=== PATIENT | male | born 1945 | race Caucasian/White ===

== ENCOUNTER → 2016-08-27 | Outpatient (CLI) | payer MEDICARE ==
[2016-08-27 13:19] LABS: Anisocytosis Slight; CH 31.1; CHCM 32.4; HCT 36.3 % (39.0-53.0); HDW 3.43; HGB 11.7 gm/dL (13.0-17.5); Hypochromasia Slight; MCHC 32.1 g/dL (31.0-37.0); MCV 96.6 fL (80.0-100.0); Macrocytosis Slight; Mean Platelet Volume 8.7; Poikilocytosis Slight; RBC 3.76 m/uL (4.30-5.90); RDW 17.3 % (11.5-15.5); WBC 5.9 k/uL (3.8-10.6)
[2016-08-27 13:30] LABS: Anion Gap 12 mmol/L; Blood Urea Nitrogen 19 mg/dL (9-20); Carbon Dioxide 26 mmol/L (22-30); Chloride 105 mmol/L (98-107); Non-African American GFR(MDRD) >60 (>60 ml/min/1.73 sqM); Potassium 4.6 mmol/L (3.5-5.1); Sodium 143 mmol/L (137-145)
== END | disposition home or self-care (01) ==
LOC: LABPAT 12:44
PROVIDERS: ATTEND Internal Medicine Interventional Cardiology
DX: Z01.812 Encounter for preprocedural laboratory examination (principal); I34.0 Nonrheumatic mitral (valve) insufficiency
CPT/HCPCS: 80051; 82565; 84520; 85027

== ENCOUNTER 2016-08-30 06:18 | Day surgery (SDC) | payer MEDICARE ==
[2016-08-25 09:38] VITALS: BMI 20.7
[~2016-08-30 06:18] MED LIST: ALPRAZolam 0.25 MG TAB PO PRN; ALPRAZolam 0.5 MG TAB PO PRN; ASPIRIN 325 MG TAB PO STA; ATORVASTATIN 80 MG TAB PO STA; NITROGLYCERIN SL TABS 0.4 MG TAB SUBLINGUAL PRN; SODIUM CHLORIDE 0.9% 1,000 ML in EMPTY BAG 1 BAG IV ONE
[2016-08-30 07:03] VITALS: RESP 16; TEMP 97.9
[2016-08-30 07:14] LABS: INR 1.3 (<1.1); Prothrombin Time 12.5 sec (9.0-12.0)
[2016-08-30] MEDS ORDERED: MIDAZOLAM 2 MG/2 ML VIAL IV ONE (07:53)
[2016-08-30] MEDS ORDERED: LIDOCAINE 2% INJ 20 MG/ML SQ ONE (07:56)
[2016-08-30] MEDS ORDERED: IOHEXOL 350 MG/ML 100 ML BOTTLE INJ ONE (08:11)
[2016-08-30] MEDS ORDERED: RX INFO: IV CONTRAST WAS GIVEN 1 EACH MISC MISCELLANE PRN (08:20)
[2016-08-30] MEDS ORDERED: SODIUM CHLORIDE 0.9% 1,000 ML IV SCH (08:30)
[2016-08-30 14:09] VITALS: BP 117/74; PULSE 109
--- NOTE | 2016-08-30 15:30 | CC ---
DATE OF SERVICE: 08/30/2016 Performing physician: Paco Escoto M.D. cutter brake lining. PROCEDURE PERFORMED: 1. Selective right and left coronary angiogram. 2. Left heart catheterization. 3. Left ventriculography. INDICATION: This is a pleasant 71-year-old gentleman with chronic atrial fibrillation and severe MR who was admitted to the hospital today to undergo a heart catheterization before mitral valve repair/replacement in the next few weeks with Dr. Mir. Approach: Right common femoral artery. COMPLICATIONS: None. Level of sedation: Moderate. PROCEDURE DESCRIPTION: After obtaining informed consent, the patient was brought to the cardiac laborer poultry [facility]. The right common femoral artery was cannulated using micropuncture technique. Micropuncture wire passed easily. Then I placed 6 [place] sheath in the right common femoral artery. Subsequently, I did selective right and left coronary angiogram using JR4 and JL4 catheters. Then I did left heart catheterization and subsequently LV gram using a 6 [place] pigtail catheter. The procedure was completed without any complication. CORONARY ANGIOGRAM: 1. The RCA is a large-caliber vessel and it is a dominant vessel. The ostial right coronary artery is calcified. The proximal RCA appeared to be angiographically normal. The mid RCA has a lesion that seems to be in the range of 40%. The RCA distally besides being calcified appeared to have mild disease only and bifurcates into PDA and PLV branches; both have mild disease only. 2. The left main: The distal left main appeared to be diseased in the range of 30% and seems to be calcified left main. It bifurcates into the left circumflex and left anterior descending artery. The left circumflex is a moderate-caliber vessel and it is a nondominant vessel. The proximal left circumflex appeared to have mild disease only. It gives rises into a medium sized ramus intermedius, which appeared to have mild disease in the proximal portion. The mid left circumflex appeared to be angiographically normal and gives rise into the second OM branch, which is a small-caliber vessel. The left circumflex distally seems to be angiographically normal. 3. Left anterior descending artery. The proximal left anterior descending artery appeared to have disease in the range of 30% to 40% and seems to be calcified as well. The mid LAD appeared to be angiographically normal. The LAD in the midportion gives rise into second diagonal branch, which appeared to be angiographically normal. The LAD distally is normal. HEMODYNAMICS: The left ventricular end-diastolic pressure was 12 mmHg and no gradient was identified across the aortic valve. Left ventriculography was performed in the MURPHY projection and using a power injection, the left ventricular systolic function seems to be mildly impaired with EF between 40% to 45% with global hypokinesia and severe MR with dilated left atrium. CONCLUSION: 1. Calcified right and left coronary system. 2. 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 3. Mild disease involving the distal left main coronary artery. 4. Mildly impaired left ventricular function with an ejection fraction around 40 to 45% with global hypokinesia. 5. 4+ mitral regurgitation with severe left atrial enlargement. POSTPROCEDURE MANAGEMENT: The patient is going to undergo mitral valve repair/replacement with Dr. Mir without the need for coronary artery bypass grafting.
== END 2016-08-30 15:29 | disposition home or self-care (01) ==
LOC: CATHCVL 06:18
PROVIDERS: ATTEND Internal Medicine Interventional Cardiology
DX: I08.1 Rheumatic disorders of both mitral and tricuspid valves (principal); I25.10 Atherosclerotic heart disease of native coronary artery without angina pectoris; I25.84 Coronary atherosclerosis due to calcified coronary lesion; Z82.49 Family history of ischemic heart disease and other diseases of the circulatory system; Z87.891 Personal history of nicotine dependence; Z79.01 Long term (current) use of anticoagulants; Z79.899 Other long term (current) drug therapy
CPT/HCPCS: 93458; 85610; 99152; C1894; C1769 ×2; J2001; J2250; Q9967

== ENCOUNTER 2016-11-05 09:53 | Emergency (ER) | payer MEDICARE ==
[2016-11-05 10:06] VITALS: RESP 18
--- NOTE | 2016-11-05 10:33 | ED ---
General Adult HPI - General Chief complaint: Weakness Stated complaint: Low Heart Rate Time Seen by Provider: 11/05/16 09:55 Source: EMS Mode of arrival: EMS Limitations: no limitations - Related Data Home Medications Medication Instructions Recorded Confirmed Aspirin 81 mg PO DAILY 11/05/16 11/05/16 Atorvastatin Calcium [Lipitor] 20 mg PO HS 11/05/16 11/05/16 Hydrocodone/Acetaminophen [[place] 1 tab PO Q4HR PRN 11/05/16 11/05/16 5-325] Lisinopril [Zestril] 10 mg PO DAILY 11/05/16 11/05/16 Metoprolol Tartrate [Metoprolol 12.5 mg PO BID 11/05/16 11/05/16 Tartrate] Allergies Allergy/AdvReac Type Severity Reaction Status Date / Time No Known Allergies Allergy Verified 11/05/16 10:56 Review of Systems ROS Statement: Those systems with pertinent positive or pertinent negative responses have been documented in the HPI. ROS Other: All systems not noted in ROS Statement are negative. Past Medical History Past Medical History: Atrial Fibrillation, Hypertension, Mitral Valve Prolapse ( MVP) History of Any Multi-Drug Resistant Organisms: None Reported Past Surgical History: Cardiac Valve Replacement, Hernia Repair Additional Past Surgical History / Comment(s): PAULINA HERNIA REPAIR, KAYLAN Past Anesthesia/Blood Transfusion Reactions: No Reported Reaction Past Psychological History: No Psychological Hx Reported Smoking Status: Former smoker Past Alcohol Use History: Occasional Additional Past Alcohol Use History / Comment(s): SMOKED 1PPD FOR ABOUT 4 YRS IN THE MIDDLE 60'S. STATES DRINKS 2 DRINKS DAILY Past Drug Use History: None Reported - Past Family History Father Sister(s) Family Medical History: Cancer Father Family Medical History: Cancer Additional Family Medical History / Comment(s): PROSTATE Sister(s) Family Medical History: Cancer General Exam Limitations: no limitations Course Vital Signs 11/05/16 11/05/16 11/05/16 09:56 10:16 12:22 Temperature 99.4 F Pulse Rate 45 L 45 L Pulse Rate [ 45 L Network Lead ] Respiratory 18 18 Rate Blood Pressure 107/53 110/56 O2 Sat by Pulse 97 98 Oximetry - Reevaluation(s) Reevaluation #1: 11/05/16 13:04 Patient remains asymptomatic, no shortness of breath no lightheadedness dizziness or weakness blood pressure normal Reevaluation #2: 11/05/16 13:[address] Mir, patient's surgeon, patient was seen in the emergency room by Dr. Mir and cleared for discharge EKG Findings - EKG Comments: EKG Findings:: EKG shows A. fib with a rate of 42, QRS 84, QTC 379 Medical Decision Making - Medical Decision Making 71 LDF. Bradycardia, patient's symptoms at this point are none, heart rate still in the low end, patient was seen in ER by Dr. Mir, Dr. Mir will recommend discharge home with follow-up in the office this week - Lab Data Result diagrams: 11/05/16 10:13 11/05/16 10:13 Lab Results 11/05/16 11/05/16 11/05/16 Range/Units 10:13 10:13 10:13 WBC 10.7 H (3.8-10.6) k/uL RBC 2.78 L (4.30-5.90) m/uL Hgb 8.6 L (13.0-17.5) gm/dL Hct 26.3 L (39.0-53.0) % MCV 94.7 (80.0-100.0) fL MCH 31.1 (25.0-35.0) pg MCHC 32.9 (31.0-37.0) g/dL RDW 16.7 H (11.5-15.5) % Plt Count 616 H (150-450) k/uL Neutrophils % 77 % Lymphocytes % 9 % Monocytes % 8 % Eosinophils % 2 % Basophils % 1 % Neutrophils # 8.2 H (1.3-7.7) k/uL Lymphocytes # 1.0 (1.0-4.8) k/uL Monocytes # 0.9 (0-1.0) k/uL Eosinophils # 0.2 (0-0.7) k/uL Basophils # 0.1 (0-0.2) k/uL Anisocytosis Slight PT (9.0-12.0) sec INR (<1.1) APTT (22.0-30.0) sec Sodium 137 (137-145) mmol/L Potassium 5.2 H (3.5-5.1) mmol/L Chloride 103 (98-107) mmol/L Carbon Dioxide 26 (22-30) mmol/L Anion Gap 8 mmol/L BUN 20 (9-20) mg/dL Creatinine 0.79 (0.66-1.25) mg/dL Est GFR (MDRD) Af Amer >60 (>60 ml/min/1.73 sqM) Est GFR (MDRD) Non-Af >60 (>60 ml/min/1.73 sqM) Glucose 96 (74-99) mg/dL Calcium 9.0 (8.4-10.2) mg/dL Phosphorus 4.3 (2.5-4.5) mg/dL Magnesium 2.2 (1.6-2.3) mg/dL Total Bilirubin 0.6 (0.2-1.3) mg/dL AST 69 H (17-59) U/L ALT 112 H (21-72) U/L Alkaline Phosphatase 128 H (38-126) U/L Total Creatine Kinase 49 L (55-170) U/L CK-MB (CK-2) 1.5 (0.0-2.4) ng/mL CK-MB (CK-2) Rel Index 3.1 Troponin I 0.976 H* (0.000-0.034) ng/mL Total Protein 6.0 L (6.3-8.2) g/dL Albumin 3.3 L (3.5-5.0) g/dL 11/05/16 Range/Units 10:13 WBC (3.8-10.6) k/uL RBC (4.30-5.90) m/uL Hgb (13.0-17.5) gm/dL Hct (39.0-53.0) % MCV (80.0-100.0) fL MCH (25.0-35.0) pg MCHC (31.0-37.0) g/dL RDW (11.5-15.5) % Plt Count (150-450) k/uL Neutrophils % % Lymphocytes % % Monocytes % % Eosinophils % % Basophils % % Neutrophils # (1.3-7.7) k/uL Lymphocytes # (1.0-4.8) k/uL Monocytes # (0-1.0) k/uL Eosinophils # (0-0.7) k/uL Basophils # (0-0.2) k/uL Anisocytosis PT 11.8 (9.0-12.0) sec INR 1.2 (<1.1) APTT 27.1 (22.0-30.0) sec Sodium (137-145) mmol/L Potassium (3.5-5.1) mmol/L Chloride (98-107) mmol/L Carbon Dioxide (22-30) mmol/L Anion Gap mmol/L BUN (9-20) mg/dL Creatinine (0.66-1.25) mg/dL Est GFR (MDRD) Af Amer (>60 ml/min/1.73 sqM) Est GFR (MDRD) Non-Af (>60 ml/min/1.73 sqM) Glucose (74-99) mg/dL Calcium (8.4-10.2) mg/dL Phosphorus (2.5-4.5) mg/dL Magnesium (1.6-2.3) mg/dL Total Bilirubin (0.2-1.3) mg/dL AST (17-59) U/L ALT (21-72) U/L Alkaline Phosphatase (38-126) U/L Total Creatine Kinase (55-170) U/L CK-MB (CK-2) (0.0-2.4) ng/mL CK-MB (CK-2) Rel Index Troponin I (0.000-0.034) ng/mL Total Protein (6.3-8.2) g/dL Albumin (3.5-5.0) g/dL - Radiology Data Radiology results: report reviewed (Chest x-ray shows no significant findings), image reviewed Disposition Clinical Impression: Bradycardia, Atrial fibrillation, Post-operative complication Disposition: HOME SELF-CARE Condition: Good Instructions: Bradycardia (ED) Referrals: Zhen Carlos MD [Primary Care Provider] - 1-2 days Yaya Mir MD [STAFF PHYSICIAN] - 1-2 days
[2016-11-05] MEDS ORDERED: SODIUM CHLORIDE 0.9% 1,000 ML IV STA (10:38)
[2016-11-05 11:05] LABS: ALT 112 U/L (21-72); AST 69 U/L (17-59); Alkaline Phosphatase 128 U/L (38-126); Anion Gap 8 mmol/L; Blood Urea Nitrogen 20 mg/dL (9-20); Carbon Dioxide 26 mmol/L (22-30); Chloride 103 mmol/L (98-107); Glucose 96 mg/dL (74-99); Magnesium 2.2 mg/dL (1.6-2.3); Non-African American GFR(MDRD) >60 (>60 ml/min/1.73 sqM); Phosphorous 4.3 mg/dL (2.5-4.5); Potassium 5.2 mmol/L (3.5-5.1); Sodium 137 mmol/L (137-145); Total Bilirubin 0.6 mg/dL (0.2-1.3)
[2016-11-05 11:07] LABS: INR 1.2 (<1.1); Partial Thromboplastin Time 27.1 sec (22.0-30.0); Prothrombin Time 11.8 sec (9.0-12.0)
[2016-11-05 11:10] LABS: Anisocytosis Slight; Basophils # (A) 0.1 k/uL (0-0.2); Basophils % (A) 1 %; CH 31.3; CHCM 33.3; Eosinophils # (A) 0.2 k/uL (0-0.7); Eosinophils % (A) 2 %; HCT 26.3 % (39.0-53.0); HDW 3.38; HGB 8.6 gm/dL (13.0-17.5); Luc % (Auto) 3; Lymphocytes % (A) 9 %; MCH 31.1 pg (25.0-35.0); MCHC 32.9 g/dL (31.0-37.0); MCV 94.7 fL (80.0-100.0); Mean Platelet Volume 8.5; Monocytes # (A) 0.9 k/uL (0-1.0); Monocytes % (A) 8 %; Neutrophils # (A) 8.2 k/uL (1.3-7.7); Neutrophils % (A) 77 %; RBC 2.78 m/uL (4.30-5.90); RDW 16.7 % (11.5-15.5); WBC 10.7 k/uL (3.8-10.6); WBC (Perox) 10.71
[2016-11-05 11:31] LABS: Creatine Kinase MB 1.5 ng/mL (0.0-2.4)
[2016-11-05 11:35] LABS: Troponin I 0.976 ng/mL (0.000-0.034)
--- NOTE | 2016-11-05 12:18 | XR ---
EXAMINATION TYPE: XR chest 2V DATE OF EXAM: 11/05/2016 12:12 PM COMPARISON: NONE TECHNIQUE: PA and lateral views submitted. HISTORY: Pain FINDINGS: Left lower lobe infiltrate and small effusion. The heart is enlarged. Postsurgical changes noted. Davide rnotomy wires seen. No overt failure. IMPRESSION: 1. Cardiomegaly with left lower lobe infiltrate and small effusion.
[2016-11-05 13:20] VITALS: BP 120/59; PULSE 56; TEMP 98.2
--- NOTE | 2016-11-05 13:32 | CONS ---
DATE OF CONSULTATION: Mr. Wu is a 71 -year-old gentleman who is two weeks status post mitral and tricuspid valve repair and modified Lucas-Maze procedure for persistent atrial fibrillation associated with mitral and tricuspid valve regurgitation. The patient called my office today because his heart rate was in the 40s and he was scared. He was otherwise asymptomatic. We reassured him not to worry and recommended he discontinue his Lopressor. His was nervous and brought him to the Emergency Room Department . Here in the Emergency Room Department, his lab work is essentially unchanged from hospitalization. He has no white count. His hemoglobin is 8.6. His EKG demonstrates atrial fibrillation with a slow ventricular response with a heart rate in the 40s. On the monitor, he is going anywhere from about 40 to 55. His blood pressure is good and he is asymptomatic. His chest x-ray demonstrates a small left basilar pleural effusion, otherwise unremarkable. Lung kapadia are clear. Heart rate is irregularly irregular without murmur, rub or gallop. Appears the patient has slipped back into atrial fibrillation status post his mitral, tricuspid repair and Lucas-Maze procedure. He is currently on anticoagulation. He has slow ventricular response. We will discontinue this Lopressor and discharge him home and follow-up with him in the office in a week or so.
--- NOTE | 2016-11-08 12:08 | CDI ---
Please provide an HPI for this patient. Thank you Sharon MENDOZA
== END 2016-11-05 13:17 | disposition home or self-care (01) ==
LOC: EC 09:53
DX: I97.190 Other postprocedural cardiac functional disturbances following cardiac surgery (principal); I48.91 Unspecified atrial fibrillation; R00.1 Bradycardia, unspecified; I51.7 Cardiomegaly; J90 Pleural effusion, not elsewhere classified; I34.1 Nonrheumatic mitral (valve) prolapse; I10 Essential (primary) hypertension; Z79.899 Other long term (current) drug therapy; Z79.82 Long term (current) use of aspirin; Z87.891 Personal history of nicotine dependence; Z95.2 Presence of prosthetic heart valve; Z79.01 Long term (current) use of anticoagulants
CPT/HCPCS: 36415; 71020; 80053; 82550; 82553; 83735; 84100; 84484; 85025; 85610; 85730; 93005; 96360; 96361; 99285

== ENCOUNTER → 2016-12-15 | Outpatient (CLI) | payer MEDICARE ==
[2016-12-15 08:13] LABS: Anisocytosis Slight; Basophils % (A) 1 %; CH 30.1; CHCM 31.8; Eosinophils # (A) 0.2 k/uL (0-0.7); Eosinophils % (A) 4 %; HCT 31.3 % (39.0-53.0); HDW 3.13; HGB 9.8 gm/dL (13.0-17.5); Hypochromasia Slight; Luc # (Auto) 0.22; Luc % (Auto) 4; Lymphocytes # (A) 0.9 k/uL (1.0-4.8); Lymphocytes % (A) 15 %; MCH 29.8 pg (25.0-35.0); MCHC 31.4 g/dL (31.0-37.0); MCV 95.1 fL (80.0-100.0); Mean Platelet Volume 8.5; Monocytes # (A) 0.5 k/uL (0-1.0); Monocytes % (A) 8 %; Neutrophils # (A) 4.2 k/uL (1.3-7.7); Neutrophils % (A) 70 %; RBC 3.28 m/uL (4.30-5.90); RDW 17.1 % (11.5-15.5); WBC 6.1 k/uL (3.8-10.6); WBC (Perox) 6.34
[2016-12-15 11:43] LABS: Hemoglobin A1C 6.3 % (4.2-6.1)
[2016-12-15 11:49] LABS: ALT 31 U/L (21-72); AST 26 U/L (17-59); Alkaline Phosphatase 77 U/L (38-126); Anion Gap 8 mmol/L; Bilirubin, Delta 0.1 mg/dL (0.0-0.2); Blood Urea Nitrogen 22 mg/dL (9-20); Calcium 9.7 mg/dL (8.4-10.2); Carbon Dioxide 26 mmol/L (22-30); Chloride 107 mmol/L (98-107); Cholesterol 138 mg/dL (<200); Glucose 100 mg/dL (74-99); HDL Cholesterol 29 mg/dL (40-60); Non-African American GFR(MDRD) >60 (>60 ml/min/1.73 sqM); Potassium 4.7 mmol/L (3.5-5.1); Sodium 141 mmol/L (137-145); Total Bilirubin 0.5 mg/dL (0.2-1.3); Total Protein 6.5 g/dL (6.3-8.2); Triglycerides 131 mg/dL (<150)
[2016-12-15 12:18] LABS: Prostate Specific Antigen 1.29 ng/mL (0.00-4.00)
== END | disposition home or self-care (01) ==
LOC: LABWHC1 07:05
PROVIDERS: ATTEND Internal Medicine
DX: E78.2 Mixed hyperlipidemia (principal); I48.2 Chronic atrial fibrillation; D69.1 Qualitative platelet defects; N40.0 Benign prostatic hyperplasia without lower urinary tract symptoms; R73.03 Prediabetes
CPT/HCPCS: 36415; 80048; 80061; 80076; 83036; 84153; 85025

== ENCOUNTER → 2017-03-24 | Outpatient (CLI) | payer MEDICARE ==
[2017-03-24 19:21] LABS: Anisocytosis Slight; CH 29.4; CHCM 29.7; HCT 33.4 % (39.0-53.0); HDW 2.62; Hypochromasia Marked; MCH 29.9 pg (25.0-35.0); MCHC 30.1 g/dL (31.0-37.0); MCV 99.5 fL (80.0-100.0); Macrocytosis Slight; Mean Platelet Volume 9.7; RBC 3.36 m/uL (4.30-5.90); RBC Ghost Flag Slight; RDW 17.7 % (11.5-15.5); WBC 5.1 k/uL (3.8-10.6); WBC (Perox) 5.41
[2017-03-24 21:41] LABS: Add Differential Manual Differential
[2017-03-24 21:44] LABS: Band Neutrophils % 4 %; Nucleated Red Blood Cells 0 /100 WBC (0-0); Total Cells Counted 100
[2017-03-24 21:45] LABS: Manual Review Performed; Ovalocytes Present; Polychromasia Present
== END | disposition home or self-care (01) ==
LOC: LABWHC1 12:17
PROVIDERS: ATTEND Internal Medicine
DX: D64.9 Anemia, unspecified (principal)
CPT/HCPCS: 36415; 85025

== ENCOUNTER → 2017-07-24 | Outpatient (CLI) | payer MEDICARE ==
[2017-07-24 13:48] LABS: INR 1.2 (<1.2); Partial Thromboplastin Time 26.2 sec (22.0-30.0); Prothrombin Time 11.2 sec (9.0-12.0)
== END | disposition home or self-care (01) ==
LOC: LABMAIN 12:47
PROVIDERS: ATTEND Physical Medicine & Rehabilitation
DX: M54.16 Radiculopathy, lumbar region (principal); S39.012A Strain of muscle, fascia and tendon of lower back, initial encounter
CPT/HCPCS: 36415; 85610; 85730

== ENCOUNTER → 2018-01-31 | Outpatient (CLI) | payer MEDICARE ==
[2018-01-31 09:29] LABS: Anisocytosis Slight; HCT 34.8 % (39.0-53.0); HGB 10.9 gm/dL (13.0-17.5); Hypochromasia Slight; MCH 29.8 pg (25.0-35.0); MCHC 31.2 g/dL (31.0-37.0); MCV 95.4 fL (80.0-100.0); Mean Platelet Volume 9.5; Platelet Count 752 k/uL (150-450); RBC 3.65 m/uL (4.30-5.90); RDW 16.9 % (11.5-15.5); WBC 5.7 k/uL (3.8-10.6)
[2018-01-31 10:01] LABS: ALT 47 U/L (21-72); AST 45 U/L (17-59); Anion Gap 5 mmol/L; Blood Urea Nitrogen 18 mg/dL (9-20); Calcium 9.6 mg/dL (8.4-10.2); Carbon Dioxide 28 mmol/L (22-30); Chloride 106 mmol/L (98-107); Cholesterol 150 mg/dL (<200); Glucose 102 mg/dL (74-99); HDL Cholesterol 43 mg/dL (40-60); LDL Cholesterol,Calculated 83 mg/dL (0-99); Potassium 4.6 mmol/L (3.5-5.1); Sodium 139 mmol/L (137-145); Triglycerides 118 mg/dL (<150)
[2018-01-31 10:39] LABS: Eosinophils # (M) 0.06 k/uL (0-0.7); Nucleated Red Blood Cells 0 /100 WBC (0-0)
[2018-01-31 10:42] LABS: Band Neutrophils % 3 %; Lymphocytes # (M) 0.57 k/uL (1.0-4.8); Monocytes # (M) 0.46 k/uL (0-1.0); Neutrophils % (M) 80 %; Total Cells Counted 200
[2018-01-31 10:43] LABS: Anisocytosis (M) Present; Poikilocytosis (M) Present; RBC Fragments Present
[2018-01-31 10:44] LABS: Ovalocytes Present; Polychromasia Present
[2018-01-31 17:58] LABS: Hemoglobin A1C 5.7 % (4.0-6.0)
== END | disposition home or self-care (01) ==
LOC: LABWHC1 08:09
PROVIDERS: ATTEND Internal Medicine
DX: E78.2 Mixed hyperlipidemia (principal); E55.9 Vitamin D deficiency, unspecified; R73.03 Prediabetes; D69.1 Qualitative platelet defects; I48.2 Chronic atrial fibrillation; N40.0 Benign prostatic hyperplasia without lower urinary tract symptoms
CPT/HCPCS: 36415; 80048; 80061; 82306; 83036; 84153; 84450; 84460; 85025

== ENCOUNTER → 2020-02-25 | Outpatient (CLI) | payer MEDICARE ==
[2020-02-25 15:52] LABS: Chol/HDL Ratio 3.82; LDL Cholesterol,Calculated 84.2 mg/dL (0.0-131.0); VLDL Calculation 25.8 mg/dL (5.00-40.00)
[2020-02-25 17:47] LABS: Hemoglobin A1C 4.3 % (4.0-6.0)
== END | disposition home or self-care (01) ==
LOC: LABWHC1 07:53
PROVIDERS: ATTEND Internal Medicine
DX: E55.9 Vitamin D deficiency, unspecified (principal)
CPT/HCPCS: 36415; 80061; 82306; 82947; 83036

== ENCOUNTER 2021-02-26 23:45 | Emergency (ER) | payer MEDICARE ==
[2021-02-27 00:02] VITALS: TEMP 98.2
[2021-02-27] MEDS ORDERED: SODIUM CHLORIDE 0.9% 1,000 ML IV STA (00:57)
[2021-02-27] MEDS ORDERED: SODIUM CHLORIDE 0.9% 500 ML 500 ML IV STA (00:57)
[2021-02-27] MEDS ORDERED: PROCHLORPERAZINE INJ 10 MG/2 ML VIAL IVP STA (00:58)
[2021-02-27] MEDS ORDERED: MORPHINE SULFATE 4 MG/ML SYRINGE IVP STA (00:58)
[2021-02-27] MEDS ORDERED: diphenhydrAMINE 50 MG/ML 1 ML VIAL IVP STA (00:58)
[2021-02-27] MEDS ORDERED: KETOROLAC 15 MG/ML 1 ML VIAL IVP STA (01:18)
--- NOTE | 2021-02-27 01:18 | ED ---
Recheck HPI - General Chief Complaint: Headache Stated Complaint: Headache Time Seen by Provider: 02/27/21 00:59 Source: patient, RN notes reviewed, old records reviewed Mode of arrival: ambulatory Limitations: no limitations - History of Present Illness Initial Comments: This is a 75-year-old male to the ER today for evaluation regards to headache. Patient has had outpatient evaluation for headache but no outpatient treatment does appear to be helping. No trauma the patient is unable to sleep secondary to this headache. He has had an outpatient computed tomography scan which is negative for acute disease both with and without contrast. Patient is without any seizure activity no neurological complaint is able to ambulate will do activities of daily living without neurological difficulty. Patient has had history of headaches although isn't by far the longest and worse patient's headache is diffuse and global from the right ear across the left ear MD Complaint: other (Persistent headache) -: week(s) Returns Today for: persistent/worsening pain related to initial visit Symptoms Since Prior Visit: worsening pain Context: other (Persistent headache) Associated Symptoms: none Treatments Prior to Arrival: other medications, Given Pain Meds on - Related Data Home Medications Medication Instructions Recorded Confirmed Aspirin 81 mg PO DAILY 11/05/16 11/05/16 Atorvastatin Calcium [Lipitor] 20 mg PO HS 11/05/16 11/05/16 Hydrocodone/Acetaminophen [[place] 1 tab PO Q4HR PRN 11/05/16 11/05/16 5-325] Lisinopril [Zestril] 10 mg PO DAILY 11/05/16 11/05/16 Metoprolol Tartrate 12.5 mg PO BID 11/05/16 11/05/16 Allergies Allergy/AdvReac Type Severity Reaction Status Date / Time No Known Allergies Allergy Verified 02/27/21 00:02 Review of Systems ROS Statement: Those systems with pertinent positive or pertinent negative responses have been documented in the HPI. ROS Other: All systems not noted in ROS Statement are negative. Past Medical History Past Medical History: Atrial Fibrillation, Blood Disorder, Hypertension, Mitral Valve Prolapse (MVP) History of Any Multi-Drug Resistant Organisms: None Reported Past Surgical History: Cardiac Valve Replacement, Hernia Repair Additional Past Surgical History / Comment(s): PAULINA HERNIA REPAIR, KAYLAN Past Anesthesia/Blood Transfusion Reactions: No Reported Reaction Past Psychological History: No Psychological Hx Reported Smoking Status: Never smoker Past Alcohol Use History: Daily, Occasional Past Drug Use History: None Reported - Past Family History Father Sister(s) Family Medical History: Cancer Father Family Medical History: Cancer Additional Family Medical History / Comment(s): PROSTATE Sister(s) Family Medical History: Cancer General Exam - General Exam Comments Initial Comments: NIH of 0 Limitations: no limitations General appearance: alert, in no apparent distress Head exam: Present: atraumatic, normocephalic, normal inspection Eye exam: Present: normal appearance, PERRL, EOMI. Absent: scleral icterus, conjunctival injection, periorbital swelling ENT exam: Present: normal exam, mucous membranes moist Neck exam: Present: normal inspection. Absent: tenderness, meningismus, lymphadenopathy Respiratory exam: Present: normal lung sounds bilaterally. Absent: respiratory distress, wheezes, rales, rhonchi, stridor Cardiovascular Exam: Present: regular rate, normal rhythm, normal heart sounds. Absent: systolic murmur, diastolic murmur, rubs, gallop, clicks GI/Abdominal exam: Present: soft, normal bowel sounds. Absent: distended, tenderness, guarding, rebound, rigid Extremities exam: Present: normal inspection, full ROM, normal capillary refill. Absent: tenderness, pedal edema, joint swelling, calf tenderness Back exam: Present: normal inspection Neurological exam: Present: alert, oriented X3, CN II-XII intact Psychiatric exam: Present: normal affect, normal mood Skin exam: Present: warm, dry, intact, normal color. Absent: rash Course Vital Signs 02/26/21 23:56 Temperature 98.2 F Pulse Rate 86 Respiratory 16 Rate Blood Pressure 127/69 O2 Sat by Pulse 97 Oximetry - Reevaluation(s) Reevaluation #1: 02/27/21 02:04 Medical record is reviewed Reevaluation #2: 02/27/21 02:05 Patient's headache is improved Reevaluation #3: 02/27/21 02:05 Patient informed results and questions answered Medical Decision Making - Medical Decision Making 75 male to the ER with headache. Persistent headache with prior CT scans negative, patient does have improvement of headache here in the ER and can be discharged home - Lab Data Result diagrams: 02/27/21 00:57 02/27/21 00:57 Lab Results 02/27/21 02/27/21 02/27/21 Range/Units 00:57 00:57 00:57 WBC 9.6 (3.8-10.6) k/uL RBC 2.36 L (4.30-5.90) m/uL Hgb 7.6 L (13.0-17.5) gm/dL Hct 24.2 L (39.0-53.0) % MCV 102.3 H (80.0-100.0) fL MCH 32.3 (25.0-35.0) pg MCHC 31.5 (31.0-37.0) g/dL RDW 23.1 H (11.5-15.5) % Plt Count 776 H (150-450) k/uL MPV 9.3 Hypochromasia Slight Poikilocytosis Slight Anisocytosis Moderate Microcytosis Slight Macrocytosis Marked A APTT 30.3 H (22.0-30.0) sec Sodium 136 L (137-145) mmol/L Potassium 4.9 (3.5-5.1) mmol/L Chloride 103 (98-107) mmol/L Carbon Dioxide 24 (22-30) mmol/L Anion Gap 9 mmol/L BUN 26 H (9-20) mg/dL Creatinine 0.99 (0.66-1.25) mg/dL Est GFR (CKD-EPI)AfAm 86 (>60 ml/min/1.73 sqM) Est GFR (CKD-EPI)NonAf 74 (>60 ml/min/1.73 sqM) Glucose 107 H (74-99) mg/dL Calcium 9.5 (8.4-10.2) mg/dL Phosphorus 4.1 (2.5-4.5) mg/dL Magnesium 2.1 (1.6-2.3) mg/dL Total Bilirubin 1.8 H (0.2-1.3) mg/dL AST 134 H (17-59) U/L ALT 46 (4-49) U/L Alkaline Phosphatase 82 (38-126) U/L Troponin I (0.000-0.034) ng/mL C-Reactive Protein 0.7 (<1.0) mg/dL Total Protein 6.7 (6.3-8.2) g/dL Albumin 4.6 (3.5-5.0) g/dL 08/20/21 Range/Units 00:57 WBC (3.8-10.6) k/uL RBC (4.30-5.90) m/uL Hgb (13.0-17.5) gm/dL Hct (39.0-53.0) % MCV (80.0-100.0) fL MCH (25.0-35.0) pg MCHC (31.0-37.0) g/dL RDW (11.5-15.5) % Plt Count (150-450) k/uL MPV Hypochromasia Poikilocytosis Anisocytosis Microcytosis Macrocytosis APTT (22.0-30.0) sec Sodium (137-145) mmol/L Potassium (3.5-5.1) mmol/L Chloride (98-107) mmol/L Carbon Dioxide (22-30) mmol/L Anion Gap mmol/L BUN (9-20) mg/dL Creatinine (0.66-1.25) mg/dL Est GFR (CKD-EPI)AfAm (>60 ml/min/1.73 sqM) Est GFR (CKD-EPI)NonAf (>60 ml/min/1.73 sqM) Glucose (74-99) mg/dL Calcium (8.4-10.2) mg/dL Phosphorus (2.5-4.5) mg/dL Magnesium (1.6-2.3) mg/dL Total Bilirubin (0.2-1.3) mg/dL AST (17-59) U/L ALT (4-49) U/L Alkaline Phosphatase (38-126) U/L Troponin I 0.048 H* (0.000-0.034) ng/mL C-Reactive Protein (<1.0) mg/dL Total Protein (6.3-8.2) g/dL Albumin (3.5-5.0) g/dL Disposition Clinical Impression: Headache, Anemia Disposition: HOME SELF-CARE Condition: Good Instructions (If sedation given, give patient instructions): Acute Headache (ED) Is patient prescribed a controlled substance at d/c from ED?: No Referrals: Nonstaff,Physician [Primary Care Provider] - 1-2 days
[2021-02-27 01:52] LABS: Albumin 4.6 g/dL (3.5-5.0); C Reactive Protein 0.7 mg/dL (<1.0); Calcium 9.5 mg/dL (8.4-10.2); Magnesium 2.1 mg/dL (1.6-2.3); Phosphorus 4.1 mg/dL (2.5-4.5); Potassium 4.9 mmol/L (3.5-5.1); Total Bilirubin 1.8 mg/dL (0.2-1.3); Total Protein 6.7 g/dL (6.3-8.2)
[2021-02-27 02:30] LABS: Anisocytosis Moderate; HCT 24.2 % (39.0-53.0); HGB 7.6 gm/dL (13.0-17.5); Hypochromasia Slight; MCH 32.3 pg (25.0-35.0); MCHC 31.5 g/dL (31.0-37.0); MCV 102.3 fL (80.0-100.0); Macrocytosis Marked; Mean Platelet Volume 9.3; Microcytosis Slight; Platelet Count 776 k/uL (150-450); Poikilocytosis Slight; RBC 2.36 m/uL (4.30-5.90); RDW 23.1 % (11.5-15.5)
[2021-02-27 03:32] LABS: Polychromasia Present; RBC Fragments Present
[2021-02-27 03:33] LABS: Large Platelets Present
[2021-02-27 03:46] VITALS: BP 117/74; PULSE 63; RESP 15
[2021-02-27 08:46] LABS: WBC 9.6 k/uL (3.8-10.6)
[2021-02-27 08:51] LABS: Band Neutrophils % 2 %; Basophils # (M) 0.19 k/uL (0-0.2); Blast Cells # (M) 0.48 k/uL (0); Eosinophils # (M) 0.19 k/uL (0-0.7); Lymphocytes # (M) 1.06 k/uL (1.0-4.8); Metamyelocytes # (M) 0.19 k/uL (0); Metamyelocytes % 2 %; Monocytes # (M) 1.25 k/uL (0-1.0); Myelocytes % 1 %; Neutrophils % (M) 65 %; Nucleated Red Blood Cells 0 /100 WBC (0-0); Total Cells Counted 200
== END 2021-02-27 03:44 | disposition home or self-care (01) ==
LOC: EC 23:45
DX: R51.9 Headache, unspecified (principal); D64.9 Anemia, unspecified; I48.91 Unspecified atrial fibrillation; I10 Essential (primary) hypertension; Z95.2 Presence of prosthetic heart valve; Z79.82 Long term (current) use of aspirin
CPT/HCPCS: 99284; 96365; 96375 ×4; 96361; 36415; 80053; 83735; 84100; 84484; 85025; 85730; 86140; J2270; J1200; J0780; J2930; J1885

== ENCOUNTER 2021-04-07 20:39 | Inpatient (IN) | payer MEDICARE ==
--- NOTE | 2021-04-07 21:41 | XR ---
EXAMINATION TYPE: XR abdomen 2V DATE OF EXAM: 04/07/2021 COMPARISON: NONE HISTORY: Abdominal pain TECHNIQUE: 3 views FINDINGS: Bowel gas pattern is normal. There is no sign of intestinal obstruction or pneumoperitoneum . Fecal pattern is normal. There are no pathologic calcifications over the kidneys. Bony structures a re intact. Lung bases are clear. IMPRESSION: Nonacute abdomen.
[2021-04-07] MEDS ORDERED: MORPHINE SULFATE 2 MG/ML SYRINGE IVP STA (22:06)
[2021-04-07] MEDS ORDERED: SODIUM CHLORIDE 0.9% 500 ML 500 ML IV STA (22:06)
--- NOTE | 2021-04-07 22:16 | ED ---
General Adult HPI - General Source: patient, family, RN notes reviewed, old records reviewed Mode of arrival: ambulatory Limitations: no limitations - History of Present Illness -: days(s) (1) Location: abdomen Radiation: non-radiation Severity scale (1-10): 5 Quality: aching Consistency: constant Improves with: none Worsens with: other (Vomiting) Associated Symptoms: nausea/vomiting, other (Dark colored urine) Treatments Prior to Arrival: other (Zofran 2) <Mike Vieira - Last Filed: 04/08/21 00:00> <Addy Harry - Last Filed: 04/08/21 01:57> - General Chief complaint: Abdominal Pain Stated complaint: Vomiting Time Seen by Provider: 04/07/21 21:55 - History of Present Illness Initial comments: This is a 75-year-old white male, alert and oriented 4, presents to the emergency room with complaints of right upper to mid abdominal pain that started this afternoon. He states that it is cramping in nature. It did cause him to vomit twice after eating chicken soup around 2:00. He then developed the abdominal pain with multiple dry heaves greater than 10 times. He states that he went to the bathroom and noticed that his urine is very dark in color which is new. He does have a history of anemia, atrial fibrillation, mitral valve prolapse, hypertension, and enlarged spleen his eyes are jaundiced which he states is new for him as well. He also has a history of myelofibrosis and is being treated and [facility] [place] with injections every 3 weeks to a 6 hemoglobin. He is normally anemic with hemoglobin of 7. (Mike Vieira) - Related Data Home Medications Medication Instructions Recorded Confirmed Aspirin 81 mg PO DAILY 11/05/16 11/05/16 Atorvastatin Calcium [Lipitor] 20 mg PO HS 11/05/16 11/05/16 Hydrocodone/Acetaminophen [Voca 1 tab PO Q4HR PRN 11/05/16 11/05/16 5-325] Lisinopril [Zestril] 10 mg PO DAILY 11/05/16 11/05/16 Metoprolol Tartrate 12.5 mg PO BID 11/05/16 11/05/16 Previous Rx's Medication Instructions Recorded Prochlorperazine [Compazine] 10 mg PO Q6H #20 tab 02/27/21 Allergies Allergy/AdvReac Type Severity Reaction Status Date / Time No Known Allergies Allergy Verified 04/07/21 21:11 Review of Systems ROS Other: All systems not noted in ROS Statement are negative. <IshaMike - Last Filed: 04/08/21 00:00> ROS Other: All systems not noted in ROS Statement are negative. <Addy Harry Joel - Last Filed: 04/08/21 01:57> ROS Statement: Those systems with pertinent positive or pertinent negative responses have been documented in the HPI. Past Medical History Past Medical History: Atrial Fibrillation, Blood Disorder, Hypertension, Mitral Valve Prolapse (MVP) History of Any Multi-Drug Resistant Organisms: None Reported Past Surgical History: Cardiac Valve Replacement, Hernia Repair Additional Past Surgical History / Comment(s): PAULINA HERNIA REPAIR, KAYLAN Past Anesthesia/Blood Transfusion Reactions: No Reported Reaction Past Psychological History: No Psychological Hx Reported Smoking Status: Never smoker Past Alcohol Use History: Daily, Occasional Past Drug Use History: None Reported - Past Family History Father Sister(s) Family Medical History: Cancer Father Family Medical History: Cancer Additional Family Medical History / Comment(s): PROSTATE Sister(s) Family Medical History: Cancer <gerardMike - Last Filed: 04/08/21 00:00> General Exam Limitations: no limitations General appearance: alert, in no apparent distress Head exam: Present: atraumatic, normocephalic, normal inspection Eye exam: Present: PERRL, EOMI, scleral icterus ENT exam: Present: normal exam, normal oropharynx, mucous membranes moist Neck exam: Present: normal inspection, full ROM. Absent: tenderness, meningismus, lymphadenopathy Respiratory exam: Present: normal lung sounds bilaterally. Absent: respiratory distress, wheezes, rales, rhonchi, stridor, chest wall tenderness Cardiovascular Exam: Present: tachycardia. Absent: JVD GI/Abdominal exam: Present: soft, tenderness (Right upper quadrant) Extremities exam: Present: normal inspection, full ROM, normal capillary refill. Absent: tenderness, pedal edema, joint swelling, calf tenderness Back exam: Present: normal inspection, full ROM. Absent: tenderness, CVA tenderness (R), CVA tenderness (L), rash noted Neurological exam: Present: alert, oriented X3 Psychiatric exam: Present: normal affect, normal mood Skin exam: Present: warm, dry, intact, pallor. Absent: rash, cyanosis, diaphoretic <Mike Vieira - Last Filed: 04/08/21 00:00> Course Vital Signs 04/07/21 04/08/21 04/08/21 21:09 00:00 01:02 Temperature 98.1 F Pulse Rate 107 H 95 110 H Respiratory 19 18 Rate Blood Pressure 180/97 184/112 182/105 O2 Sat by Pulse 99 97 Oximetry EKG Findings - EKG Results: EKG shows: atrial fibrillation (Ventricular rate of 99, QRS 0.96, QTC 0.408) <Mike Vieira - Last Filed: 04/08/21 00:00> Medical Decision Making - Lab Data Result diagrams: 04/07/21 22:18 04/07/21 23:04 <Mike Vieira - Last Filed: 04/08/21 00:00> - Lab Data Result diagrams: 04/07/21 22:18 04/07/21 23:04 <Addy Harry - Last Filed: 04/08/21 01:57> - Medical Decision Making X-ray of the abdomen shows no intestinal distraction or pneumoperitoneum. No calcifications over the kidneys. Patient's WBC count is 22.9, his hemoglobin is 9.3, his platelet count is elevated 990. Lactic acid is 2.2 and he was given a liter normal saline started at 30 mL an hour of normal saline. CK-MB is elevated at 3.6. His troponin is 0.132 however historically patient runs high. CT of his abdomen with contrast was ordered. Case was discussed with Dr. Harry (Mike Vieira) - Lab Data Lab Results 04/07/21 04/07/21 04/07/21 Range/Units 22:18 22:18 22:18 WBC 22.5 H (3.8-10.6) k/uL RBC 3.01 L (4.30-5.90) m/uL Hgb 9.3 L D (13.0-17.5) gm/dL Hct 30.3 L (39.0-53.0) % MCV 100.7 H (80.0-100.0) fL MCH 30.9 (25.0-35.0) pg MCHC 30.7 L (31.0-37.0) g/dL RDW 21.7 H (11.5-15.5) % Plt Count 990 H (150-450) k/uL MPV 9.5 Neutrophils % (Manual) 73 % Band Neuts % (Manual) 12 % Lymphocytes % (Manual) 10 % Monocytes % (Manual) 4 % Eosinophils % (Manual) 2 % Neutrophils # (Manual) 19.10 H (1.3-7.7) k/uL Lymphocytes # (Manual) 2.25 (1.0-4.8) k/uL Monocytes # (Manual) 0.90 (0-1.0) k/uL Eosinophils # (Manual) 0.45 (0-0.7) k/uL Nucleated RBCs 2 H (0-0) /100 WBC Manual Slide Review Performed Large Platelets Present Polychromasia Present Hypochromasia Moderate Poikilocytosis Moderate Anisocytosis Moderate Macrocytosis Moderate Fragmented RBCs Present PT (9.0-12.0) sec INR (<1.2) APTT (22.0-30.0) sec Sodium (137-145) mmol/L Potassium (3.5-5.1) mmol/L Chloride (98-107) mmol/L Carbon Dioxide (22-30) mmol/L Anion Gap mmol/L BUN (9-20) mg/dL Creatinine (0.66-1.25) mg/dL Est GFR (CKD-EPI)AfAm (>60 ml/min/1.73 sqM) Est GFR (CKD-EPI)NonAf (>60 ml/min/1.73 sqM) Glucose (74-99) mg/dL Lactic Ac Sepsis Rflx Plasma Lactic Acid Fransico 2.2 H* (0.7-2.0) mmol/L Calcium (8.4-10.2) mg/dL Total Bilirubin (0.2-1.3) mg/dL AST (17-59) U/L ALT (4-49) U/L Alkaline Phosphatase (38-126) U/L Ammonia (<30) umol/L Creatine Kinase (55-170) U/L CK-MB (CK-2) (0.0-2.4) ng/mL Troponin I (0.000-0.034) ng/mL Total Protein (6.3-8.2) g/dL Albumin (3.5-5.0) g/dL Amylase (30-110) U/L Lipase (23-300) U/L Urine Color Dark Brown Urine Appearance Turbid (Clear) Urine RBC 3 (0-5) /hpf Urine WBC 16 H (0-5) /hpf Amorphous Sediment Moderate H (None) /hpf Urine Bacteria Many H (None) /hpf Coronavirus (PCR) (Not Detectd) 04/07/21 04/07/21 04/07/21 Range/Units 22:18 23:04 23:04 WBC (3.8-10.6) k/uL RBC (4.30-5.90) m/uL Hgb (13.0-17.5) gm/dL Hct (39.0-53.0) % MCV (80.0-100.0) fL MCH (25.0-35.0) pg MCHC (31.0-37.0) g/dL RDW (11.5-15.5) % Plt Count (150-450) k/uL MPV Neutrophils % (Manual) % Band Neuts % (Manual) % Lymphocytes % (Manual) % Monocytes % (Manual) % Eosinophils % (Manual) % Neutrophils # (Manual) (1.3-7.7) k/uL Lymphocytes # (Manual) (1.0-4.8) k/uL Monocytes # (Manual) (0-1.0) k/uL Eosinophils # (Manual) (0-0.7) k/uL Nucleated RBCs (0-0) /100 WBC Manual Slide Review Large Platelets Polychromasia Hypochromasia Poikilocytosis Anisocytosis Macrocytosis Fragmented RBCs PT 29.3 H (9.0-12.0) sec INR 3.0 H (<1.2) APTT 32.3 H (22.0-30.0) sec Sodium 140 (137-145) mmol/L Potassium 2.9 L (3.5-5.1) mmol/L Chloride 121 H (98-107) mmol/L Carbon Dioxide 12 L (22-30) mmol/L Anion Gap 7 mmol/L BUN 24 H (9-20) mg/dL Creatinine 0.72 (0.66-1.25) mg/dL Est GFR (CKD-EPI)AfAm >90 (>60 ml/min/1.73 sqM) Est GFR (CKD-EPI)NonAf >90 (>60 ml/min/1.73 sqM) Glucose 143 H (74-99) mg/dL Lactic Ac Sepsis Rflx Plasma Lactic Acid Fransico (0.7-2.0) mmol/L Calcium 5.6 L* (8.4-10.2) mg/dL Total Bilirubin 2.1 H (0.2-1.3) mg/dL AST 100 H (17-59) U/L ALT 17 (4-49) U/L Alkaline Phosphatase 26 L (38-126) U/L Ammonia (<30) umol/L Creatine Kinase (55-170) U/L CK-MB (CK-2) 3.6 H (0.0-2.4) ng/mL Troponin I 0.132 H* (0.000-0.034) ng/mL Total Protein 4.7 L (6.3-8.2) g/dL Albumin 2.7 L (3.5-5.0) g/dL Amylase 46 (30-110) U/L Lipase 45 (23-300) U/L Urine Color Urine Appearance (Clear) Urine RBC (0-5) /hpf Urine WBC (0-5) /hpf Amorphous Sediment (None) /hpf Urine Bacteria (None) /hpf Coronavirus (PCR) (Not Detectd) 04/07/21 04/08/21 04/08/21 Range/Units 23:07 00:30 01:27 WBC (3.8-10.6) k/uL RBC (4.30-5.90) m/uL Hgb (13.0-17.5) gm/dL Hct (39.0-53.0) % MCV (80.0-100.0) fL MCH (25.0-35.0) pg MCHC (31.0-37.0) g/dL RDW (11.5-15.5) % Plt Count (150-450) k/uL MPV Neutrophils % (Manual) % Band Neuts % (Manual) % Lymphocytes % (Manual) % Monocytes % (Manual) % Eosinophils % (Manual) % Neutrophils # (Manual) (1.3-7.7) k/uL Lymphocytes # (Manual) (1.0-4.8) k/uL Monocytes # (Manual) (0-1.0) k/uL Eosinophils # (Manual) (0-0.7) k/uL Nucleated RBCs (0-0) /100 WBC Manual Slide Review Large Platelets Polychromasia Hypochromasia Poikilocytosis Anisocytosis Macrocytosis Fragmented RBCs PT (9.0-12.0) sec INR (<1.2) APTT (22.0-30.0) sec Sodium (137-145) mmol/L Potassium (3.5-5.1) mmol/L Chloride (98-107) mmol/L Carbon Dioxide (22-30) mmol/L Anion Gap mmol/L BUN (9-20) mg/dL Creatinine (0.66-1.25) mg/dL Est GFR (CKD-EPI)AfAm (>60 ml/min/1.73 sqM) Est GFR (CKD-EPI)NonAf (>60 ml/min/1.73 sqM) Glucose (74-99) mg/dL Lactic Ac Sepsis Rflx Y Plasma Lactic Acid Fransico 1.7 (0.7-2.0) mmol/L Calcium (8.4-10.2) mg/dL Total Bilirubin (0.2-1.3) mg/dL AST (17-59) U/L ALT (4-49) U/L Alkaline Phosphatase (38-126) U/L Ammonia (<30) umol/L Creatine Kinase (55-170) U/L CK-MB (CK-2) (0.0-2.4) ng/mL Troponin I (0.000-0.034) ng/mL Total Protein (6.3-8.2) g/dL Albumin (3.5-5.0) g/dL Amylase (30-110) U/L Lipase (23-300) U/L Urine Color Urine Appearance (Clear) Urine RBC (0-5) /hpf Urine WBC (0-5) /hpf Amorphous Sediment (None) /hpf Urine Bacteria (None) /hpf Coronavirus (PCR) Not Detected (Not Detectd) 04/08/21 04/08/21 Range/Units 01:27 01:27 WBC (3.8-10.6) k/uL RBC (4.30-5.90) m/uL Hgb (13.0-17.5) gm/dL Hct (39.0-53.0) % MCV (80.0-100.0) fL MCH (25.0-35.0) pg MCHC (31.0-37.0) g/dL RDW (11.5-15.5) % Plt Count (150-450) k/uL MPV Neutrophils % (Manual) % Band Neuts % (Manual) % Lymphocytes % (Manual) % Monocytes % (Manual) % Eosinophils % (Manual) % Neutrophils # (Manual) (1.3-7.7) k/uL Lymphocytes # (Manual) (1.0-4.8) k/uL Monocytes # (Manual) (0-1.0) k/uL Eosinophils # (Manual) (0-0.7) k/uL Nucleated RBCs (0-0) /100 WBC Manual Slide Review Large Platelets Polychromasia Hypochromasia Poikilocytosis Anisocytosis Macrocytosis Fragmented RBCs PT (9.0-12.0) sec INR (<1.2) APTT (22.0-30.0) sec Sodium (137-145) mmol/L Potassium (3.5-5.1) mmol/L Chloride (98-107) mmol/L Carbon Dioxide (22-30) mmol/L Anion Gap mmol/L BUN (9-20) mg/dL Creatinine (0.66-1.25) mg/dL Est GFR (CKD-EPI)AfAm (>60 ml/min/1.73 sqM) Est GFR (CKD-EPI)NonAf (>60 ml/min/1.73 sqM) Glucose (74-99) mg/dL Lactic Ac Sepsis Rflx Plasma Lactic Acid Fransico (0.7-2.0) mmol/L Calcium (8.4-10.2) mg/dL Total Bilirubin (0.2-1.3) mg/dL AST (17-59) U/L ALT (4-49) U/L Alkaline Phosphatase (38-126) U/L Ammonia 9 (<30) umol/L Creatine Kinase 201 H (55-170) U/L CK-MB (CK-2) (0.0-2.4) ng/mL Troponin I (0.000-0.034) ng/mL Total Protein (6.3-8.2) g/dL Albumin (3.5-5.0) g/dL Amylase (30-110) U/L Lipase (23-300) U/L Urine Color Urine Appearance (Clear) Urine RBC (0-5) /hpf Urine WBC (0-5) /hpf Amorphous Sediment (None) /hpf Urine Bacteria (None) /hpf Coronavirus (PCR) (Not Detectd) Disposition <Mike Vieira - Last Filed: 04/08/21 00:00> Is patient prescribed a controlled substance at d/c from ED?: No <Addy Harry - Last Filed: 04/08/21 01:57> Clinical Impression: Leukocytosis, UTI (urinary tract infection), Hypokalemia, Hypocalcemia, NSTEMI (non-ST elevated myocardial infarction), Weakness Disposition: ADMITTED IP TO THIS HOSP Condition: Serious Referrals: Narciso Molina MD [Primary Care Provider] - 1-2 days
[2021-04-07 22:40] LABS: Anisocytosis Moderate; HCT 30.3 % (39.0-53.0); Hypochromasia Moderate; MCH 30.9 pg (25.0-35.0); MCHC 30.7 g/dL (31.0-37.0); MCV 100.7 fL (80.0-100.0); Macrocytosis Moderate; Mean Platelet Volume 9.5; Platelet Count 990 k/uL (150-450); Poikilocytosis Moderate; RBC 3.01 m/uL (4.30-5.90); RDW 21.7 % (11.5-15.5)
[2021-04-07 23:02] LABS: Creatine Kinase MB 3.6 ng/mL (0.0-2.4)
[2021-04-07 23:06] LABS: Troponin I 0.132 ng/mL (0.000-0.034)
[2021-04-07] MEDS ORDERED: SODIUM CHLORIDE 0.9% 500 ML 500 ML IV ONE (23:12)
[2021-04-07 23:39] LABS: HGB 9.3 gm/dL (13.0-17.5)
[2021-04-07 23:40] LABS: ALT 17 U/L (4-49); AST 100 U/L (17-59); African American GFR (CKD) >90 (>60 ml/min/1.73 sqM); Albumin 2.7 g/dL (3.5-5.0); Alkaline Phosphatase 26 U/L (38-126); Amylase 46 U/L (30-110); Anion Gap 7 mmol/L; Blood Urea Nitrogen 24 mg/dL (9-20); Carbon Dioxide 12 mmol/L (22-30); Chloride 121 mmol/L (98-107); Glucose 143 mg/dL (74-99); Lipase 45 U/L (23-300); Non-African American GFR(CKD) >90 (>60 ml/min/1.73 sqM); Potassium 2.9 mmol/L (3.5-5.1); Sodium 140 mmol/L (137-145); Total Bilirubin 2.1 mg/dL (0.2-1.3); Total Protein 4.7 g/dL (6.3-8.2)
[2021-04-07 23:44] LABS: Calcium 5.6 mg/dL (8.4-10.2); Partial Thromboplastin Time 32.3 sec (22.0-30.0); Prothrombin Time 29.3 sec (9.0-12.0)
[2021-04-07 23:46] LABS: Amorphous Sediment,Urine Moderate /hpf; Bacteria,Urine Many /hpf; RBC,Urine 3 /hpf (0-5); WBC,Urine 16 /hpf (0-5)
[2021-04-07] MEDS ORDERED: HYDROmorphone 1 MG/ML 1 ML SYRINGE IVP STA (23:52)
[2021-04-07 23:56] LABS: Appearance,Urine Turbid (Clear); Color,Urine Dark Brown
[2021-04-07] MEDS: SODIUM CHLORIDE 0.9% 1,000 ML IV SCH (23:58)
--- NOTE | 2021-04-08 00:55 | CT ---
EXAMINATION TYPE: CT abdomen pelvis w con DATE OF EXAM: 04/08/2021 COMPARISON: None HISTORY: vomiting CT DLP: 626.3 mGycm Automated exposure control for dose reduction was used. CONTRAST: Performed with IV Contrast, patient injected with 100 mL of Isovue 300. There is some mild atelectasis at the lung bases. Heart appears enlarged. There is no pericardial eff usion. There is no pleural effusion. Liver spleen gallbladder appear intact. Bile ducts are not dilated. Stomach is intact. There is no ev idence of pancreatic mass. There is no adrenal mass. There is some mild fat stranding above the upper pole of the right kidney. There are bilateral small renal calculi that are most of the right side. T here is no hydronephrosis. Delayed images show normal renal excretion. Appendix appears normal. There is no retroperitoneal adenopathy. There is mild atheromatous change in the abdominal aorta. Bladder distends smoothly. There is no inguinal hernia. There is no free fluid in the pelvis. There is no mesenteric edema. There is no ascites or free air. There is no bowel obstruction. The lumbar vertebra have normal alignment. Posterior elements are intact. There is no compression fra cture. Facet joints are intact. There is some arthritic change in the hip joints. There is acetabular spur formation. Sacroiliac joints are intact. There are multiple large bowel diverticula. There is no sign of diverticulitis. IMPRESSION: Fat stranding above the upper pole right kidney in the retroperitoneum. Clinical significance is not clear. This is remote from the pancreas and I do not suspect pancreatitis. There are bilateral nonobs tructing renal calculi. There is normal enhancement of the right kidney and I do not see evidence for pyelonephritis. Mild subsegmental atelectasis at the lung bases. Cardiomegaly.
[2021-04-08] MEDS ORDERED: MORPHINE SULFATE 4 MG/ML SYRINGE IVP PRN (01:15)
[2021-04-08] MEDS ORDERED: MORPHINE SULFATE 4 MG/ML SYRINGE IVP STA (01:15)
[2021-04-08] MEDS ORDERED: LABETALOL 5 MG/ML VIAL MDV IVP STA (01:16)
[2021-04-08] MEDS ORDERED: POTASSIUM BICARB-CITRIC ACID 25 MEQ TABLET.EFF PO ONE (01:30)
[2021-04-08] MEDS ORDERED: CALCIUM GLUCONATE 2 GM in SODIUM CHLORIDE 0.9% 100 ML IVPB ONE ×4 (01:30)
[2021-04-08 01:34] LABS: Band Neutrophils % 12 %; Neutrophils % (M) 73 %; Nucleated Red Blood Cells 2 /100 WBC (0-0); Total Cells Counted 200
[2021-04-08 01:35] LABS: Eosinophils # (M) 0.45 k/uL (0-0.7); Lymphocytes # (M) 2.25 k/uL (1.0-4.8); WBC 22.5 k/uL (3.8-10.6)
[2021-04-08 01:36] LABS: Large Platelets Present; Polychromasia Present
[2021-04-08 01:38] LABS: RBC Fragments Present
[2021-04-08] MEDS ORDERED: CALCIUM CARBONATE 500 MG CHEWABLE PO PRN (01:53)
[2021-04-08] MEDS ORDERED: NALOXONE 0.4 MG/ML 1 ML VIAL IV PRN (01:53)
[2021-04-08] MEDS: POTASSIUM CHLORIDE 20 MEQ in WATER FOR INJECTION 1 100ML.BAG IVPB ONE ×2 (02:13→03:47)
--- NOTE | 2021-04-08 02:36 | XR ---
EXAMINATION TYPE: XR chest 1V portable DATE OF EXAM: 04/08/2021 COMPARISON: 11/05/2016 HISTORY: Weakness TECHNIQUE: FINDINGS: Heart is enlarged. There is mild pulmonary congestion. There are no hilar masses. There are sternal wires. Bony thorax is intact. IMPRESSION: There is mild congestive heart failure and increased pulmonary congestion compared to las t exam. Pleural fluid improved compared to last exam.
[2021-04-08] MEDS: POTASSIUM CHLORIDE 10 MEQ in WATER FOR INJECTION 1 100ML.BAG IVPB SCH ×4 (03:07→08:04)
[2021-04-08] MEDS: HYDROmorphone 1 MG/ML 1 ML SYRINGE IVP PRN ×3 (06:21→20:27)
[2021-04-08] MEDS ORDERED: ONDANSETRON 4 MG/2 ML VIAL IVP PRN (07:38)
[2021-04-08 07:39] LABS: Anisocytosis Moderate; HCT 30.4 % (39.0-53.0); HGB 9.4 gm/dL (13.0-17.5); Hypochromasia Moderate; MCH 30.6 pg (25.0-35.0); MCHC 30.8 g/dL (31.0-37.0); MCV 99.4 fL (80.0-100.0); Macrocytosis Moderate; Mean Platelet Volume 9.9; Microcytosis Slight; Poikilocytosis Moderate; RBC 3.06 m/uL (4.30-5.90); RDW 22.5 % (11.5-15.5); WBC 32.1 k/uL (3.8-10.6)
[2021-04-08 07:41] LABS: Platelet Count 1185 k/uL (150-450)
[2021-04-08 07:48] LABS: Albumin 4.8 g/dL (3.5-5.0); Calcium 9.8 mg/dL (8.4-10.2); Total Bilirubin 2.2 mg/dL (0.2-1.3); Total Protein 7.6 g/dL (6.3-8.2)
[2021-04-08 08:14] LABS: Potassium 6.9 mmol/L (3.5-5.1)
[2021-04-08 08:14] LABS: Band Neutrophils % 2 %; Eosinophils # (M) 0.32 k/uL (0-0.7); Lymphocytes # (M) 2.25 k/uL (1.0-4.8); Metamyelocytes # (M) 0.32 k/uL (0); Metamyelocytes % 1 %; Monocytes # (M) 1.28 k/uL (0-1.0); Myelocytes # (M) 0.64 k/uL (0); Myelocytes % 2 %; Neutrophils % (M) 84 %; Nucleated Red Blood Cells 0 /100 WBC (0-0); Total Cells Counted 200
[2021-04-08 08:15] LABS: Polychromasia Present
[2021-04-08 08:17] LABS: RBC Fragments Present
[2021-04-08] MEDS ORDERED: DEXTROSE 5%-0.45% NACL 1,000 ML IV SCH (08:45)
[2021-04-08] MEDS ORDERED: DEXTROSE 50% SYRINGE 50 ML IVP STA (08:56)
[2021-04-08] MEDS ORDERED: SODIUM BICARB 8.4% 50 ML SYR (1 MEQ/ML) IV STA (08:57)
[2021-04-08] MEDS ORDERED: INSULIN REGULAR 100 UNIT/ML VIAL (IV) IV ONE (09:00)
[2021-04-08] MEDS: SODIUM CHLORIDE 0.9% 1,000 ML IV SCH ×3 (09:05→23:27)
[2021-04-08] MEDS: PANTOPRAZOLE 40 MG/10 ML VIAL IV SCH (09:10)
[2021-04-08] MEDS ORDERED: CALCIUM GLUCONATE 1 GM in SODIUM CHLORIDE 0.9% 100 ML IVPB ONE (09:30)
[2021-04-08] MEDS ORDERED: hydrALAZINE HCL 20 MG/ML 1 ML VIAL IVP PRN (09:43)
--- NOTE | 2021-04-08 10:37 | P.NPCON ---
History of Present Illness - Reason for Consult acute renal failure - History of Present Illness Reason for consultation: Acute kidney injury and electrolyte imbalance History of present illness: Patient is a 75-year-old male seen in renal consultation for acute kidney injury and electrolytic imbalance. Patient presented to the hospital with abdominal pain started about 1 day ago as well as vomiting. Patient states he initially vomited and then was dry heaving throughout the day. On admission his potassium was 2.9 and bicarb level is 12. Creatinine was normal at 0.72. Calcium was low at 5.6. Patient received potassium supplementation overnight and repeat potassium level this morning is 6.9. Creatinine was up to 1.39 and calcium level was normal. He is currently receiving normal saline at 1 30 mL an hour. No evidence of hydronephrosis noted on CAT scan. He admits to dark colored urine. No chest pain or short of breath. No edema. Denies use of nonsteroidals. He does have history of A. fib and is on anticoagulation outpatient. No history of diabetes. Denies family history of renal disease. No chest pain or shortness of breath. Vital signs are stable. General: The patient appeared well nourished and normally developed. HEENT: Head exam is unremarkable. LUNGS: Breath sounds decreased. HEART: Rate and Rhythm are regular. ABDOMEN: Soft, no distention. Mild tenderness in the mid lower abdomen. EXTREMITITES: No edema. Past Medical History Past Medical History: Atrial Fibrillation, Blood Disorder, Hypertension, Mitral Valve Prolapse (MVP) History of Any Multi-Drug Resistant Organisms: None Reported Past Surgical History: Cardiac Valve Replacement, Hernia Repair Additional Past Surgical History / Comment(s): PAULINA HERNIA REPAIR, KAYLAN Past Anesthesia/Blood Transfusion Reactions: No Reported Reaction Past Psychological History: No Psychological Hx Reported Smoking Status: Never smoker Past Alcohol Use History: Daily, Occasional Past Drug Use History: None Reported - Past Family History Father Sister(s) Family Medical History: Cancer Father Family Medical History: Cancer Additional Family Medical History / Comment(s): PROSTATE Sister(s) Family Medical History: Cancer Medications and Allergies Home Medications Medication Instructions Recorded Confirmed Type Atorvastatin Calcium [Lipitor] 20 mg PO W/SUPPER 11/05/16 04/08/21 History Cyanocobalamin (Vitamin B-12) 1,000 mcg PO DAILY 04/08/21 04/08/21 History [Vitamin B-12] Doxepin HCl 25 mg PO HS 04/08/21 04/08/21 History Warfarin [Coumadin] 10 mg PO SUTH 04/08/21 04/08/21 History Warfarin [Coumadin] 12.5 mg PO [id number] 04/08/21 04/08/21 History lisinopriL [Zestril] 5 mg PO DAILY 04/08/21 04/08/21 History Allergies Allergy/AdvReac Type Severity Reaction Status Date / Time No Known Allergies Allergy Verified 04/08/21 07:43 Physical Exam Vitals: Vital Signs Temp Pulse Resp BP Pulse Ox 04/08/21 10:07 98 18 126/85 97 04/08/21 06:21 90 18 143/95 97 04/08/21 02:00 79 18 153/99 99 04/08/21 01:02 110 H 182/105 04/08/21 00:00 95 18 184/112 97 04/07/21 21:09 98.1 F 107 H 19 180/97 99 Intake and Output 04/07/21 04/08/21 04/08/21 22:59 06:59 14:59 Other: Weight 63.503 kg Results - Lab Results Most recent lab results Calcium 9.8 mg/dL (8.4-10.2) 04/08/21 06:54 04/08/21 07:00 04/08/21 06:54 Assessment and Plan Plan: Assessment: 1. Acute kidney injury secondary to ATN secondary to hypovolemia from vomiting. Baseline creatinine is near 1 and is up to 1.39 today. No hydronephrosis noted on CAT scan. Patient did receive IV contrast this morning for the CAT scan. 2. Hyperkalemia with potassium level of 6.9 this morning. Etiologies acute kidney injury and metabolic acidosis. Also noted to have thrombocytosis which can cause spurious yperkalemia. 3. Metabolic acidosis secondary to acute kidney injury and IV fluids. 4. Hypocalcemia secondary to acute kidney injury. Replaced. Resolved. 5. UTI on antibiotics. 6. Thrombocytosis. Hematology consulted. 7. History of severe MR. Plan: Maintenance fluids of normal saline at 75 mL an hour. Check urinalysis. 1 g IV calcium gluconate with 10 units of IV insulin with an amp of D50 and 2 A of sodium bicarbonate IV push now. Recheck BMP now and again at noon to make sure labs are accurate. Follow-up cultures. Avoid nephrotoxins. Check bladder scan to rule out urinary retention. Continue to monitor renal function and urine output. Check PTH and vitamin D levels. Thank you for the consultation. I will continue to follow the patient with you during his hospital stay.
[2021-04-08 10:41] LABS: Calcium 8.8 mg/dL (8.4-10.2); Potassium 5.9 mmol/L (3.5-5.1)
[2021-04-08 11:06] LABS: Amorphous Sediment,Urine Few /hpf; Bacteria,Urine Rare /hpf; Granular Casts,Urine 4 /lpf (0); Hyaline Casts,Urine 3 /lpf (0-2); Mucus,Urine Rare /hpf; RBC,Urine 2 /hpf (0-5); Squamous Epithelial Cell,Urine <1 /hpf (0-4); WBC,Urine <1 /hpf (0-5)
[2021-04-08] MEDS: METOPROLOL TARTRATE 50 MG TAB PO SCH ×2 (11:59→20:27)
[2021-04-08] MEDS: SODIUM BICARBONATE TAB 650 MG TAB PO SCH ×2 (11:59→20:27)
[2021-04-08 12:02] LABS: Appearance,Urine Cloudy (Clear); Color,Urine Brown
--- NOTE | 2021-04-08 13:25 | P.HPIM ---
History of Present Illness H&P Date: 04/08/21 HISTORY OF PRESENT ILLNESS This is a 75-year-old male patient planning to be established with Dr. Molina as PCP next week. He has a past medical history of myelofibrosis and followed at [facility]. He also has history of chronic atrial fibrillation, mitral valve prolapse status post mitral and tricuspid valve repair and modified Lucas- Maze procedure with mitral and tricuspid valve regurgitation with moderate mitral insufficiency. Patient is a very poor historian and describes fever for 6 days, no cough, decreased appetite. Patient came into [facility] emergency center for evaluation with complaints of right upper and mid abdominal pain cramping type with vomiting and also dark urine. He was afebrile, heart rate 107, blood pressure 180/97, pulse ox 99% on room air. EKG was atrial fibrillation at 88 bpm. WBC 22.9, hemoglobin 9.3, platelet count 990. Sodium 140, potassium 2.9, chloride 121, CO2 12, BUN 24 creatinine 0.72. Blood sugar 143. INR 3.0. Lactic acid 2.2. Troponin 0.132, 1.04, 2.110. Total bilirubin 2.1, AST 100, ALT 17, alkaline phosphatase 26. Repeat blood work this morning revealed potassium 6.9, BUN 39 creatinine 1.39 and CO2 17, WBC 32.1, hemoglobin 9.5 and platelet count 1185. Abdominal x-ray revealed nonacute abdomen. CAT scan of the abdomen and pelvis with contrast revealed fat stranding along the upper pole right kidney in the retroperitoneum. Do not suspect pancreatitis. Bilateral nonobstructing renal calculi. Normal right kidney no evidence of pyelonephritis. Mild subsegmental atelectasis at the lung bases. Cardiomegaly. Chest x-ray reveals mild congestive heart failure, increased pulmonary vascular congestion compared to last exam. Pleural fluid improved. Patient is seen today in the ER waiting for a cardiac stepdown bed. He has been seen by nephrology and is status post 3 A of bicarb, IV calcium gluconate, insulin and and D50, maintained on IV fluids at 75 mL per hour. REVIEW OF SYSTEMS Constitutional: No fever, no chills, no night sweats. No weight change. Noted weakness, Noted fatigue Noted lethargy. Noted daytime sleepiness. EENT: No headache. No blurred vision or double vision, no loss of vision. No loss of Hearing, no ringing in the ears, no dizziness. No nasal drainage or congestion. No epistaxis. No sore throat. Lungs: No shortness of breath, cough, no sputum production. No wheezing. Cardiovascular: No chest pain, no lower extremity edema. No palpitations. No paroxysmal nocturnal dyspnea. No orthopnea. No lightheadedness or dizziness. No syncopal episodes. Abdominal: Reported abdominal pain. Reported nausea, Reported vomiting. No diarrhea. No constipation. No bloody or tarry stools. Reported loss of appetite. Genitourinary: No dysuria, increased frequency, urgency. No urinary retention. Reported dark brown urine. Musculoskeletal: No myalgias. No muscle weakness, no gait dysfunction, no frequent falls. No back pain. No neck pain. Integumentary: No wounds, no lesions. No rash or pruritus. No unusual b ruising. No change in hair or nails. Neurologic: No aphasia. No facial droop. Noted change in mentation. No head injury. No headache. No paralysis. No paresthesia. Psychiatric: No depression. No anxiety. No mood swings. Endocrine: No abnormal blood sugars. SOCIAL HISTORY Patient was a smoker and quit 20 years ago. He drinks gin on a daily basis he states 1-1/2 ounces per day. FAMILY HISTORY Family history of coronary artery disease at age less than 60.. PHYSICAL EXAMINATION Gen: This is a thin cachectic 75-year-old male. He is resting on the ER stretcher. HEENT: Head is atraumatic, normocephalic. Pupils equal, round. Sclerae is anicteric. NECK: Supple. No JVD. No lymphadenopathy. No thyromegaly. LUNGS: Clear to auscultation. No wheezes or rhonchi. No intercostal retractions. HEART: Regular rate and rhythm. No murmur. ABDOMEN: Soft. Bowel sounds are present. Mid abdominal mass above the umbilicus 2 cm, probable lipoma. No tenderness. EXTREMITIES: No pedal edema. No calf tenderness. NEUROLOGICAL: Patient is awake, alert and oriented x2. Generalized weakness. Cranial nerves 2 through 12 are grossly intact. ASSESSMENT AND PLAN 1. Acute kidney injury secondary to ATN from vomiting. Nephrology consult appreciated. Continue IV fluids 0.9 normal saline at 75 mL per hour, recheck BMP as directed by nephrology, avoid nephrotoxic agents, bladder scan showed 150 ML's. Hold lisinopril. 2. Metabolic acidosis secondary to acute kidney injury. Patient is status post sodium bicarb. 3. Hyperkalemia secondary to acute kidney injury. Patient is status post calcium gluconate, IV insulin and D 50. 4. Hypercalcemia secondary to acute kidney injury, replaced. 5. Leukocytosis, thrombocytosis. 6. Anemia of chronic disease. 7. Elevated troponin. Consult with cardiology. 8. Possible urinary tract infection. Continue ceftriaxone. Urine culture. 9. History of myelofibrosis. Consult with oncology. 10. Chronic atrial fibrillation. Patient is therapeutic on Coumadin. 11. History of mitral and tricuspid repair. 12. Elevated liver function tests. Hold atorvastatin for now COVID-19 testing negative. Patient has been hospitalized during a pandemic. Patient will be admitted to the hospital for a minimum of 2 night stay. DISCHARGE PLAN To be determined. Impression and plan of care have been directed as dictated by the signing physician. Yue Starks nurse practitioner acting as scribe for signing darshan malone. Past Medical History Past Medical History: Atrial Fibrillation, Blood Disorder, Hypertension, Mitral Valve Prolapse (MVP) History of Any Multi-Drug Resistant Organisms: None Reported Past Surgical History: Cardiac Valve Replacement, Hernia Repair Additional Past Surgical History / Comment(s): PAULINA HERNIA REPAIR, KAYLAN Past Anesthesia/Blood Transfusion Reactions: No Reported Reaction Past Psychological History: No Psychological Hx Reported Smoking Status: Never smoker Past Alcohol Use History: Daily, Occasional Past Drug Use History: None Reported - Past Family History Father Sister(s) Family Medical History: Cancer Father Family Medical History: Cancer Additional Family Medical History / Comment(s): PROSTATE Sister(s) Family Medical History: Cancer Medications and Allergies Home Medications Medication Instructions Recorded Confirmed Type Atorvastatin Calcium [Lipitor] 20 mg PO W/SUPPER 11/05/16 04/08/21 History Cyanocobalamin (Vitamin B-12) 1,000 mcg PO DAILY 04/08/21 04/08/21 History [Vitamin B-12] Doxepin HCl 25 mg PO HS 04/08/21 04/08/21 History Warfarin [Coumadin] 10 mg PO SUTH 04/08/21 04/08/21 History Warfarin [Coumadin] 12.5 mg PO MOTUWEFRSA 04/08/21 04/08/21 History lisinopriL [Zestril] 5 mg PO DAILY 04/08/21 04/08/21 History Allergies Allergy/AdvReac Type Severity Reaction Status Date / Time No Known Allergies Allergy Verified 04/08/21 07:43 Physical Exam Vitals: Vital Signs Temp Pulse Resp BP Pulse Ox 04/08/21 06:21 90 18 143/95 97 04/08/21 02:00 79 18 153/99 99 04/08/21 01:02 110 H 182/105 04/08/21 00:00 95 18 184/112 97 04/07/21 21:09 98.1 F 107 H 19 180/97 99 Intake and Output 04/07/21 04/08/21 04/08/21 22:59 06:59 14:59 Other: Weight 63.503 kg Results CBC & Chem 7: 04/08/21 07:00 04/08/21 09:26 Labs: Abnormal Lab Results - Last 24 Hours (Table) 04/07/21 04/07/21 04/07/21 Range/Units 22:18 22:18 22:18 WBC 22.5 H (3.8-10.6) k/uL RBC 3.01 L (4.30-5.90) m/uL Hgb 9.3 L D (13.0-17.5) gm/dL Hct 30.3 L (39.0-53.0) % MCV 100.7 H (80.0-100.0) fL MCHC 30.7 L (31.0-37.0) g/dL RDW 21.7 H (11.5-15.5) % Plt Count 990 H (150-450) k/uL Neutrophils # (Manual) 19.10 H (1.3-7.7) k/uL Monocytes # (Manual) (0-1.0) k/uL Metamyelocytes # (Man) (0) k/uL Myelocytes # (Manual) (0) k/uL Nucleated RBCs 2 H (0-0) /100 WBC PT (9.0-12.0) sec INR (<1.2) APTT (22.0-30.0) sec Potassium (3.5-5.1) mmol/L Chloride (98-107) mmol/L Carbon Dioxide (22-30) mmol/L BUN (9-20) mg/dL Creatinine (0.66-1.25) mg/dL Glucose (74-99) mg/dL Plasma Lactic Acid Fransico 2.2 H* (0.7-2.0) mmol/L Calcium (8.4-10.2) mg/dL Total Bilirubin (0.2-1.3) mg/dL AST (17-59) U/L Alkaline Phosphatase (38-126) U/L Creatine Kinase (55-170) U/L CK-MB (CK-2) (0.0-2.4) ng/mL Troponin I (0.000-0.034) ng/mL Total Protein (6.3-8.2) g/dL Albumin (3.5-5.0) g/dL Urine WBC 16 H (0-5) /hpf Amorphous Sediment Moderate H (None) /hpf Urine Bacteria Many H (None) /hpf 04/07/21 04/07/21 04/07/21 Range/Units 22:18 23:04 23:04 WBC (3.8-10.6) k/uL RBC (4.30-5.90) m/uL Hgb (13.0-17.5) gm/dL Hct (39.0-53.0) % MCV (80.0-100.0) fL MCHC (31.0-37.0) g/dL RDW (11.5-15.5) % Plt Count (150-450) k/uL Neutrophils # (Manual) (1.3-7.7) k/uL Monocytes # (Manual) (0-1.0) k/uL Metamyelocytes # (Man) (0) k/uL Myelocytes # (Manual) (0) k/uL Nucleated RBCs (0-0) /100 WBC PT 29.3 H (9.0-12.0) sec INR 3.0 H (<1.2) APTT 32.3 H (22.0-30.0) sec Potassium 2.9 L (3.5-5.1) mmol/L Chloride 121 H (98-107) mmol/L Carbon Dioxide 12 L (22-30) mmol/L BUN 24 H (9-20) mg/dL Creatinine (0.66-1.25) mg/dL Glucose 143 H (74-99) mg/dL Plasma Lactic Acid Fransico (0.7-2.0) mmol/L Calcium 5.6 L* (8.4-10.2) mg/dL Total Bilirubin 2.1 H (0.2-1.3) mg/dL AST 100 H (17-59) U/L Alkaline Phosphatase 26 L (38-126) U/L Creatine Kinase (55-170) U/L CK-MB (CK-2) 3.6 H (0.0-2.4) ng/mL Troponin I 0.132 H* (0.000-0.034) ng/mL Total Protein 4.7 L (6.3-8.2) g/dL Albumin 2.7 L (3.5-5.0) g/dL Urine WBC (0-5) /hpf Amorphous Sediment (None) /hpf Urine Bacteria (None) /hpf 04/08/21 04/08/21 04/08/21 Range/Units 01:27 06:54 07:00 WBC 32.1 H (3.8-10.6) k/uL RBC 3.06 L (4.30-5.90) m/uL Hgb 9.4 L (13.0-17.5) gm/dL Hct 30.4 L (39.0-53.0) % MCV (80.0-100.0) fL MCHC 30.8 L (31.0-37.0) g/dL RDW 22.5 H (11.5-15.5) % Plt Count 1185 H* (150-450) k/uL Neutrophils # (Manual) 27.60 H (1.3-7.7) k/uL Monocytes # (Manual) 1.28 H (0-1.0) k/uL Metamyelocytes # (Man) 0.32 H (0) k/uL Myelocytes # (Manual) 0.64 H (0) k/uL Nucleated RBCs (0-0) /100 WBC PT (9.0-12.0) sec INR (<1.2) APTT (22.0-30.0) sec Potassium 6.9 H* (3.5-5.1) mmol/L Chloride 110 H (98-107) mmol/L Carbon Dioxide 17 L (22-30) mmol/L BUN 39 H (9-20) mg/dL Creatinine 1.39 H (0.66-1.25) mg/dL Glucose 197 H (74-99) mg/dL Plasma Lactic Acid Fransico (0.7-2.0) mmol/L Calcium (8.4-10.2) mg/dL Total Bilirubin 2.2 H (0.2-1.3) mg/dL AST 172 H (17-59) U/L Alkaline Phosphatase (38-126) U/L Creatine Kinase 201 H (55-170) U/L CK-MB (CK-2) (0.0-2.4) ng/mL Troponin I (0.000-0.034) ng/mL Total Protein (6.3-8.2) g/dL Albumin (3.5-5.0) g/dL Urine WBC (0-5) /hpf Amorphous Sediment (None) /hpf Urine Bacteria (None) /hpf
[2021-04-08 13:35] LABS: Calcium 9.6 mg/dL (8.4-10.2); Potassium 5.1 mmol/L (3.5-5.1)
--- NOTE | 2021-04-08 14:07 | P.CRDCN ---
History of Present Illness History of present illness: HISTORY OF PRESENTING ILLNESS This is a pleasant 75-year-old male past medical history significant for nonobstructive coronary artery disease, valvular heart disease status post mitral and tricuspid valve repair 2016, dyslipidemia, hypertension, chronic persistent atrial fibrillation on Coumadin and myelofibrosis. He follows in the office with [facility]. We have been asked to see in consultation for elevated troponin. He presented to the hospital with symptoms of dark urine and lower abdominal discomfort. He was found to have acute kidney injury, metabolic acidosis, hyperkalemia and UTI. He also had a troponin leak. EKG on arrival reveals atrial fibrillation heart rate 99. Chest xray revealed mild heart failure and increase pulmonary congestion. Laboratory data reviewed, WBC 32.1, hgb 9.4, plt 1185, sodium 139, potassium on admission 2.9 after supplementation went up to 6.9 and then down to 5.9, creatinine 1.35, troponin 0.132, 1.04, 2.11, lactic acid 2.2 repeat after hydration 1.7 and CK 201. Current daily medications include atorvastatin 20 mg daily, warfarin and lisinopril 5 mg daily. He is seen and examined sitting up in bed with family at the bedside. He states for the previous 24 hours he has been experiencing symptoms of lower abdominal and lower back pain that is sharp and achy in nature. He denies any symptoms of chest pain or shortness of breath. Recent echocardiogram from the office 11/2020 reveals preserved LV systolic function with EF 50%, severely dilated LA, mild AR, ring annuloplasty of the MV, ring annuloplasty to the TV with mild pulmonary hypertension with RVSP 49 mmHg. REVIEW OF SYSTEMS At the time of my exam: CONSTITUTIONAL: Denies fever or chills. CARDIOVASCULAR: Denies chest pain, shortness of breath, orthopnea, PND or palpitations. RESPIRATORY: Denies cough. GASTROINTESTINAL: Complains of lower abdominal pain. Denies diarrhea, constipation, nausea or vomiting. MUSCULOSKELETAL: Denies myalgias. NEUROLOGIC: Denies numbness, tingling, headache or weakness. ENDOCRINE: Denies fatigue, weight change, polydipsia or polyurina. GENITOURINARY: Denies burning, hematuria or urgency with micturation. HEMATOLOGIC: Denies history of anemia or bleeding. PHYSICAL EXAMINATION Blood pressure 126/85 heart rate 98 afebrile and maintaining oxygen saturation on nasal cannula. CONSTITUTIONAL: No apparent distress. Ashen appearance. HEENT: Head is normocephalic. Pupils are equal, round. Sclerae anicteric. Mucous membranes of the mouth are moist. No JVD. No carotid bruit. CHEST EXAMINATION: Lungs are clear to auscultation. No chest wall tenderness is noted on palpation or with deep breathing. HEART EXAMINATION: Irregular rate and rhythm. S1, S2 heard. Systolic ejection murmur at the apex, no gallops or rub. ABDOMEN: Soft, mildly tender in the lower abdomen. EXTREMITIES: 2+ peripheral pulses, no lower extremity edema and no calf tenderness. NEUROLOGIC EXAMINATION: Patient is awake, alert and oriented x3. ASSESSMENT Chronic persistent atrial fibrillation with rapid ventricular response Acute kidney injury Hyperkalemia Troponin leak, no related to ACS Metabolic acidosis Thrombocytosis Anemia Valvular heart disease s/p mitral and tricuspid ring annuloplasty PLAN Troponen leak of unclear significance at this point. No symptoms of angina. Add lopressor 50 mg BID to his daily regimen. Hold warfarin. Obtain 2D echocardiogram and doppler study to assess cardiac structure and function. Check urine myoglobin. Ongoing medical management. Thank you kindly for this consultation. Nurse Practitioner note has been reviewed, I agree with a documented findings and plan of care. Patient was seen and examined. Past Medical History Past Medical History: Atrial Fibrillation, Blood Disorder, Hypertension, Mitral Valve Prolapse (MVP) History of Any Multi-Drug Resistant Organisms: None Reported Past Surgical History: Cardiac Valve Replacement, Hernia Repair Additional Past Surgical History / Comment(s): PAULINA HERNIA REPAIR, KAYLAN Past Anesthesia/Blood Transfusion Reactions: No Reported Reaction Past Psychological History: No Psychological Hx Reported Smoking Status: Never smoker Past Alcohol Use History: Daily, Occasional Past Drug Use History: None Reported - Past Family History Father Sister(s) Family Medical History: Cancer Father Family Medical History: Cancer Additional Family Medical History / Comment(s): PROSTATE Sister(s) Family Medical History: Cancer Medications and Allergies Home Medications Medication Instructions Recorded Confirmed Type Atorvastatin Calcium [Lipitor] 20 mg PO W/SUPPER 11/05/16 04/08/21 History Cyanocobalamin (Vitamin B-12) 1,000 mcg PO DAILY 04/08/21 04/08/21 History [Vitamin B-12] Doxepin HCl 25 mg PO HS 04/08/21 04/08/21 History Warfarin [Coumadin] 10 mg PO SUTH 04/08/21 04/08/21 History Warfarin [Coumadin] 12.5 mg PO MOTUWEFRSA 04/08/21 04/08/21 History lisinopriL [Zestril] 5 mg PO DAILY 04/08/21 04/08/21 History Allergies Allergy/AdvReac Type Severity Reaction Status Date / Time No Known Allergies Allergy Verified 04/08/21 07:43 Physical Exam Vitals: Vital Signs Temp Pulse Resp BP Pulse Ox 04/08/21 10:07 98 18 126/85 97 04/08/21 06:21 90 18 143/95 97 04/08/21 02:00 79 18 153/99 99 04/08/21 01:02 110 H 182/105 04/08/21 00:00 95 18 184/112 97 04/07/21 21:09 98.1 F 107 H 19 180/97 99 Intake and Output 04/07/21 04/08/21 04/08/21 22:59 06:59 14:59 Other: Weight 63.503 kg Results 04/08/21 07:00 04/08/21 09:26 Cardiac Enzymes 04/07/21 04/07/21 04/08/21 Range/Units 22:18 23:04 06:54 AST 100 H 172 H (17-59) U/L CK-MB (CK-2) 3.6 H (0.0-2.4) ng/mL Troponin I 0.132 H* (0.000-0.034) ng/mL 04/08/21 Range/Units 09:26 AST (17-59) U/L CK-MB (CK-2) (0.0-2.4) ng/mL Troponin I 1.040 H* (0.000-0.034) ng/mL Coagulation 04/07/21 Range/Units 23:04 PT 29.3 H (9.0-12.0) sec APTT 32.3 H (22.0-30.0) sec CBC 04/07/21 04/08/21 Range/Units 22:18 07:00 WBC 22.5 H 32.1 H (3.8-10.6) k/uL RBC 3.01 L 3.06 L (4.30-5.90) m/uL Hgb 9.3 L D 9.4 L (13.0-17.5) gm/dL Hct 30.3 L 30.4 L (39.0-53.0) % Plt Count 990 H 1185 H* (150-450) k/uL Comprehensive Metabolic Panel 04/07/21 04/08/21 04/08/21 Range/Units 23:04 06:54 09:26 Sodium 140 139 139 (137-145) mmol/L Potassium 2.9 L 6.9 H* 5.9 H (3.5-5.1) mmol/L Chloride 121 H 110 H 106 (98-107) mmol/L Carbon Dioxide 12 L 17 L 25 (22-30) mmol/L BUN 24 H 39 H 42 H (9-20) mg/dL Creatinine 0.72 1.39 H 1.35 H (0.66-1.25) mg/dL Glucose 143 H 197 H 272 H (74-99) mg/dL Calcium 5.6 L* 9.8 8.8 (8.4-10.2) mg/dL AST 100 H 172 H (17-59) U/L ALT 17 28 (4-49) U/L Alkaline Phosphatase 26 L 54 (38-126) U/L Total Protein 4.7 L 7.6 (6.3-8.2) g/dL Albumin 2.7 L 4.8 (3.5-5.0) g/dL Current Medications Generic Name Dose Route Start Last Admin Trade Name Freq PRN Reason Stop Dose Admin Calcium Carbonate/Glycine 1,000 mg 04/08/21 01:53 Calcium Carbonate 500 Mg Chewable PO Q4HR PRN Dyspepsia Hydralazine HCl 10 mg 04/08/21 09:43 Hydralazine Hcl 20 Mg/Ml 1 Ml Vial IVP Q4HR PRN SBP >160 Hydromorphone HCl 1 mg 04/08/21 01:53 04/08/21 06:21 Hydromorphone 1 Mg/Ml 1 Ml Syringe IVP 1 mg Q3HR PRN Administration Severe Pain Ceftriaxone Sodium 1 gm/ 50 mls @ 100 mls/hr 04/08/21 11:00 Sodium Chloride IVPB Q12H MEGHANA Sodium Chloride 1,000 mls @ 75 mls/hr 04/08/21 09:00 04/08/21 09:05 Saline 0.9% IV 75 mls/hr .[id number] MEGHANA Administration Metoprolol Tartrate 50 mg 04/08/21 11:30 Metoprolol Tartrate 50 Mg Tab PO BID MEGHANA Morphine Sulfate 4 mg 04/08/21 01:15 Morphine Sulfate 4 Mg/Ml Syringe IVP Q4HR PRN Pain Naloxone HCl 0.2 mg 04/08/21 01:53 Naloxone 0.4 Mg/Ml 1 Ml Vial IV Q2M PRN Opioid Reversal Ondansetron HCl 4 mg 04/08/21 07:38 Ondansetron 4 Mg/2 Ml Vial IVP Q6HR PRN Nausea And Vomiting Pantoprazole Sodium 40 mg 04/08/21 09:00 04/08/21 09:10 Pantoprazole 40 Mg/10 Ml Vial IV 40 mg DAILY MEGHANA Administration Sodium Bicarbonate 650 mg 04/08/21 10:45 Sodium Bicarbonate Tab 650 Mg Tab PO BID MEGHANA Thiamine HCl 100 mg 04/09/21 09:00 Thiamine 100 Mg Tab PO DAILY MEGHANA Intake and Output 04/07/21 04/08/21 04/08/21 22:59 06:59 14:59 Other: Weight 63.503 kg 04/08/21 07:00 04/08/21 09:26
[2021-04-08 14:17] LABS: Magnesium 2.3 mg/dL (1.6-2.3); Phosphorus 3.6 mg/dL (2.5-4.5)
--- NOTE | 2021-04-08 17:24 | P.CONS ---
History of Present Illness - Reason for Consult Consult date: 04/08/21 Elevated WBC, plt, anemia, Hx of MF Requesting physician: Milly Orr - Chief Complaint abd pain, V, dark urine, weakness - History of Present Illness Pt is moderately confused and unable to provide a lot of detail about his PMH, most taken from chart and I did acquire last note from his Hem/Onc at [facility]. Pt admitted with c/o abd pain, V, dry heaves for the last 24 hours, his urine turned very dark about 4 days ago. He denied fevers, chills, cough, swelling or bleeding. He is admitted receiving fluids and abx for suspected UTI. We have been asked to see pt re: thrombocythemia. Pt states he gets a "shot" for his blood problem-does not know what blood disease or medicine he receives. He is not currently experiencing pain, nausea, difficulty breathing. Dr. Begum last saw pt on 03/24/21, f/u for ET, MF and anemia for which pt receives aranesp Q 4 weeks. 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 Pt received 1 unit PRBCs 03/04. On 03/24 WBC was 8.7, Hgb 7.3, plt 700,000, LDH 1993. 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 His aspirin was stopped at that time as pt was having nose bleeds. Review of Systems 10 point ROS is difficult to obtain but, as stated in HPI Past Medical History Past Medical History: Atrial Fibrillation, Blood Disorder, Hypertension, Mitral Valve Prolapse (MVP) History of Any Multi-Drug Resistant Organisms: None Reported Past Surgical History: Cardiac Valve Replacement, Hernia Repair Additional Past Surgical History / Comment(s): PAULINA HERNIA REPAIR, KAYLAN Past Anesthesia/Blood Transfusion Reactions: No Reported Reaction Past Psychological History: No Psychological Hx Reported Smoking Status: Never smoker Past Alcohol Use History: Daily, Occasional Past Drug Use History: None Reported - Past Family History Father Sister(s) Family Medical History: Cancer Father Family Medical History: Cancer Additional Family Medical History / Comment(s): PROSTATE Sister(s) Family Medical History: Cancer Medications and Allergies Home Medications Medication Instructions Recorded Confirmed Type Atorvastatin Calcium [Lipitor] 20 mg PO W/SUPPER 11/05/16 04/08/21 History Cyanocobalamin (Vitamin B-12) 1,000 mcg PO DAILY 04/08/21 04/08/21 History [Vitamin B-12] Doxepin HCl 25 mg PO HS 04/08/21 04/08/21 History Warfarin [Coumadin] 10 mg PO SUTH 04/08/21 04/08/21 History Warfarin [Coumadin] 12.5 mg PO [id number] 04/08/21 04/08/21 History lisinopriL [Zestril] 5 mg PO DAILY 04/08/21 04/08/21 History Allergies Allergy/AdvReac Type Severity Reaction Status Date / Time No Known Allergies Allergy Verified 04/08/21 07:43 Physical Exam Vitals: Vital Signs Temp Pulse Resp BP Pulse Ox 04/08/21 10:07 98 18 126/85 97 04/08/21 06:21 90 18 143/95 97 04/08/21 02:00 79 18 153/99 99 04/08/21 01:02 110 H 182/105 04/08/21 00:00 95 18 184/112 97 04/07/21 21:09 98.1 F 107 H 19 180/97 99 Intake and Output 04/07/21 04/08/21 04/08/21 22:59 06:59 14:59 Other: Weight 63.503 kg - Constitutional General appearance: cooperative, no acute distress, thin - EENT dry mouth, pale lips and mucus membranes Eyes: anicteric sclerae, EOMI ENT: hearing grossly normal - Neck Neck: no lymphadenopathy - Respiratory Respiratory: bilateral: CTA - Cardiovascular Rhythm: regular Heart sounds: normal: S1, S2 Abnormal Heart Sounds: no systolic murmur, no diastolic murmur, no rub, no S3 Gallop, no S4 Gallop, no click, no other leg Peripheral Edema: bilateral: None - Gastrointestinal General gastrointestinal: no absent bowel sounds, no decreased bowel sounds, no distended, no hepatomegaly, no hyperactive bowel sounds, normal bowel sounds, no organomegaly, no rigid, no scaphoid, soft, no splenomegaly, tenderness, no umbilical hernia, no ventral hernia - Integumentary Integumentary: pale - Neurologic Neurologic: CNII-XII intact (grossly) - Musculoskeletal Musculoskeletal: generalized weakness - Psychiatric Psychiatric: A&O x's 3 Results CBC & Chem 7: 04/08/21 07:00 04/08/21 12:13 Labs: Abnormal Lab Results - Last 24 Hours (Table) 04/07/21 04/07/21 04/07/21 Range/Units 22:18 22:18 22:18 WBC 22.5 H (3.8-10.6) k/uL RBC 3.01 L (4.30-5.90) m/uL Hgb 9.3 L D (13.0-17.5) gm/dL Hct 30.3 L (39.0-53.0) % MCV 100.7 H (80.0-100.0) fL MCHC 30.7 L (31.0-37.0) g/dL RDW 21.7 H (11.5-15.5) % Plt Count 990 H (150-450) k/uL Neutrophils # (Manual) 19.10 H (1.3-7.7) k/uL Monocytes # (Manual) (0-1.0) k/uL Metamyelocytes # (Man) (0) k/uL Myelocytes # (Manual) (0) k/uL Nucleated RBCs 2 H (0-0) /100 WBC PT (9.0-12.0) sec INR (<1.2) APTT (22.0-30.0) sec Potassium (3.5-5.1) mmol/L Chloride (98-107) mmol/L Carbon Dioxide (22-30) mmol/L BUN (9-20) mg/dL Creatinine (0.66-1.25) mg/dL Glucose (74-99) mg/dL Plasma Lactic Acid Fransico 2.2 H* (0.7-2.0) mmol/L Calcium (8.4-10.2) mg/dL Total Bilirubin (0.2-1.3) mg/dL AST (17-59) U/L Alkaline Phosphatase (38-126) U/L Creatine Kinase (55-170) U/L CK-MB (CK-2) (0.0-2.4) ng/mL Troponin I (0.000-0.034) ng/mL Total Protein (6.3-8.2) g/dL Albumin (3.5-5.0) g/dL Urine WBC 16 H (0-5) /hpf Amorphous Sediment Moderate H (None) /hpf Urine Bacteria Many H (None) /hpf 04/07/21 04/07/21 04/07/21 Range/Units 22:18 23:04 23:04 WBC (3.8-10.6) k/uL RBC (4.30-5.90) m/uL Hgb (13.0-17.5) gm/dL Hct (39.0-53.0) % MCV (80.0-100.0) fL MCHC (31.0-37.0) g/dL RDW (11.5-15.5) % Plt Count (150-450) k/uL Neutrophils # (Manual) (1.3-7.7) k/uL Monocytes # (Manual) (0-1.0) k/uL Metamyelocytes # (Man) (0) k/uL Myelocytes # (Manual) (0) k/uL Nucleated RBCs (0-0) /100 WBC PT 29.3 H (9.0-12.0) sec INR 3.0 H (<1.2) APTT 32.3 H (22.0-30.0) sec Potassium 2.9 L (3.5-5.1) mmol/L Chloride 121 H (98-107) mmol/L Carbon Dioxide 12 L (22-30) mmol/L BUN 24 H (9-20) mg/dL Creatinine (0.66-1.25) mg/dL Glucose 143 H (74-99) mg/dL Plasma Lactic Acid Fransico (0.7-2.0) mmol/L Calcium 5.6 L* (8.4-10.2) mg/dL Total Bilirubin 2.1 H (0.2-1.3) mg/dL AST 100 H (17-59) U/L Alkaline Phosphatase 26 L (38-126) U/L Creatine Kinase (55-170) U/L CK-MB (CK-2) 3.6 H (0.0-2.4) ng/mL Troponin I 0.132 H* (0.000-0.034) ng/mL Total Protein 4.7 L (6.3-8.2) g/dL Albumin 2.7 L (3.5-5.0) g/dL Urine WBC (0-5) /hpf Amorphous Sediment (None) /hpf Urine Bacteria (None) /hpf 04/08/21 04/08/21 04/08/21 Range/Units 01:27 06:54 07:00 WBC 32.1 H (3.8-10.6) k/uL RBC 3.06 L (4.30-5.90) m/uL Hgb 9.4 L (13.0-17.5) gm/dL Hct 30.4 L (39.0-53.0) % MCV (80.0-100.0) fL MCHC 30.8 L (31.0-37.0) g/dL RDW 22.5 H (11.5-15.5) % Plt Count 1185 H* (150-450) k/uL Neutrophils # (Manual) 27.60 H (1.3-7.7) k/uL Monocytes # (Manual) 1.28 H (0-1.0) k/uL Metamyelocytes # (Man) 0.32 H (0) k/uL Myelocytes # (Manual) 0.64 H (0) k/uL Nucleated RBCs (0-0) /100 WBC PT (9.0-12.0) sec INR (<1.2) APTT (22.0-30.0) sec Potassium 6.9 H* (3.5-5.1) mmol/L Chloride 110 H (98-107) mmol/L Carbon Dioxide 17 L (22-30) mmol/L BUN 39 H (9-20) mg/dL Creatinine 1.39 H (0.66-1.25) mg/dL Glucose 197 H (74-99) mg/dL Plasma Lactic Acid Fransico (0.7-2.0) mmol/L Calcium (8.4-10.2) mg/dL Total Bilirubin 2.2 H (0.2-1.3) mg/dL AST 172 H (17-59) U/L Alkaline Phosphatase (38-126) U/L Creatine Kinase 201 H (55-170) U/L CK-MB (CK-2) (0.0-2.4) ng/mL Troponin I (0.000-0.034) ng/mL Total Protein (6.3-8.2) g/dL Albumin (3.5-5.0) g/dL Urine WBC (0-5) /hpf Amorphous Sediment (None) /hpf Urine Bacteria (None) /hpf 04/08/21 Range/Units 09:26 WBC (3.8-10.6) k/uL RBC (4.30-5.90) m/uL Hgb (13.0-17.5) gm/dL Hct (39.0-53.0) % MCV (80.0-100.0) fL MCHC (31.0-37.0) g/dL RDW (11.5-15.5) % Plt Count (150-450) k/uL Neutrophils # (Manual) (1.3-7.7) k/uL Monocytes # (Manual) (0-1.0) k/uL Metamyelocytes # (Man) (0) k/uL Myelocytes # (Manual) (0) k/uL Nucleated RBCs (0-0) /100 WBC PT (9.0-12.0) sec INR (<1.2) APTT (22.0-30.0) sec Potassium 5.9 H (3.5-5.1) mmol/L Chloride (98-107) mmol/L Carbon Dioxide (22-30) mmol/L BUN 42 H (9-20) mg/dL Creatinine 1.35 H (0.66-1.25) mg/dL Glucose 272 H (74-99) mg/dL Plasma Lactic Acid Fransico (0.7-2.0) mmol/L Calcium (8.4-10.2) mg/dL Total Bilirubin (0.2-1.3) mg/dL AST (17-59) U/L Alkaline Phosphatase (38-126) U/L Creatine Kinase 185 H (55-170) U/L CK-MB (CK-2) (0.0-2.4) ng/mL Troponin I (0.000-0.034) ng/mL Total Protein (6.3-8.2) g/dL Albumin (3.5-5.0) g/dL Urine WBC (0-5) /hpf Amorphous Sediment (None) /hpf Urine Bacteria (None) /hpf Chest x-ray: report reviewed Abdominal x-ray: report reviewed CT scan - abdomen: report reviewed CT scan - pelvis: report reviewed Assessment and Plan (1) 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 Pt follows with Dr. Begum. With acute illness-suspect UTI currently-platelet can increase, which they have done, Hgb is stable compared to his baseline (would have had aranesp on 03/24/21) and WBC is elevated with left shift. Pt is on abx, CBC in AM, no other intervention at this time. Dark brown urine-urinalysis and other labs ordered to evaluate for blood in urine vs bleeding high up and breakdown of RBCs. Hx of aquired von Wb disease: labs ordered Doctor attests: I performed a history and physical examination of this patient, developed impression and plan of care, discussed with dictator. I agree with dictators note, documented as a scribe.
[2021-04-09] MEDS: HYDROmorphone 1 MG/ML 1 ML SYRINGE IVP PRN (04:22)
--- NOTE | 2021-04-09 07:45 | ECHOF ---
Referral Reason:elev trops MEASUREMENTS -------- HEIGHT: 175.3 cm WEIGHT: 63.5 kg BP: 126/85 RVIDd: 3.5 cm (< 3.3) IVSd: 1.2 cm (0.6 - 1.1) LVIDd: 5.2 cm (3.9 - 5.3) LVPWd: 1.1 cm (0.6 - 1.1) IVSs: 1.3 cm LVIDs: 4.0 cm LVPWs: 1.6 cm LA Diam: 4.2 cm (2.7 - 3.8) LAESV Index (A-L): 53.63 ml/m Ao Diam: 3.6 cm (2.0 - 3.7) AV Cusp: 1.6 cm (1.5 - 2.6) MV EXCURSION: 24.295 mm (> 18.000) MV EF SLOPE: 114 mm/s (70 - 150) EPSS: 0.9 cm AR PHT: 338 ms RAP: 15.00 mmHg RVSP: 52.48 mmHg FINDINGS -------- Atrial fibrillation. This was a technically good study. The left ventricular size is normal. There is borderline concentric left ventricular hypertrophy. Overall left ventricular systolic function is severely impaired with, an EF between 25 - 30 %. The right ventricle is mildly enlarged. LA is severely dilated >40 ml/m2 The right atrium is normal in size. Interatrial and interventricular septum intact. There is mild aortic valve sclerosis. There is fqsa-hi-sgcbmohz aortic regurgitation. The mitral valve leaflets are mildly thickened. Mild mitral annular calcification present. Modera te mitral regurgitation is present. MV annuloplasty There is a mobile 1.3 x 1.5mm echodensity att ached to the posterior mitral valve leaflet/ annuloplasty ring concerning for vegetation. Clinical c orrelation recommended and may consider KAYLAN if clinically indicated. TV annuloplasty [id number]-[id number] tricuspid regurgitation present. There is moderate pulmonary hypert ension. The right ventricular systolic pressure, as measured by Doppler, is 52.48mmHg. Trace/mild (physiologic) pulmonic regurgitation. The aortic root size is normal. The inferior vena cava is dilated with no significant inspiratory collapse which is consistent estima joana right atrial pressure of >15 mmHg. There is no pericardial effusion. CONCLUSIONS -------- 1. The left ventricular size is normal. 2. There is borderline concentric left ventricular hypertrophy. 3. Overall left ventricular systolic function is severely impaired with, an EF between 25 - 30 %. 4. The right ventricle is mildly enlarged. 5. LA is severely dilated >40 ml/m2 6. There is mild aortic valve sclerosis. 7. There is hkrr-ob-sxledjfm aortic regurgitation. 8. The mitral valve leaflets are mildly thickened. 9. Mild mitral annular calcification present. 10. Moderate mitral regurgitation is present. 11. MV annuloplasty 12. There is a mobile 1.3 x 1.5mm echodensity attached to the posterior mitral valve leaflet/ annulop lasty ring concerning for vegetation. Clinical correlation recommended and may consider KAYLAN if clini sujey indicated. 13. Irjq-qd-xefxnqqr tricuspid regurgitation present. 14. There is moderate pulmonary hypertension. 15. The right ventricular systolic pressure, as measured by Doppler, is 52.48mmHg. 16. Trace/mild (physiologic) pulmonic regurgitation. 17. The inferior vena cava is dilated with no significant inspiratory collapse which is consistent es timated right atrial pressure of >15 mmHg. 18. There is no pericardial effusion. AIRLINE MANAGER: Agata Oswald RDCS
[2021-04-09 08:45] LABS: Albumin 3.7 g/dL (3.5-5.0); Anisocytosis Moderate; Calcium 8.6 mg/dL (8.4-10.2); HCT 27.3 % (39.0-53.0); HGB 8.4 gm/dL (13.0-17.5); Hypochromasia Moderate; MCH 30.7 pg (25.0-35.0); MCHC 30.8 g/dL (31.0-37.0); MCV 99.7 fL (80.0-100.0); Macrocytosis Moderate; Magnesium 2.3 mg/dL (1.6-2.3); Mean Platelet Volume 10.3; Phosphorus 3.5 mg/dL (2.5-4.5); Platelet Count 439 k/uL (150-450); Poikilocytosis Moderate; Potassium 4.8 mmol/L (3.5-5.1); RBC 2.74 m/uL (4.30-5.90); RDW 21.4 % (11.5-15.5); Total Bilirubin 0.9 mg/dL (0.2-1.3); Total Protein 5.9 g/dL (6.3-8.2); WBC 18.5 k/uL (3.8-10.6)
[2021-04-09] MEDS: SODIUM BICARBONATE TAB 650 MG TAB PO SCH ×2 (09:39→21:19)
[2021-04-09] MEDS: THIAMINE 100 MG TAB PO SCH (09:39)
[2021-04-09] MEDS: METOPROLOL TARTRATE 50 MG TAB PO SCH ×2 (09:39→21:20)
[2021-04-09] MEDS: PANTOPRAZOLE 40 MG/10 ML VIAL IV SCH (09:39)
[2021-04-09] MEDS ORDERED: VANCOMYCIN IV PER PHARMACY 1 EACH MISC MISCELLANE PRN (09:45)
[2021-04-09] MEDS ORDERED: MAG HYDROX/AL HYDROX/SIMETH 30 ML CUP PO SCH (10:00)
[2021-04-09] MEDS ORDERED: VANCOMYCIN 1,250 MG in SODIUM CHLORIDE 0.9% 250 ML IVPB ONE (11:00)
--- NOTE | 2021-04-09 11:17 | P.PN ---
Subjective Patient is seen in follow-up for acute kidney injury. Renal function slightly better. Potassium level normal. Has a Carcamo catheter. Nonoliguric. No further vomiting. No abdominal pain. Vital signs are stable. General: The patient appeared well nourished and normally developed. HEENT: Head exam is unremarkable. LUNGS: Breath sounds decreased. HEART: Rate and Rhythm are regular. ABDOMEN: Soft, no distention. EXTREMITITES: No edema. Objective - Vital Signs Vital signs: Vital Signs Temp 98.2 F 04/09/21 08:00 Pulse 105 H 04/09/21 08:00 Resp 18 04/09/21 08:00 BP 133/68 04/09/21 08:00 Pulse Ox 96 04/09/21 08:00 Intake & Output 04/08/21 04/09/21 04/09/21 18:59 06:59 18:59 Intake Total 875 90 Output Total 500 Balance 375 90 Weight 65.4 kg Intake: Intake, IV Titration 675 Amount Sodium Chloride 0.9% 1, 675 000 ml @ 75 mls/hr IV . [id number] [facility] Rx#:[id number] Oral 200 90 Output: Urine 500 Other: Voiding Method Indwelling Catheter - Labs CBC & Chem 7: 04/09/21 07:36 04/09/21 07:36 Labs: Abnormal Lab Results - Last 24 Hours (Table) 04/08/21 04/08/21 04/08/21 Range/Units 06:54 12:13 12:13 WBC (3.8-10.6) k/uL RBC (4.30-5.90) m/uL Hgb (13.0-17.5) gm/dL Hct (39.0-53.0) % MCHC (31.0-37.0) g/dL RDW (11.5-15.5) % Chloride 109 H (98-107) mmol/L BUN 41 H (9-20) mg/dL Creatinine 1.32 H (0.66-1.25) mg/dL Glucose 172 H (74-99) mg/dL AST (17-59) U/L Lactate Dehydrogenase (313-618) U/L Troponin I 2.110 H* (0.000-0.034) ng/mL Total Protein (6.3-8.2) g/dL Lipase (23-300) U/L PTH Intact 119.0 H (14.0-72.0) pg/mL 04/08/21 04/09/21 04/09/21 Range/Units 12:13 07:36 07:36 WBC 18.5 H (3.8-10.6) k/uL RBC 2.74 L (4.30-5.90) m/uL Hgb 8.4 L (13.0-17.5) gm/dL Hct 27.3 L (39.0-53.0) % MCHC 30.8 L (31.0-37.0) g/dL RDW 21.4 H (11.5-15.5) % Chloride (98-107) mmol/L BUN 39 H (9-20) mg/dL Creatinine (0.66-1.25) mg/dL Glucose 121 H (74-99) mg/dL AST 90 H (17-59) U/L Lactate Dehydrogenase 7471 H (313-618) U/L Troponin I (0.000-0.034) ng/mL Total Protein 5.9 L (6.3-8.2) g/dL Lipase (23-300) U/L PTH Intact (14.0-72.0) pg/mL 04/09/21 Range/Units 10:08 WBC (3.8-10.6) k/uL RBC (4.30-5.90) m/uL Hgb (13.0-17.5) gm/dL Hct (39.0-53.0) % MCHC (31.0-37.0) g/dL RDW (11.5-15.5) % Chloride (98-107) mmol/L BUN (9-20) mg/dL Creatinine (0.66-1.25) mg/dL Glucose (74-99) mg/dL AST (17-59) U/L Lactate Dehydrogenase (313-618) U/L Troponin I (0.000-0.034) ng/mL Total Protein (6.3-8.2) g/dL Lipase 18 L (23-300) U/L PTH Intact (14.0-72.0) pg/mL Microbiology - Last 24 Hours (Table) 04/07/21 22:18 Urine Culture - Preliminary Urine,Voided Assessment and Plan Plan: Assessment: 1. Acute kidney injury secondary to ATN secondary to hypovolemia from vomiting. Baseline creatinine is near 1 and is up to 1.24 today. No hydronephrosis noted on CAT scan. Patient did receive IV contrast on April 08 for CAT scan. 2. Hyperkalemia with potassium level of 6.9 this morning. Etiologies acute kidney injury and metabolic acidosis. Also noted to have thrombocytosis which can cause spurious hyperkalemia. Resolved. 3. Metabolic acidosis secondary to acute kidney injury and IV fluids. Maintained on oral bicarb. Better. 4. Hypocalcemia secondary to acute kidney injury. Replaced. Resolved. PTH 119. 5. UTI on antibiotics. Repeat UA shows no WBCs. 6. Thrombocytosis. Patient does have history of myelofibrosis. Hematology following. 7. Chronic systolic CHF with ejection fraction of 25-30% with moderate MR and pulmonary hypertension. Plan: Hep-Lock IV fluids. Follow-up urinalysis. Follow-up cultures. Avoid nephrotoxins. Continue to monitor renal function and urine output. Follow up vitamin D levels. Patient did have dark colored urine yesterday. Urine myoglobin is pending. CK levels not significantly elevated. Check UPC.
--- NOTE | 2021-04-09 12:41 | P.PN ---
Subjective HISTORY OF PRESENTING ILLNESS This is a pleasant 75-year-old male past medical history significant for nonobstructive coronary artery disease, valvular heart disease status post mitral and tricuspid valve repair 2016, dyslipidemia, hypertension, chronic persistent atrial fibrillation on Coumadin and myelofibrosis. He follows in the office with Sk[facility]. We have been asked to see in consultation for elevated troponin. He presented to the hospital with symptoms of dark urine and lower abdominal discomfort. He was found to have acute kidney injury, metabolic acidosis, hyperkalemia and UTI. He also had a troponin leak. EKG on arrival re veals atrial fibrillation heart rate 99. Chest xray revealed mild heart failure and increase pulmonary congestion. Laboratory data reviewed, WBC 32.1, hgb 9.4, plt 1185, sodium 139, potassium on admission 2.9 after supplementation went up to 6.9 and then down to 5.9, creatinine 1.35, troponin 0.132, 1.04, 2.11, lactic acid 2.2 repeat after hydration 1.7 and CK 201. Current daily medications includ e atorvastatin 20 mg daily, warfarin and lisinopril 5 mg daily. He is seen and examined sitting up in bed with family at the bedside. He states for the previous 24 hours he has been experiencing symptoms of lower abdominal and lower back pain that is sharp and achy in nature. He denies any symptoms of chest pain or shortness of breath. Recent echocardiogram from the office 11/2020 reveals preserved LV systolic function with EF 50%, severely dilated LA, mild AR, ring annuloplasty of the MV, ring annuloplasty to the TV with mild pulmonary hypertension with RVSP 49 mmHg. 04/09/2021 Patient seen and examined sitting up in recliner chair in no acute distress. He has no symptoms of chest pain, shortness of breath, dizziness or palpitations. Blood pressure 133/68 heart rate 105 afebrile maintaining oxygen saturation on nasal cannula. Laboratory data reviewed, WBC 18.5, hemoglobin 8.4, platelets 439, sodium 137, potassium 4.8, creatinine 1.24, magnesium 2.3. Echocardiogram obtained revealed severely impaired LV systolic function with ejection fraction 25-30%, severely dilated left atrium, mild to moderate aortic regurgitation, moderate mitral regurgitation status post mitral valve annuloplasty with a mobile 1.3 x 1.5 mm echodensity attached to the posterior mitral valve leaflet/annuloplasty ring concerning for vegetation, mild to moderate tricuspid regurgitation, moderate pulmonary hypertension with an RVSP of 52 mmHg. PHYSICAL EXAMINATION CONSTITUTIONAL: No apparent distress. Ashen appearance. HEENT: Head is normocephalic. Pupils are equal, round. Sclerae anicteric. Mucous membranes of the mouth are moist. No JVD. No carotid bruit. CHEST EXAMINATION: Lungs are clear to auscultation. No chest wall tenderness is noted on palpation or with deep breathing. HEART EXAMINATION: Irregular rate and rhythm. S1, S2 heard. Systolic ejection murmur at the apex, no gallops or rub. EXTREMITIES: 2+ peripheral pulses, no lower extremity edema and no calf tenderness. ASSESSMENT Chronic persistent atrial fibrillation with rapid ventricular response Acute kidney injury Hyperkalemia Troponin leak, no related to ACS Metabolic acidosis Thrombocytosis Anemia Valvular heart disease s/p mitral and tricuspid ring annuloplasty PLAN Check blood cultures x2. Schedule for KAYLAN tomorrow with Dr. Escoto to further evaluate the mitral valve Nurse Practitioner note has been reviewed, I agree with a documented findings and plan of care. Patient was seen and examined. Objective - Vital Signs Vital signs: Vital Signs Temp 98.2 F 04/09/21 08:00 Pulse 105 H 04/09/21 08:00 Resp 18 04/09/21 08:00 BP 133/68 04/09/21 08:00 Pulse Ox 96 04/09/21 08:00 Intake & Output 04/08/21 04/09/21 04/09/21 18:59 06:59 18:59 Intake Total 875 90 Output Total 500 Balance 375 90 Weight 65.4 kg Intake: Intake, IV Titration 675 Amount Sodium Chloride 0.9% 1, 675 000 ml @ 75 mls/hr IV . [id number] [facility] Rx#:[id number] Oral 200 90 Output: Urine 500 Other: Voiding Method Indwelling Catheter - Labs CBC & Chem 7: 04/09/21 07:36 04/09/21 07:36 Labs: Abnormal Lab Results - Last 24 Hours (Table) 04/08/21 04/08/21 04/08/21 Range/Units 06:54 12:13 12:13 WBC (3.8-10.6) k/uL RBC (4.30-5.90) m/uL Hgb (13.0-17.5) gm/dL Hct (39.0-53.0) % MCHC (31.0-37.0) g/dL RDW (11.5-15.5) % Chloride 109 H (98-107) mmol/L BUN 41 H (9-20) mg/dL Creatinine 1.32 H (0.66-1.25) mg/dL Glucose 172 H (74-99) mg/dL AST (17-59) U/L Lactate Dehydrogenase (313-618) U/L Troponin I 2.110 H* (0.000-0.034) ng/mL Total Protein (6.3-8.2) g/dL Lipase (23-300) U/L PTH Intact 119.0 H (14.0-72.0) pg/mL 04/08/21 04/09/21 04/09/21 Range/Units 12:13 07:36 07:36 WBC 18.5 H (3.8-10.6) k/uL RBC 2.74 L (4.30-5.90) m/uL Hgb 8.4 L (13.0-17.5) gm/dL Hct 27.3 L (39.0-53.0) % MCHC 30.8 L (31.0-37.0) g/dL RDW 21.4 H (11.5-15.5) % Chloride (98-107) mmol/L BUN 39 H (9-20) mg/dL Creatinine (0.66-1.25) mg/dL Glucose 121 H (74-99) mg/dL AST 90 H (17-59) U/L Lactate Dehydrogenase 7471 H (313-618) U/L Troponin I (0.000-0.034) ng/mL Total Protein 5.9 L (6.3-8.2) g/dL Lipase (23-300) U/L PTH Intact (14.0-72.0) pg/mL 04/09/21 Range/Units 10:08 WBC (3.8-10.6) k/uL RBC (4.30-5.90) m/uL Hgb (13.0-17.5) gm/dL Hct (39.0-53.0) % MCHC (31.0-37.0) g/dL RDW (11.5-15.5) % Chloride (98-107) mmol/L BUN (9-20) mg/dL Creatinine (0.66-1.25) mg/dL Glucose (74-99) mg/dL AST (17-59) U/L Lactate Dehydrogenase (313-618) U/L Troponin I (0.000-0.034) ng/mL Total Protein (6.3-8.2) g/dL Lipase 18 L (23-300) U/L PTH Intact (14.0-72.0) pg/mL Microbiology - Last 24 Hours (Table) 04/07/21 22:18 Urine Culture - Final Urine,Voided
--- NOTE | 2021-04-09 13:08 | P.PN ---
Subjective Progress Note Date: 04/09/21 HISTORY OF PRESENT ILLNESS This is a 75-year-old male patient planning to be established with Dr. Molina as PCP next week. He has a past medical history of myelofibrosis and followed at [facility]. He also has history of chronic atrial fibrillation, mitral valve prolapse status post mitral and tricuspid valve repair and modified Lucas- Maze procedure with mitral and tricuspid valve regurgitation with moderate mitral insufficiency. Patient is a very poor historian and describes fever for 6 days, no cough, decreased appetite. Patient came into [facility] emergency center for evaluation with complaints of right upper and mid abdominal pain cramping type with vomiting and also dark urine. He was afebrile, heart rate 107, blood pressure 180/97, pulse ox 99% on room air. EKG was atrial fibrillation at 88 bpm. WBC 22.9, hemoglobin 9.3, platelet count 990. Sodium 140, potassium 2.9, chloride 121, CO2 12, BUN 24 creatinine 0.72. Blood sugar 143. INR 3.0. Lactic acid 2.2. Troponin 0.132, 1.04, 2.110. Total bilirubin 2.1, AST 100, ALT 17, alkaline phosphatase 26. Repeat blood work this morning revealed potassium 6.9, BUN 39 creatinine 1.39 and CO2 17, WBC 32.1, hemoglobin 9.5 and platelet count 1185. Abdominal x-ray revealed nonacute abdomen. CAT scan of the abdomen and pelvis with contrast revealed fat stranding along the upper pole right kidney in the retroperitoneum. Do not suspect pancreatitis. Bilateral nonobstructing renal calculi. Normal right kidney no evidence of pyelonephritis. Mild subsegmental atelectasis at the lung bases. Cardiomegaly. Chest x-ray reveals mild congestive heart failure, increased pulmonary vascular congestion compared to last exam. Pleural fluid improved. Patient is seen today in the ER waiting for a cardiac stepdown bed. He has been seen by nephrology and is status post 3 A of bicarb, IV calcium gluconate, insulin and and D50, maintained on IV fluids at 75 mL per hour. 04/09: Patient's mental status is improved from yesterday. Echocardiogram revealed EF of 25-30%, mild to moderate aortic regurgitation, mild mitral calcification, moderate mitral regurgitation, MV annuloplasty, mobile 1.3 x 1.5 mm hypodensity attached to the posterior mitral valve leaflet, mild to moderate tricuspid regurgitation, moderate pulmonary hypertension. Patient's been seen by cardiology and patient is scheduled for KAYLAN tomorrow. Coumadin will remain on hold for now. Blood cultures have been ordered. We started the patient on vancomycin and add a consult with Dr. Nowak. Cardiology has ruled out acute coronary syndrome. Regarding renal failure, patient is eating and drinking. He has a Carcamo catheter in place. Nephrology is planning to Hep-Lock IV fluids. Urine myoglobin is pending, urinalysis and cultures pending. Patient is also followed by oncology for the myelofibrosis and leukocytosis. Patient has history of acquired von Willebrand disease and lancet been ordered. Subsequently patient was noted to have some weakness on the right side with visual changes on the right eye, CAT scan of the brain and neurology consult was admitted to rule out CVA. REVIEW OF SYSTEMS Constitutional: No fever, no chills, no night sweats. No weight change. Noted weakness, Noted fatigue Noted lethargy. Noted daytime sleepiness. EENT: No headache. Visual change right eye. No loss of Hearing, no ringing in the ears, no dizziness. No nasal drainage or congestion. No epistaxis. No sore throat. Lungs: No shortness of breath, cough, no sputum production. No wheezing. Cardiovascular: No chest pain, no lower extremity edema. No palpitations. No paroxysmal nocturnal dyspnea. No orthopnea. No lightheadedness or dizziness. No syncopal episodes. Abdominal: Reported abdominal pain. Reported nausea, Reported vomiting. No diarrhea. No constipation. No bloody or tarry stools. Reported loss of appetite. Genitourinary: No dysuria, increased frequency, urgency. No urinary retention. Reported dark brown urine. Musculoskeletal: No myalgias. No muscle weakness, no gait dysfunction, no frequent falls. No back pain. No neck pain. Integumentary: No wounds, no lesions. No rash or pruritus. No unusual bruising. No change in hair or nails. Neurologic: No aphasia. No facial droop. Noted change in mentation, improving. No head injury. No headache. No paralysis. No paresthesia. Weakness right arm. Psychiatric: No depression. No anxiety. No mood swings. Endocrine: No abnormal blood sugars. PHYSICAL EXAMINATION Gen: This is a thin cachectic 75-year-old male. He is resting in bed and appears to be in no acute distress.. HEENT: Head is atraumatic, normocephalic. Pupils equal, round. Sclerae is anicteric. NECK: Supple. No JVD. No lymphadenopathy. No thyromegaly. LUNGS: Clear to auscultation. No wheezes or rhonchi. No intercostal retractions. HEART: Regular rate and rhythm. No murmur. ABDOMEN: Soft. Bowel sounds are present. Mid abdominal mass above the umbilicus 2 cm, probable lipoma. No tenderness. Carcamo catheter in place. EXTREMITIES: No pedal edema. No calf tenderness. NEUROLOGICAL: Patient is awake, alert and oriented x2. Generalized weakness. Cranial nerves 2 through 12 are grossly intact. ASSESSMENT AND PLAN 1. Acute kidney injury secondary to ATN from vomiting. Nephrology consult appreciated. IV fluids discontinued, avoid nephrotoxic agents, Carcamo catheter. Hold lisinopril. 2. Metabolic acidosis secondary to acute kidney injury. Patient is status post sodium bicarb. 3. Hyperkalemia secondary to acute kidney injury. Patient is status post calcium gluconate, IV insulin and D 50. 4. Hypercalcemia secondary to acute kidney injury, replaced. 5. Leukocytosis, thrombocytosis. 6. Anemia of chronic disease. 7. Elevated troponin. Consult with cardiology. 8. Possible urinary tract infection. Continue ceftriaxone. Urine culture in process. 9. History of myelofibrosis. Consult with oncology appreciated. 10. Chronic atrial fibrillation. Patient is therapeutic on Coumadin. Hold until patient completes KAYLAN tomorrow. 11. History of mitral and tricuspid repair. 12. Elevated liver function tests. Hold atorvastatin for now 13. Metabolic encephalopathy (POA). Treat underlying conditions. 14. Vegetation on mitral valve per echocardiogram. Patient scheduled for KAYLAN tomorrow. Blood cultures ordered, as patient started on vancomycin and consult with Dr. Nowak. 15. COVID-19 testing negative. Patient will be admitted to the hospital for a minimum of 2 night stay. DISCHARGE PLAN To be determined. Impression and plan of care have been directed as dictated by the signing physi cian. Yue Starks nurse practitioner acting as scribe for signing physician. Objective - Vital Signs Vital signs: Vital Signs Temp 98.2 F 04/09/21 08:00 Pulse 105 H 09/30/21 08:00 Resp 18 04/09/21 08:00 BP 133/68 04/09/21 08:00 Pulse Ox 96 04/09/21 08:00 Intake & Output 04/08/21 04/09/21 04/09/21 18:59 06:59 18:59 Intake Total 875 90 Output Total 500 Balance 375 90 Weight 65.4 kg Intake: Intake, IV Titration 675 Amount Sodium Chloride 0.9% 1, 675 000 ml @ 75 mls/hr IV . [id number] [facility] Rx#:[id number] Oral 200 90 Output: Urine 500 Other: Voiding Method Indwelling Catheter - Labs CBC & Chem 7: 04/09/21 07:36 04/09/21 07:36 Labs: Abnormal Lab Results - Last 24 Hours (Table) 04/08/21 04/08/21 04/08/21 Range/Units 06:54 09:26 09:26 WBC (3.8-10.6) k/uL RBC (4.30-5.90) m/uL Hgb (13.0-17.5) gm/dL Hct (39.0-53.0) % MCHC (31.0-37.0) g/dL RDW (11.5-15.5) % Potassium 5.9 H (3.5-5.1) mmol/L Chloride (98-107) mmol/L BUN 42 H (9-20) mg/dL Creatinine 1.35 H (0.66-1.25) mg/dL Glucose 272 H (74-99) mg/dL AST (17-59) U/L Lactate Dehydrogenase (313-618) U/L Creatine Kinase 185 H (55-170) U/L Troponin I 1.040 H* (0.000-0.034) ng/mL Total Protein (6.3-8.2) g/dL PTH Intact 119.0 H (14.0-72.0) pg/mL Amorphous Sediment (None) /hpf Urine Bacteria (None) /hpf Hyaline Casts (0-2) /lpf Urine Mucus (None) /hpf 04/08/21 04/08/21 04/08/21 Range/Units 10:23 12:13 12:13 WBC (3.8-10.6) k/uL RBC (4.30-5.90) m/uL Hgb (13.0-17.5) gm/dL Hct (39.0-53.0) % MCHC (31.0-37.0) g/dL RDW (11.5-15.5) % Potassium (3.5-5.1) mmol/L Chloride 109 H (98-107) mmol/L BUN 41 H (9-20) mg/dL Creatinine 1.32 H (0.66-1.25) mg/dL Glucose 172 H (74-99) mg/dL AST (17-59) U/L Lactate Dehydrogenase (313-618) U/L Creatine Kinase (55-170) U/L Troponin I 2.110 H* (0.000-0.034) ng/mL Total Protein (6.3-8.2) g/dL PTH Intact (14.0-72.0) pg/mL Amorphous Sediment Few H (None) /hpf Urine Bacteria Rare H (None) /hpf Hyaline Casts 3 H (0-2) /lpf Urine Mucus Rare H (None) /hpf 04/08/21 04/09/21 04/09/21 Range/Units 12:13 07:36 07:36 WBC 18.5 H (3.8-10.6) k/uL RBC 2.74 L (4.30-5.90) m/uL Hgb 8.4 L (13.0-17.5) gm/dL Hct 27.3 L (39.0-53.0) % MCHC 30.8 L (31.0-37.0) g/dL RDW 21.4 H (11.5-15.5) % Potassium (3.5-5.1) mmol/L Chloride (98-107) mmol/L BUN 39 H (9-20) mg/dL Creatinine (0.66-1.25) mg/dL Glucose 121 H (74-99) mg/dL AST 90 H (17-59) U/L Lactate Dehydrogenase 7471 H (313-618) U/L Creatine Kinase (55-170) U/L Troponin I (0.000-0.034) ng/mL Total Protein 5.9 L (6.3-8.2) g/dL PTH Intact (14.0-72.0) pg/mL Amorphous Sediment (None) /hpf Urine Bacteria (None) /hpf Hyaline Casts (0-2) /lpf Urine Mucus (None) /hpf Microbiology - Last 24 Hours (Table) 04/07/21 22:18 Urine Culture - Preliminary Urine,Voided
--- NOTE | 2021-04-09 13:22 | CT ---
EXAMINATION TYPE: CT brain wo con DATE OF EXAM: 04/09/2021 COMPARISON: None HISTORY: right arm weakness, vision change, r/o cva CT DLP: 1100.[address] of the brain was performed. The ventricles, basal cisterns and sulci overlying the cerebral convexities demonstrate mild enlargem ent. There is no evidence for intracranial hemorrhage or sulcal effacement. There is decreased attenuation about the periventricular white matter and deep white matter of both c erebral hemispheres, compatible with chronic small vessel ischemia. Differential diagnosis does inclu de demyelination. No mass effects are seen.No midline shift. Osseous calvarium is intact. If symptoms persist consider MRI. IMPRESSION: 1. Age related atrophic and chronic small vessel ischemic change without acute intracranial process s een at this time.
--- NOTE | 2021-04-09 14:03 | P.PN ---
Subjective Progress Note Date: 04/09/21 Principal diagnosis: ET and MF In f/u today pt is more alert, oriented and communicating more clearly. He notes today that if he holds his hand out he cannot see his fingers, he has to concentrate to lift his right arm, he is having some discomfort in the RUQ. Denies bleeding, urine is less intense in color Objective - Vital Signs Vital signs: Vital Signs Temp 98.2 F 04/09/21 03:18 Pulse 92 04/09/21 03:18 Resp 20 04/09/21 03:18 BP 116/72 04/09/21 03:18 Pulse Ox 95 04/09/21 03:18 Intake & Output 04/08/21 04/09/21 04/09/21 18:59 06:59 18:59 Intake Total 875 Output Total 500 Balance 375 Weight 65.4 kg Intake: Intake, IV Titration 675 Amount Sodium Chloride 0.9% 1, 675 000 ml @ 75 mls/hr IV . [id number] [facility] Rx#:[id number] Oral 200 Output: Urine 500 Other: Voiding Method Indwelling Catheter - Constitutional General appearance: Present: cooperative, no acute distress, thin - EENT Eyes: Present: anicteric sclerae, EOMI ENT: Present: hearing grossly normal - Respiratory Respiratory: bilateral: CTA - Cardiovascular Rhythm: regular Heart sounds: normal: S1, S2 Abnormal Heart Sounds: Absent: systolic murmur, diastolic murmur, rub, S3 Gallop, S4 Gallop, click, other - Peripheral edema leg Peripheral Edema: bilateral: None - Gastrointestinal General gastrointestinal: Present: normal bowel sounds, soft, tenderness Localized gastrointestinal: tender: RUQ, epigastric periumbilical - Neurologic Neurologic Comment(s): pt has to concentrate to move the RUE, all other extremities move spontaneously. - Musculoskeletal Musculoskeletal: Present: generalized weakness - Psychiatric Psychiatric: Present: A&O x's 3, appropriate affect, intact judgment & insight - Labs CBC & Chem 7: 04/09/21 07:36 04/09/21 07:36 Labs: Abnormal Lab Results - Last 24 Hours (Table) 04/08/21 04/08/21 04/08/21 Range/Units 06:54 09:26 09:26 WBC (3.8-10.6) k/uL RBC (4.30-5.90) m/uL Hgb (13.0-17.5) gm/dL Hct (39.0-53.0) % MCHC (31.0-37.0) g/dL RDW (11.5-15.5) % Potassium 5.9 H (3.5-5.1) mmol/L Chloride (98-107) mmol/L BUN 42 H (9-20) mg/dL Creatinine 1.35 H (0.66-1.25) mg/dL Glucose 272 H (74-99) mg/dL AST (17-59) U/L Lactate Dehydrogenase (313-618) U/L Creatine Kinase 185 H (55-170) U/L Troponin I 1.040 H* (0.000-0.034) ng/mL Total Protein (6.3-8.2) g/dL PTH Intact 119.0 H (14.0-72.0) pg/mL Amorphous Sediment (None) /hpf Urine Bacteria (None) /hpf Hyaline Casts (0-2) /lpf Urine Mucus (None) /hpf 04/08/21 04/08/21 04/08/21 Range/Units 10:23 12:13 12:13 WBC (3.8-10.6) k/uL RBC (4.30-5.90) m/uL Hgb (13.0-17.5) gm/dL Hct (39.0-53.0) % MCHC (31.0-37.0) g/dL RDW (11.5-15.5) % Potassium (3.5-5.1) mmol/L Chloride 109 H (98-107) mmol/L BUN 41 H (9-20) mg/dL Creatinine 1.32 H (0.66-1.25) mg/dL Glucose 172 H (74-99) mg/dL AST (17-59) U/L Lactate Dehydrogenase (313-618) U/L Creatine Kinase (55-170) U/L Troponin I 2.110 H* (0.000-0.034) ng/mL Total Protein (6.3-8.2) g/dL PTH Intact (14.0-72.0) pg/mL Amorphous Sediment Few H (None) /hpf Urine Bacteria Rare H (None) /hpf Hyaline Casts 3 H (0-2) /lpf Urine Mucus Rare H (None) /hpf 04/08/21 04/09/21 04/09/21 Range/Units 12:13 07:36 07:36 WBC 18.5 H (3.8-10.6) k/uL RBC 2.74 L (4.30-5.90) m/uL Hgb 8.4 L (13.0-17.5) gm/dL Hct 27.3 L (39.0-53.0) % MCHC 30.8 L (31.0-37.0) g/dL RDW 21.4 H (11.5-15.5) % Potassium (3.5-5.1) mmol/L Chloride (98-107) mmol/L BUN 39 H (9-20) mg/dL Creatinine (0.66-1.25) mg/dL Glucose 121 H (74-99) mg/dL AST 90 H (17-59) U/L Lactate Dehydrogenase 7471 H (313-618) U/L Creatine Kinase (55-170) U/L Troponin I (0.000-0.034) ng/mL Total Protein 5.9 L (6.3-8.2) g/dL PTH Intact (14.0-72.0) pg/mL Amorphous Sediment (None) /hpf Urine Bacteria (None) /hpf Hyaline Casts (0-2) /lpf Urine Mucus (None) /hpf Microbiology - Last 24 Hours (Table) 04/07/21 22:18 Urine Culture - Preliminary Urine,Voided Assessment and Plan (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 DIC, ADAMTS, labs ordered. Current Visit: Yes Status: Chronic Priority: Medium Code(s): D47.3 - ESSENTIAL (HEMORRHAGIC) THROMBOCYTHEMIA; D47.4 - OSTEOMYELOFIBROSIS SNOMED Code(s): 578315300 (2) Leukocytosis Current Visit: Yes Status: Chronic Priority: Medium Code(s): D72.829 - ELEVATED WHITE BLOOD CELL COUNT, UNSPECIFIED SNOMED Code(s): 728909525 Plan: Pt has long history of ET-related secondary myelofibrosis, with plt in the 700K range at baseline, Hgb 7-8 range, on aranesp Q 3 weeks and normal WBC. Pt follows with Dr. Begum. With acute illness-suspect UTI currently-platelet can increase, which they have done, Hgb is stable compared to his baseline (had aranesp on 03/24/21) and WBC is elevated with left shift. Pt is on abx, CBC daily. Dark brown urine-urinalysis and other labs ordered to evaluate for blood in urine vs bleeding high up and breakdown of RBCs-still pending results Hx of aquired von Wb disease: labs ordered Neurology consulted for RUE weakness, vision changes. CT head ordered.
[2021-04-09 15:07] LABS: Band Neutrophils % 2 %; Blast Cells # (M) 0.37 k/uL (0); Lymphocytes # (M) 0.74 k/uL (1.0-4.8); Metamyelocytes # (M) 0.19 k/uL (0); Metamyelocytes % 1 %; Monocytes # (M) 1.67 k/uL (0-1.0); Neutrophils % (M) 85 %; Nucleated Red Blood Cells 0 /100 WBC (0-0); Total Cells Counted 200
[2021-04-09 15:13] LABS: Polychromasia Present; RBC Fragments Present; Tear Drop Cells Present
[2021-04-09 16:37] LABS: Glucose,Whole Blood 123 mg/dL (75-99)
[2021-04-09 19:04] LABS: Appearance,Urine Cloudy (Clear); Bacteria,Urine Rare /hpf; Bilirubin,Urine Negative (Negative); Blood,Urine Large (Negative); Color,Urine Yellow; Glucose,Urine (UA) 1+ (Negative); Hyaline Casts,Urine 1 /lpf (0-2); Ketones,Urine Trace (Negative); Leukocyte Esterase,Urine Moderate (Negative); Mucus,Urine Rare /hpf; Nitrite,Urine Negative (Negative); Protein,Urine 1+ (Negative); RBC,Urine 10 /hpf (0-5); Specific Gravity,Urine 1.025 (1.001-1.035); Squamous Epithelial Cell,Urine <1 /hpf (0-4); Urobilinogen,Urine <2.0 mg/dL (<2.0); WBC,Urine 17 /hpf (0-5)
[2021-04-09 19:09] LABS: Creatinine,Urine Random 109.2 mg/dL; Protein/Creatinine Ratio,Urine 0.458
[2021-04-09 20:10] LABS: Glucose,Whole Blood 122 mg/dL (75-99)
[2021-04-09] MEDS: VANCOMYCIN 1,250 MG in SODIUM CHLORIDE 0.9% 250 ML IVPB SCH (21:19)
--- NOTE | 2021-04-09 23:41 | P.CONS ---
History of Present Illness - Reason for Consult Consult date: 04/09/21 abnormal ECHO ?endocarditis Requesting physician: Yue Starks - Chief Complaint abd pain x 1 day - History of Present Illness History of present illness : Patient is 75-year-old male presented to the ER 2 days ago for evaluation of abdominal pain which has been mostly in the right upper to mid abdominal area that started the afternoon on presentation to the hospital pain was mostly crampy in nature intensity 5-6 out of 10 and no radiation patient did have vomited twice before presentation the hospital but no further vomiting since then denies having any diarrhea or constipation patient on presentation to the hospital was afebrile and no fever has been recorded subsequently patient did have a white count of 22,000 on admission repeat yesterday was 32.1 and today is 18.5 creatinine has been normal AST was mildly elevated staples PCR was negative no blood cultures has been done patient was started on Rocephin yesterday with vancomycin added today as the patient did have a echocardiogram completed yesterday afternoon and has been reported as a mobile 1.3X 1.5 mm echodensity posterior mitral valve leaflet concerning for possible vegetation patient denies having any dental procedure or invasive work- up done recently and did not have any history of any cellulitis abscess or any infection infection was consulted for this abnormal finding and further management patient did have a CT of abdominal pelvis for abdominal pain which showed some diverticula but no diverticulitis and swelling about the upper pole right kidney clinical significance not clear bilateral nonobstructing renal calculi Review of system: CONSTITUTIONAL: Positive for weakness however denies high-grade fever. EYES: No complaint. ENT: No complaint. RESPIRATORY: No complaint. CARDIOVASCULAR: No complaint. GENITOURINARY: No complaint. GASTROINTESTINAL: As per history of present illness. MUSCULOSKELETAL: No complaint. INTEGUMENTARY: No complaint. PSYCHOLOGIC: No complaint. ENDOCRINE: No complaint. NEUROLOGIC: No complaint. Past medical history : Reviewed, documented below Past surgical history : Reviewed, documented below Social history: Reviewed, documented below Medications: Reviewed, as documented below EXAMINATION: Vital sigans= Reviewed and documented below GENERAL DESCRIPTION: Elderly male lying in bed, no distress. No tachypnea or accessory muscle of respiration use. HEENT: Shows Pallor , no scleral icterus. Oral mucous membrane is dry. NECK: Trachea central, no thyromegaly. LUNGS: Unlabored breathing. Clear to auscultation anteriorly. No wheeze or crackle. HEART: S1, S2, regular rate and rhythm. ABDOMEN: Soft, no tenderness , guarding or rigidity EXTREMITIES: No edema of feet. SKIN: No rash, no masses palpable. NEUROLOGICAL: The patient is awake, alert, oriented x3, mood and affect normal. LABS AND RADIOLOGY: Reviewed results see below Assessment : Patient presented to hospital with abdominal pain in this patient who did have a significant elevated white count however CT abdominal pelvis did not show any acute abnormality did have an abnormal echo suspicious for mitral valve endocarditis as mentioned previously patient did not have any fever and no risk factor for infective endocarditis either, patient benefit from a KAYLAN to further define the abnormality seen on the mitral valve Plan: 1-blood culture has been drawn today and will be repeated tomorrow 2-we will check a CRP and sed rate 3-patient benefit from a KAYLAN 4-continue with empiric vancomycin and Rocephin while waiting for the cultures to be finalized We will follow on clinical condition and cultures to further adjust medication if needed Thank you for this consultation we will follow the patient along with you Past Medical History Past Medical History: Atrial Fibrillation, Blood Disorder, Hypertension, Mitral Valve Prolapse (MVP) Additional Past Medical History / Comment(s): MYELOFIBROSIS History of Any Multi-Drug Resistant Organisms: None Reported Past Surgical History: Cardiac Valve Replacement, Hernia Repair Additional Past Surgical History / Comment(s): PAULINA HERNIA REPAIR, KAYLAN. HEART VALVE REPAIR Past Anesthesia/Blood Transfusion Reactions: No Reported Reaction Past Psychological History: No Psychological Hx Reported Smoking Status: Former smoker Past Alcohol Use History: Daily, Occasional Additional Past Alcohol Use History / Comment(s): SMOKED 1PPD FOR ABOUT 4 YRS IN THE MIDDLE 60'S. Past Drug Use History: None Reported - Past Family History Father Sister(s) Family Medical History: Cancer Father Family Medical History: Cancer Additional Family Medical History / Comment(s): PROSTATE Sister(s) Family Medical History: Cancer Brother(s) Family Medical History: Cancer Additional Family Medical History / Comment(s): PROSTATE Medications and Allergies Home Medications Medication Instructions Recorded Confirmed Type Atorvastatin Calcium [Lipitor] 20 mg PO W/SUPPER 11/05/16 04/08/21 History Cyanocobalamin (Vitamin B-12) 1,000 mcg PO DAILY 04/08/21 04/08/21 History [Vitamin B-12] Doxepin HCl 25 mg PO HS 04/08/21 04/08/21 History Warfarin [Coumadin] 10 mg PO SUTH 04/08/21 04/08/21 History Warfarin [Coumadin] 12.5 mg PO [id number] 04/08/21 04/08/21 History lisinopriL [Zestril] 5 mg PO DAILY 04/08/21 04/08/21 History Allergies Allergy/AdvReac Type Severity Reaction Status Date / Time No Known Allergies Allergy Verified 04/08/21 07:43 Physical Exam Vitals: Vital Signs Temp Pulse Pulse Resp BP BP Pulse Ox 04/09/21 08:00 98.2 F 105 H 18 133/68 96 04/09/21 03:18 98.2 F 92 20 116/72 95 04/08/21 23:21 97.6 F 96 20 101/52 96 04/08/21 20:24 97.8 F 95 20 130/79 96 04/08/21 19:09 98.3 F 95 16 113/74 96 04/08/21 16:37 89 18 118/82 95 Intake and Output 04/08/21 04/09/21 04/09/21 22:59 06:59 14:59 Intake Total 875 140 Output Total 300 200 Balance -300 675 140 Intake: Intake, IV Titration 675 Amount Sodium Chloride 0.9% 1, 675 000 ml @ 75 mls/hr IV . [id number] [facility] Rx#:[id number] Oral 200 140 Output: Urine 300 200 Other: Voiding Method Indwelling Catheter Indwelling Catheter Weight 63.503 kg 65.4 kg Results CBC & Chem 7: 04/09/21 07:36 04/09/21 07:36 Labs: Abnormal Lab Results - Last 24 Hours (Table) 04/08/21 04/08/21 04/09/21 Range/Units 06:54 12:13 07:36 WBC 18.5 H (3.8-10.6) k/uL RBC 2.74 L (4.30-5.90) m/uL Hgb 8.4 L (13.0-17.5) gm/dL Hct 27.3 L (39.0-53.0) % MCHC 30.8 L (31.0-37.0) g/dL RDW 21.4 H (11.5-15.5) % BUN (9-20) mg/dL Glucose (74-99) mg/dL AST (17-59) U/L Lactate Dehydrogenase 7471 H (313-618) U/L Total Protein (6.3-8.2) g/dL Lipase (23-300) U/L PTH Intact 119.0 H (14.0-72.0) pg/mL 04/09/21 04/09/21 Range/Units 07:36 10:08 WBC (3.8-10.6) k/uL RBC (4.30-5.90) m/uL Hgb (13.0-17.5) gm/dL Hct (39.0-53.0) % MCHC (31.0-37.0) g/dL RDW (11.5-15.5) % BUN 39 H (9-20) mg/dL Glucose 121 H (74-99) mg/dL AST 90 H (17-59) U/L Lactate Dehydrogenase (313-618) U/L Total Protein 5.9 L (6.3-8.2) g/dL Lipase 18 L (23-300) U/L PTH Intact (14.0-72.0) pg/mL Microbiology - Last 24 Hours (Table) 04/07/21 22:18 Urine Culture - Final Urine,Voided
[2021-04-10] MEDS: HYDROmorphone 1 MG/ML 1 ML SYRINGE IVP PRN ×2 (02:08→23:05)
[2021-04-10 04:04] LABS: Aldolase 77.9 U/L (1.2-7.6)
[2021-04-10 06:00] LABS: Glucose,Whole Blood 135 mg/dL (75-99)
[2021-04-10 08:29] LABS: Anisocytosis Moderate; HCT 27.2 % (39.0-53.0); HGB 8.1 gm/dL (13.0-17.5); Hypochromasia Marked; MCH 30.7 pg (25.0-35.0); MCHC 29.9 g/dL (31.0-37.0); MCV 102.6 fL (80.0-100.0); Macrocytosis Marked; Mean Platelet Volume 10.2; Platelet Count 434 k/uL (150-450); Poikilocytosis Moderate; RBC 2.65 m/uL (4.30-5.90); RDW 21.5 % (11.5-15.5); WBC 14.6 k/uL (3.8-10.6)
[2021-04-10 08:39] LABS: INR 4.9 (<1.2); Partial Thromboplastin Time 57.5 sec (22.0-30.0); Prothrombin Time 47.2 sec (9.0-12.0)
[2021-04-10 08:41] LABS: Calcium 8.6 mg/dL (8.4-10.2); Potassium 4.2 mmol/L (3.5-5.1)
[2021-04-10] MEDS: VANCOMYCIN 1,250 MG in SODIUM CHLORIDE 0.9% 250 ML IVPB SCH ×2 (09:36→21:00)
[2021-04-10] MEDS: PANTOPRAZOLE 40 MG/10 ML VIAL IV SCH (09:37)
--- NOTE | 2021-04-10 09:44 | P.CNNES ---
History of Present Illness Consult date: 04/10/21 Requesting physician: Yue Starks Reason for Consult: right arm weakness, vision change, r/o cva History of Present Illness: This is a 75-year-old gentleman with medical history of chronic atrial fibrillation on Coumadin, myelofibrosis, mitral valve prolapse status post mitral tricuspid valve repair who presented to the emergency department on 04/07/2021 for abdominal pain. Neurology is consulted for right arm weakness and vision change to rule out stroke. The patient is accompanied with his who is at bedside. Per the patient he started having right upper extremity weakness since this past Tuesday and noticed yesterday he was having visual disturbance. He felt both eyes felt "vague". He denies of any diplopia. Patient denies off any numbness on the right side. He felt like he has some new numbness over the left hand. He denies any weakness other than the right upper extremity. Denies any slurring the speech, difficulty swallowing. Denies any current headaches. Denies any history of stroke or TIAs. Per the patient and his they noticed that his right upper extremity strength is improving but not back to baseline. Patient is on home medication of Coumadin, Lipitor 20 mg, vitamin B12, lisinopril, doxepin. Some of the workup in the hospital consisted of: Most recent vital signs is blood pressure of 130/69, heart rate of 95, respiratory of 16, temperature of 98.1 Fahrenheit oral pulse ox of 90% at room air. So far patient has been afebrile. Initial blood cells 22.5 thousand and most recent 18.5. Platelets on initial presentation is 990,000 and the repair was 1185K. and most recent is 439K. CT of the head that was done on 04/09/2021 is reported as age-related atrophic a nd chronic small vessel ischemic change without acute intracranial process seen at this time. 2-D echo was reported as borderline consider left ventricular hypertrophy. Ejection fraction of 25-30%. Left atrium is severely dilated. There is mobile 1.31.5 mm echo density attached to the posterior mitral valve leaflet/annuloplasty ring concerning for vegetation. Local correlation recommended and may consider KAYLAN of chronically indicated. AST of 90 and ALT of 23 ammonia is 9 Most recent urinalysis seems positive for urinary tract infection Garcia virus not detected INR on presentation is 3.0, PTT of 29.3 and PTT of 32.3. Review of Systems Review of system: The 12 point system was reviewed and apparent positive and negative per HPI. Past Medical History Past Medical History: Atrial Fibrillation, Blood Disorder, Hypertension, Mitral Valve Prolapse (MVP) Additional Past Medical History / Comment(s): MYELOFIBROSIS History of Any Multi-Drug Resistant Organisms: None Reported Past Surgical History: Cardiac Valve Replacement, Hernia Repair Additional Past Surgical History / Comment(s): PAULINA HERNIA REPAIR, KAYLAN. HEART VALVE REPAIR Past Anesthesia/Blood Transfusion Reactions: No Reported Reaction Past Psychological History: No Psychological Hx Reported Smoking Status: Former smoker Past Alcohol Use History: Daily, Occasional Additional Past Alcohol Use History / Comment(s): SMOKED 1PPD FOR ABOUT 4 YRS IN THE MIDDLE 60'S. Past Drug Use History: None Reported - Past Family History Father Sister(s) Family Medical History: Cancer Father Family Medical History: Cancer Additional Family Medical History / Comment(s): PROSTATE Sister(s) Family Medical History: Cancer Brother(s) Family Medical History: Cancer Additional Family Medical History / Comment(s): PROSTATE Medications and Allergies Home Medications Medication Instructions Recorded Confirmed Type Atorvastatin Calcium [Lipitor] 20 mg PO W/SUPPER 11/05/16 04/08/21 History Cyanocobalamin (Vitamin B-12) 1,000 mcg PO DAILY 04/08/21 04/08/21 History [Vitamin B-12] Doxepin HCl 25 mg PO HS 04/08/21 04/08/21 History Warfarin [Coumadin] 10 mg PO SUTH 04/08/21 04/08/21 History Warfarin [Coumadin] 12.5 mg PO [id number] 04/08/21 04/08/21 History lisinopriL [Zestril] 5 mg PO DAILY 04/08/21 04/08/21 History Allergies Allergy/AdvReac Type Severity Reaction Status Date / Time No Known Allergies Allergy Verified 04/08/21 07:43 Physical Examination - Vital Signs Vital Signs: Vital Signs Temp Pulse Resp BP Pulse Ox 04/10/21 04:05 16 94 L 04/10/21 04:00 98.1 F 95 16 130/69 90 L 04/10/21 01:26 93 16 04/10/21 00:00 98.2 F 93 16 113/67 91 L 04/09/21 20:00 98.4 F 100 16 137/75 95 04/09/21 16:00 98.0 F 102 H 17 134/80 96 04/09/21 14:00 102 H 17 04/09/21 12:00 97.7 F 81 19 114/76 100 Intake and Output 04/09/21 04/10/21 04/10/21 22:59 06:59 14:59 Intake Total 240 Output Total 600 650 Balance -360 -650 Intake: Oral 240 Output: Urine 600 650 Other: Voiding Method Indwelling Catheter Indwelling Catheter # Bowel Movements 0 Weight 65.3 kg GENERAL: The patient is sitting at side of bed and is not in acute distress. The patient appears somewhat lethargic. CHEST: The heart rate is regular rate rhythm. No murmurs to auscultation. No carotid bruit bilaterally. LUNG: Clear to auscultation bilaterally no wheezing noted throughout. Not labored breathing. ABDOMEN/GI: Bowel sounds present in all 4 quadrants. No tenderness to palpation throughout. NEUROLOGICAL: Higher mental function: The patient is awake, alert, oriented to self, place and time. Patient is following commands. No aphasia and no neglect. Cranial nerves: The pupils are round, equal and reactive to light. Visual kapadia is right lower nasal quadrant field defect (and this was tested twice). Extraocular movement is intact no nystagmus is noted. Facial sensation is normal to touch throughout. The facial strength is normal throughout. Hearing is moderately decreased bilaterally. Tongue is midline and moved [id number] without any difficulty. No dysarthria is noted. Shoulder shrug is normal bilaterally. Motor: Gait is deferred. The strength is right foream flexion is 4+ and extension is 5-. Otherwise 5 over 5 throughout. Normal tone and bulk. Cerebellum: Normal finger to nose on left but slow on the right but no ataxia or dysmetria is noted. Sensation: Sensation is normal to touch throughout. Reflexes (right/left): 1+ throughout.. Plantars are downgoing bilaterally. Results - Laboratory Findings CBC and BMP: 04/10/21 07:51 04/10/21 07:51 Abnormal Lab Findings: Abnormal Labs 04/07/21 04/07/21 04/07/21 22:18 22:18 22:18 WBC 22.5 H RBC 3.01 L Hgb 9.3 L D Hct 30.3 L MCV 100.7 H MCHC 30.7 L RDW 21.7 H Plt Count 990 H Blast Cells % Neutrophils # (Manual) 19.10 H Lymphocytes # (Manual) Monocytes # (Manual) Metamyelocytes # (Man) Myelocytes # (Manual) Blast Cells # (Man) Nucleated RBCs 2 H PT INR APTT Fibrinogen Potassium Chloride Carbon Dioxide BUN Creatinine Glucose POC Glucose (mg/dL) Plasma Lactic Acid Fransico 2.2 H* Calcium Total Bilirubin AST Alkaline Phosphatase Lactate Dehydrogenase Creatine Kinase CK-MB (CK-2) Troponin I Total Protein Albumin Lipase Aldolase PTH Intact Urine Protein Urine Glucose (UA) Urine Ketones Urine Blood Ur Leukocyte Esterase Urine RBC Urine WBC 16 H Urine WBC Clumps Amorphous Sediment Moderate H Urine Bacteria Many H Hyaline Casts Urine Mucus 04/07/21 04/07/21 04/07/21 22:18 23:04 23:04 WBC RBC Hgb Hct MCV MCHC RDW Plt Count Blast Cells % Neutrophils # (Manual) Lymphocytes # (Manual) Monocytes # (Manual) Metamyelocytes # (Man) Myelocytes # (Manual) Blast Cells # (Man) Nucleated RBCs PT 29.3 H INR 3.0 H APTT 32.3 H Fibrinogen Potassium 2.9 L Chloride 121 H Carbon Dioxide 12 L BUN 24 H Creatinine Glucose 143 H POC Glucose (mg/dL) Plasma Lactic Acid Frans[place] Calcium 5.6 L* Total Bilirubin 2.1 H AST 100 H Alkaline Phosphatase 26 L Lactate Dehydrogenase Creatine Kinase CK-MB (CK-2) 3.6 H Troponin I 0.132 H* Total Protein 4.7 L Albumin 2.7 L Lipase Aldolase PTH Intact Urine Protein Urine Glucose (UA) Urine Ketones Urine Blood Ur Leukocyte Esterase Urine RBC Urine WBC Urine WBC Clumps Amorphous Sediment Urine Bacteria Hyaline Casts Urine Mucus 04/08/21 04/08/21 04/08/21 01:27 06:54 06:54 WBC RBC Hgb Hct MCV MCHC RDW Plt Count Blast Cells % Neutrophils # (Manual) Lymphocytes # (Manual) Monocytes # (Manual) Metamyelocytes # (Man) Myelocytes # (Manual) Blast Cells # (Man) Nucleated RBCs PT INR APTT Fibrinogen Potassium 6.9 H* Chloride 110 H Carbon Dioxide 17 L BUN 39 H Creatinine 1.39 H Glucose 197 H POC Glucose (mg/dL) Plasma Lactic Acid [place]ans[place] Calcium Total Bilirubin 2.2 H AST 172 H Alkaline Phosphatase Lactate Dehydrogenase Creatine Kinase 201 H CK-MB (CK-2) Troponin I Total Protein Albumin Lipase Aldolase PTH Intact 119.0 H Urine Protein Urine Glucose (UA) Urine Ketones Urine Blood Ur Leukocyte Esterase Urine RBC Urine WBC Urine WBC Clumps Amorphous Sediment Urine Bacteria Hyaline Casts Urine Mucus 04/08/21 04/08/21 04/08/21 07:00 09:26 09:26 WBC 32.1 H RBC 3.06 L Hgb 9.4 L Hct 30.4 L MCV MCHC 30.8 L RDW 22.5 H Plt Count 1185 H* Blast Cells % Neutrophils # (Manual) 27.60 H Lymphocytes # (Manual) Monocytes # (Manual) 1.28 H Metamyelocytes # (Man) 0.32 H Myelocytes # (Manual) 0.64 H Blast Cells # (Man) Nucleated RBCs PT INR APTT Fibrinogen Potassium 5.9 H Chloride Carbon Dioxide BUN 42 H Creatinine 1.35 H Glucose 272 H POC Glucose (mg/dL) Plasma Lactic Acid Fr[place] Calcium Total Bilirubin AST Alkaline Phosphatase Lactate Dehydrogenase Creatine Kinase 185 H CK-MB (CK-2) Troponin I 1.040 H* Total Protein Albumin Lipase Aldolase PTH Intact Urine Protein Urine Glucose (UA) Urine Ketones Urine Blood Ur Leukocyte Esterase Urine RBC Urine WBC Urine WBC Clumps Amorphous Sediment Urine Bacteria Hyaline Casts Urine Mucus 04/08/21 04/08/21 04/08/21 10:23 10:23 12:13 WBC RBC Hgb Hct MCV MCHC RDW Plt Count Blast Cells % Neutrophils # (Manual) Lymphocytes # (Manual) Monocytes # (Manual) Metamyelocytes # (Man) Myelocytes # (Manual) Blast Cells # (Man) Nucleated RBCs PT INR APTT Fibrinogen Potassium Chloride 109 H Carbon Dioxide BUN 41 H Creatinine 1.32 H Glucose 172 H POC Glucose (mg/dL) Plasma Lactic Acid [place] Calcium Total Bilirubin AST Alkaline Phosphatase Lactate Dehydrogenase Creatine Kinase CK-MB (CK-2) Troponin I Total Protein Albumin Lipase Aldolase 77.9 H PTH Intact Urine Protein Urine Glucose (UA) Urine Ketones Urine Blood Ur Leukocyte Esterase Urine RBC Urine WBC Urine WBC Clumps Amorphous Sediment Few H Urine Bacteria Rare H Hyaline Casts 3 H Urine Mucus Rare H 04/08/21 04/08/21 04/09/21 12:13 12:13 07:36 WBC 18.5 H RBC 2.74 L Hgb 8.4 L Hct 27.3 L MCV MCHC 30.8 L RDW 21.4 H Plt Count Blast Cells % 2 H* Neutrophils # (Manual) 16.00 H Lymphocytes # (Manual) 0.74 L Monocytes # (Manual) 1.67 H Metamyelocytes # (Man) 0.19 H Myelocytes # (Manual) Blast Cells # (Man) 0.37 H Nucleated RBCs PT INR APTT Fibrinogen Potassium Chloride Carbon Dioxide BUN Creatinine Glucose POC Glucose (mg/dL) Plasma Lactic Acid Frans[place] Calcium Total Bilirubin AST Alkaline Phosphatase Lactate Dehydrogenase 7471 H Creatine Kinase CK-MB (CK-2) Troponin I 2.110 H* Total Protein Albumin Lipase Aldolase PTH Intact Urine Protein Urine Glucose (UA) Urine Ketones Urine Blood Ur Leukocyte Esterase Urine RBC Urine WBC Urine WBC Clumps Amorphous Sediment Urine Bacteria Hyaline Casts Urine Mucus 04/09/21 04/09/21 04/09/21 07:36 10:08 14:17 WBC RBC Hgb Hct MCV MCHC RDW Plt Count Blast Cells % Neutrophils # (Manual) Lymphocytes # (Manual) Monocytes # (Manual) Metamyelocytes # (Man) Myelocytes # (Manual) Blast Cells # (Man) Nucleated RBCs PT INR APTT Fibrinogen 532 H Potassium Chloride Carbon Dioxide BUN 39 H Creatinine Glucose 121 H POC Glucose (mg/dL) Plasma Lactic Acid Frans[place] Calcium Total Bilirubin AST 90 H Alkaline Phosphatase Lactate Dehydrogenase Creatine Kinase CK-MB (CK-2) Troponin I Total Protein 5.9 L Albumin Lipase 18 L Aldolase PTH Intact Urine Protein Urine Glucose (UA) Urine Ketones Urine Blood Ur Leukocyte Esterase Urine RBC Urine WBC Urine WBC Clumps Amorphous Sediment Urine Bacteria Hyaline Casts Urine Mucus 04/09/21 04/09/21 04/09/21 16:35 18:45 20:09 WBC RBC Hgb Hct MCV MCHC RDW Plt Count Blast Cells % Neutrophils # (Manual) Lymphocytes # (Manual) Monocytes # (Manual) Metamyelocytes # (Man) Myelocytes # (Manual) Blast Cells # (Man) Nucleated RBCs PT INR APTT Fibrinogen Potassium Chloride Carbon Dioxide BUN Creatinine Glucose POC Glucose (mg/dL) 123 H 122 H Plasma Lactic Acid Frans[place] Calcium Total Bilirubin AST Alkaline Phosphatase Lactate Dehydrogenase Creatine Kinase CK-MB (CK-2) Troponin I Total Protein Albumin Lipase Aldolase PTH Intact Urine Protein 1+ H Urine Glucose (UA) 1+ H Urine Ketones Trace H Urine Blood Large H Ur Leukocyte Esterase Moderate H Urine RBC 10 H Urine WBC 17 H Urine WBC Clumps Few H Amorphous Sediment Urine Bacteria Rare H Hyaline Casts Urine Mucus Rare H 04/10/21 05:55 WBC RBC Hgb Hct MCV MCHC RDW Plt Count Blast Cells % Neutrophils # (Manual) Lymphocytes # (Manual) Monocytes # (Manual) Metamyelocytes # (Man) Myelocytes # (Manual) Blast Cells # (Man) Nucleated RBCs PT INR APTT Fibrinogen Potassium Chloride Carbon Dioxide BUN Creatinine Glucose POC Glucose (mg/dL) 135 H Plasma Lactic Acid Fransico Calcium Total Bilirubin AST Alkaline Phosphatase Lactate Dehydrogenase Creatine Kinase CK-MB (CK-2) Troponin I Total Protein Albumin Lipase Aldolase PTH Intact Urine Protein Urine Glucose (UA) Urine Ketones Urine Blood Ur Leukocyte Esterase Urine RBC Urine WBC Urine WBC Clumps Amorphous Sediment Urine Bacteria Hyaline Casts Urine Mucus Assessment and Plan Assessment: Acute right arm weakness (since 04/08/21) and vision change. Appears likely stroke (especially with this ? Vegetation on mitral valve per echocardiogram) Chronic atrial fibrillation on Coumadin and it's therapeutic Acute kidney injury--resolved Hypocalcemia on presenation 5.6--resolved Vegetation on mitral valve per echocardiogram Possible urinary tract infection History of myelofibrosis History of mitral and tricuspid repair Plan: Patient is casual to have a KAYLAN today. I ordered MRI of the brain as well as carotid duplex. Patient is on home medication of Coumadin and would like to hold any use of antiplatelets that will increase risk of bleed. But I see that the patient is on his Coumadin dose currently sewn that case we can use aspirin 81 mg in the meantime and once Coumadin is started then that we can stop the aspirin 81 mg. Continue home dose of Lipitor 20 mg daily at bedtime for secondary stroke pro phylaxis. Also ordered TSH, hemoglobin A1c. PT, OT are consulted Every 4 hours neuro checks Placed on cardiac monitoring Cardiology is on board Infection disease on board Nephrology team is on board. We'll defer the rest of the medical management to the primary team. Upon discharge, the patient needs to follow-up with a neurologist within 1-2 weeks as outpatient. The plan is discussed with the patient and his as well primary team. Thank you for the consultation. Farrukh Ontiveros MD Neuro-Hospitalist Time with Patient: Greater than 30
[2021-04-10 10:34] LABS: Erythrocyte Sedimentation Rate 52 mm/hr (0-15)
--- NOTE | 2021-04-10 11:04 | US ---
EXAMINATION TYPE: US carotid duplex BILAT DATE OF EXAM: 04/10/2021 COMPARISON: NONE CLINICAL HISTORY: stroke. EXAM MEASUREMENTS: RIGHT: Peak Systolic Velocity (PSV) cm/sec ----- Right CCA: 81.7 ----- Right ICA: 130 ----- Right ECA: 85.7 ICA/CCA ratio: 1.6 RIGHT: End Diastole cm/sec ----- Right CCA: 15.7 ----- Right ICA: 36.0 ----- Right ECA: 8.0 LEFT: Peak Systolic Velocity (PSV) cm/sec ----- Left CCA: 105 ----- Left ICA: 89.5 ----- Left ECA: 95.8 ICA/CCA ratio: 0.9 LEFT: End Diastole cm/sec ----- Left CCA: 19.1 ----- Left ICA: 33.1 ----- Left ECA: 10.5 VERTEBRALS (direction of flow): Right Vertebral: Antegrade Left Vertebral: Antegrade Rhythm: Arrhythmia Small amount of calcified plaque in bilateral bulbs. Cox scale, color Doppler, spectral Doppler imag ing performed carotid arteries. Waveform analysis does not show significant stenosis. IMPRESSION: No hemodynamic significant stenosis of the proximal internal carotid arteries by Doppler criteria, indirect measurement of carotid stenosis. Incidental arrhythmia noted Criteria for Assigning % of Stenosis / Diameter reduction (Estimation based on the indirect measurements of the internal carotid artery velocities (ICA PSV). 1. Normal (no stenosis)=ICA PSV < 125 cm/s: ratio < 2.0: ICA EDV<40 cm/s. 2. Less than 50% stenosis=ICA PSV < 125 cm/s: ratio < 2.0: ICA EDV<40 cm/s. 3. 50 to 69% stenosis=ICA PSV of 125 to 230 cm/s: ration 2.0 ? 4.0: ICA EDV 40-100 cm/s. 4. Greater than 70% stenosis to near occlusion= ICA PSV > 230 cm/s: ratio > 4.0: ICA EDV > 100 cm/s. 5. Near occlusion= ICA PSV velocities may be low or undetectable: variable ratio and ICA EDV. 6. Total occlusion=unable to detect flow.
--- NOTE | 2021-04-10 11:55 | P.PN ---
Subjective Patient is seen in follow-up for acute kidney injury. Renal function improved. Potassium level normal. Has a Carcamo catheter. Nonoliguric. No further vomiting. Complains of mild abdominal discomfort. Tolerating oral intake. Vital signs are stable. General: The patient appeared well nourished and normally developed. HEENT: Head exam is unremarkable. LUNGS: Breath sounds decreased. HEART: Rate and Rhythm are regular. ABDOMEN: Soft, no distention. EXTREMITITES: No edema. Objective - Vital Signs Vital signs: Vital Signs Temp 98.0 F 04/10/21 08:00 Pulse 96 04/10/21 08:00 Resp 17 04/10/21 08:00 BP 138/82 04/10/21 08:00 Pulse Ox 98 04/10/21 08:00 Intake & Output 04/09/21 04/10/21 04/10/21 18:59 06:59 18:59 Intake Total 380 0 Output Total 600 650 Balance -220 -650 0 Weight 65.3 kg Intake: Oral 380 0 Output: Urine 600 650 Other: Voiding Method Indwelling Catheter Indwelling Catheter Indwelling Catheter # Bowel Movements 0 - Labs CBC & Chem 7: 04/10/21 07:51 04/10/21 07:51 Labs: Abnormal Lab Results - Last 24 Hours (Table) 04/08/21 04/09/21 04/09/21 Range/Units 10:23 07:36 14:17 WBC (3.8-10.6) k/uL RBC (4.30-5.90) m/uL Hgb (13.0-17.5) gm/dL Hct (39.0-53.0) % MCV (80.0-100.0) fL MCHC (31.0-37.0) g/dL RDW (11.5-15.5) % Blast Cells % 2 H* % Neutrophils # (Manual) 16.00 H (1.3-7.7) k/uL Lymphocytes # (Manual) 0.74 L (1.0-4.8) k/uL Monocytes # (Manual) 1.67 H (0-1.0) k/uL Metamyelocytes # (Man) 0.19 H (0) k/uL Blast Cells # (Man) 0.37 H (0) k/uL Macrocytosis ESR (0-15) mm/hr PT (9.0-12.0) sec INR (<1.2) APTT (22.0-30.0) sec Fibrinogen 532 H (200-500) mg/dL Chloride (98-107) mmol/L Carbon Dioxide (22-30) mmol/L BUN (9-20) mg/dL Glucose (74-99) mg/dL POC Glucose (mg/dL) (75-99) mg/dL Myoglobin 191 H (28-72) ng/mL C-Reactive Protein (<1.0) mg/dL Aldolase 77.9 H (1.2-7.6) U/L Urine Protein (Negative) Urine Glucose (UA) (Negative) Urine Ketones (Negative) Urine Blood (Negative) Ur Leukocyte Esterase (Negative) Urine RBC (0-5) /hpf Urine WBC (0-5) /hpf Urine WBC Clumps (None) /hpf Urine Bacteria (None) /hpf Urine Mucus (None) /hpf 04/09/21 04/09/21 04/09/21 Range/Units 16:35 18:45 20:09 WBC (3.8-10.6) k/uL RBC (4.30-5.90) m/uL Hgb (13.0-17.5) gm/dL Hct (39.0-53.0) % MCV (80.0-100.0) fL MCHC (31.0-37.0) g/dL RDW (11.5-15.5) % Blast Cells % % Neutrophils # (Manual) (1.3-7.7) k/uL Lymphocytes # (Manual) (1.0-4.8) k/uL Monocytes # (Manual) (0-1.0) k/uL Metamyelocytes # (Man) (0) k/uL Blast Cells # (Man) (0) k/uL Macrocytosis ESR (0-15) mm/hr PT (9.0-12.0) sec INR (<1.2) APTT (22.0-30.0) sec Fibrinogen (200-500) mg/dL Chloride (98-107) mmol/L Carbon Dioxide (22-30) mmol/L BUN (9-20) mg/dL Glucose (74-99) mg/dL POC Glucose (mg/dL) 123 H 122 H (75-99) mg/dL Myoglobin (28-72) ng/mL C-Reactive Protein (<1.0) mg/dL Aldolase (1.2-7.6) U/L Urine Protein 1+ H (Negative) Urine Glucose (UA) 1+ H (Negative) Urine Ketones Trace H (Negative) Urine Blood Large H (Negative) Ur Leukocyte Esterase Moderate H (Negative) Urine RBC 10 H (0-5) /hpf Urine WBC 17 H (0-5) /hpf Urine WBC Clumps Few H (None) /hpf Urine Bacteria Rare H (None) /hpf Urine Mucus Rare H (None) /hpf 04/10/21 04/10/21 04/10/21 Range/Units 05:55 07:51 07:51 WBC (3.8-10.6) k/uL RBC (4.30-5.90) m/uL Hgb (13.0-17.5) gm/dL Hct (39.0-53.0) % MCV (80.0-100.0) fL MCHC (31.0-37.0) g/dL RDW (11.5-15.5) % Blast Cells % % Neutrophils # (Manual) (1.3-7.7) k/uL Lymphocytes # (Manual) (1.0-4.8) k/uL Monocytes # (Manual) (0-1.0) k/uL Metamyelocytes # (Man) (0) k/uL Blast Cells # (Man) (0) k/uL Macrocytosis ESR (0-15) mm/hr PT 47.2 H (9.0-12.0) sec INR 4.9 H (<1.2) APTT 57.5 H (22.0-30.0) sec Fibrinogen (200-500) mg/dL Chloride 109 H (98-107) mmol/L Carbon Dioxide 21 L (22-30) mmol/L BUN 31 H (9-20) mg/dL Glucose 102 H (74-99) mg/dL POC Glucose (mg/dL) 135 H (75-99) mg/dL Myoglobin (28-72) ng/mL C-Reactive Protein 7.0 H (<1.0) mg/dL Aldolase (1.2-7.6) U/L Urine Protein (Negative) Urine Glucose (UA) (Negative) Urine Ketones (Negative) Urine Blood (Negative) Ur Leukocyte Esterase (Negative) Urine RBC (0-5) /hpf Urine WBC (0-5) /hpf Urine WBC Clumps (None) /hpf Urine Bacteria (None) /hpf Urine Mucus (None) /hpf 04/10/21 Range/Units 07:51 WBC 14.6 H (3.8-10.6) k/uL RBC 2.65 L (4.30-5.90) m/uL Hgb 8.1 L (13.0-17.5) gm/dL Hct 27.2 L (39.0-53.0) % MCV 102.6 H (80.0-100.0) fL MCHC 29.9 L (31.0-37.0) g/dL RDW 21.5 H (11.5-15.5) % Blast Cells % % Neutrophils # (Manual) (1.3-7.7) k/uL Lymphocytes # (Manual) (1.0-4.8) k/uL Monocytes # (Manual) (0-1.0) k/uL Metamyelocytes # (Man) (0) k/uL Blast Cells # (Man) (0) k/uL Macrocytosis Marked A ESR 52 H (0-15) mm/hr PT (9.0-12.0) sec INR (<1.2) APTT (22.0-30.0) sec Fibrinogen (200-500) mg/dL Chloride (98-107) mmol/L Carbon Dioxide (22-30) mmol/L BUN (9-20) mg/dL Glucose (74-99) mg/dL POC Glucose (mg/dL) (75-99) mg/dL Myoglobin (28-72) ng/mL C-Reactive Protein (<1.0) mg/dL Aldolase (1.2-7.6) U/L Urine Protein (Negative) Urine Glucose (UA) (Negative) Urine Ketones (Negative) Urine Blood (Negative) Ur Leukocyte Esterase (Negative) Urine RBC (0-5) /hpf Urine WBC (0-5) /hpf Urine WBC Clumps (None) /hpf Urine Bacteria (None) /hpf Urine Mucus (None) /hpf Microbiology - Last 24 Hours (Table) 09/28/21 22:18 Urine Culture - Final Urine,Voided Assessment and Plan Plan: Assessment: 1. Acute kidney injury secondary to ATN secondary to hypovolemia from vomiting. Renal function improved. Creatinine 0.97 today. No hydronephrosis noted on CAT scan. Patient did receive IV contrast on April 08 for CAT scan. 2. Hyperkalemia with potassium level as high as 6.9 today. Etiology is acute kidney injury and metabolic acidosis. Also noted to have thrombocytosis which can cause spurious hyperkalemia. Resolved. 3. Metabolic acidosis secondary to acute kidney injury and IV fluids. Maintained on oral bicarb. 4. Hypocalcemia secondary to acute kidney injury. Replaced. Resolved. PTH 119. 1,25 D3 level 61. 5. UTI on antibiotics. Repeat UA shows no WBCs. 6. Thrombocytosis. Patient does have history of myelofibrosis. Hematology following. 7. Chronic systolic CHF with ejection fraction of 25-30% with moderate MR and pulmonary hypertension. 8. Concern for mitral valve endocarditis. Scheduled for KAYLAN today. Plan: Remains off IV fluids. Avoid nephrotoxins. Continue to monitor renal function and urine output. Patient did have dark colored urine on admission - now resolved. Urine myoglobin is pending. CK levels not significantly elevated. Check hemoglobin A1c. Patient has sub-nephrotic proteinuria. Aldolase level elevated. Check serologies.
--- NOTE | 2021-04-10 13:00 | P.PN ---
Subjective Progress Note Date: 04/10/21 HISTORY OF PRESENT ILLNESS This is a 75-year-old male patient planning to be established with Dr. Molina as PCP next week. He has a past medical history of myelofibrosis and followed at [facility]. He also has history of chronic atrial fibrillation, mitral valve prolapse status post mitral and tricuspid valve repair and modified Lucas- Maze procedure with mitral and tricuspid valve regurgitation with moderate mitral insufficiency. Patient is a very poor historian and describes fever for 6 days, no cough, decreased appetite. Patient came into [facility] emergency center for evaluation with complaints of right upper and mid abdominal pain cramping type with vomiting and also dark urine. He was afebrile, heart rate 107, blood pressure 180/97, pulse ox 99% on room air. EKG was atrial fibrillation at 88 bpm. WBC 22.9, hemoglobin 9.3, platelet count 990. Sodium 140, potassium 2.9, chloride 121, CO2 12, BUN 24 creatinine 0.72. Blood sugar 143. INR 3.0. Lactic acid 2.2. Troponin 0.132, 1.04, 2.110. Total bilirubin 2.1, AST 100, ALT 17, alkaline phosphatase 26. Repeat blood work this morning revealed potassium 6.9, BUN 39 creatinine 1.39 and CO2 17, WBC 32.1, hemoglobin 9.5 and platelet count 1185. Abdominal x-ray revealed nonacute abdomen. CAT scan of the abdomen and pelvis with contrast revealed fat stranding along the upper pole right kidney in the retroperitoneum. Do not suspect pancreatitis. Bilateral nonobstructing renal calculi. Normal right kidney no evidence of pyelonephritis. Mild subsegmental atelectasis at the lung bases. Cardiomegaly. Chest x-ray reveals mild congestive heart failure, increased pulmonary vascular congestion compared to last exam. Pleural fluid improved. Patient is seen today in the ER waiting for a cardiac stepdown bed. He has been seen by nephrology and is status post 3 A of bicarb, IV calcium gluconate, insulin and and D50, maintained on IV fluids at 75 mL per hour. 04/09: Patient's mental status is improved from yesterday. Echocardiogram revealed EF of 25-30%, mild to moderate aortic regurgitation, mild mitral calcification, moderate mitral regurgitation, MV annuloplasty, mobile 1.3 x 1.5 mm hypodensity attached to the posterior mitral valve leaflet, mild to moderate tricuspid regurgitation, moderate pulmonary hypertension. Patient's been seen by cardiology and patient is scheduled for KAYLAN tomorrow. Coumadin will remain on hold for now. Blood cultures have been ordered. We started the patient on vancomycin and add a consult with Dr. Nowak. Cardiology has ruled out acute coronary syndrome. Regarding renal failure, patient is eating and drinking. He has a Carcamo catheter in place. Nephrology is planning to Hep-Lock IV fluids. Urine myoglobin is pending, urinalysis and cultures pending. Patient is also followed by oncology for the myelofibrosis and leukocytosis. Patient has history of acquired von Willebrand disease and lancet been ordered. Subsequently patient was noted to have some weakness on the right side with visual changes on the right eye, CAT scan of the brain and neurology consult was admitted to rule out CVA. 04/10: She has been seen by neurology with concern for stroke, MRI of the brain is been ordered. Ultrasound of the carotids revealed no significant stenosis. Dr. Duffy is following for MARTINA secondary to ATN with recommendations to Stay off IV fluids avoid nephrotoxins and monitor I&O, urine mild globin is pending. He is scheduled for KAYLAN today. REVIEW OF SYSTEMS Constitutional: No fever, no chills, no night sweats. No weight change. Noted weakness, Noted fatigue Noted lethargy. Noted daytime sleepiness. EENT: No headache. Visual change right eye. No loss of Hearing, no ringing in the ears, no dizziness. No nasal drainage or congestion. No epistaxis. No sore throat. Lungs: No shortness of breath, cough, no sputum production. No wheezing. Cardiovascular: No chest pain, no lower extremity edema. No palpitations. No paroxysmal nocturnal dyspnea. No orthopnea. No lightheadedness or dizziness. No syncopal episodes. Abdominal: Reported abdominal pain. Reported nausea, Reported vomiting. No diarrhea. No constipation. No bloody or tarry stools. Reported loss of appetite. Genitourinary: No dysuria, increased frequency, urgency. No urinary retention. Reported dark brown urine. Musculoskeletal: No myalgias. No muscle weakness, no gait dysfunction, no frequent falls. No back pain. No neck pain. Integumentary: No wounds, no lesions. No rash or pruritus. No unusual bruising. No change in hair or nails. Neurologic: No aphasia. No facial droop. Noted change in mentation, improving. No head injury. No headache. No paralysis. No paresthesia. Weakness right arm a nd visual change. Psychiatric: No depression. No anxiety. No mood swings. Endocrine: No abnormal blood sugars. PHYSICAL EXAMINATION Gen: This is a thin cachectic 75-year-old male. He is resting in bed and appears to be in no acute distress.. HEENT: Head is atraumatic, normocephalic. Pupils equal, round. Sclerae is anicteric. NECK: Supple. No JVD. No lymphadenopathy. No thyromegaly. LUNGS: Clear to auscultation. No wheezes or rhonchi. No intercostal retractions. HEART: Regular rate and rhythm. No murmur. ABDOMEN: Soft. Bowel sounds are present. No tenderness. Carcamo catheter in place. EXTREMITIES: No pedal edema. No calf tenderness. NEUROLOGICAL: Patient is awake, alert and oriented x2. Generalized weakness. Cranial nerves 2 through 12 are grossly intact. ASSESSMENT AND PLAN 1. Acute kidney injury secondary to ATN from vomiting. Nephrology consult appreciated. IV fluids discontinued, avoid nephrotoxic agents, Carcamo catheter. Hold lisinopril. 2. Metabolic acidosis secondary to acute kidney injury. Patient is status post sodium bicarb. 3. Hyperkalemia secondary to acute kidney injury. Patient is status post calcium gluconate, IV insulin and D 50. 4. Hypercalcemia secondary to acute kidney injury, replaced. 5. Leukocytosis, thrombocytosis. 6. Anemia of chronic disease. 7. Elevated troponin. Consult with cardiology. No concern for acute coronary syndrome. 8. Possible urinary tract infection. Continue ceftriaxone. Urine culture in process. 9. History of myelofibrosis. Consult with oncology appreciated. 10. Chronic atrial fibrillation. Patient is therapeutic on Coumadin. Hold until patient completes KAYLAN tomorrow. 11. History of mitral and tricuspid repair. 12. Elevated liver function tests. Hold atorvastatin for now 13. Metabolic encephalopathy (POA). Treat underlying conditions. 14. Vegetation on mitral valve per echocardiogram. Patient scheduled for KAYLAN tomorrow. Blood cultures ordered, as patient started on vancomycin and consult with Dr. Nowak. 15. Possible CVA with right-sided weakness, visual change in the right, POA, symptoms started on Tuesday. Consult with neurology appreciated. Patient is to undergo MRI of the brain. 16. COVID-19 testing negative. DISCHARGE PLAN To be determined. Most likely home with home care. Consult with PT, OT, speech therapy Impression and plan of care have been directed as dictated by the signing physician. Yue Starks nurse practitioner acting as scribe for signing physician. Objective - Vital Signs Vital signs: Vital Signs Temp 98.1 F 04/10/21 04:00 Pulse 95 04/10/21 04:00 Resp 16 04/10/21 04:05 BP 130/69 04/10/21 04:00 Pulse Ox 94 L 04/10/21 04:05 Intake & Output 04/09/21 04/10/21 04/10/21 18:59 06:59 18:59 Intake Total 380 0 Output Total 600 650 Balance -220 -650 0 Weight 65.3 kg Intake: Oral 380 0 Output: Urine 600 650 Other: Voiding Method Indwelling Catheter Indwelling Catheter # Bowel Movements 0 - Labs CBC & Chem 7: 04/10/21 07:51 04/10/21 07:51 Labs: Abnormal Lab Results - Last 24 Hours (Table) 04/08/21 04/09/21 04/09/21 Range/Units 10:23 07:36 10:08 WBC (3.8-10.6) k/uL RBC (4.30-5.90) m/uL Hgb (13.0-17.5) gm/dL Hct (39.0-53.0) % MCV (80.0-100.0) fL MCHC (31.0-37.0) g/dL RDW (11.5-15.5) % Blast Cells % 2 H* % Neutrophils # (Manual) 16.00 H (1.3-7.7) k/uL Lymphocytes # (Manual) 0.74 L (1.0-4.8) k/uL Monocytes # (Manual) 1.67 H (0-1.0) k/uL Metamyelocytes # (Man) 0.19 H (0) k/uL Blast Cells # (Man) 0.37 H (0) k/uL Macrocytosis PT (9.0-12.0) sec INR (<1.2) APTT (22.0-30.0) sec Fibrinogen (200-500) mg/dL Chloride (98-107) mmol/L Carbon Dioxide (22-30) mmol/L BUN (9-20) mg/dL Glucose (74-99) mg/dL POC Glucose (mg/dL) (75-99) mg/dL Myoglobin 191 H (28-72) ng/mL C-Reactive Protein (<1.0) mg/dL Lipase 18 L (23-300) U/L Aldolase 77.9 H (1.2-7.6) U/L Urine Protein (Negative) Urine Glucose (UA) (Negative) Urine Ketones (Negative) Urine Blood (Negative) Ur Leukocyte Esterase (Negative) Urine RBC (0-5) /hpf Urine WBC (0-5) /hpf Urine WBC Clumps (None) /hpf Urine Bacteria (None) /hpf Urine Mucus (None) /hpf 04/09/21 04/09/21 04/09/21 Range/Units 14:17 16:35 18:45 WBC (3.8-10.6) k/uL RBC (4.30-5.90) m/uL Hgb (13.0-17.5) gm/dL Hct (39.0-53.0) % MCV (80.0-100.0) fL MCHC (31.0-37.0) g/dL RDW (11.5-15.5) % Blast Cells % % Neutrophils # (Manual) (1.3-7.7) k/uL Lymphocytes # (Manual) (1.0-4.8) k/uL Monocytes # (Manual) (0-1.0) k/uL Metamyelocytes # (Man) (0) k/uL Blast Cells # (Man) (0) k/uL Macrocytosis PT (9.0-12.0) sec INR (<1.2) APTT (22.0-30.0) sec Fibrinogen 532 H (200-500) mg/dL Chloride (98-107) mmol/L Carbon Dioxide (22-30) mmol/L BUN (9-20) mg/dL Glucose (74-99) mg/dL POC Glucose (mg/dL) 123 H (75-99) mg/dL Myoglobin (28-72) ng/mL C-Reactive Protein (<1.0) mg/dL Lipase (23-300) U/L Aldolase (1.2-7.6) U/L Urine Protein 1+ H (Negative) Urine Glucose (UA) 1+ H (Negative) Urine Ketones Trace H (Negative) Urine Blood Large H (Negative) Ur Leukocyte Esterase Moderate H (Negative) Urine RBC 10 H (0-5) /hpf Urine WBC 17 H (0-5) /hpf Urine WBC Clumps Few H (None) /hpf Urine Bacteria Rare H (None) /hpf Urine Mucus Rare H (None) /hpf 04/09/21 04/10/21 04/10/21 Range/Units 20:09 05:55 07:51 WBC (3.8-10.6) k/uL RBC (4.30-5.90) m/uL Hgb (13.0-17.5) gm/dL Hct (39.0-53.0) % MCV (80.0-100.0) fL MCHC (31.0-37.0) g/dL RDW (11.5-15.5) % Blast Cells % % Neutrophils # (Manual) (1.3-7.7) k/uL Lymphocytes # (Manual) (1.0-4.8) k/uL Monocytes # (Manual) (0-1.0) k/uL Metamyelocytes # (Man) (0) k/uL Blast Cells # (Man) (0) k/uL Macrocytosis PT 47.2 H (9.0-12.0) sec INR 4.9 H (<1.2) APTT 57.5 H (22.0-30.0) sec Fibrinogen (200-500) mg/dL Chloride (98-107) mmol/L Carbon Dioxide (22-30) mmol/L BUN (9-20) mg/dL Glucose (74-99) mg/dL POC Glucose (mg/dL) 122 H 135 H (75-99) mg/dL Myoglobin (28-72) ng/mL C-Reactive Protein (<1.0) mg/dL Lipase (23-300) U/L Aldolase (1.2-7.6) U/L Urine Protein (Negative) Urine Glucose (UA) (Negative) Urine Ketones (Negative) Urine Blood (Negative) Ur Leukocyte Esterase (Negative) Urine RBC (0-5) /hpf Urine WBC (0-5) /hpf Urine WBC Clumps (None) /hpf Urine Bacteria (None) /hpf Urine Mucus (None) /hpf 04/10/21 04/10/21 Range/Units 07:51 07:51 WBC 14.6 H (3.8-10.6) k/uL RBC 2.65 L (4.30-5.90) m/uL Hgb 8.1 L (13.0-17.5) gm/dL Hct 27.2 L (39.0-53.0) % MCV 102.6 H (80.0-100.0) fL MCHC 29.9 L (31.0-37.0) g/dL RDW 21.5 H (11.5-15.5) % Blast Cells % % Neutrophils # (Manual) (1.3-7.7) k/uL Lymphocytes # (Manual) (1.0-4.8) k/uL Monocytes # (Manual) (0-1.0) k/uL Metamyelocytes # (Man) (0) k/uL Blast Cells # (Man) (0) k/uL Macrocytosis Marked A PT (9.0-12.0) sec INR (<1.2) APTT (22.0-30.0) sec Fibrinogen (200-500) mg/dL Chloride 109 H (98-107) mmol/L Carbon Dioxide 21 L (22-30) mmol/L BUN 31 H (9-20) mg/dL Glucose 102 H (74-99) mg/dL POC Glucose (mg/dL) (75-99) mg/dL Myoglobin (28-72) ng/mL C-Reactive Protein 7.0 H (<1.0) mg/dL Lipase (23-300) U/L Aldolase (1.2-7.6) U/L Urine Protein (Negative) Urine Glucose (UA) (Negative) Urine Ketones (Negative) Urine Blood (Negative) Ur Leukocyte Esterase (Negative) Urine RBC (0-5) /hpf Urine WBC (0-5) /hpf Urine WBC Clumps (None) /hpf Urine Bacteria (None) /hpf Urine Mucus (None) /hpf Microbiology - Last 24 Hours (Table) 04/07/21 22:18 Urine Culture - Final Urine,Voided
[2021-04-10] MEDS ORDERED: fentaNYL (PF) 50 MCG/ML 2 ML AMP ONE (13:37)
--- NOTE | 2021-04-10 13:41 | PN ---
PROGRESS NOTE This gentleman has history of mitral valve repair in 2017, came into the hospital with weakness, lack of energy, fatigue. Anemia was noted and echo revealed possible vegetation to the mitral valve leaflet or the ring. He is going to have a transesophageal echo today. Antibiotics have been started by Infectious Disease. Vitals are stable. JVD is evident. S1-S2 heard normally. Systolic murmur is audible. Lungs reveal diminished air entry. Abdomen and lower extremity exam unchanged. Clinically, patient may have endocarditis. He is already on antibiotics. KAYLAN today. He is status post mitral valve replacement. We will continue to follow. MMODL / IJN: [id number] /
[2021-04-10] MEDS: BENZOCAINE SPRAY 1 CAN MUCOUS MEM ONE ×3 (13:58→14:10)
[2021-04-10] MEDS ORDERED: SODIUM CHLORIDE 0.9% 500 ML 500 ML IV ONE (14:00)
[2021-04-10] MEDS ORDERED: MIDAZOLAM 2 MG/2 ML VIAL IVP ONE ×2 (14:09→14:15)
[2021-04-10] MEDS ORDERED: fentaNYL (PF) 50 MCG/ML 2 ML AMP IVP ONE (14:09)
[2021-04-10] MEDS: SODIUM BICARBONATE TAB 650 MG TAB PO SCH ×2 (14:33→21:00)
[2021-04-10] MEDS: METOPROLOL TARTRATE 50 MG TAB PO SCH ×2 (14:33→20:59)
--- NOTE | 2021-04-10 15:14 | ECHOT ---
TRANSESOPHAGEAL ECHOCARDIOGRAM DATE OF SERVICE: 04/08/2021 PERFORMING PHYSICIAN: Paco Escoto M.D. PROCEDURE PERFORMED: Transesophageal echocardiogram. INDICATION: Infective endocarditis. COMPLICATIONS: None. LEVEL OF SEDATION: Moderate, with sedation length of 10 minutes. PROCEDURE DESCRIPTION: After obtaining informed consent, the patient was brought to the transesophageal echocardiogram suite. Pulse oximetry and heart rate monitors were attached to the patient. Subsequently the transesophageal echocardiogram was advanced through the bite guard to the mid esophagus, where 2D echocardiogram images as well as color Doppler images of various cardiac structures were obtained. The procedure was completed without any complication. FINDINGS: The left ventricle appeared to be dilated. The left ventricular systolic function is impaired with EF between 20% and 25%. Right ventricle appeared to be of normal size, but appeared to be hypokinetic as well. The left atrium and right atrium are mildly dilated. There was a vegetation measuring 1.5 cm attached to the posterior leaflet on the upstream side associated with leaflet perforation. The aortic valve appeared to be a trileaflet valve without stenosis and without any regurgitation. The mitral and tricuspid valves appeared to be intact. Please note that there was wide open mitral regurgitation identified. CONCLUSION: 1. 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 2. Severe cardiomyopathy with ejection fraction between 20% and 25% with dilated left ventricle. 3. Normal right ventricular dimension with impaired function. 4. Mild biatrial enlargement. 5. Trileaflet aortic valve without stenosis or regurgitation and without any vegetation noted. 6. Intact tricuspid valve and pulmonic valve. 7. No evidence of pericardial effusion. MMODL / IJN: [id number] /
--- NOTE | 2021-04-10 16:53 | PN ---
PROGRESS NOTE DATE OF SERVICE: 04/10/2021. REASON FOR FOLLOW UP: Mitral valve endocarditis. INTERVAL HISTORY: The patient is afebrile. The patient is currently breathing comfortably. Denies having any chest pain, shortness of breath or cough. Abdominal pain has improved. No vomiting or diarrhea. PHYSICAL EXAMINATION: Blood pressure 135/86, pulse of 101, temperature of 98.1. He is 98% on 2 L nasal cannula. General description is an elderly male up in the bed in no distress. Respiratory system: Unlabored breathing, decreased intensity of breath sounds. No wheeze. Heart S1, S2. Regular rate and rhythm. Abdomen soft, no tenderness. Extremities are no edema of the feet. LABS: Hemoglobin 8.8, white count 14.6, BUN of 31, creatinine 0.97. Blood culture has been negative. 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 The patient is covered with vancomycin, Rocephin, possible transfer to tertiary care. Discussed with Cardiology. Continue supportive care. MMODL / IJN: [id number] /
[2021-04-10] MEDS: THIAMINE 100 MG TAB PO SCH (17:27)
--- NOTE | 2021-04-10 18:10 | MR ---
EXAMINATION TYPE: MR brain wo con DATE OF EXAM: 04/10/2021 COMPARISON: None HISTORY: right arm weakness and visual disturbance. Stroke Multiplanar multiecho imaging of the brain without contrast. There is cerebral cortical atrophy. There is no mass effect nor midline shift. There is no sign of in tracranial hemorrhage. There are multiple punctate foci of increased signal in both occipital lobes o n the diffusion images. These measure up to 1 cm. There are cortical foci measuring up to 1.5 cm. The re are numerous small foci of increased signal at the medrano-white matter junction on the diffusion lalitha ges in both cerebral hemispheres. These measure up to 5 mm. The calvarium is intact. Brainstem is intact. Cerebellum is intact. Sella turcica appears normal. Cor pus callosum is intact. IMPRESSION: Numerous white matter high signal foci in both cerebral hemispheres and more concentrated in the occi pital lobes consistent with multiple acute lacunar infarcts. There is also evidence for acute cortica l infarct in the posterior aspect of both occipital lobes. This measures up to 1.5 cm in thickness.
[2021-04-10 20:35] LABS: Chol/HDL Ratio 4.12 Ratio; HDL Cholesterol 33.7 mg/dL (40.00-60.00); LDL Cholesterol,Calculated 77.7 mg/dL (0.0-131.0); VLDL Calculation 27.6 mg/dL (5.00-40.00)
[2021-04-10] MEDS: ATORVASTATIN 20 MG TAB PO SCH (20:59)
--- NOTE | 2021-04-10 22:32 | CT ---
EXAMINATION TYPE: CT angio head neck DATE OF EXAM: 04/10/2021 COMPARISON: None HISTORY: Stroke, r/o aneurysm CT DLP: 436.3 mGycm Automated exposure control for dose reduction was used. CONTRAST: Performed with IV Contrast, patient injected with 65 mL of Isovue 370. Images obtained from the aortic arch to the vertex of the brain with IV contrast. There are 3-D post processed images. There are bilateral pleural effusions. There are no hilar masses. There is normal branching pattern o f the great vessels on the aortic arch. There is arterial flow in both subclavian arteries. There is arterial flow in the common internal and external carotid arteries bilaterally. There is no evidence of hemodynamic stenosis. There is arterial flow in both vertebral arteries. There is no evidence of c arotid or vertebral artery aneurysm or dissection. There is minimal plaque and less than 10% narrowin g of the proximal internal carotid arteries. There is arterial flow in the vertebrobasilar artery sys tem. There is arterial flow in the anterior middle and posterior cerebral arteries. There is normal contra st opacification of the venous sinuses. There is no evidence of intracranial aneurysm or neovasculari ty. There is no mass effect. There is no evidence of hemodynamic stenosis. IMPRESSION: Negative CT angiogram of the head and neck.
--- NOTE | 2021-04-11 08:53 | P.PN ---
Subjective Progress Note Date: 04/11/21 The patient is seen at bedside and he feels about the same. Patient is accompanied by his family members. He feels he is more aware and feels his strength is improving and his agrees. Denies of any further neurological problems. He had KAYLAN yesterday and showed indication of infective endocarditis. The stated the cardiology were thinking of transferring him out. Objective - Vital Signs Vital signs: Vital Signs Temp 97.5 F L 04/10/21 15:48 Pulse 83 04/11/21 04:00 Resp 18 04/11/21 04:00 BP 124/64 04/11/21 04:00 Pulse Ox 98 04/11/21 04:00 Intake & Output 04/10/21 04/11/21 04/11/21 18:59 06:59 18:59 Intake Total 550 Output Total 600 200 Balance -50 -200 Weight 66.9 kg Intake: IV 250 Intake, IV Titration 300 Amount Vancomycin 1,250 mg In 250 Sodium Chloride 0.9% 250 ml @ 125 mls/hr IVPB Q12HR [facility] Rx#:[id number] cefTRIAXone 1 gm In 50 Sodium Chloride 0.9% 50 ml @ 100 mls/hr IVPB Q12H [facility] Rx#:[id number] Oral 0 Output: Urine 600 200 Other: Voiding Method Indwelling Catheter Urinal # Voids 2 - Exam GENERAL: The patient is sitting at side of bed and is not in acute distress. NEUROLOGICAL: Higher mental function: The patient is awake, alert, oriented to self, place and time. Patient is following commands. No aphasia and no neglect. Cranial nerves: The pupils are round, equal and reactive to light. Visual kapadia is homonysous left lower quadrant field defect (and this was tested twice) to confrontation. Extraocular movement is intact no nystagmus is noted. Facial sensation is normal to touch throughout. The facial strength is normal throughout. Hearing is moderately decreased bilaterally. Tongue is midline and moved [id number] without any difficulty. No dysarthria is noted. Should er shrug is normal bilaterally. Motor: Gait is deferred. The strength is right foream flexion is 4+ to 5-. Otherwise 5 over 5 throughout. Normal tone and bulk. Cerebellum: Normal finger to nose on left but slow on the right but no ataxia or dysmetria is noted. Sensation: Sensation is normal to touch throughout. Reflexes (right/left): 1+ throughout.. Plantars are downgoing bilaterally. WORK-UP: * Lipid panel: Triglyceride 138, cholesterol 139, LDL 77 and HDL 33. * TSH is 2.5 for * Hemoglobin A1c is 4.3 * AST of 90 and ALT of 23 ammonia is 9 * Most recent urinalysis seems positive for urinary tract infection * Garcia virus not detected * INR on presentation is 3.0, PTT of 29.3 and PTT of 32.3. * CT of the head that was done on 04/09/2021 is reported as age-related atrophic and chronic small vessel ischemic change without acute intracranial process seen at this time. * MRI of the brain and is reported as numerous white matter high signal foci in both cerebral hemisphere and more concentrated in the occipital lobe consistent with multiple acute lacunar infarct. There is also evidence for acute cortical infarct in the posterior aspect of both occipital. This measures up to 1.5 cm in thickness. * Carotid duplex is reported as no hemodynamic significant stenosis of the pr oximal internal carotid arteries by Doppler criteria, and direct measurement of carotid stenosis. Incidental arrhythmia noted. * CT angiography of the head and neck was reported as negative. * 2-D echo was reported as borderline consider left ventricular hypertrophy. Ejection fraction of 25-30%. Left atrium is severely dilated. There is mobile 1.31.5 mm echo density attached to the posterior mitral valve leaflet/annuloplasty ring concerning for vegetation. Local correlation recommended and may consider KAYLAN of chronically indicated. * Transesophageal echocardiogram is reported as infective endocarditis with large vegetation that measures 1.5 cm attached to the upper stream side of the posterior mitral valve leaflet associate with leaflet perforation and wide open mitral regurgitation. Severe cardiomyopathy with ejection fraction of 20-25% with dilated left ventricle. Trileaflet aortic valve without stenosis or regurgitation without any vegetation noted. Intact tricuspid valve and pulmonary valve. No evidence of pericardial effusion that. - Labs CBC & Chem 7: 04/10/21 07:51 04/11/21 09:01 Labs: Abnormal Lab Results - Last 24 Hours (Table) 04/08/21 04/10/21 04/10/21 Range/Units 10:23 07:51 07:51 ESR (0-15) mm/hr PT 47.2 H (9.0-12.0) sec INR 4.9 H (<1.2) APTT 57.5 H (22.0-30.0) sec Chloride 109 H (98-107) mmol/L Carbon Dioxide 21 L (22-30) mmol/L BUN 31 H (9-20) mg/dL Glucose 102 H (74-99) mg/dL Myoglobin 191 H (28-72) ng/mL C-Reactive Protein 7.0 H (<1.0) mg/dL HDL Cholesterol (40.00-60.00) mg/dL 04/10/21 04/10/21 Range/Units 07:51 07:51 ESR 52 H (0-15) mm/hr PT (9.0-12.0) sec INR (<1.2) APTT (22.0-30.0) sec Chloride (98-107) mmol/L Carbon Dioxide (22-30) mmol/L BUN (9-20) mg/dL Glucose (74-99) mg/dL Myoglobin (28-72) ng/mL C-Reactive Protein (<1.0) mg/dL HDL Cholesterol 33.70 L (40.00-60.00) mg/dL Microbiology - Last 24 Hours (Table) 04/09/21 10:08 Blood Culture - Preliminary Blood No Growth after 24 hours 04/09/21 10:08 Blood Culture - Preliminary Blood No Growth after 24 hours Assessment and Plan Assessment: Acute bilaeral hemispheric stroke (with symptoms of Right arm weakness (since 04/08/21) and left lower quadrant homonymous anopsia). 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 No IV tpa since contraindication (source is infectious) and is outside window). Infective endocarditis Chronic atrial fibrillation on Coumadin and it's therapeutic Acute kidney injury--resolved Hypocalcemia on presenation 5.6--resolved Vegetation on mitral valve per echocardiogram Possible urinary tract infection History of myelofibrosis History of mitral and tricuspid repair Plan: From a neurological perspective this is non-ischemic stroke but rather the this is a stroke due to infective endocarditis. Please avoid any anticoagulation or antiplatelet from a neurological perspective because of risk of hemorrhagic conversion if possible. Infection disease is on board and we'll defer the antibiotic treatment to them. Cardiothoracic surgery team was also consulted. On home dose of Lipitor 20 mg daily at bedtime. PT, OT are consulted Every 4 hours neuro checks Placed on cardiac monitoring Cardiology is on board Nephrology team is on board. We'll defer the rest of the medical management to the primary team. Upon discharge, the patient needs to follow-up with a neurologist within 1-2 weeks as outpatient. CONDITION: Very Guarded. The plan is discussed with the patient and his as well as the primary team. Will follow-up with patient sporadically. Dr. Jenkins will start service on 04/13/2021 AM. Farrukh Ontiveros MD Neuro-Hospitalist Time with Patient: Less than 30
[2021-04-11] MEDS: THIAMINE 100 MG TAB PO SCH (09:06)
[2021-04-11] MEDS: PANTOPRAZOLE 40 MG/10 ML VIAL IV SCH (09:06)
[2021-04-11] MEDS: SODIUM BICARBONATE TAB 650 MG TAB PO SCH ×2 (09:06→20:07)
[2021-04-11] MEDS: VANCOMYCIN 1,250 MG in SODIUM CHLORIDE 0.9% 250 ML IVPB SCH (09:06)
[2021-04-11] MEDS: METOPROLOL TARTRATE 50 MG TAB PO SCH ×2 (09:06→20:07)
--- NOTE | 2021-04-11 09:29 | P.PN ---
Subjective Patient is seen in follow-up for acute kidney injury. Renal function improved. Potassium level normal. Carcamo catheter removed. Nonoliguric. No further vomiting. No active complaints. Vital signs are stable. General: The patient appeared well nourished and normally developed. HEENT: Head exam is unremarkable. LUNGS: Breath sounds decreased. HEART: Rate and Rhythm are regular. ABDOMEN: Soft, no distention. EXTREMITITES: No edema. Objective - Vital Signs Vital signs: Vital Signs Temp 98.0 F 04/11/21 08:59 Pulse 95 04/11/21 08:59 Resp 16 04/11/21 08:59 BP 116/68 04/11/21 08:59 Pulse Ox 98 04/11/21 08:59 Intake & Output 04/10/21 04/11/21 04/11/21 18:59 06:59 18:59 Intake Total 550 Output Total 600 200 Balance -50 -200 Weight 66.9 kg Intake: IV 250 Intake, IV Titration 300 Amount Vancomycin 1,250 mg In 250 Sodium Chloride 0.9% 250 ml @ 125 mls/hr IVPB Q12HR [facility] Rx#:[id number] cefTRIAXone 1 gm In 50 Sodium Chloride 0.9% 50 ml @ 100 mls/hr IVPB Q12H [facility] Rx#:[id number] Oral 0 Output: Urine 600 200 Other: Voiding Method Indwelling Catheter Urinal # Voids 2 - Labs CBC & Chem 7: 04/10/21 07:51 04/10/21 07:51 Labs: Abnormal Lab Results - Last 24 Hours (Table) 04/10/21 04/10/21 Range/Units 07:51 07:51 ESR 52 H (0-15) mm/hr HDL Cholesterol 33.70 L (40.00-60.00) mg/dL Microbiology - Last 24 Hours (Table) 04/09/21 10:08 Blood Culture - Preliminary Blood No Growth after 24 hours 04/09/21 10:08 Blood Culture - Preliminary Blood No Growth after 24 hours Assessment and Plan Plan: Assessment: 1. Acute kidney injury secondary to ATN secondary to hypovolemia from vomiting. Renal function improved. Creatinine 0.97 yesterday. No hydronephrosis noted on CAT scan. Patient did receive IV contrast on April 08 for CAT scan and again on April [address] injectable of the head and neck. 2. Hyperkalemia with potassium level as high as 6.9 this admission. Etiology is acute kidney injury and metabolic acidosis. Also noted to have thrombocytosis which can cause spurious hyperkalemia. Resolved. 3. Metabolic acidosis secondary to acute kidney injury and IV fluids. Maintained on oral bicarb. 4. Hypocalcemia secondary to acute kidney injury. Replaced. Resolved. PTH 119. 1,25 D3 level 61. 5. UTI on antibiotics. Repeat UA shows no WBCs. 6. Thrombocytosis. Patient does have history of myelofibrosis. Hematology following. Improved. 7. Chronic systolic CHF with ejection fraction of 25% with moderate MR and pulmonary hypertension. 8. Mitral valve endocarditis. Cardiothoracic surgery following. On IV antibiotics. 9. Brain MRI suggestive of acute coronary infarcts. Neurology following. Plan: Remains off IV fluids. Avoid nephrotoxins. Continue to monitor renal function and urine output. Patient has sub-nephrotic proteinuria. Aldolase level elevated. Follow-up serologies. UPC 0.45.
--- NOTE | 2021-04-11 11:25 | PN ---
PROGRESS NOTE Mr. Young Wu has severe mitral regurgitation with a vegetation and perforation in the mitral valve leaflet. This was a repaired mitral valve in 2017. The patient was seen by Dr. Escoto, advised to have surgical evaluation in a tertiary care center. However, the patient's son and both feel that we should ask Dr. Mir to see the patient. I will therefore communicate with him. He is currently on antibiotics, being treated for endocarditis. Cultures are negative. Vitals are stable. JVD 1 cm. No carotid bruit. S1, S2 heard normally. Short systolic murmur is audible. Lungs reveal improved air entry. Abdomen and lower extremity exam unchanged. Plan is to continue antibiotics. I will seek an opinion from Dr. Mir with regard to further intervention in addition to antibiotics. The patient does not wish to be transferred to [facility] or any other tertiary care center at this time. MMODL / IJN: [id number] /
--- NOTE | 2021-04-11 11:56 | P.PN ---
Subjective Progress Note Date: 04/11/21 HISTORY OF PRESENT ILLNESS This is a 75-year-old male patient planning to be established with Dr. Molina as PCP next week. He has a past medical history of myelofibrosis and followed at [facility]. He also has history of chronic atrial fibrillation, mitral valve prolapse status post mitral and tricuspid valve repair and modified Lucas- Maze procedure with mitral and tricuspid valve regurgitation with moderate mitral insufficiency. Patient is a very poor historian and describes fever for 6 days, no cough, decreased appetite. Patient came into [facility] emergency center for evaluation with complaints of right upper and mid abdominal pain cramping type with vomiting and also dark urine. He was afebrile, heart rate 107, blood pressure 180/97, pulse ox 99% on room air. EKG was atrial fibrillation at 88 bpm. WBC 22.9, hemoglobin 9.3, platelet count 990. Sodium 140, potassium 2.9, chloride 121, CO2 12, BUN 24 creatinine 0.72. Blood sugar 143. INR 3.0. Lactic acid 2.2. Troponin 0.132, 1.04, 2.110. Total bilirubin 2.1, AST 100, ALT 17, alkaline phosphatase 26. Repeat blood work this morning revealed potassium 6.9, BUN 39 creatinine 1.39 and CO2 17, WBC 32.1, hemoglobin 9.5 and platelet count 1185. Abdominal x-ray revealed nonacute abdomen. CAT scan of the abdomen and pelvis with contrast revealed fat stranding along the upper pole right kidney in the retroperitoneum. Do not suspect pancreatitis. Bilateral nonobstructing renal calculi. Normal right kidney no evidence of pyelonephritis. Mild subsegmental atelectasis at the lung bases. Cardiomegaly. Chest x-ray reveals mild congestive heart failure, increased pulmonary vascular congestion compared to last exam. Pleural fluid improved. Patient is seen today in the ER waiting for a cardiac stepdown bed. He has been seen by nephrology and is status post 3 A of bicarb, IV calcium gluconate, insulin and and D50, maintained on IV fluids at 75 mL per hour. 04/09: Patient's mental status is improved from yesterday. Echocardiogram revealed EF of 25-30%, mild to moderate aortic regurgitation, mild mitral calcification, moderate mitral regurgitation, MV annuloplasty, mobile 1.3 x 1.5 mm hypodensity attached to the posterior mitral valve leaflet, mild to moderate tricuspid regurgitation, moderate pulmonary hypertension. Patient's been seen by cardiology and patient is scheduled for KAYLAN tomorrow. Coumadin will remain on hold for now. Blood cultures have been ordered. We started the patient on vancomycin and add a consult with Dr. Nowak. Cardiology has ruled out acute coronary syndrome. Regarding renal failure, patient is eating and drinking. He has a Carcamo catheter in place. Nephrology is planning to Hep-Lock IV fluids. Urine myoglobin is pending, urinalysis and cultures pending. Patient is also followed by oncology for the myelofibrosis and leukocytosis. Patient has history of acquired von Willebrand disease and lancet been ordered. Subsequently patient was noted to have some weakness on the right side with visual changes on the right eye, CAT scan of the brain and neurology consult was admitted to rule out CVA. 04/10: He has been seen by neurology with concern for stroke, MRI of the brain is been ordered. Ultrasound of the carotids revealed no significant stenosis. Dr. Duffy is following for MARTINA secondary to ATN with recommendations to Stay off IV fluids avoid nephrotoxins and monitor I&O, urine mild globin is pending. He is scheduled for KAYLAN today. 04/11: Patient states that his strength to his right hand is much stronger and his appetite is better. His states that he is eating more. He denies having any chest pain or shortness of breath. Mental status is back to normal. KAYLAN revealed infective endocarditis with large vegetation 1.5 cm attached to the upstream side of the posterior mitral leaflet associated with leaflet perforation and wide open mitral regurgitation. Severe cardiomyopathy with ejection fraction of 20 and 25% with dilated left ventricle. Normal right ventricular dimension with impaired function. Mild biatrial enlargement. Trileaflet aortic valve without stenosis or regurgitation without any vegetation. Intact tricuspid valve and pulmonic valve. No evidence of p ericardial effusion. Carotid duplex reveals no hemodynamically significant stenosis. MRI of the brain reveals numerous white matter high signal foci in both renal hemispheres and more concentrated in the occipital lobes consistent with multiple acute lacunar infarcts. There is also evidence of acute cortical infarct in the posterior aspect of both occipital lobes. This measures up to 1.[address] angiogram of the head and neck negative. Dr. Nowak is following patient is continued on Rocephin and vancomycin, recommended possible transfer to tertiary care for which patient is not in terested in transfer. Cardiology has consulted cardiothoracic surgery. Dr. 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 No TPA indicated as this is outside window. Dr. Duffy is following for acute kidney injury with plan to remain off IV fluids, avoid nephrotoxins and continue to monitor renal function. Follow-up serologies. Repeat blood work revealed WBC 14.6, hemoglobin 8.1 platelet count 434. INR is 4.9. Chloride 109, CO2 21, BUN 31 creatinine 0.97. Sed rate 52, C-reactive protein 7. Hemoglobin A1c 4.3. TSH 2.54. Triglycerides 138, cholesterol 139, LDL 77, HDL 33. REVIEW OF SYSTEMS Constitutional: No fever, no chills, no night sweats. No weight change. No weakness, Noted fatigue no lethargy. Denies daytime sleepiness. EENT: No headache. Visual change right eye. No loss of Hearing, no ringing in the ears, no dizziness. No nasal drainage or congestion. No epistaxis. No sore throat. Lungs: No shortness of breath, cough, no sputum production. No wheezing. Cardiovascular: No chest pain, no lower extremity edema. No palpitations. No paroxysmal nocturnal dyspnea. No orthopnea. No lightheadedness or dizziness. No syncopal episodes. Abdominal: Denies abdominal pain. Denies nausea, denies vomiting. No diarrhea. No constipation. No bloody or tarry stools. Denies loss of appetite. Genitourinary: No dysuria, increased frequency, urgency. No urinary retention. Reported dark brown urine. Musculoskeletal: No myalgias. No muscle weakness, no gait dysfunction, no frequent falls. No back pain. No neck pain. Integumentary: No wounds, no lesions. No rash or pruritus. No unusual bruising. No change in hair or nails. Neurologic: No aphasia. No facial droop. no change in mentation. No head injury. No headache. No paralysis. No paresthesia. Weakness right arm and visual change improved. Psychiatric: No depression. No anxiety. No mood swings. Endocrine: No abnormal blood sugars. PHYSICAL EXAMINATION Gen: This is a thin cachectic 75-year-old male. He is resting in bed and appears to be in no acute distress. Multiple family members at bedside. HEENT: Head is atraumatic, normocephalic. Pupils equal, round. Sclerae is anicteric. NECK: Supple. No JVD. No lymphadenopathy. No thyromegaly. LUNGS: Clear to auscultation. No wheezes or rhonchi. No intercostal ret ractions. HEART: Regular rate and rhythm. No murmur. ABDOMEN: Soft. Bowel sounds are present. No tenderness. EXTREMITIES: No pedal edema. No calf tenderness. NEUROLOGICAL: Patient is awake, alert and oriented x2. Generalized weakness. Cranial nerves 2 through 12 are grossly intact. ASSESSMENT AND PLAN 1. Acute kidney injury secondary to ATN from vomiting. Nephrology consult appreciated. IV fluids discontinued, avoid nephrotoxic agents. Hold lisinopril. 2. Metabolic acidosis secondary to acute kidney injury. Patient is status post sodium bicarb. 3. Hyperkalemia secondary to acute kidney injury. Patient is status post calcium gluconate, IV insulin and D 50. 4. Hypercalcemia secondary to acute kidney injury, replaced. 5. Leukocytosis, thrombocytosis. 6. Anemia of chronic disease. 7. Elevated troponin. Consult with cardiology. No concern for acute coronary syndrome. 8. Possible urinary tract infection, ruled out with negative culture, no urinary symptoms. 9. History of myelofibrosis. Consult with oncology appreciated. 10. Chronic atrial fibrillation. Patient is therapeutic on Coumadin. Pharmacy is dosing Coumadin. 11. History of mitral and tricuspid repair. 12. Elevated liver function tests. Hold atorvastatin for now 13. Metabolic encephalopathy (POA). Treat underlying conditions. 14. Infective endocarditis. Continue vancomycin and Rocephin per Dr. Nowak. Cardiothoracic surgery consult. 15. 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 Neurology consult appreciated. Avoid any anticoagulation or antiplatelet from neurology perspective because of return of hemorrhagic conversion is possible. 16. COVID-19 testing negative. DISCHARGE PLAN To be determined. Most likely home with home care. Consult with PT, OT, speech therapy Impression and plan of care have been directed as dictated by the signing physician. Yue Straks nurse practitioner acting as scribe for signing [email or web address]. Objective - Vital Signs Vital signs: Vital Signs Temp 98.4 F 04/11/21 11:26 Pulse 57 L 04/11/21 11:26 Resp 18 04/11/21 11:26 BP 110/61 04/11/21 11:26 Pulse Ox 97 04/11/21 11:26 Intake & Output 04/10/21 04/11/21 04/11/21 18:59 06:59 18:59 Intake Total 550 Output Total 600 200 Balance -50 -200 Weight 66.9 kg Intake: IV 250 Intake, IV Titration 300 Amount Vancomycin 1,250 mg In 250 Sodium Chloride 0.9% 250 ml @ 125 mls/hr IVPB Q12HR [facility] Rx#:[id number] cefTRIAXone 1 gm In 50 Sodium Chloride 0.9% 50 ml @ 100 mls/hr IVPB Q12H [facility] Rx#:[id number] Oral 0 Output: Urine 600 200 Other: Voiding Method Indwelling Catheter Urinal Urinal # Voids 2 - Labs CBC & Chem 7: 04/10/21 07:51 04/11/21 09:01 Labs: Abnormal Lab Results - Last 24 Hours (Table) 04/10/21 Range/Units 07:51 HDL Cholesterol 33.70 L (40.00-60.00) mg/dL Microbiology - Last 24 Hours (Table) 04/10/21 07:51 Blood Culture - Preliminary Blood No Growth after 24 hours 04/09/21 10:08 Blood Culture - Preliminary Blood No Growth after 24 hours 04/09/21 10:08 Blood Culture - Preliminary Blood No Growth after 24 hours
--- NOTE | 2021-04-11 13:43 | P.GSCN ---
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 Requesting physician: Peg Lion History of present illness: This is a 75-year-old gentleman who follows with Dr. Narciso Molina for his primary care service on an outpatient basis. He is a past medical history significant for nonobstructive coronary artery disease, valvular heart disease status post mitral valve and tricuspid valve repair in 2017 completed at [facility], hypertension, hyperlipidemia, myelofibrosis with subsequent anemia and splenomegaly, recent blood transfusion due to his anemia on 04/04/2021, chronic persistent atrial fibrillation on Coumadin on an outpatient basis, remote history of nicotine dependence quit smoking over 50 years ago and daily EtOH use with drinking 1-1/2 ounces of gin daily. The patient presented to the emergency department here at [facility] on 04/07/2021 with complaints of right lower quadrant abdominal pain, cramping, nausea and vomiting with 2 episodes of vomiting and several episodes of dry heaves. The patient is currently a poor historian due to some episodes of confusion and having trouble remembering things with most of his history received from his and other family members at his bedside currently. The patient's reports that he also had an episode of urinating really dark concentrated urine. The patient denies any shortness of breath, fever, chills, diarrhea, constipation, lightheadedness, presyncope, syncope, hemoptysis, hematemesis, headache or cough. The patient's family brought him to the hospital on 04/07/2021 due to cramping of his right lower quadrant abdomen thinking he had appendicitis. On 04/08/2021 the patient underwent a computed tomography scan of his abdomen and pelvis which demonstrated multiple large bowel diverticuli with no evidence of diverticulitis, bilateral nonobstructing renal calculi, mild subsegmental atelec tasis at the lung bases and cardiomegaly. A 12-lead EKG was completed which showed atrial fibrillation with a heart rate of 99 BPM. Initial laboratory results showed a WBC count of 22.5, hemoglobin 9.3, hematocrit 30.3, platelets 990, PT 29.3, INR 3.0, PTT 32.3, sodium 140, potassium 2.9, chloride 121, CO2 12, BUN 24, creatinine 0.72, plastic lactic acid 2.2, calcium 5.6, total bilirubin 2.1, AST 100, ALT 17, troponin 0.132 with subsequent serial troponins as high as 2.110 and a COVID 19 test showed not detected. The patient was admitted to the hospital for further evaluation and treatment recommendations. Over the next couple of days in the hospital his BUN and creatinine trended up and nephrology was consulted. The patient has been afebrile. Also on 04/08/2021 the patient underwent a transthoracic echocardiogram which demonstrated an overall left ventricular systolic function to be severely impaired with an ejection fraction between 25 and 30%, mild aortic valve sclerosis, mild to moderate aortic valve regurgitation, mild mitral valve annular calcification, moderate mitral valve regurgitation, a mobile 1.3 x 1.5 millimeter echodensity attached to the posterior mitral valve leaflet/annuloplasty ring concerning for vegetation, mild to moderate tricuspid valve regurgitation and trace to/mild pulmonic valve regurgitation. Due to the finding of echodensity found on the transthoracic echocardiogram patient underwent a transesophageal echocardiogram yesterday 04/10/2021 which demonstrated infective endocarditis with large vegetation that measured 1.5 cm attached the upstream side of the posterior mitral valve leaflet associated with leaflet perforation and wide open mitral valve regurgitation. It also demonstrated severe cardiomyopathy with ejection fraction between 20 and 25% with dilated left ventricle, trileaflet aortic valve without stenosis or regurgitation and without any vegetation, and no evidence of pericardial effusion. Due to the findings of vegetation on the above-mentioned studies a consult was placed to Dr. Yaya Mir from cardiothoracic surgery for further evaluation and treatment recommendations. The patient also reports since he has been hospitalized he has had some visual disturbances not being able to see objects and wedge reaching for objects are missing them. He also reports some right upper extremity weakness. Due to the patient's visual disturbances and right upper extremity weakness he underwent a MRI of his brain which showed numerous white matter high signal foci in both renal hemispheres and more concentrated in the occipital lobes consistent with multiple acute lacunar infarcts. It also showed evidence for acute cortical infarct in the posterior aspect of both occipital lobes. These findings on the MRI are being followed by neurology. Review of Systems A 14 point review of systems was completed was negative except as mentioned in the HPI. Past Medical History Past Medical History: Atrial Fibrillation, Blood Disorder, Hyperlipidemia, Hypertension, Mitral Valve Prolapse (MVP) Additional Past Medical History / Comment(s): MYELOFIBROSIS, with history of splenomegaly and anemia. History of Any Multi-Drug Resistant Organisms: None Reported Past Surgical History: Cardiac Valve Replacement, Hernia Repair Additional Past Surgical History / Comment(s): PAULINA INGUINAL HERNIA REPAIR, KAYLAN. HEART VALVE REPAIR Past Anesthesia/Blood Transfusion Reactions: No Reported Reaction Past Psychological History: No Psychological Hx Reported Smoking Status: Former smoker Past Alcohol Use History: Daily (Drinks 1-1/2 ounces of gin daily.) Additional Past Alcohol Use History / Comment(s): quit smoking over 50 years ago Past Drug Use History: None Reported - Past Family History Father Sister(s) Family Medical History: Cancer Father Family Medical History: Cancer Additional Family Medical History / Comment(s): PROSTATE Sister(s) Family Medical History: Cancer Brother(s) Family Medical History: Cancer Additional Family Medical History / Comment(s): PROSTATE Medications and Allergies Home Medications Medication Instructions Recorded Confirmed Type Atorvastatin Calcium [Lipitor] 20 mg PO W/SUPPER 11/05/16 04/08/21 History Cyanocobalamin (Vitamin B-12) 1,000 mcg PO DAILY 04/08/21 04/08/21 History [Vitamin B-12] Doxepin HCl 25 mg PO HS 04/08/21 04/08/21 History Warfarin [Coumadin] 10 mg PO SUTH 04/08/21 04/08/21 History Warfarin [Coumadin] 12.5 mg PO [id number] 04/08/21 04/08/21 History lisinopriL [Zestril] 5 mg PO DAILY 04/08/21 04/08/21 History Allergies Allergy/AdvReac Type Severity Reaction Status Date / Time No Known Allergies Allergy Verified 04/08/21 07:43 Surgical - Exam Vital Signs Temp Pulse Resp BP Pulse Ox 98.1 F 107 H 19 180/97 99 04/07/21 21:04/07/21 21:09 04/07/21 21:09 04/07/21 21:09 04/07/21 21:09 CONSTITUTIONAL: Sitting up to the bedside chair on the cardiac stepdown unit, appears comfortable, cooperative, no apparent acute distress. HEENT: Neck is supple, no JVD, no lymphadenopathy. PERRLA. Moist mucous membranes with any oral lesions. RESPIRATORY: Lungs sounds essentially clear throughout, few scattered crackles to his right lower lobe. Respirations are symmetrical and nonlabored. No wheezes, or rhonch. CARDIOVASCULAR: Irregular rhythm and controlled rate. S1 and S2 present, negative for S3, or gallop. Positive systolic murmur heard best at his apex. Remote telemetry showing atrial fibrillation heart rate 63 BPM. No edema present. GASTROINTESTINAL: Abdomen soft, nontender, nondistended. Active bowel sounds present 4 quadrants. No organomegaly appreciated. No guarding or rigidity. INTEGUMENTARY: Skin is warm and dry with no evidence of clubbing or cyanosis. No rash or abnormal pigmentation present. NEUROLOGIC: Cranial nerves II through XII intact. MUSKULOSKELETAL: Able to move all extremities, strength equal bilaterally, right upper extremity weakness. PSYCHIATRIC: Alert and oriented to person and place. Disoriented oriented to time, appropriate affect, intact judgment and insight. Results - Labs 04/10/21 07:51 04/11/21 09:01 Abnormal Lab Results - Last 24 Hours (Table) 04/10/21 04/10/21 Range/Units 07:51 07:51 ESR 52 H (0-15) mm/hr HDL Cholesterol 33.70 L (40.00-60.00) mg/dL Microbiology - Last 24 Hours (Table) 04/09/21 10:08 Blood Culture - Preliminary Blood No Growth after 24 hours 04/09/21 10:08 Blood Culture - Preliminary Blood No Growth after 24 hours Diabetes panel 04/10/21 04/10/21 Range/Units 07:51 07:51 Hemoglobin A1c 4.3 (4.0-6.0) % Triglycerides 138.00 (0.00-149.00) mg/dL HDL Cholesterol 33.70 L (40.00-60.00) mg/dL Thyroid panel 04/10/21 Range/Units 07:51 TSH 2.540 (0.465-4.680) mIU/L Pituitary panel 04/10/21 Range/Units 07:51 TSH 2.540 (0.465-4.680) mIU/L - Imaging Chest x-ray: report reviewed, image reviewed CT scan - abdomen: report reviewed, image reviewed Additional studies: 2-D echocardiogram and transesophageal echocardiogram films were reviewed by Dr. Kavya Corbett. Assessment and Plan Assessment: 1. 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 Severe cardiomyopathy with an ejection fraction between 20 and 25% 3. 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 Chronic atrial fibrillation on Coumadin as an outpatient, currently on hold as his INR is 4.9, status post modified Lucas maze procedure in October 2016 5. Acute kidney injury, resolved 6. History of myelofibrosis and anemia, status post recent blood transfusion 7. History of mitral valve prolapse, status post mitral valve repair and tricuspid valve repair in October 2016 8. History of hypertension 9. History of hyperlipidemia 10. Remote history of nicotine dependence, quit smoking 50 years ago 11. Daily EtOH use Plan: The patient was seen and examined at his bedside on the cardiac stepdown unit. His chart and diagnostics reviewed. The patient was also seen by Dr. Kavya Corbett from cardiothoracic surgery with the patient's present and other family members present. The findings on the transthoracic echocardiogram and transesophageal echocardiogram were discussed with the patient and family members by Dr. Corbett. Dr. Corbett did spend quite some time with the patient and family answering their questions. No class I indication for surgery at this time. Continue to await results of the blood cultures and continue with antibiotic therapy managed by infectious disease. The patient is being followed by nephrology for his acute kidney injury. Neurology is following for the pat ient's visual disturbances, right upper extremity weakness and findings on the MRI of his brain. Medical management and other comorbidities per primary care service and cardiology. More recommendations to follow based on patient's clinical course. Thank you Dr. Lion for this consult and we look forward to following with you in the care of this patient. Time with Patient: Greater than 30
--- NOTE | 2021-04-11 18:27 | PN ---
PROGRESS NOTE DATE OF SERVICE: 04/11/2021 REASON FOR FOLLOWUP: Possible endocarditis. INTERVAL HISTORY: The patient is afebrile. The patient is feeling better, breathing comfortably. No chest pain, shortness of breath or cough. No nausea, no vomiting. No abdominal pain or diarrhea. PHYSICAL EXAMINATION: Blood pressure is 115/60 with a pulse of 74, temperature 98.4. He is 99% on room air. GENERAL DESCRIPTION: General description is an elderly male up in the bed in no distress. RESPIRATORY SYSTEM: Unlabored breathing. Clear to auscultation anteriorly. HEART: S1, S2. Regular rate and rhythm. ABDOMEN: Soft. No tenderness. EXTREMITIES: No edema of the feet. LABS: Blood cultures remain to be negative. DIAGNOSTIC IMPRESSION AND PLAN: Patient admitted to hospital initially with abdominal pain in this patient who did have an echocardiogram suspicious for mitral valve and that has been confirmed on the KAYLAN. Cardiology recommended surgical evaluation; they recommended no surgery. The patient's culture remains negative. The patient is currently covered with vancomycin and Rocephin with negative cultures. Continue with current antibiotics. Discuss further with Cardiology. Multiple family members at the bedside. Multiple questions and concerns were answered in layman's terms. MMODL / IJN: [id number] /
[2021-04-11] MEDS: VANCOMYCIN 1,500 MG in SODIUM CHLORIDE 0.9% 250 ML IVPB SCH (20:06)
[2021-04-11] MEDS: ATORVASTATIN 20 MG TAB PO SCH (20:07)
[2021-04-11 22:46] LABS: Hepatitis A Antibody IgM Nonreactive (Nonreactive); Hepatitis B Core IgM Nonreactive (Nonreactive); Hepatitis B Surface Antigen Nonreactive (Nonreactive); Hepatitis C IgG Antibody Nonreactive (Nonreactive)
[2021-04-12] MEDS: PANTOPRAZOLE 40 MG TABLET PO SCH (06:10)
[2021-04-12 08:04] LABS: Calcium 8.1 mg/dL (8.4-10.2); Magnesium 2.1 mg/dL (1.6-2.3); Potassium 3.7 mmol/L (3.5-5.1)
[2021-04-12] MEDS: VANCOMYCIN 1,500 MG in SODIUM CHLORIDE 0.9% 250 ML IVPB SCH ×2 (09:27→21:55)
[2021-04-12] MEDS: THIAMINE 100 MG TAB PO SCH (09:28)
[2021-04-12] MEDS: SODIUM BICARBONATE TAB 650 MG TAB PO SCH ×2 (09:28→20:43)
[2021-04-12] MEDS: METOPROLOL TARTRATE 25 MG TAB PO SCH ×2 (09:28→20:43)
[2021-04-12] MEDS ORDERED: FUROSEMIDE 10 MG/ML 2 ML VIAL IV ONE (10:08)
--- NOTE | 2021-04-12 10:09 | P.PN ---
Subjective Patient is seen in follow-up for acute kidney injury. Renal function improved. Potassium level normal. Carcamo catheter removed. Nonoliguric. No further vomiting. Complains of swelling in the ankles. Vital signs are stable. General: The patient appeared well nourished and normally developed. HEENT: Head exam is unremarkable. LUNGS: Breath sounds decreased. HEART: Rate and Rhythm are regular. ABDOMEN: Soft, no distention. EXTREMITITES: 1+ edema. Objective - Vital Signs Vital signs: Vital Signs Temp 98.4 F 04/12/21 04:00 Pulse 83 04/12/21 04:00 Resp 16 04/12/21 04:00 BP 134/74 04/12/21 04:00 Pulse Ox 99 04/12/21 08:35 Intake & Output 04/11/21 04/12/21 04/12/21 18:59 06:59 18:59 Intake Total 1380 Output Total 775 Balance 605 Weight 68.4 kg Intake: Intake, IV Titration 300 Amount Vancomycin 1,500 mg In 250 Sodium Chloride 0.9% 250 ml @ 125 mls/hr IVPB Q12HR [facility] Rx#:[id number] cefTRIAXone 1 gm In 50 Sodium Chloride 0.9% 50 ml @ 100 mls/hr IVPB Q12H [facility] Rx#:[id number] Oral 1080 Output: Urine 775 Other: Voiding Method Urinal Toilet Urinal # Voids 2 1 # Bowel Movements 1 - Labs CBC & Chem 7: 04/10/21 07:51 04/12/21 06:55 Labs: Abnormal Lab Results - Last 24 Hours (Table) 04/12/21 Range/Units 06:55 Chloride 108 H (98-107) mmol/L BUN 22 H (9-20) mg/dL Calcium 8.1 L (8.4-10.2) mg/dL Microbiology - Last 24 Hours (Table) 04/09/21 10:08 Blood Culture - Preliminary Blood No Growth after 48 hours 04/09/21 10:08 Blood Culture - Preliminary Blood No Growth after 48 hours 04/10/21 07:51 Blood Culture - Preliminary Blood No Growth after 24 hours Assessment and Plan Plan: Assessment: 1. Acute kidney injury secondary to ATN secondary to hypovolemia from vomiting. Renal function improved. Creatinine 0.97. No hydronephrosis noted on CAT scan. Patient did receive IV contrast on April 08 for CAT scan and again on April [address] injectable of the head and neck. 2. Hyperkalemia with potassium level as high as 6.9 this admission. Etiology is acute kidney injury and metabolic acidosis. Also noted to have thrombocytosis which can cause spurious hyperkalemia. Resolved. 3. Metabolic acidosis secondary to acute kidney injury and IV fluids. Maintained on oral bicarb. Better. 4. Hypocalcemia secondary to acute kidney injury. Replaced. Resolved. PTH 119. 1,25 D3 level 61. 5. UTI on antibiotics. Repeat UA shows no WBCs. 6. Thrombocytosis. Patient does have history of myelofibrosis. Hematology following. Improved. 7. Chronic systolic CHF with ejection fraction of 25% with moderate MR and pulmonary hypertension. 8. Mitral valve endocarditis. Cardiothoracic surgery following. On IV antibiotics. 9. Brain MRI suggestive of acute coronary infarcts. Neurology following. 10. Lower extremity edema. Plan: Remains off IV fluids. Lasix 20 mg IV once today. Avoid nephrotoxins. Continue to monitor renal function and urine output. Patient has sub-nephrotic proteinuria. Aldolase level elevated. Follow-up serologies. UPC 0.45.
--- NOTE | 2021-04-12 10:12 | P.PN ---
Subjective Progress Note Date: 04/12/21 HISTORY OF PRESENT ILLNESS This is a 75-year-old male patient planning to be established with Dr. Molina as PCP next week. He has a past medical history of myelofibrosis and followed at [facility]. He also has history of chronic atrial fibrillation, mitral valve prolapse status post mitral and tricuspid valve repair and modified Lucas- Maze procedure with mitral and tricuspid valve regurgitation with moderate mitral insufficiency. Patient is a very poor historian and describes fever for 6 days, no cough, decreased appetite. Patient came into [facility] emergency center for evaluation with complaints of right upper and mid abdominal pain cramping type with vomiting and also dark urine. He was afebrile, heart rate 107, blood pressure 180/97, pulse ox 99% on room air. EKG was atrial fibrillation at 88 bpm. WBC 22.9, hemoglobin 9.3, platelet count 990. Sodium 140, potassium 2.9, chloride 121, CO2 12, BUN 24 creatinine 0.72. Blood sugar 143. INR 3.0. Lactic acid 2.2. Troponin 0.132, 1.04, 2.110. Total bilirubin 2.1, AST 100, ALT 17, alkaline phosphatase 26. Repeat blood work this morning revealed potassium 6.9, BUN 39 creatinine 1.39 and CO2 17, WBC 32.1, hemoglobin 9.5 and platelet count 1185. Abdominal x-ray revealed nonacute abdomen. CAT scan of the abdomen and pelvis with contrast revealed fat stranding along the upper pole right kidney in the retroperitoneum. Do not suspect pancreatitis. Bilateral nonobstructing renal calculi. Normal right kidney no evidence of pyelonephritis. Mild subsegmental atelectasis at the lung bases. Cardiomegaly. Chest x-ray reveals mild congestive heart failure, increased pulmonary vascular congestion compared to last exam. Pleural fluid improved. Patient is seen today in the ER waiting for a cardiac stepdown bed. He has been seen by nephrology and is status post 3 A of bicarb, IV calcium gluconate, insulin and and D50, maintained on IV fluids at 75 mL per hour. 04/09: Patient's mental status is improved from yesterday. Echocardiogram revealed EF of 25-30%, mild to moderate aortic regurgitation, mild mitral calcification, moderate mitral regurgitation, MV annuloplasty, mobile 1.3 x 1.5 mm hypodensity attached to the posterior mitral valve leaflet, mild to moderate tricuspid regurgitation, moderate pulmonary hypertension. Patient's been seen by cardiology and patient is scheduled for KAYLAN tomorrow. Coumadin will remain on hold for now. Blood cultures have been ordered. We started the patient on vancomycin and add a consult with Dr. Nowak. Cardiology has ruled out acute coronary syndrome. Regarding renal failure, patient is eating and drinking. He has a Carcamo catheter in place. Nephrology is planning to Hep-Lock IV fluids. Urine myoglobin is pending, urinalysis and cultures pending. Patient is also followed by oncology for the myelofibrosis and leukocytosis. Patient has history of acquired von Willebrand disease and lancet been ordered. Subsequently patient was noted to have some weakness on the right side with visual changes on the right eye, CAT scan of the brain and neurology consult was admitted to rule out CVA. 04/10: He has been seen by neurology with concern for stroke, MRI of the brain is been ordered. Ultrasound of the carotids revealed no significant stenosis. Dr. Duffy is following for MARTINA secondary to ATN with recommendations to Stay off IV fluids avoid nephrotoxins and monitor I&O, urine mild globin is pending. He is scheduled for KAYLAN today. 04/11: Patient states that his strength to his right hand is much stronger and his appetite is better. His states that he is eating more. He denies having any chest pain or shortness of breath. Mental status is back to normal. KAYLAN revealed infective endocarditis with large vegetation 1.5 cm attached to the upstream side of the posterior mitral leaflet associated with leaflet perforation and wide open mitral regurgitation. Severe cardiomyopathy with ejection fraction of 20 and 25% with dilated left ventricle. Normal right ventricular dimension with impaired function. Mild biatrial enlargement. Trileaflet aortic valve without stenosis or regurgitation without any vegetation. Intact tricuspid valve and pulmonic valve. No evidence of p ericardial effusion. Carotid duplex reveals no hemodynamically significant stenosis. MRI of the brain reveals numerous white matter high signal foci in both renal hemispheres and more concentrated in the occipital lobes consistent with multiple acute lacunar infarcts. There is also evidence of acute cortical infarct in the posterior aspect of both occipital lobes. This measures up to 1.[address] angiogram of the head and neck negative. Dr. Nowak is following patient is continued on Rocephin and vancomycin, recommended possible transfer to tertiary care for which patient is not in terested in transfer. Cardiology has consulted cardiothoracic surgery. Dr. 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 No TPA indicated as this is outside window. Dr. Duffy is following for acute kidney injury with plan to remain off IV fluids, avoid nephrotoxins and continue to monitor renal function. Follow-up serologies. Repeat blood work revealed WBC 14.6, hemoglobin 8.1 platelet count 434. INR is 4.9. Chloride 109, CO2 21, BUN 31 creatinine 0.97. Sed rate 52, C-reactive protein 7. Hemoglobin A1c 4.3. TSH 2.54. Triglycerides 138, cholesterol 139, LDL 77, HDL 33. 04/12: Patient denies any new complaints. He denies having any light headedness or dizziness. He has been ambulating with walker. He states he is using his arm and actually eating with his right hand. He feels that he is getting stronger. Patient has been seen by cardiothoracic surgery is no plan for intervention at this time. He has been afebrile, heart rate 83, blood pressure 134/74, pulse ox 98% on room air. Repeat blood work reveals sodium 137, potassium 3.7, chloride 108, CO2 23, BUN 22 and creatinine 0.97. Hepatitis panels negative. All blood cultures have been negative at 48 hours 1 and at 24 hours 1. Urine culture finalized with no growth. Nephrology has ordered 1 dose of Lasix 20 mg today. Patient is continued on IV vancomycin and ceftriaxone. Anticipate probable discharge Tuesday or Tuesday once all arrangements are completed for IV antibiotics. REVIEW OF SYSTEMS Constitutional: No fever, no chills, no night sweats. No weight change. No weakness, Noted fatigue no lethargy. Denies daytime sleepiness. EENT: No headache. Visual change right eye. No loss of Hearing, no ringing in the ears, no dizziness. No nasal drainage or congestion. No epistaxis. No sore throat. Lungs: No shortness of breath, cough, no sputum production. No wheezing. Cardiovascular: No chest pain, no lower extremity edema. No palpitations. No paroxysmal nocturnal dyspnea. No orthopnea. No lightheadedness or dizziness. No syncopal episodes. Abdominal: Denies abdominal pain. Denies nausea, denies vomiting. No diarrhea. No constipation. No bloody or tarry stools. Denies loss of appetite. Genitourinary: No dysuria, increased frequency, urgency. No urinary retention. Reported dark brown urine. Musculoskeletal: No myalgias. No muscle weakness, no gait dysfunction, no frequent falls. No back pain. No neck pain. Integumentary: No wounds, no lesions. No rash or pruritus. No unusual bruising. No change in hair or nails. Neurologic: No aphasia. No facial droop. no change in mentation. No head injury. No headache. No paralysis. No paresthesia. Weakness right arm and visual change improved. Psychiatric: No depression. No anxiety. No mood swings. Endocrine: No abnormal blood sugars. PHYSICAL EXAMINATION Gen: This is a thin cachectic 75-year-old male. He is resting in bed and appears to be in no acute distress. Multiple family members at bedside. HEENT: Head is atraumatic, normocephalic. Pupils equal, round. Sclerae is anicteric. NECK: Supple. No JVD. No lymphadenopathy. No thyromegaly. LUNGS: Clear to auscultation. No wheezes or rhonchi. No intercostal retractions. HEART: Regular rate and rhythm. No murmur. ABDOMEN: Soft. Bowel sounds are present. No tenderness. EXTREMITIES: No pedal edema. No calf tenderness. NEUROLOGICAL: Patient is awake, alert and oriented x2. Generalized weakness. ASSESSMENT AND PLAN 1. Acute kidney injury secondary to ATN from vomiting. Nephrology consult appreciated. IV fluids discontinued, avoid nephrotoxic agents. Hold lisinopril. 2. Metabolic acidosis secondary to acute kidney injury. Patient is status post sodium bicarb. 3. Hyperkalemia secondary to acute kidney injury. Patient is status post calcium gluconate, IV insulin and D 50. 4. Hypercalcemia secondary to acute kidney injury, replaced. 5. Leukocytosis, thrombocytosis. 6. Anemia of chronic disease. 7. Elevated troponin. Consult with cardiology. No concern for acute coronary syndrome. 8. Possible urinary tract infection, ruled out with negative culture, no urinary symptoms. 9. History of myelofibrosis. Consult with oncology appreciated. 10. Chronic atrial fibrillation. Patient is therapeutic on Coumadin. Pharmacy is dosing Coumadin. 11. History of mitral and tricuspid repair. 12. Elevated liver function tests. Hold atorvastatin for now 13. Metabolic encephalopathy (POA). Treat underlying conditions. 14. Infective endocarditis. Continue vancomycin and Rocephin per Dr. Nwoak. Cardiothoracic surgery consult appreciated. Blood cultures are no growth.. 15. 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 Neurology consult appreciated. Avoid any anticoagulation or antiplatelet from neurology perspective because of return of hemorrhagic conversion is possible. 16. COVID-19 testing negative. DISCHARGE PLAN To be determined. Most likely home with home care. Consult with PT, OT, speech therapy Impression and plan of care have been directed as dictated by the signing physician. Yue Starks nurse practitioner acting as scribe for signing physician. Objective - Vital Signs Vital signs: Vital Signs Temp 98.4 F 04/12/21 04:00 Pulse 83 04/12/21 04:00 Resp 16 04/12/21 04:00 BP 134/74 04/12/21 04:00 Pulse Ox 99 04/12/21 08:35 Intake & Output 04/11/21 04/12/21 04/12/21 18:59 06:59 18:59 Intake Total 1380 Output Total 775 Balance 605 Weight 68.4 kg Intake: Intake, IV Titration 300 Amount Vancomycin 1,500 mg In 250 Sodium Chloride 0.9% 250 ml @ 125 mls/hr IVPB Q12HR MEGHANA Rx#:[id number] cefTRIAXone 1 gm In 50 Sodium Chloride 0.9% 50 ml @ 100 mls/hr IVPB Q12H MEGHANA Rx#:[id number] Oral 1080 Output: Urine 775 Other: Voiding Method Urinal Toilet Urinal # Voids 2 1 # Bowel Movements 1 - Labs CBC & Chem 7: 04/10/21 07:51 04/12/21 06:55 Labs: Abnormal Lab Results - Last 24 Hours (Table) 04/12/21 Range/Units 06:55 Chloride 108 H (98-107) mmol/L BUN 22 H (9-20) mg/dL Calcium 8.1 L (8.4-10.2) mg/dL Microbiology - Last 24 Hours (Table) 04/09/21 10:08 Blood Culture - Preliminary Blood No Growth after 48 hours 04/09/21 10:08 Blood Culture - Preliminary Blood No Growth after 48 hours 04/10/21 07:51 Blood Culture - Preliminary Blood No Growth after 24 hours
--- NOTE | 2021-04-12 12:13 | PN ---
PROGRESS NOTE Mr. Wu is in an atrial fibrillation with a fairly decent rate control. He has what seems to be a previous mitral valve repair with now a perforation in the leaflet with vegetation. I talked to Dr. Corbett yesterday. His feeling is to get treated with antibiotics and transfer to [place] early next week, probably Tuesday or Tuesday. I discussed this matter with the patient again. There are several questions about different options. My initial suggestion was to consider sending him to [facility] to see there is any other option for him, but the patient and son both wish to go to [place] and therefore I spoke to Dr. Mir and also communicated with Dr. Corbett yesterday. The patient actually clinically looks better. His vitals are stable. There is JVD of 1 cm. No carotid bruit. There is a short systolic murmur at the apex. Lungs reveal improved air entry. Abdomen and lower extremity exam unchanged. Plan is to continue current medications, increase the beta aaron and continue with antibiotics. We will await further direction from Cardiac Surgery on Tuesday. My recommendation would be to await for the results of blood cultures which are still pending to see what organism he is growing, if any, and also continue with antibiotics and transfer him either to [place] are [facility] and consider intervention. I am not sure if there are any viable interventions short of redo open heart surgery for this patient but these should certainly be explored. I discussed this matter with the patient and his and also with his son by phone. NATALIA / DIANAN: [id number] /
--- NOTE | 2021-04-12 18:28 | PN ---
PROGRESS NOTE DATE OF SERVICE: 04/12/2021 REASON FOR FOLLOWUP: Endocarditis. INTERVAL HISTORY: The patient is afebrile. The patient is currently breathing comfortably. The patient denies having any chest pain, shortness of breath or cough. No nausea, no vomiting. No abdominal pain or diarrhea. Overall feeling better. PHYSICAL EXAMINATION: Blood pressure 115/58 with a pulse of 79, temperature 98.2. He is 97% on room air. General description is an elderly male up in the bed in no distress. Respiratory system: Unlabored breathing, decreased breath sounds, no wheeze. Heart S1, S2. Regular rate and rhythm. Abdomen soft, no tenderness. LABS: Creatinine 0.97. Vancomycin level 13.4. DIAGNOSTIC IMPRESSION AND PLAN: Patient with anterior wall endocarditis. Culture has been negative so far. Patient is covered with vancomycin and Rocephin. Family at the bedside, multiple questions were answered. ( ) for tomorrow and close outpatient followup. MMODL / IJN: [id number] /
[2021-04-12] MEDS: ATORVASTATIN 20 MG TAB PO SCH (20:43)
[2021-04-13] MEDS: PANTOPRAZOLE 40 MG TABLET PO SCH (06:35)
--- NOTE | 2021-04-13 07:02 | P.PN ---
Subjective Progress Note Date: 04/12/21 Principal diagnosis: Endocarditis with large vegetation attached to the upstream side of the posterior mitral valve leaflet, status post mitral valve repair in 2017. Past medical history significant for nonobstructive coronary artery disease, valvular heart disease status post mitral valve and tricuspid valve repair in 2017 completed at [facility], hypertension, hyperlipidemia, myelofibrosis with subsequent anemia and splenomegaly, recent blood transfusion due to his anemia on 04/04/2021, chronic persistent atrial fibrillation on Coumadin on an outpatient basis, remote history of nicotine dependence quit smoking over 50 years ago and daily EtOH use with drinking 1-1/2 ounces of gin daily. The patient was seen in follow-up today on the cardiac stepdown unit. The patient's and son are present at his bedside. Currently the patient is up ambulating in his room, is awake, alert and oriented 3 with periods of forgetfulness. The patient denies any complaints of pain or shortness of breath at this time. He reports that his right arm feels much stronger today than yesterday, although is having some slight continued weakness. The patient also reports that he is still having some visual disturbances and gave an example, as there was an nothing by mouth sign on his door and he could make out the N and the P although he could not make out the O. He has been afebrile in the last 24 hours, he continues on Rocephin and vancomycin for antibiotic coverage. Blood culture results from from 03/19/2021 and 04/10/2021 remain to show no growth. Urine culture results showed no growth after 18 hours which is the final culture result. Antibiotics are being managed by infectious disease. The patient and family members had several questions this morning and were answered to the best my ability. The patient visual disturbances and right arm weakness is being followed by neurology. Dr. Corbett from cardiothoracic surgery met with the patient and his family members present at his bedside yesterday, discussed treatment options and answered all of their questions to the best of his ability. Objective - Vital Signs Vital signs: Vital Signs Temp 98.4 F 04/12/21 04:00 Pulse 83 04/12/21 04:00 Resp 16 04/12/21 04:00 BP 134/74 04/12/21 04:00 Pulse Ox 99 04/12/21 08:35 Intake & Output 04/11/21 04/12/21 04/12/21 18:59 06:59 18:59 Intake Total 1380 Output Total 775 Balance 605 Weight 68.4 kg Intake: Intake, IV Titration 300 Amount Vancomycin 1,500 mg In 250 Sodium Chloride 0.9% 250 ml @ 125 mls/hr IVPB Q12HR ME[facility] Rx#:[id number] cefTRIAXone 1 gm In 50 Sodium Chloride 0.9% 50 ml @ 100 mls/hr IVPB Q12H MEGHANA Rx#:[id number] Oral 1080 Output: Urine 775 Other: Voiding Method Urinal Toilet Urinal # Voids 2 1 # Bowel Movements 1 - Exam CONSTITUTIONAL: Up ambulating in his room on the cardiac stepdown unit, appears comfortable, cooperative, no apparent acute distress. HEENT: Neck is supple, no JVD, no lymphadenopathy. PERRLA. Moist mucous membranes without any oral lesions. RESPIRATORY: Lungs sounds essentially clear throughout. Respirations are symmetrical and nonlabored. No wheezes, or rhonchi. CARDIOVASCULAR: Irregular rhythm and controlled rate. S1 and S2 present, negative for S3, or gallop. Positive systolic murmur heard best at his apex. Trace edema to his bilateral lower extremities. GASTROINTESTINAL: Abdomen soft, nontender, nondistended. Active bowel sounds present 4 quadrants. No organomegaly appreciated. No guarding or rigidity. INTEGUMENTARY: Skin is warm and dry with no evidence of clubbing or cyanosis. No rash or abnormal pigmentation present. NEUROLOGIC: Cranial nerves II through XII intact. MUSKULOSKELETAL: Able to move all extremities, strength equal bilaterally, right upper extremity weakness. PSYCHIATRIC: Alert and oriented to person and place. Disoriented to time, appropriate affect, intact judgment and insight. Periods of forgetfulness. - Allied health notes Allied health notes reviewed: nursing - Labs CBC & Chem 7: 04/10/21 07:51 04/12/21 06:55 Labs: Abnormal Lab Results - Last 24 Hours (Table) 04/12/21 Range/Units 06:55 Chloride 108 H (98-107) mmol/L BUN 22 H (9-20) mg/dL Calcium 8.1 L (8.4-10.2) mg/dL Microbiology - Last 24 Hours (Table) 04/09/21 10:08 Blood Culture - Preliminary Blood No Growth after 48 hours 04/09/21 10:08 Blood Culture - Preliminary Blood No Growth after 48 hours 04/10/21 07:51 Blood Culture - Preliminary Blood No Growth after 24 hours Assessment and Plan Assessment: 1. 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 Severe cardiomyopathy with an ejection fraction between 20 and 25% 3. Leukocytosis, secondary to above infective endocarditis 4. 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 Chronic atrial fibrillation on Coumadin as an outpatient, currently on hold as his INR is 4.9, status post modified Lucas maze procedure in October 2016 6. Acute kidney injury, resolved 7. History of myelofibrosis and anemia, status post recent blood transfusion 8. History of mitral valve prolapse, status post mitral valve repair and tri cuspid valve repair in October 2016 8. History of hypertension 10. History of hyperlipidemia 11. Remote history of nicotine dependence, quit smoking 50 years ago 12. Daily EtOH use Plan: 1. Antibiotic management per infectious disease recommendations. No class I indication for surgery at this time. 2. Continue to follow blood culture results. Preliminary cultures show no growth. 3. Medical management of her comorbidities per primary care service. 4. Acute stroke recommendations per neurology. 5. Oncology/hematology following myelofibrosis. 6. Continue to follow the patient, more recommendations to follow based on patient's clinical course. Time with Patient: Greater than 30
[2021-04-13 08:09] LABS: Anisocytosis Moderate; HCT 26.3 % (39.0-53.0); HGB 8.3 gm/dL (13.0-17.5); Hypochromasia Moderate; MCH 31.1 pg (25.0-35.0); MCHC 31.5 g/dL (31.0-37.0); Macrocytosis Slight; Mean Platelet Volume 10.2; Platelet Count 442 k/uL (150-450); Poikilocytosis Moderate; RBC 2.67 m/uL (4.30-5.90); RDW 20.9 % (11.5-15.5); WBC 8.5 k/uL (3.8-10.6)
[2021-04-13 08:17] LABS: ALT 18 U/L (4-49); AST 38 U/L (17-59); African American GFR (CKD) >90 (>60 ml/min/1.73 sqM); Albumin 3.4 g/dL (3.5-5.0); Alkaline Phosphatase 48 U/L (38-126); Anion Gap 7 mmol/L; Blood Urea Nitrogen 19 mg/dL (9-20); C Reactive Protein 1.2 mg/dL (<1.0); Calcium 8.3 mg/dL (8.4-10.2); Carbon Dioxide 23 mmol/L (22-30); Chloride 105 mmol/L (98-107); Glucose 95 mg/dL (74-99); Non-African American GFR(CKD) 83 (>60 ml/min/1.73 sqM); Potassium 3.8 mmol/L (3.5-5.1); Sodium 135 mmol/L (137-145); Total Bilirubin 0.8 mg/dL (0.2-1.3); Total Protein 5.7 g/dL (6.3-8.2)
[2021-04-13 08:18] LABS: INR 1.1 (<1.2); Prothrombin Time 11.7 sec (9.0-12.0)
[2021-04-13 08:46] LABS: MCV 98.7 fL (80.0-100.0)
--- NOTE | 2021-04-13 09:10 | P.PN ---
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 Past medical history significant for nonobstructive coronary artery disease, valvular heart disease status post mitral valve and tricuspid valve repair in 2017 completed at [facility], hypertension, hyperlipidemia, myelofibrosis with subsequent anemia and splenomegaly, recent blood transfusion due to his anemia on 04/04/2021, chronic persistent atrial fibrillation on Coumadin on an outpatient basis, remote history of nicotine dependence quit smoking over 50 years ago and daily EtOH use with drinking 1-1/2 ounces of gin daily. The patient was seen in follow-up today on the cardiac stepdown unit. The patient's and daughter are present at his bedside. Currently the patient is up ambulating in his room, is awake, alert and oriented 3 with periods of forgetfulness. He denies any complaints of pain or shortness of breath at this time. Denies any further complaints of abdominal pain or problems with urinating. He reports that his left arm weakness has pretty much resolved and is back to normal, although he is still complaining of some visual disturbances stating that it has improved but still not back to normal. Laboratory results were reviewed this morning, his WBC count is 8.5, hemoglobin 8.3, hematocrit 26.3, platelets 442, PT 11.7, INR 1.1, sodium 135, potassium 3.8, BUN 19, creatinine 0.90, and C-reactive protein 1.2 which has trended down from yesterday. He remains afebrile the last [address] Nowak from infectious disease is following and the patient is currently on Rocephin and 50 - for antibiotic coverage. Blood cultures showed no growth after 48 and 72 hours. Urine culture final result shows no growth. Oxygen saturations are 99% on room air, he remains hemodynamically stable and is currently on no inotropic support. Objective - Vital Signs Vital signs: Vital Signs Temp 97.6 F 04/13/21 04:00 Pulse 76 04/13/21 04:00 Resp 16 04/13/21 04:00 BP 133/77 04/13/21 04:00 Pulse Ox 100 04/13/21 04:00 Intake & Output 04/12/21 04/13/21 04/13/21 18:59 06:59 18:59 Intake Total 240 240 Output Total 900 200 Balance -660 -200 240 Weight 67.4 kg Intake: Oral 240 240 Output: Urine 900 200 Other: Voiding Method Toilet Toilet Urinal Urinal # Voids 3 # Bowel Movements 1 - Exam CONSTITUTIONAL: Up ambulating in his room on the cardiac stepdown unit, appears comfortable, cooperative, no apparent acute distress. HEENT: Neck is supple, no JVD, no lymphadenopathy. PERRLA. Moist mucous membranes without any oral lesions. RESPIRATORY: Lungs sounds essentially clear throughout, few scattered crackles to his right lower lobe. Respirations are symmetrical and nonlabored. No wheezes, or rhonchi. Oxygen saturation is 99% on room air. CARDIOVASCULAR: Irregular rhythm and controlled rate. S1 and S2 present, negative for S3, or gallop. Remote telemetry showing atrial fibrillation heart rate 79 BPM. Positive systolic murmur heard best at his apex. Trace edema to his bilateral lower extremities. GASTROINTESTINAL: Abdomen soft, nontender, nondistended. Active bowel sounds present 4 quadrants. No organomegaly appreciated. No guarding or rigidity. INTEGUMENTARY: Skin is warm and dry with no evidence of clubbing or cyanosis. No rash or abnormal pigmentation present. NEUROLOGIC: Cranial nerves II through XII intact. MUSKULOSKELETAL: Able to move all extremities, strength equal bilaterally. PSYCHIATRIC: Alert and oriented to person and place. Disoriented to time, appropriate affect, intact judgment and insight. Periods of forgetfulness. - Allied health notes Allied health notes reviewed: nursing - Labs CBC & Chem 7: 04/13/21 07:12 04/13/21 07:12 Labs: Abnormal Lab Results - Last 24 Hours (Table) 04/13/21 04/13/21 Range/Units 07:12 07:12 RBC 2.67 L (4.30-5.90) m/uL Hgb 8.3 L (13.0-17.5) gm/dL Hct 26.3 L (39.0-53.0) % RDW 20.9 H (11.5-15.5) % Sodium 135 L (137-145) mmol/L Calcium 8.3 L (8.4-10.2) mg/dL C-Reactive Protein 1.2 H (<1.0) mg/dL Total Protein 5.7 L (6.3-8.2) g/dL Albumin 3.4 L (3.5-5.0) g/dL Microbiology - Last 24 Hours (Table) 04/09/21 10:08 Blood Culture - Preliminary Blood No Growth after 72 hours 04/09/21 10:08 Blood Culture - Preliminary Blood No Growth after 72 hours 04/10/21 07:51 Blood Culture - Preliminary Blood No Growth after 48 hours Assessment and Plan Assessment: 1. 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 Severe cardiomyopathy with an ejection fraction between 20 and 25% 3. Leukocytosis, secondary to above infective endocarditis 4. 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 Chronic atrial fibrillation on Coumadin as an outpatient, currently on hold as his INR is 4.9, status post modified Lucas maze procedure in October 2016 6. Acute kidney injury, resolved 7. History of myelofibrosis and anemia, status post recent blood transfusion 8. History of mitral valve prolapse, status post mitral valve repair and tricuspid valve repair in October 2016 8. History of hypertension 10. History of hyperlipidemia 11. Remote history of nicotine dependence, quit smoking 50 years ago 12. Daily EtOH use Plan: 1. Antibiotic management per infectious disease recommendations. No class I indication for surgery at this time. 2. Continue to follow blood culture results. Preliminary cultures show no growth after 48 and 72 hours. Final urine culture results show no growth. 3. Medical management of her comorbidities per primary care service. 4. Acute stroke recommendations per neurology. 5. Oncology/hematology following myelofibrosis. 6. A transthoracic 2-D echocardiogram has been ordered for today as a follow- up. 7. Continue to follow the patient, more recommendations to follow based on patient's clinical course. Time with Patient: Greater than 30
[2021-04-13] MEDS: THIAMINE 100 MG TAB PO SCH (09:19)
[2021-04-13] MEDS: SODIUM BICARBONATE TAB 650 MG TAB PO SCH (09:19)
[2021-04-13] MEDS: METOPROLOL TARTRATE 25 MG TAB PO SCH ×2 (09:19→20:15)
[2021-04-13 10:04] VITALS: PULSE 83
[2021-04-13 10:57] LABS: Erythrocyte Sedimentation Rate 48 mm/hr (0-15)
[2021-04-13] MEDS ORDERED: LIDOCAINE 1% INJ 10MG/ML (20 ML MDV) SQ ONE (11:40)
--- NOTE | 2021-04-13 12:17 | IR ---
EXAMINATION TYPE: IR cvc insert >=5 years DATE OF EXAM: 04/13/2021 COMPARISON: NONE CLINICAL HISTORY: Infection Needs long-term intravenous access for antibiotics. PROCEDURE: Hand hygiene obtained with soap and water and alcohol-based hand rub. After informed consent, the skin overlying the left basilic vein was localized with ultrasound and no joana to be compressible and patent. An ultrasound image was obtained and submitted on the patient's c lópez. The overlying skin was prepped and draped and Lidocaine was used for local anesthesia. A skin boom was made with a scalpel. Access was gained to the vein under ultrasound guidance with a 21 gau ge needle and a 0.018 inch wire was advanced. Access site was dilated with Peel-Away sheath and cath eter tailored to the appropriate length and advanced such that the distal tip is at the cavoatrial ju nction. Spot image was obtained verifying placement. Catheter was fixed to the skin and a sterile d ressing was placed following hemostasis. Catheter was aspirated and flushed with saline. Patient wa s discharged in stable condition without complication.Maximal barrier technique is utilized. Ultraso und image is documented on the chart. Ultrasound used with sterile technique. Fluoro time and fluoroscopic images submitted to document procedure: 0.1 minutes fluoroscopy time, 12 4 intraoperative images document the procedure IMPRESSION: STATUS POST ULTRASOUND AND FLUOROSCOPIC GUIDED PICC LINE PLACEMENT, READY FOR USE. THIS PROCEDURE WAS PERFORMED BY THE UNDERSIGNED.
--- NOTE | 2021-04-13 12:25 | P.DS ---
Providers Date of admission: 04/08/21 01:53 Expected date of discharge: 04/14/21 Attending physician: Narciso Molina Consults: 04/08/21 06:37 Consult Physician Urgent Consulting Provider: Mima Beasley Consult Reason/Comments: hypocalcemia Do you want consulting provider notified?: Yes 04/08/21 08:30 Consult Physician Routine Consulting Provider: Celio Ureña Consult Reason/Comments: elvated platletts Do you want consulting provider notified?: Yes 04/08/21 09:45 Consult Physician Routine Consulting Provider: Paco Escoto Consult Reason/Comments: elevated trops Do you want consulting provider notified?: Yes 04/09/21 09:44 Consult Physician Routine Consulting Provider: Donna Nowak Consult Reason/Comments: vegetation Do you want consulting provider notified?: Yes 04/09/21 11:21 Consult Physician Routine Consulting Provider: Farrukh Ontiveros Consult Reason/Comments: right arm weakness, vision change, r/o cva Do you want consulting provider notified?: Yes 04/11/21 07:42 Consult Physician Urgent Consulting Provider: Yaya Mir Consult Reason/Comments: S/P MVrepair now with Endocarditis and perfor leaflet Do you want consulting provider notified?: Yes Primary care physician: [facility] Course: HISTORY OF PRESENT ILLNESS This is a 75-year-old male patient planning to be established with Dr. Molina as PCP next week. He has a past medical history of myelofibrosis and followed at [facility]. He also has history of chronic atrial fibrillation, mitral valve prolapse status post mitral and tricuspid valve repair and modified Lucas- Maze procedure with mitral and tricuspid valve regurgitation with moderate mitral insufficiency. Patient is a very poor historian and describes fever for 6 days, no cough, decreased appetite. Patient came into [facility] emergency center for evaluation with complaints of right upper and mid abdominal pain cramping type with vomiting and also dark urine. He was afebrile, heart rate 107, blood pressure 180/97, pulse ox 99% on room air. EKG was atrial fibrillation at 88 bpm. WBC 22.9, hemoglobin 9.3, platelet count 990. Sodium 140, potassium 2.9, chloride 121, CO2 12, BUN 24 creatinine 0.72. Blood sugar 143. INR 3.0. Lactic acid 2.2. Troponin 0.132, 1.04, 2.110. Total bilirubin 2.1, AST 100, ALT 17, alkaline phosphatase 26. Repeat blood work this morning revealed potassium 6.9, BUN 39 creatinine 1.39 and CO2 17, WBC 32.1, hemoglobin 9.5 and platelet count 1185. Abdominal x-ray revealed nonacute abdomen. CAT scan of the abdomen and pelvis with contrast revealed fat stranding along the upper pole right kidney in the retroperitoneum. Do not suspect pancreatitis. Bilateral nonobstructing renal calculi. Normal right kidney no evidence of pyelonephritis. Mild subsegmental atelectasis at the lung bases. Cardiomegaly. Chest x-ray reveals mild congestive heart failure, increased pulmonary vascular congestion compared to last exam. Pleural fluid improved. Patient is seen today in the ER waiting for a cardiac stepdown bed. He has been seen by nephrology and is status post 3 A of bicarb, IV calcium gluconate, insulin and and D50, maintained on IV fluids at 75 mL per hour. 04/09: Patient's mental status is improved from yesterday. Echocardiogram revealed EF of 25-30%, mild to moderate aortic regurgitation, mild mitral calcification, moderate mitral regurgitation, MV annuloplasty, mobile 1.3 x 1.5 mm hypodensity attached to the posterior mitral valve leaflet, mild to moderate tricuspid regurgitation, moderate pulmonary hypertension. Patient's been seen by cardiology and patient is scheduled for KAYLAN tomorrow. Coumadin will remain on hold for now. Blood cultures have been ordered. We started the patient on vancomycin and add a consult with Dr. Nowak. Cardiology has ruled out acute coronary syndrome. Regarding renal failure, patient is eating and drinking. He has a Carcamo catheter in place. Nephrology is planning to Hep-Lock IV fluids. Urine myoglobin is pending, urinalysis and cultures pending. Patient is also followed by oncology for the myelofibrosis and leukocytosis. Patient has h istory of acquired von Willebrand disease and lancet been ordered. Subsequently patient was noted to have some weakness on the right side with visual changes on the right eye, CAT scan of the brain and neurology consult was admitted to rule out CVA. 04/10: He has been seen by neurology with concern for stroke, MRI of the brain is been ordered. Ultrasound of the carotids revealed no significant stenosis. Dr. Duffy is following for MARTINA secondary to ATN with recommendations to Stay off IV fluids avoid nephrotoxins and monitor I&O, urine mild globin is pending. He is scheduled for KAYLAN today. 04/11: Patient states that his strength to his right hand is much stronger and his appetite is better. His states that he is eating more. He denies having any chest pain or shortness of breath. Mental status is back to normal. KAYLAN revealed infective endocarditis with large vegetation 1.5 cm attached to the upstream side of the posterior mitral leaflet associated with leaflet perforation and wide open mitral regurgitation. Severe cardiomyopathy with ejection fraction of 20 and 25% with dilated left ventricle. Normal right ventricular dimension with impaired function. Mild biatrial enlargement. Trileaflet aortic valve without stenosis or regurgitation without any vegetation. Intact tricuspid valve and pulmonic valve. No evidence of pericardial effusion. Carotid duplex reveals no hemodynamically significant stenosis. MRI of the brain reveals numerous white matter high signal foci in both renal hemispheres and more concentrated in the occipital lobes consistent with multiple acute lacunar infarcts. There is also evidence of acute cortical infarct in the posterior aspect of both occipital lobes. This measures up to 1.[address] angiogram of the head and neck negative. Dr. Nowak is following patient is continued on Rocephin and vancomycin, recommended possible transfer to tertiary care for which patient is not interested in transfer. Cardiology has consulted cardiothoracic surgery. Dr. 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 No TPA indicated as this is outside window. Dr. Duffy is following for acute kidney injury with plan to remain off IV fluids, avoid nephrotoxins and continue to monitor renal function. Follow-up serologies. Repeat blood work revealed WBC 14.6, hemoglobin 8.1 platelet count 434. INR is 4.9. Chloride 109, CO2 21, BUN 31 creatinine 0.97. Sed rate 52, C-reactive protein 7. Hemoglobin A1c 4.3. TSH 2.54. Triglycerides 138, cholesterol 139, LDL 77, HDL 33. 04/12: Patient denies any new complaints. He denies having any light headedness or dizziness. He has been ambulating with walker. He states he is using his arm and actually eating with his right hand. He feels that he is getting stronger. Patient has been seen by cardiothoracic surgery is no plan for intervention at this time. He has been afebrile, heart rate 83, blood pressure 134/74, pulse ox 98% on room air. Repeat blood work reveals sodium 137, potassium 3.7, chloride 108, CO2 23, BUN 22 and creatinine 0.97. Hepatitis panels negative. All blood cultures have been negative at 48 hours 1 and at 24 hours 1. Urine culture finalized with no growth. Nephrology has ordered 1 dose of Lasix 20 mg today. Patient is continued on IV vancomycin and ceftriaxone. Anticipate probable discharge Tuesday or Tuesday once all arrangements are completed for IV antibiotics. 04/13: Patient is seen today in follow-up. There is delay in getting antibiotics and patient training set up until tomorrow so patient's discharge will be likely lead until tomorrow. Plan is for vancomycin and ceftriaxone at home for which Dr. Nowak is arranging through [facility]. Patient denies having any new concerns today. Case discussed with neurology and recommendations to start patient on aspirin 81 mg daily. PICC line has been inserted today by interventional radiology. Patient's been afebrile. Anticipate discharge home tomorrow. 04/14: Patient remains afebrile, heart rate in the 80s, blood pressure 150/85, pulse ox 100% on room air. Repeat blood work reveals WBC 8.4, hemoglobin 8.2, platelet count 459. Arrangements have been made for outpatient antibiotics at home with [facility]. Patient will be discharged home today in stable condition. ASSESSMENT AND PLAN 1. Acute kidney injury secondary to ATN from vomiting. 2. Metabolic acidosis secondary to acute kidney injury. 3. Hyperkalemia secondary to acute kidney injury. 4. Hypercalcemia secondary to acute kidney injury, replaced. 5. Leukocytosis, thrombocytosis. 6. Anemia of chronic disease. 7. Elevated troponin. No concern for acute coronary syndrome. 8. Possible urinary tract infection, ruled out with negative culture, no urinary symptoms. 9. History of myelofibrosis. 10. Chronic atrial fibrillation. 11. History of mitral and tricuspid repair. 12. Elevated liver function tests. 13. Metabolic encephalopathy (POA). 14. Infective endocarditis. 15. 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 16. COVID-19 testing negative. DISCHARGE PLAN Home with [facility]. Impression and plan of care have been directed as dictated by the signing physician. Yue Starks nurse practitioner acting as scribe for signing physician. Patient Condition at Discharge: Stable Plan - Discharge Summary New Discharge Prescriptions: New Metoprolol Tartrate [Lopressor] 75 mg PO BID #180 tab Sodium Bicarbonate Tab 650 mg PO BID tab Aspirin 81 mg PO DAILY tab Calcium Carbonate [Tums] 1,000 mg PO Q4HR PRN tab PRN Reason: Dyspepsia Thiamine [Vitamin B-1] 100 mg PO DAILY tab Furosemide [Lasix] 20 mg PO DAILY #30 tablet Continue Atorvastatin Calcium [Lipitor] 20 mg PO W/SUPPER Warfarin [Coumadin] 12.5 mg PO MOTUWEFRSA Warfarin [Coumadin] 10 mg PO SUTH Cyanocobalamin (Vitamin B-12) [Vitamin B-12] 1,000 mcg PO DAILY Discontinued lisinopriL [Zestril] 5 mg PO DAILY Doxepin HCl 25 mg PO HS Discharge Medication List Atorvastatin Calcium [Lipitor] 20 mg PO W/SUPPER 11/05/16 [History] Cyanocobalamin (Vitamin B-12) [Vitamin B-12] 1,000 mcg PO DAILY 04/08/21 [History] Warfarin [Coumadin] 10 mg PO SUTH 04/08/21 [History] Warfarin [Coumadin] 12.5 mg PO MOTUWEFRSA 04/08/21 [History] Calcium Carbonate [Tums] 1,000 mg PO Q4HR PRN tab 04/13/21 [Rx] Metoprolol Tartrate [Lopressor] 75 mg PO BID #180 tab 04/13/21 [Rx] Sodium Bicarbonate Tab 650 mg PO BID tab 04/13/21 [Rx] Thiamine [Vitamin B-1] 100 mg PO DAILY tab 04/13/21 [Rx] Aspirin 81 mg PO DAILY tab 04/14/21 [Rx] Furosemide [Lasix] 20 mg PO DAILY #30 tablet 04/14/21 [Rx] Follow up Appointment(s)/Referral(s): Hector Begum MD [REFERRING] - 2 Weeks (Pt to call office for appointment, ensure the office is aware that this appointment is following a hospital stay.) Paco Escoto MD [STAFF PHYSICIAN] - 05/05/21 11:30 am () Narciso Molina MD [Primary Care Provider] - 04/15/21 9:45 am [facility], [NON-STAFF] - 04/14/21 [facility],Infusion [NON-STAFF] - Donna Nowak MD [STAFF PHYSICIAN] - 1 Week (Pt to call office for appointment, ensure the office is aware that this appointment is following a hospital stay.) Patient Instructions/Handouts: Endocarditis (DC), Acute Kidney Injury (DC) Discharge Disposition: HOME WITH HOME HEALTH SERVICES
[2021-04-13] MEDS: VANCOMYCIN 1,500 MG in SODIUM CHLORIDE 0.9% 250 ML IVPB SCH (13:10)
[2021-04-13] MEDS ORDERED: FUROSEMIDE 10 MG/ML 4 ML VIAL IV STA (13:13)
--- NOTE | 2021-04-13 13:22 | ECHOF ---
Referral Reason:Mitral valve vegetation MEASUREMENTS -------- HEIGHT: 175.3 cm WEIGHT: 67.1 kg BP: 133/77 RVIDd: 4.1 cm (< 3.3) IVSd: 1.5 cm (0.6 - 1.1) LVIDd: 4.6 cm (3.9 - 5.3) LVPWd: 1.5 cm (0.6 - 1.1) IVSs: 2.3 cm LVIDs: 2.5 cm LVPWs: 2.1 cm LAESV Index (A-L): 83.20 ml/m IVSd: 1.5 cm (0.6 - 1.1) LVIDd: 5.7 cm (3.9 - 5.3) LVPWd: 1.2 cm (0.6 - 1.1) IVSs: 1.3 cm LVIDs: 4.2 cm LVPWs: 1.7 cm EDV(Teich): 157 ml ESV(Teich): 78 ml EF(Teich): 50 % %FS: 26 % SV(Teich): 79 ml Ao Diam: 3.7 cm (2.0 - 3.7) AV Cusp: 2.1 cm (1.5 - 2.6) LA Diam: 4.7 cm (2.7 - 3.8) MV EXCURSION: 17.009 mm (> 18.000) MV EF SLOPE: 71 mm/s (70 - 150) EPSS: 0.7 cm AR PHT: 506 ms RAP: 5.00 mmHg RVSP: 40.98 mmHg FINDINGS -------- Atrial fibrillation. This was a technically adequate study. The left ventricular size is normal. There is moderate concentric left ventricular hypertrophy. O verall left ventricular systolic function is mildly impaired with, an EF between 45 - 50 %. Septal wall motion is delayed and consistent with prior cardiac surgery. The right ventricle is moderately enlarged. LA is severely dilated >40 ml/m2 The right atrium is mildly enlarged. Interatrial and interventricular septum intact. The aortic valve is trileaflet and appears structurally normal. There is mild aortic regurgitation. There is no evidence of aortic stenosis. Mild mitral annular calcification present. Moderate mitral regurgitation is present. MV Repair. Moderate tricuspid regurgitation present. There is moderate pulmonary hypertension. The right ivon tricular systolic pressure, as measured by Doppler, is 40.98mmHg. Cannot rule out vegetation. TV repair Trace/mild (physiologic) pulmonic regurgitation. The aortic root size is normal. Normal inferior vena cava with normal inspiratory collapse consistent with estimated right atrial pre ssure of 5 mmHg. There is no pericardial effusion. CONCLUSIONS -------- 1. The left ventricular size is normal. 2. There is moderate concentric left ventricular hypertrophy. 3. Overall left ventricular systolic function is mildly impaired with, an EF between 45 - 50 %. 4. The right ventricle is moderately enlarged. 5. LA is severely dilated >40 ml/m2 6. The right atrium is mildly enlarged. 7. There is mild aortic regurgitation. 8. Mild mitral annular calcification present. 9. Moderate mitral regurgitation is present. 10. MV Repair. 11. Moderate tricuspid regurgitation present. 12. There is moderate pulmonary hypertension. 13. The right ventricular systolic pressure, as measured by Doppler, is 40.98mmHg. 14. Cannot rule out vegetation. 15. TV repair 16. Trace/mild (physiologic) pulmonic regurgitation. SPRING REPAIRER HELPER HAND: Patrizia Arreaga RDCS
[2021-04-13 14:08] LABS: C-ANCA <1:20 Titer (<1:20)
[2021-04-13 14:12] LABS: Band Neutrophils % 1 %; Basophils # (M) 0.09 k/uL (0-0.2); Blast Cells # (M) 0.09 k/uL (0); Lymphocytes # (M) 1.11 k/uL (1.0-4.8); Monocytes # (M) 0.94 k/uL (0-1.0); Myelocytes # (M) 0.26 k/uL (0); Myelocytes % 3 %; Neutrophils % (M) 71 %; Nucleated Red Blood Cells 0 /100 WBC (0-0); Total Cells Counted 200
[2021-04-13 14:17] LABS: Large Platelets Present; RBC Fragments Present; Tear Drop Cells Present
[2021-04-13 14:18] LABS: Polychromasia Present
--- NOTE | 2021-04-13 14:58 | P.PN ---
Subjective HISTORY OF PRESENTING ILLNESS This is a pleasant 75-year-old male past medical history significant for nonobstructive coronary artery disease, valvular heart disease status post mitral and tricuspid valve repair 2016, dyslipidemia, hypertension, chronic persistent atrial fibrillation on Coumadin and myelofibrosis. He follows in the office with [facility]. We have been asked to see in consultation for elevated troponin. He presented to the hospital with symptoms of dark urine and lower abdominal discomfort. He was found to have acute kidney injury, metabolic acidosis, hyperkalemia and UTI. He also had a troponin leak. EKG on arrival rev eals atrial fibrillation heart rate 99. Chest xray revealed mild heart failure and increase pulmonary congestion. Lurrent daily medications include atorvastatin 20 mg daily, warfarin and lisinopril 5 mg daily. Recent echocardiogram from the office 11/2020 reveals preserved LV systolic function with EF 50%, severely dilated LA, mild AR, ring annuloplasty of the MV, ring annuloplasty to the TV with mild pulmonary hypertension with RVSP 49 mmHg. 04/13/21 Patient seen and examined sitting up in recliner chair in no acute distress. He has no symptoms of chest pain, shortness of breath, dizziness or palpitations. Blood pressure 104/60, heart rate 83, afebrile, denied saturations on room air. Laboratory data reviewed, WBC 0.5, hemoglobin 8.3, platelets 442, sodium 135, potassium 3.8, BUN 18, serum creatinine 0.9. Repeat Echocardiogram obtained revealed LV systolic function ejection fraction 45-50 severely dilated left atrium, mild to moderate aortic regurgitation, moderate mitral regurgitation status post mitral valve annuloplasty cannot rule out vegetation, mild to moderate tricuspid regurgitation, moderate pulmonary hypertension with an RVSP of 41mmHg PHYSICAL EXAMINATION CONSTITUTIONAL: No apparent distress. HEENT: Head is normocephalic. Pupils are equal, round. Sclerae anicteric. Mucous membranes of the mouth are moist. No JVD. No carotid bruit. CHEST EXAMINATION: Lungs are clear to auscultation. No chest wall tenderness is noted on palpation or with deep breathing. HEART EXAMINATION: Irregular rate and rhythm. S1, S2 heard. Systolic ejection murmur at the apex, no gallops or rub. EXTREMITIES: 2+ peripheral pulses, no lower extremity edema and no calf tenderness. ASSESSMENT Chronic persistent atrial fibrillation with rapid ventricular response Acute kidney injury Hyperkalemia Troponin leak, no related to ACS Metabolic acidosis Thrombocytosis Anemia Valvular heart disease s/p mitral and tricuspid ring annuloplasty PLAN From a cardiology perspective we will continue current medical regiment atorvastatin, Lopressor 75 mg twice a day. Continue IV antibiotics Continue follow up blood cultures Further recommendations based on clinical course Nurse Practitioner note has been reviewed, I agree with a documented findings and plan of care. Patient was seen and examined. Objective - Vital Signs Vital signs: Vital Signs Temp 97.8 F 04/13/21 12:00 Pulse 83 04/13/21 09:30 Resp 16 04/13/21 12:00 BP 104/60 04/13/21 12:00 Pulse Ox 100 04/13/21 12:00 Intake & Output 04/12/21 04/13/21 04/13/21 18:59 06:59 18:59 Intake Total 240 240 Output Total 900 200 400 Balance -660 -200 -160 Weight 67.4 kg Intake: Oral 240 240 Output: Urine 900 200 400 Other: Voiding Method Toilet Toilet Toilet Urinal Urinal Urinal # Voids 3 # Bowel Movements 1 1 - Labs CBC & Chem 7: 04/13/21 07:12 04/13/21 07:12 Labs: Abnormal Lab Results - Last 24 Hours (Table) 04/13/21 04/13/21 04/13/21 Range/Units 07:12 07:12 07:12 RBC 2.67 L (4.30-5.90) m/uL Hgb 8.3 L (13.0-17.5) gm/dL Hct 26.3 L (39.0-53.0) % RDW 20.9 H (11.5-15.5) % Blast Cells % 1 H* % Myelocytes # (Manual) 0.26 H (0) k/uL Blast Cells # (Man) 0.09 H (0) k/uL ESR 48 H (0-15) mm/hr Sodium 135 L (137-145) mmol/L Calcium 8.3 L (8.4-10.2) mg/dL C-Reactive Protein 1.2 H (<1.0) mg/dL Total Protein 5.7 L (6.3-8.2) g/dL Albumin 3.4 L (3.5-5.0) g/dL Procalcitonin 0.11 H (0.02-0.09) ng/mL Microbiology - Last 24 Hours (Table) 04/09/21 10:08 Blood Culture - Preliminary Blood No Growth after 96 hours 04/09/21 10:08 Blood Culture - Preliminary Blood No Growth after 96 hours 04/10/21 07:51 Blood Culture - Preliminary Blood No Growth after 72 hours
--- NOTE | 2021-04-13 15:28 | P.PN ---
Subjective Progress Note Date: 04/13/21 HISTORY OF PRESENT ILLNESS This is a 75-year-old male patient planning to be established with Dr. Molina as PCP next week. He has a past medical history of myelofibrosis and followed at [facility]. He also has history of chronic atrial fibrillation, mitral valve prolapse status post mitral and tricuspid valve repair and modified Lucas- Maze procedure with mitral and tricuspid valve regurgitation with moderate mitral insufficiency. Patient is a very poor historian and describes fever for 6 days, no cough, decreased appetite. Patient came into [facility] emergency center for evaluation with complaints of right upper and mid abdominal pain cramping type with vomiting and also dark urine. He was afebrile, heart rate 107, blood pressure 180/97, pulse ox 99% on room air. EKG was atrial fibrillation at 88 bpm. WBC 22.9, hemoglobin 9.3, platelet count 990. Sodium 140, potassium 2.9, chloride 121, CO2 12, BUN 24 creatinine 0.72. Blood sugar 143. INR 3.0. Lactic acid 2.2. Troponin 0.132, 1.04, 2.110. Total bilirubin 2.1, AST 100, ALT 17, alkaline phosphatase 26. Repeat blood work this morning revealed potassium 6.9, BUN 39 creatinine 1.39 and CO2 17, WBC 32.1, hemoglobin 9.5 and platelet count 1185. Abdominal x-ray revealed nonacute abdomen. CAT scan of the abdomen and pelvis with contrast revealed fat stranding along the upper pole right kidney in the retroperitoneum. Do not suspect pancreatitis. Bilateral nonobstructing renal calculi. Normal right kidney no evidence of pyelonephritis. Mild subsegmental atelectasis at the lung bases. Cardiomegaly. Chest x-ray reveals mild congestive heart failure, increased pulmonary vascular congestion compared to last exam. Pleural fluid improved. Patient is seen today in the ER waiting for a cardiac stepdown bed. He has been seen by nephrology and is status post 3 A of bicarb, IV calcium gluconate, insulin and and D50, maintained on IV fluids at 75 mL per hour. 04/09: Patient's mental status is improved from yesterday. Echocardiogram revealed EF of 25-30%, mild to moderate aortic regurgitation, mild mitral calcification, moderate mitral regurgitation, MV annuloplasty, mobile 1.3 x 1.5 mm hypodensity attached to the posterior mitral valve leaflet, mild to moderate tricuspid regurgitation, moderate pulmonary hypertension. Patient's been seen by cardiology and patient is scheduled for KAYLAN tomorrow. Coumadin will remain on hold for now. Blood cultures have been ordered. We started the patient on vancomycin and add a consult with Dr. Nowak. Cardiology has ruled out acute coronary syndrome. Regarding renal failure, patient is eating and drinking. He has a Carcamo catheter in place. Nephrology is planning to Hep-Lock IV fluids. Urine myoglobin is pending, urinalysis and cultures pending. Patient is also followed by oncology for the myelofibrosis and leukocytosis. Patient has history of acquired von Willebrand disease and lancet been ordered. Subsequently patient was noted to have some weakness on the right side with visual changes on the right eye, CAT scan of the brain and neurology consult was admitted to rule out CVA. 04/10: He has been seen by neurology with concern for stroke, MRI of the brain is been ordered. Ultrasound of the carotids revealed no significant stenosis. Dr. Duffy is following for MARTINA secondary to ATN with recommendations to Stay off IV fluids avoid nephrotoxins and monitor I&O, urine mild globin is pending. He is scheduled for KAYLAN today. 04/11: Patient states that his strength to his right hand is much stronger and his appetite is better. His states that he is eating more. He denies having any chest pain or shortness of breath. Mental status is back to normal. KAYLAN revealed infective endocarditis with large vegetation 1.5 cm attached to the upstream side of the posterior mitral leaflet associated with leaflet perforation and wide open mitral regurgitation. Severe cardiomyopathy with ejection fraction of 20 and 25% with dilated left ventricle. Normal right ventricular dimension with impaired function. Mild biatrial enlargement. Trileaflet aortic valve without stenosis or regurgitation without any vegetation. Intact tricuspid valve and pulmonic valve. No evidence of p ericardial effusion. Carotid duplex reveals no hemodynamically significant stenosis. MRI of the brain reveals numerous white matter high signal foci in both renal hemispheres and more concentrated in the occipital lobes consistent with multiple acute lacunar infarcts. There is also evidence of acute cortical infarct in the posterior aspect of both occipital lobes. This measures up to 1.[address] angiogram of the head and neck negative. Dr. Nowak is following patient is continued on Rocephin and vancomycin, recommended possible transfer to tertiary care for which patient is not in terested in transfer. Cardiology has consulted cardiothoracic surgery. Dr. 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 No TPA indicated as this is outside window. Dr. Duffy is following for acute kidney injury with plan to remain off IV fluids, avoid nephrotoxins and continue to monitor renal function. Follow-up serologies. Repeat blood work revealed WBC 14.6, hemoglobin 8.1 platelet count 434. INR is 4.9. Chloride 109, CO2 21, BUN 31 creatinine 0.97. Sed rate 52, C-reactive protein 7. Hemoglobin A1c 4.3. TSH 2.54. Triglycerides 138, cholesterol 139, LDL 77, HDL 33. 04/12: Patient denies any new complaints. He denies having any light headedness or dizziness. He has been ambulating with walker. He states he is using his arm and actually eating with his right hand. He feels that he is getting stronger. Patient has been seen by cardiothoracic surgery is no plan for intervention at this time. He has been afebrile, heart rate 83, blood pressure 134/74, pulse ox 98% on room air. Repeat blood work reveals sodium 137, potassium 3.7, chloride 108, CO2 23, BUN 22 and creatinine 0.97. Hepatitis panels negative. All blood cultures have been negative at 48 hours 1 and at 24 hours 1. Urine culture finalized with no growth. Nephrology has ordered 1 dose of Lasix 20 mg today. Patient is continued on IV vancomycin and ceftriaxone. Anticipate probable discharge Tuesday or Tuesday once all arrangements are completed for IV antibiotics. 04/13: Patient is seen today in follow-up. There is delay in getting antibiotics and patient training set up until tomorrow so patient's discharge will be likely lead until tomorrow. Plan is for vancomycin and ceftriaxone at home for which Dr. Nowak is arranging through [facility]. Patient denies having any new concerns today. Case discussed with neurology and recommendations to start patient on aspirin 81 mg daily. PICC line has been inserted today by interventional radiology. Patient's been afebrile. Anticipate discharge home tomorrow. REVIEW OF SYSTEMS Constitutional: No fever, no chills, no night sweats. No weight change. No weakness, Noted fatigue no lethargy. Denies daytime sleepiness. EENT: No headache. Visual change right eye. No loss of Hearing, no ringing in the ears, no dizziness. No nasal drainage or congestion. No epistaxis. No sore throat. Lungs: No shortness of breath, cough, no sputum production. No wheezing. Cardiovascular: No chest pain, no lower extremity edema. No palpitations. No paroxysmal nocturnal dyspnea. No orthopnea. No lightheadedness or dizziness. No syncopal episodes. Abdominal: Denies abdominal pain. Denies nausea, denies vomiting. No diarrhea. No constipation. No bloody or tarry stools. Denies loss of appetite. Genitourinary: No dysuria, increased frequency, urgency. No urinary retention. Reported dark brown urine. Musculoskeletal: No myalgias. No muscle weakness, no gait dysfunction, no frequent falls. No back pain. No neck pain. Integumentary: No wounds, no lesions. No rash or pruritus. No unusual bruisin g. No change in hair or nails. Neurologic: No aphasia. No facial droop. no change in mentation. No head injury. No headache. No paralysis. No paresthesia. Weakness right arm and visual change right field of vision. Psychiatric: No depression. No anxiety. No mood swings. Endocrine: No abnormal blood sugars. PHYSICAL EXAMINATION Gen: This is a thin cachectic 75-year-old male. He is resting in bed and appears to be in no acute distress. Multiple family members at bedside. HEENT: Head is atraumatic, normocephalic. Pupils equal, round. Sclerae is anict leta. NECK: Supple. No JVD. No lymphadenopathy. No thyromegaly. LUNGS: Clear to auscultation. No wheezes or rhonchi. No intercostal retractions. HEART: Regular rate and rhythm. No murmur. ABDOMEN: Soft. Bowel sounds are present. No tenderness. EXTREMITIES: No pedal edema. No calf tenderness. NEUROLOGICAL: Patient is awake, alert and oriented x3. Generalized weakness. ASSESSMENT AND PLAN 1. Acute kidney injury secondary to ATN from vomiting. Nephrology consult appreciated. IV fluids discontinued, avoid nephrotoxic agents. Hold lisinopril. 2. Metabolic acidosis secondary to acute kidney injury. Patient is status post sodium bicarb. 3. Hyperkalemia secondary to acute kidney injury. Patient is status post calcium gluconate, IV insulin and D 50. 4. Hypercalcemia secondary to acute kidney injury, replaced. 5. Leukocytosis, thrombocytosis. 6. Anemia of chronic disease. 7. Elevated troponin. Consult with cardiology. No concern for acute coronary syndrome. 8. Possible urinary tract infection, ruled out with negative culture, no urinar y symptoms. 9. History of myelofibrosis. Consult with oncology appreciated. 10. Chronic atrial fibrillation. Patient is therapeutic on Coumadin. Pharmacy is dosing Coumadin. 11. History of mitral and tricuspid repair. 12. Elevated liver function tests. Hold atorvastatin for now 13. Metabolic encephalopathy (POA). Treat underlying conditions. 14. Infective endocarditis. Continue vancomycin and Rocephin per Dr. Nowak. Cardiothoracic surgery consult appreciated. Blood cultures are no growth.. 15. 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 Neurology consult appreciated. Patient will be started on aspirin 81 mg daily. 16. COVID-19 testing negative. DISCHARGE PLAN Home with [facility]. Impression and plan of care have been directed as dictated by the signing physician. Yue Starks nurse practitioner acting as scribe for signing phys courtney. Objective - Vital Signs Vital signs: Vital Signs Temp 97.8 F 04/13/21 12:00 Pulse 83 04/13/21 09:30 Resp 16 04/13/21 12:00 BP 104/60 04/13/21 12:00 Pulse Ox 100 04/13/21 12:00 Intake & Output 04/12/21 04/13/21 04/13/21 18:59 06:59 18:59 Intake Total 240 240 Output Total 900 200 400 Balance -660 -200 -160 Weight 67.4 kg Intake: Oral 240 240 Output: Urine 900 200 400 Other: Voiding Method Toilet Toilet Toilet Urinal Urinal Urinal # Voids 3 # Bowel Movements 1 1 - Labs CBC & Chem 7: 04/13/21 07:12 04/13/21 07:12 Labs: Abnormal Lab Results - Last 24 Hours (Table) 04/13/21 04/13/21 04/13/21 Range/Units 07:12 07:12 07:12 RBC 2.67 L (4.30-5.90) m/uL Hgb 8.3 L (13.0-17.5) gm/dL Hct 26.3 L (39.0-53.0) % RDW 20.9 H (11.5-15.5) % Blast Cells % 1 H* % Myelocytes # (Manual) 0.26 H (0) k/uL Blast Cells # (Man) 0.09 H (0) k/uL ESR 48 H (0-15) mm/hr Sodium 135 L (137-145) mmol/L Calcium 8.3 L (8.4-10.2) mg/dL C-Reactive Protein 1.2 H (<1.0) mg/dL Total Protein 5.7 L (6.3-8.2) g/dL Albumin 3.4 L (3.5-5.0) g/dL Procalcitonin 0.11 H (0.02-0.09) ng/mL Microbiology - Last 24 Hours (Table) 04/09/21 10:08 Blood Culture - Preliminary Blood No Growth after 96 hours 04/09/21 10:08 Blood Culture - Preliminary Blood No Growth after 96 hours 04/10/21 07:51 Blood Culture - Preliminary Blood No Growth after 72 hours
[2021-04-13] MEDS: ASPIRIN 81 MG PO SCH (16:08)
[2021-04-13] MEDS: ATORVASTATIN 20 MG TAB PO SCH (20:15)
[2021-04-14] MEDS: VANCOMYCIN 1,500 MG in SODIUM CHLORIDE 0.9% 250 ML IVPB SCH ×2 (00:57→13:41)
[2021-04-14] MEDS: PANTOPRAZOLE 40 MG TABLET PO SCH (06:31)
[2021-04-14 08:55] LABS: Anisocytosis Moderate; Basophils # (A) 0.1 k/uL (0-0.2); Basophils % (A) 1 %; Eosinophils # (A) 0.1 k/uL (0-0.7); Eosinophils % (A) 2 %; HGB 8.2 gm/dL (13.0-17.5); Hypochromasia Moderate; Lymphocytes # (A) 0.8 k/uL (1.0-4.8); Lymphocytes % (A) 9 %; MCH 31.1 pg (25.0-35.0); MCHC 31.4 g/dL (31.0-37.0); MCV 99.1 fL (80.0-100.0); Macrocytosis Slight; Mean Platelet Volume 10.3; Monocytes # (A) 0.6 k/uL (0-1.0); Monocytes % (A) 7 %; Neutrophils # (A) 6.6 k/uL (1.3-7.7); Neutrophils % (A) 79 %; Platelet Count 459 k/uL (150-450); Poikilocytosis Moderate; RBC 2.62 m/uL (4.30-5.90); RDW 20.5 % (11.5-15.5); WBC 8.4 k/uL (3.8-10.6)
[2021-04-14] MEDS: ASPIRIN 81 MG PO SCH (09:08)
[2021-04-14] MEDS: METOPROLOL TARTRATE 25 MG TAB PO SCH (09:08)
[2021-04-14] MEDS: THIAMINE 100 MG TAB PO SCH (09:08)
[2021-04-14 09:21] VITALS: BP 150/85; RESP 16; TEMP 98.1
--- NOTE | 2021-04-14 10:57 | P.PN ---
Subjective Progress Note Date: 04/13/21 Patient is a 50-year-old male came to the hospital on 04/07/2021 for complaints of right upper to mid abdominal pain followed by nausea vomiting. Patient does have history of anemia, atrial fibrillation, mitral valve prolapse, hypertension and enlarged spleen. Patient underwent KAYLAN, which revealed infective endocarditis with large vegetation that measured 1.5 cm attached to the upstream side of the posterior mitral leaflet associated with leaflet perforation and wide open mitral regurgitation. Severe cardiomyopathy with EF between 20-25% with dilated left ventricle. Normal right ventricular dimension with impaired function. Mild biatrial enlargement. Patient was started on IV antibiotics. Patient is on aspirin 81 mg, Lipitor 20 mg lisinopril and metoprolol at home. Patient has been diagnosed with severe mitral regurgitation with of agitation and perforation in the mitral valve leaflet. Patient is currently on antibiotics being treated for endocarditis. Objective - Vital Signs Vital signs: Vital Signs Temp 97.8 F 04/13/21 12:00 Pulse 83 04/13/21 09:30 Resp 16 04/13/21 12:00 BP 104/60 04/13/21 12:00 Pulse Ox 100 04/13/21 12:00 Intake & Output 04/12/21 04/13/21 04/13/21 18:59 06:59 18:59 Intake Total 240 240 Output Total 900 200 400 Balance -660 -200 -160 Weight 67.4 kg Intake: Oral 240 240 Output: Urine 900 200 400 Other: Voiding Method Toilet Toilet Toilet Urinal Urinal Urinal # Voids 3 # Bowel Movements 1 1 - Exam Patient's mental status, speech and language functions are normal. Cranial nerves, pupils are round and reacting. Visual kapadia reveal no definitive visual field deficits. Face is symmetric. Tongue protrudes the midline. Shoulder shrug normal. Muscle strength, no pronator drift and the strength is normal in arms and legs. No ataxia. Sensations are equal with no neglect. Patient walks fairly steady using the pole. - Labs CBC & Chem 7: 04/14/21 07:23 04/13/21 07:12 Labs: Abnormal Lab Results - Last 24 Hours (Table) 04/13/21 04/13/21 04/13/21 Range/Units 07:12 07:12 07:12 RBC 2.67 L (4.30-5.90) m/uL Hgb 8.3 L (13.0-17.5) gm/dL Hct 26.3 L (39.0-53.0) % RDW 20.9 H (11.5-15.5) % Blast Cells % 1 H* % Myelocytes # (Manual) 0.26 H (0) k/uL Blast Cells # (Man) 0.09 H (0) k/uL ESR 48 H (0-15) mm/hr Sodium 135 L (137-145) mmol/L Calcium 8.3 L (8.4-10.2) mg/dL C-Reactive Protein 1.2 H (<1.0) mg/dL Total Protein 5.7 L (6.3-8.2) g/dL Albumin 3.4 L (3.5-5.0) g/dL Procalcitonin 0.11 H (0.02-0.09) ng/mL Microbiology - Last 24 Hours (Table) 04/09/21 10:08 Blood Culture - Preliminary Blood No Growth after 96 hours 04/09/21 10:08 Blood Culture - Preliminary Blood No Growth after 96 hours 04/10/21 07:51 Blood Culture - Preliminary Blood No Growth after 72 hours Assessment and Plan Assessment: Acute bilaeral hemispheric stroke (with symptoms of Right arm weakness (since 04/08/21) and left lower quadrant homonymous anopsia). 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 No IV tpa since contraindication (source is infectious) and is outside window). Infective endocarditis Chronic atrial fibrillation, previously used to be on Coumadin, (came with therapeutic INR 3.0), currently anticoagulation held because of hemorrhagic risks from possibility of mycotic aneurysm from IE. Acute kidney injury--resolved Hypocalcemia on presenation 5.6--resolved Vegetation on mitral valve per echocardiogram Possible urinary tract infection History of myelofibrosis History of mitral and tricuspid repair Plan: * MRI of the brain from 04/10/2021 revealed numerous white matter high signal foci in both cerebral hemispheres and more concentrated in the occipital lobes consistent with multiple acute embolic infarcts. There is also evidence for acute cortical infarct in the posterior aspect of both occipital lobes. This measures up to 1.5 cm in thickness. * Follow up echo from today showed moderate concentric LVH. EF is between 45- 50%. Left atrium is severely dilated. Mild AR. Moderate MR. MV repair. Cannot rule out vegetation. TV repair. * Patient currently on vancomycin and ceftriaxone 2 g every 24 hours. ID on board. * Hemoglobin A1c 4.3. Lipid panel with cholesterol 139, LDL 77.7, HDL 33.7 and triglycerides 138. TSH is normal 2.5. C & P ANCA negative. * CTA of head and neck reported as negative. * Telemetry monitoring still showing atrial fibrillation with heart rate around 50. * Given risks and benefits of antiplatelet medication, benefits of preventing recurrent strokes probably outweigh the risks of hemorrhagic complications from aspirin. I would suggest patient start aspirin 81 mg daily. Discussed with patient's primary physician, as well as patient and his in detail, and are in agreement. * Recommend patient follow up with neurologist as an outpatient. After 6 weeks of treatment for infective endocarditis, perhaps would be neurologically clear to resume anticoagulation. However I would have it
--- NOTE | 2021-04-14 11:05 | P.PN ---
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 Previous medical history of nonobstructive coronary artery disease, valvular heart disease status post mitral valve and tricuspid valve repair in 2017, hypertension, hyperlipidemia, myelofibrosis with subsequent anemia and splenomegaly, recent blood transfusion due to his anemia on 04/04/2021, chronic persistent atrial fibrillation on Coumadin for anticoagulation, previous tobacco dependence, and daily EtOH use. The patient was seen and examined this morning and the cardiac stepdown unit. He was in no distress, sitting up in a recliner eating breakfast. is at the bedside. Denied any chest pain or shortness of breath. No mitral valve with agitated appreciated on follow-up transthoracic echocardiogram yesterday. Patient remains afebrile, WBC 8.4 this morning. Anticipate discharge today with follow-up outpatient IV antibiotic therapy. Objective - Vital Signs Vital signs: Vital Signs Temp 98.1 F 04/14/21 09:05 Pulse 83 04/13/21 09:30 Resp 16 04/14/21 09:05 BP 150/85 04/14/21 09:05 Pulse Ox 100 04/14/21 09:05 Intake & Output 04/13/21 04/14/21 04/14/21 18:59 06:59 18:59 Intake Total 480 240 Output Total 2200 800 Balance -1720 -800 240 Weight 68.8 kg Intake: Oral 480 240 Output: Urine 2200 800 Other: Voiding Method Toilet Toilet Urinal Urinal # Voids 2 # Bowel Movements 1 - Exam CONSTITUTIONAL: Appears comfortable, cooperative, no apparent acute distress. HEENT: Neck is supple, no JVD, no lymphadenopathy. PERRLA. Moist mucous membranes without any oral lesions. RESPIRATORY: Lungs sounds essentially clear throughout. Respirations are even, nonlabored. Currently on room air with oxygen saturation 100% CARDIOVASCULAR: S1, S2 present, systolic murmur present. Irregular rate and rhythm, controlled atrial fibrillation on telemetry. GASTROINTESTINAL: Abdomen soft, nontender, nondistended. Active bowel sounds present 4 quadrants. Tolerating diet INTEGUMENTARY: Skin is warm and dry. Left upper arm PICC present NEUROLOGIC: Cranial nerves II through XII intact. MUSKULOSKELETAL: Able to move all extremities, strength equal bilaterally. PSYCHIATRIC: Alert and oriented to person and place. Disoriented to time, appropriate affect, intact judgment and insight. Periods of forgetfulness. - Labs CBC & Chem 7: 04/14/21 07:23 04/13/21 07:12 Labs: Abnormal Lab Results - Last 24 Hours (Table) 04/08/21 04/13/21 04/13/21 Range/Units 12:13 07:12 07:12 RBC (4.30-5.90) m/uL Hgb (13.0-17.5) gm/dL Hct (39.0-53.0) % RDW (11.5-15.5) % Blast Cells % 1 H* % Myelocytes # (Manual) 0.26 H (0) k/uL Blast Cells # (Man) 0.09 H (0) k/uL ESR 48 H (0-15) mm/hr Haptoglobin <10.0 L (31.2-198.0) mg/dL Procalcitonin 0.11 H (0.02-0.09) ng/mL 04/14/21 Range/Units 07:23 RBC 2.62 L (4.30-5.90) m/uL Hgb 8.2 L (13.0-17.5) gm/dL Hct 26.0 L (39.0-53.0) % RDW 20.5 H (11.5-15.5) % Blast Cells % % Myelocytes # (Manual) (0) k/uL Blast Cells # (Man) (0) k/uL ESR (0-15) mm/hr Haptoglobin (31.2-198.0) mg/dL Procalcitonin (0.02-0.09) ng/mL Microbiology - Last 24 Hours (Table) 04/10/21 07:51 Blood Culture - Preliminary Blood No Growth after 96 hours 04/09/21 10:08 Blood Culture - Preliminary Blood No Growth after 96 hours 04/09/21 10:08 Blood Culture - Preliminary Blood No Growth after 96 hours Assessment and Plan Assessment: 1. 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 History of nonobstructive coronary artery disease 3. History of hypertension 4. History of hyperlipidemia 5. Myelofibrosis with subsequent anemia and splenomegaly 6. Recent blood transfusion due to anemia on 04/04/2021 7. Chronic persistent atrial fibrillation on Coumadin for anticoagulation 8. Previous tobacco dependence 9. Daily EtOH use. Plan: 1. Antibiotic management per infectious disease recommendations. No class I indication for surgery at this time. 2. Continue to follow blood culture results. Preliminary cultures show no growth at 96 hours. Final urine culture results show no growth. 3. Medical management of her comorbidities per primary care service. 4. Acute stroke recommendations per neurology. 5. Oncology/hematology following myelofibrosis. 6. Patient may be discharged to home from cardiothoracic surgery standpoint
--- NOTE | 2021-04-14 11:32 | PN ---
PROGRESS NOTE Patient is seen for followup for acute kidney injury. Patient's renal function has improved and his acute renal failure has resolved, with serum creatinine now at 0.9 mg/dL from peak of 1.32. Patient has mild proteinuria, with protein/creatinine ratio of about 0.4. Serologies have been ordered which are thus far negative for workup. Patient is currently going down for a PICC line. On examination today, blood pressure 104/60, heart rate 83 per minute. He is afebrile. EXAMINATION OF THE HEART: S1 and S2. EXAMINATION OF LUNGS: Decreased breath sounds at the bases. Abdomen is soft, non-tender. Examination of lower extremities shows edema 1+ bilaterally. OPHTHALMIC ASST exam is grossly intact. Labs show sodium of 135, potassium 3.8, chloride 105. CO2 is 23, BUN 19, serum creatinine 0.9, hemoglobin 8.3 g/dL. ASSESSMENT: 1. Acute kidney injury, currently resolved. 2. Mild volume overload. Will discontinue sodium bicarb, as metabolic acidosis is improved, and give one dose of IV Lasix again today. 3. Urinary tract infection, maintained on antibiotics. 4. Chronic systolic congestive heart failure with ejection fraction 25% with moderate mitral regurgitation and pulmonary hypertension. 5. Mitral valve endocarditis. 6. Hyperkalemia on initial admission associated with acute kidney injury, metabolic acidosis and thrombocytosis, now improved. PLAN: Discontinue sodium bicarb. Repeat IV Lasix. Avoid [id number] foods. MMODL / IJN: [id number] /
--- NOTE | 2021-04-14 11:35 | PN ---
PROGRESS NOTE DATE OF SERVICE: 04/13/2021 REASON FOR FOLLOWUP: Endocarditis. INTERVAL HISTORY: The patient is currently afebrile. The patient is breathing comfortably. The patient denies having any chest pain or shortness of breath or cough. No nausea, no vomiting. No abdominal pain or diarrhea. PHYSICAL EXAMINATION: Blood pressure 104/76, pulse of 83, temperature is 97.8. He is 99% on room air. General description is an elderly male lying in bed in no distress. RESPIRATORY SYSTEM: Unlabored breathing. Decreased breath sounds at the bases. No wheeze. HEART: S1, S2. Regular rate and rhythm. ABDOMEN: Soft. No tenderness. EXTREMITIES: No edema of the feet. LABS: Cultures remain negative. Hemoglobin is 8.3, white count normalized to 8.5, creatinine is 0.90. CRP is down to 1.2 and sedimentation rate is down to 4. DIAGNOSTIC IMPRESSION AND PLAN: Patient admitted to hospital with abdominal pain in this patient whose workup did show evidence of mitral wall endocarditis that has been confirmed on KAYLAN; however, cultures have been negative. The patient seems to have clinically responded to current treatment with vancomycin and Rocephin; to continue. Plan is for a total 6-week course of therapy. Multiple discussions with Cardiology as well as CT surgery team as well with the daughter at the bedside. Plan is to continue with IV antibiotic therapy. Waiting for before going for any surgical repair. This was explained in layman's terms to the patient's and daughter. Amount of time spent was more than 25 minutes with multiple calls to the physician and questions and concerns answered. MMKAYLAHL / IJN: [id number] /
[2021-04-14] MEDS ORDERED: VANCOMYCIN TROUGH DUE 1 EACH MISC MISCELLANE ONE (12:00)
[2021-04-14 12:59] LABS: Large Platelets Present
--- NOTE | 2021-04-14 18:08 | PN ---
PROGRESS NOTE Patient is seen for followup for acute kidney injury. Renal function has improved with creatinine now at 0.9. Patient has had lower extremity edema, for which he received a dose of IV Lasix yesterday. He is going home today. No significant complaints per patient. On examination today, blood pressure was 150/85, heart rate 83 per minute. Patient is afebrile. EXAMINATION OF THE HEART: S1 and S2. EXAMINATION OF LUNGS: Bilateral breath sounds are heard. Abdomen is soft, non-tender. Examination of lower extremities shows 1+ edema. [employer] EXAM: Grossly intact. Labs show hemoglobin 8.2, sodium of 135, potassium 3.8, BUN 19, serum creatinine 0.9. ASSESSMENT: 1. Acute kidney injury, prerenal, currently improved. 2. Lower extremity edema with some degree of proteinuria, not nephrotic. All serologies are negative. Status post IV Lasix x1 yesterday. Patient will likely benefit from low-dose loop diuretics at home. He is also advised to maintain adequate protein intake, and hopefully increased activity will help his edema as well. 3. Chronic systolic congestive heart failure; ejection fraction 25% with moderate mitral regurgitation and pulmonary hypertension. 4. Mitral valve endocarditis with blood cultures currently negative. Endocarditis was confirmed on KAYLAN. Patient has been evaluated by Surgery. No surgical intervention at this point. MMODL / IJN: [id number] /
[2021-04-15 01:08] LABS: Anti-DNA, DS unit <1.0 IU/mL; DNA Double-Stranded NEGATIVE (NEGATIVE)
== END 2021-04-14 14:37 | disposition home health service (06) | DRG 288 ==
LOC: EC 20:39 → 3SCARD 04-08 01:53
PROVIDERS: ADMIT Internal Medicine Geriatric Medicine; ATTEND Internal Medicine Geriatric Medicine
PROC: B246ZZ4 Ultrasonography of Right and Left Heart, Transesophageal (ICD-10-PCS; 2021-04-10)
PROC: B5181ZA Fluoroscopy of Superior Vena Cava using Low Osmolar Contrast, Guidance (ICD-10-PCS; 2021-04-13)
PROC: B548ZZA Ultrasonography of Superior Vena Cava, Guidance (ICD-10-PCS; 2021-04-13)
PROC: 02HV33Z Insertion of Infusion Device into Superior Vena Cava, Percutaneous Approach (ICD-10-PCS; principal; 2021-04-13 10:55)
DX: I33.0 Acute and subacute infective endocarditis (principal); N17.0 Acute kidney failure with tubular necrosis; G93.41 Metabolic encephalopathy; I63.81 Other cerebral infarction due to occlusion or stenosis of small artery; D68.0 Von Willebrand disease; E87.2 Acidosis; G81.91 Hemiplegia, unspecified affecting right dominant side; I42.9 Cardiomyopathy, unspecified; I48.19 Other persistent atrial fibrillation; I50.22 Chronic systolic (congestive) heart failure; J98.11 Atelectasis; R17 Unspecified jaundice; N39.0 Urinary tract infection, site not specified; I25.10 Atherosclerotic heart disease of native coronary artery without angina pectoris; N20.0 Calculus of kidney; Z20.822 Contact with and (suspected) exposure to COVID-19; D47.4 Osteomyelofibrosis; R09.89 Other specified symptoms and signs involving the circulatory and respiratory systems; R79.89 Other specified abnormal findings of blood chemistry; E87.6 Hypokalemia; I08.3 Combined rheumatic disorders of mitral, aortic and tricuspid valves; I11.0 Hypertensive heart disease with heart failure; D63.8 Anemia in other chronic diseases classified elsewhere; D47.3 Essential (hemorrhagic) thrombocythemia; E78.5 Hyperlipidemia, unspecified; E83.51 Hypocalcemia; G83.21 Monoplegia of upper limb affecting right dominant side; I25.2 Old myocardial infarction; E83.52 Hypercalcemia; E86.1 Hypovolemia; E87.5 Hyperkalemia; H53.9 Unspecified visual disturbance; I27.20 Pulmonary hypertension, unspecified; Z79.01 Long term (current) use of anticoagulants; Z79.82 Long term (current) use of aspirin; Z79.899 Other long term (current) drug therapy; Z87.891 Personal history of nicotine dependence; Z95.2 Presence of prosthetic heart valve; Z87.19 Personal history of other diseases of the digestive system
CPT/HCPCS: 36415; 36573; 51798; 70450; 70496; 70498; 70551; 71045; 74019; 74177; 80048; 80053; 80061; 80074; 80202; 81001; 82085; 82140; 82150; 82306; 82550; 82553; 82565; 82570; 82652; 83010; 83036; 83070; 83605; 83615; 83690; 83735; 83874; 83880; 83970; 84100; 84145; 84153; 84156; 84165; 84443; 84484; 85025; 85027; 85246; 85379; 85384; 85610; 85652; 85730; 86038; 86140; 86160; 86162; 86225; 86255; 86334; 86335; 87040; 87086; 87635; 93005; 93306; 93312; 93320; 93325; 93880; 94760; 96361; 96365; 96375; 96376; 99285

== ENCOUNTER 2021-04-15 12:47 | Emergency (ER) | payer MEDICARE ==
--- NOTE | 2021-04-15 14:02 | ED ---
General Adult HPI - General Chief complaint: Recheck/Abnormal Lab/Rx Stated complaint: Pic Line Time Seen by Provider: 04/15/21 13:43 Source: patient Mode of arrival: ambulatory Limitations: no limitations - History of Present Illness Initial comments: Dictation was produced using [employer] dictation software. please excuse any grammatical, word or spelling errors. Chief Complaint: 75-year-old male who has been brought in by his to the emergency department for leakage around PICC line insertion site History of Present Illness: Is 75-year-old male he was just discharged from our hospital yesterday. Patient was admitted and treated for acute kidney injury, metabolic acidosis, endocarditis and CVA. He had a PICC line placed while he was admitted to the hospital. Patient was just discharged yesterday stable medical condition. he receives vancomycin through his PICC line. Patient's cares for him. They noticed that patient had some serous drainage coming from the PICC line insertion site to the left upper extremity. reports that the PICC line pulled back and flush as well. Patient denies any complaints at this time. He feels like he is improving since being discharged. Denies any constitutional symptoms or fevers. The ROS documented in this emergency department record has been reviewed and confirmed by me. Those systems with pertinent positive or negative responses have been documented in the HPI. All other systems are other negative and/or noncontributory. PHYSICAL EXAM: General Impression: Alert and oriented x3, not in acute distress HEENT: Normocephalic atraumatic, extra-ocular movements intact, pupils equal and reactive to light bilaterally, mucous membranes moist. Cardiovascular: Heart regular rate and rhythm Chest: Able to complete full sentences, no retractions, no tachypnea Musculoskeletal: Pulses present and equal in all extremities, 1+ pitting edema Motor: no focal deficits noted Left upper extremity: PICC line is intact. There is some serous drainage collected on the bile patch, no active drainage, no erythema around PICC line insertion site, left upper extremities non-edematous. Neurological: CN II-XII grossly intact, no focal motor or sensory deficits noted Skin: Intact with no visualized rashes Psych: Normal affect and mood ED course: 75-year-old male presents to the emergency department with for serous drainage coming from PICC line insertion site. Vital signs upon arrival shows temperature 100.4, rest of vital signs within acceptable limits. Patient denies any constitutional symptoms. He feels well. reports that patient just had coffee prior to checking his temperature in triage. Patient was observed in emergency department for approximately 3 hours. His dressing was changed by the nurse. Patient's PICC line insertion site was reevaluated at 3:50 PM on a bee dry without any drainage. Patient's temperature is normal upon reevaluation. Patient feels well and is agreeable for discharge. He has follow-up appointments coming up with all his doctors. Return precautions discussed. Patient and are agreeable with plan. - Related Data Home Medications Medication Instructions Recorded Confirmed Atorvastatin Calcium [Lipitor] 20 mg PO W/SUPPER 11/05/16 04/08/21 Cyanocobalamin (Vitamin B-12) 1,000 mcg PO DAILY 04/08/21 04/08/21 [Vitamin B-12] Warfarin [Coumadin] 10 mg PO SUTH 04/08/21 04/08/21 Warfarin [Coumadin] 12.5 mg PO [id number] 04/08/21 04/08/21 Previous Rx's Medication Instructions Recorded Calcium Carbonate [Tums] 1,000 mg PO Q4HR PRN tab 04/13/21 Metoprolol Tartrate [Lopressor] 75 mg PO BID #180 tab 04/13/21 Sodium Bicarbonate Tab 650 mg PO BID tab 04/13/21 Thiamine [Vitamin B-1] 100 mg PO DAILY tab 04/13/21 Aspirin 81 mg PO DAILY tab 04/14/21 Furosemide [Lasix] 20 mg PO DAILY #30 tablet 04/14/21 Allergies Allergy/AdvReac Type Severity Reaction Status Date / Time No Known Allergies Allergy Verified 04/15/21 13:11 Review of Systems ROS Statement: Those systems with pertinent positive or pertinent negative responses have been documented in the HPI. ROS Other: All systems not noted in ROS Statement are negative. Past Medical History Past Medical History: Atrial Fibrillation, Blood Disorder, Hyperlipidemia, Hypertension, Mitral Valve Prolapse (MVP) Additional Past Medical History / Comment(s): MYELOFIBROSIS, with history of splenomegaly and anemia. History of Any Multi-Drug Resistant Organisms: None Reported Past Surgical History: Cardiac Valve Replacement, Hernia Repair Additional Past Surgical History / Comment(s): PAULINA INGUINAL HERNIA REPAIR, KAYLAN. HEART VALVE REPAIR Past Anesthesia/Blood Transfusion Reactions: No Reported Reaction Past Psychological History: No Psychological Hx Reported Smoking Status: Former smoker Past Alcohol Use History: Daily Past Drug Use History: None Reported - Past Family History Father Sister(s) Family Medical History: Cancer Father Family Medical History: Cancer Additional Family Medical History / Comment(s): PROSTATE Sister(s) Family Medical History: Cancer Brother(s) Family Medical History: Cancer Additional Family Medical History / Comment(s): PROSTATE General Exam Limitations: no limitations Course Vital Signs 04/15/21 04/15/21 13:11 14:48 Temperature 100.4 F H 99.0 F Pulse Rate 82 Respiratory 16 Rate Blood Pressure 116/69 O2 Sat by Pulse 100 Oximetry Disposition Clinical Impression: S/P PICC central line placement Disposition: HOME SELF-CARE Condition: Good Instructions (If sedation given, give patient instructions): Peripherally Inserted Central Catheters and Midline Catheters in... (DC) Is patient prescribed a controlled substance at d/c from ED?: No Referrals: Narciso Molina MD [Primary Care Provider] - 1-2 days
[2021-04-15 16:11] VITALS: BP 126/68; PULSE 88; RESP 20; TEMP 98.1
== END 2021-04-15 16:10 | disposition home or self-care (01) ==
LOC: EC 12:47
DX: T82.898A Other specified complication of vascular prosthetic devices, implants and grafts, initial encounter (principal); I10 Essential (primary) hypertension; E78.5 Hyperlipidemia, unspecified; I48.91 Unspecified atrial fibrillation; Z79.01 Long term (current) use of anticoagulants; Z79.82 Long term (current) use of aspirin; Z79.899 Other long term (current) drug therapy; Z87.891 Personal history of nicotine dependence; Z95.2 Presence of prosthetic heart valve
CPT/HCPCS: 99283

== ENCOUNTER 2021-07-05 09:36 | Inpatient (IN) | payer MEDICARE ==
[2021-07-05] MEDS ORDERED: SODIUM CHLORIDE 0.9% 500 ML 500 ML IV STA (10:02)
--- NOTE | 2021-07-05 10:35 | ED ---
Abdominal Pain HPI - General Chief Complaint: Abdominal Pain Stated Complaint: right side abd pain, fever Time Seen by Provider: 07/05/21 09:44 Source: patient, family Mode of arrival: ambulatory Limitations: no limitations - History of Present Illness Initial Comments: 76 year-old male patient presents for evaluation of right upper quadrant abdominal pain, shortness of breath, and low grade fevers. Patient states he has had the pain on and off for the last 3 days. States that he has had shortness of breath for about a week. Feels like he cannot take a deep breath. Has a dry cough. States if feels difficult to cough. Reports low grade fevers. Denies nausea, vomiting, or diarrhea. Had previous inginal hernia surgery. Denies any chest pain. Patient denies any recent rash, abdominal pain, constipation, back pain, numbness, tingling, dizziness, weakness, hematuria, dysuria, urinary urgency, urinary frequency, headache, visual changes, or any other complaints. - Related Data Home Medications Medication Instructions Recorded Confirmed Atorvastatin Calcium [Lipitor] 20 mg PO W/SUPPER 11/05/16 04/08/21 Cyanocobalamin (Vitamin B-12) 1,000 mcg PO DAILY 04/08/21 04/08/21 [Vitamin B-12] Warfarin [Coumadin] 10 mg PO SUTH 04/08/21 04/08/21 Warfarin [Coumadin] 12.5 mg PO [id number] 04/08/21 04/08/21 Previous Rx's Medication Instructions Recorded Calcium Carbonate [Tums] 1,000 mg PO Q4HR PRN tab 04/13/21 Metoprolol Tartrate [Lopressor] 75 mg PO BID #180 tab 04/13/21 Sodium Bicarbonate Tab 650 mg PO BID tab 04/13/21 Thiamine [Vitamin B-1] 100 mg PO DAILY tab 04/13/21 Aspirin 81 mg PO DAILY tab 04/14/21 Furosemide [Lasix] 20 mg PO DAILY #30 tablet 04/14/21 Allergies Allergy/AdvReac Type Severity Reaction Status Date / Time No Known Allergies Allergy Verified 07/05/21 09:41 Review of Systems ROS Statement: Those systems with pertinent positive or pertinent negative responses have been documented in the HPI. ROS Other: All systems not noted in ROS Statement are negative. Past Medical History Past Medical History: Atrial Fibrillation, Blood Disorder, Hyperlipidemia, Hypertension, Mitral Valve Prolapse (MVP) Additional Past Medical History / Comment(s): MYELOFIBROSIS, with history of splenomegaly and anemia. History of Any Multi-Drug Resistant Organisms: None Reported Past Surgical History: Cardiac Valve Replacement, Hernia Repair Additional Past Surgical History / Comment(s): PAULINA INGUINAL HERNIA REPAIR, KAYLAN. HEART VALVE REPAIR Past Anesthesia/Blood Transfusion Reactions: No Reported Reaction Past Psychological History: No Psychological Hx Reported Smoking Status: Former smoker Past Alcohol Use History: Daily - Past Family History Father Sister(s) Family Medical History: Cancer Father Family Medical History: Cancer Additional Family Medical History / Comment(s): PROSTATE Sister(s) Family Medical History: Cancer Brother(s) Family Medical History: Cancer Additional Family Medical History / Comment(s): PROSTATE General Exam Limitations: no limitations General appearance: alert, in no apparent distress, other (This is a well- developed, well-nourished adult male in no acute distress.) ENT exam: Present: normal exam, normal oropharynx, mucous membranes moist Respiratory exam: Present: normal lung sounds bilaterally. Absent: respiratory distress, wheezes, rales, rhonchi, stridor Cardiovascular Exam: Present: regular rate, normal rhythm, normal heart sounds. Absent: systolic murmur, diastolic murmur, rubs, gallop, clicks GI/Abdominal exam: Present: soft, tenderness (mid-epigastric, right upper quadrant), guarding, normal bowel sounds. Absent: distended, rebound, rigid Neurological exam: Present: alert, oriented X3, CN II-XII intact Psychiatric exam: Present: normal affect, normal mood Skin exam: Present: warm, dry, intact, normal color. Absent: rash Course Vital Signs 07/05/21 07/05/21 09:37 12:07 Temperature 98.4 F Pulse Rate 78 83 Respiratory 18 16 Rate Blood Pressure 130/70 133/71 O2 Sat by Pulse 96 97 Oximetry Medical Decision Making - Medical Decision Making 76 old male patient presents to the emergency department today for evaluation of right upper quadrant pain/right lower chest pain, shortness of breath, low- grade fevers for the last 3 days. Physical examination revealed clear equal lung sounds. Abdomen did reveal some mild right upper quadrant tenderness. Labs reviewed and did reveal hemoglobin 6.9. White blood cell, mildly elevated 11.3. Vital signs are unremarkable. Chest x-ray did show right lower lobe pneumonia. I did discuss his hemoglobin level with his hospitality director Dr. Begum who recommends 1unit PRBC. We'll be starting IV antibiotics. Patient and are agreeable with this plan. My attending is Dr. Robles. - Lab Data Result diagrams: 07/05/21 10:50 07/05/21 10:50 Lab Results 07/05/21 07/05/21 07/05/21 Range/Units 10:47 10:50 10:50 WBC 11.2 H (3.8-10.6) k/uL RBC 2.40 L (4.30-5.90) m/uL Hgb 6.9 L* D (13.0-17.5) gm/dL Hct 23.4 L (39.0-53.0) % MCV 97.6 (80.0-100.0) fL MCH 28.6 (25.0-35.0) pg MCHC 29.3 L (31.0-37.0) g/dL RDW 21.7 H (11.5-15.5) % Plt Count 451 H (150-450) k/uL MPV 9.9 Neutrophils % Not Reportable Neutrophils % (Manual) 82 % Band Neuts % (Manual) 1 % Lymphocytes % Not Reportable Lymphocytes % (Manual) 5 % Monocytes % Not Reportable Monocytes % (Manual) 12 % Eosinophils % Not Reportable Eosinophils % (Manual) 1 % Basophils % Not Reportable Metamyelocytes % 1 % Myelocytes % 1 % Neutrophils # Not Reportable Neutrophils # (Manual) 9.20 H (1.3-7.7) k/uL Lymphocytes # Not Reportable Lymphocytes # (Manual) 0.56 L (1.0-4.8) k/uL Monocytes # Not Reportable Monocytes # (Manual) 1.34 H (0-1.0) k/uL Eosinophils # Not Reportable Eosinophils # (Manual) 0.11 (0-0.7) k/uL Basophils # Not Reportable Metamyelocytes # (Man) 0.11 H (0) k/uL Myelocytes # (Manual) 0.11 H (0) k/uL Nucleated RBCs 0 (0-0) /100 WBC Manual Slide Review Performed Large Platelets Present Polychromasia Present Hypochromasia Marked Poikilocytosis Moderate Anisocytosis Moderate Macrocytosis Slight Tear Drop Cells Present Fragmented RBCs Present Sodium 136 L (137-145) mmol/L Potassium 4.5 (3.5-5.1) mmol/L Chloride 103 (98-107) mmol/L Carbon Dioxide 24 (22-30) mmol/L Anion Gap 9 mmol/L BUN 22 H (9-20) mg/dL Creatinine 1.30 H (0.66-1.25) mg/dL Est GFR (CKD-EPI)AfAm 61 (>60 ml/min/1.73 sqM) Est GFR (CKD-EPI)NonAf 53 (>60 ml/min/1.73 sqM) Glucose 126 H (74-99) mg/dL Plasma Lactic Acid [place] (0.7-2.0) mmol/L Calcium 8.4 (8.4-10.2) mg/dL Total Bilirubin 0.9 (0.2-1.3) mg/dL AST 35 (17-59) U/L ALT 17 (4-49) U/L Alkaline Phosphatase 80 (38-126) U/L Troponin I (0.000-0.034) ng/mL Total Protein 5.9 L (6.3-8.2) g/dL Albumin 3.1 L (3.5-5.0) g/dL Lipase 20 L (23-300) U/L Urine Color Urine Appearance (Clear) Urine pH (5.0-8.0) Ur Specific [place] (1.001-1.035) Urine Protein (Negative) Urine Glucose (UA) (Negative) Urine Ketones (Negative) Urine Blood (Negative) Urine Nitrite (Negative) Urine Bilirubin (Negative) Urine Urobilinogen (<2.0) mg/dL Ur Leukocyte Esterase (Negative) Urine RBC (0-5) /hpf Urine WBC (0-5) /hpf Amorphous Sediment (None) /hpf Coronavirus (PCR) (Not Detectd) Blood Type O Positive Blood Type Recheck No Previous Record Bld Type Recheck Status CABO Indicated Antibody Screen NEGATIVE Crossmatch See Detail Spec Expiration Date 07/08/2021 - 234607/05/21 07/05/21 07/05/21 Range/Units 10:50 10:50 11:22 WBC (3.8-10.6) k/uL RBC (4.30-5.90) m/uL Hgb (13.0-17.5) gm/dL Hct (39.0-53.0) % MCV (80.0-100.0) fL MCH (25.0-35.0) pg MCHC (31.0-37.0) g/dL RDW (11.5-15.5) % Plt Count (150-450) k/uL MPV Neutrophils % Neutrophils % (Manual) % Band Neuts % (Manual) % Lymphocytes % Lymphocytes % (Manual) % Monocytes % Monocytes % (Manual) % Eosinophils % Eosinophils % (Manual) % Basophils % Metamyelocytes % % Myelocytes % % Neutrophils # Neutrophils # (Manual) (1.3-7.7) k/uL Lymphocytes # Lymphocytes # (Manual) (1.0-4.8) k/uL Monocytes # Monocytes # (Manual) (0-1.0) k/uL Eosinophils # Eosinophils # (Manual) (0-0.7) k/uL Basophils # Metamyelocytes # (Man) (0) k/uL Myelocytes # (Manual) (0) k/uL Nucleated RBCs (0-0) /100 WBC Manual Slide Review Large Platelets Polychromasia Hypochromasia Poikilocytosis Anisocytosis Macrocytosis Tear Drop Cells Fragmented RBCs Sodium (137-145) mmol/L Potassium (3.5-5.1) mmol/L Chloride (98-107) mmol/L Carbon Dioxide (22-30) mmol/L Anion Gap mmol/L BUN (9-20) mg/dL Creatinine (0.66-1.25) mg/dL Est GFR (CKD-EPI)AfAm (>60 ml/min/1.73 sqM) Est GFR (CKD-EPI)NonAf (>60 ml/min/1.73 sqM) Glucose (74-99) mg/dL Plasma Lactic Acid [place] 0.7 (0.7-2.0) mmol/L Calcium (8.4-10.2) mg/dL Total Bilirubin (0.2-1.3) mg/dL AST (17-59) U/L ALT (4-49) U/L Alkaline Phosphatase (38-126) U/L Troponin I 0.021 (0.000-0.034) ng/mL Total Protein (6.3-8.2) g/dL Albumin (3.5-5.0) g/dL Lipase (23-300) U/L Urine Color Yellow Urine Appearance Clear (Clear) Urine pH 6.5 (5.0-8.0) Ur Specific [place] 1.019 (1.001-1.035) Urine Protein 1+ H (Negative) Urine Glucose (UA) Negative (Negative) Urine Ketones Negative (Negative) Urine Blood Negative (Negative) Urine Nitrite Negative (Negative) Urine Bilirubin Negative (Negative) Urine Urobilinogen 2.0 (<2.0) mg/dL Ur Leukocyte Esterase Negative (Negative) Urine RBC 1 (0-5) /hpf Urine WBC 1 (0-5) /hpf Amorphous Sediment Rare H (None) /hpf Coronavirus (PCR) (Not Detectd) Blood Type Blood Type Recheck Bld Type Recheck Status Antibody Screen Crossmatch Spec Expiration Date 07/05/21 Range/Units 12:01 WBC (3.8-10.6) k/uL RBC (4.30-5.90) m/uL Hgb (13.0-17.5) gm/dL Hct (39.0-53.0) % MCV (80.0-100.0) fL MCH (25.0-35.0) pg MCHC (31.0-37.0) g/dL RDW (11.5-15.5) % Plt Count (150-450) k/uL MPV Neutrophils % Neutrophils % (Manual) % Band Neuts % (Manual) % Lymphocytes % Lymphocytes % (Manual) % Monocytes % Monocytes % (Manual) % Eosinophils % Eosinophils % (Manual) % Basophils % Metamyelocytes % % Myelocytes % % Neutrophils # Neutrophils # (Manual) (1.3-7.7) k/uL Lymphocytes # Lymphocytes # (Manual) (1.0-4.8) k/uL Monocytes # Monocytes # (Manual) (0-1.0) k/uL Eosinophils # Eosinophils # (Manual) (0-0.7) k/uL Basophils # Metamyelocytes # (Man) (0) k/uL Myelocytes # (Manual) (0) k/uL Nucleated RBCs (0-0) /100 WBC Manual Slide Review Large Platelets Polychromasia Hypochromasia Poikilocytosis Anisocytosis Macrocytosis Tear Drop Cells Fragmented RBCs Sodium (137-145) mmol/L Potassium (3.5-5.1) mmol/L Chloride (98-107) mmol/L Carbon Dioxide (22-30) mmol/L Anion Gap mmol/L BUN (9-20) mg/dL Creatinine (0.66-1.25) mg/dL Est GFR (CKD-EPI)AfAm (>60 ml/min/1.73 sqM) Est GFR (CKD-EPI)NonAf (>60 ml/min/1.73 sqM) Glucose (74-99) mg/dL Plasma Lactic Acid [place] (0.7-2.0) mmol/L Calcium (8.4-10.2) mg/dL Total Bilirubin (0.2-1.3) mg/dL AST (17-59) U/L ALT (4-49) U/L Alkaline Phosphatase (38-126) U/L Troponin I (0.000-0.034) ng/mL Total Protein (6.3-8.2) g/dL Albumin (3.5-5.0) g/dL Lipase (23-300) U/L Urine Color Urine Appearance (Clear) Urine pH (5.0-8.0) Ur Specific [place] (1.001-1.035) Urine Protein (Negative) Urine Glucose (UA) (Negative) Urine Ketones (Negative) Urine Blood (Negative) Urine Nitrite (Negative) Urine Bilirubin (Negative) Urine Urobilinogen (<2.0) mg/dL Ur Leukocyte Esterase (Negative) Urine RBC (0-5) /hpf Urine WBC (0-5) /hpf Amorphous Sediment (None) /hpf Coronavirus (PCR) Not Detected (Not Detectd) Blood Type Blood Type Recheck Bld Type Recheck Status Antibody Screen Crossmatch Spec Expiration Date - EKG Data -: EKG Interpreted by Me EKG Comments: EKG obtained at 1037 shows A. fib with a ventricular rate of 70, QRS duration 90, QT 404, QTC 436. No evidence of ST elevation or depression. - Radiology Data Radiology results: report reviewed, image reviewed 2 views of the chest are obtained. Report was reviewed in its entirety. Im pression by Dr. Berrios shows right lower lobe airspace opacity and consolidation concerning for pneumonia. Trace right pleural effusion. Disposition Clinical Impression: Right lower lobe pneumonia, Anemia Disposition: ADMITTED IP TO THIS [facility] Condition: Serious Referrals: Narciso Molina MD [Primary Care Provider] - 1-2 days Decision to Admit Reason: Admit from EC Decision Date: 07/05/21 Decision Time: 12:56
--- NOTE | 2021-07-05 11:19 | XR ---
EXAMINATION TYPE: XR chest 2V DATE OF EXAM: 07/05/2021 COMPARISON: 04/08/2021 HISTORY: 76 years Male. STUDY INDICATION GIVEN: abdominal pain . TECHNIQUE: Frontal and lateral chest radiographs. IMPRESSION: Right lower lobe airspace opacity and consolidation concerning for pneumonia. Trace right pleural eff usion. No left effusion. No pneumothorax. Mild bilateral interstitial prominence suggest pulmonary edema which could be secondary to infection, inflammation or cardiogenic. Stable mild cardiomegaly. Mild CHF cannot be excluded. Upper lobe lucencies suggest COPD/bullous emphysema changes. Sternotomy wires and prosthetic valve are seen again. No acute osseous abnormalities seen.
[2021-07-05 11:25] LABS: Anisocytosis Moderate; HCT 23.4 % (39.0-53.0); Hypochromasia Marked; MCH 28.6 pg (25.0-35.0); MCHC 29.3 g/dL (31.0-37.0); MCV 97.6 fL (80.0-100.0); Macrocytosis Slight; Mean Platelet Volume 9.9; Platelet Count 451 k/uL (150-450); Poikilocytosis Moderate; RDW 21.7 % (11.5-15.5); WBC 11.2 k/uL (3.8-10.6)
[2021-07-05 11:28] LABS: HGB 6.9 gm/dL (13.0-17.5)
[2021-07-05] MEDS ORDERED: AZITHROMYCIN 500 MG in SODIUM CHLORIDE 0.9% 250 ML IVPB STA (11:31)
[2021-07-05] MEDS ORDERED: cefTRIAXone IN SWFI 1,000 MG/10 ML SYRINGE IVP STA (11:31)
[2021-07-05 11:35] LABS: Albumin 3.1 g/dL (3.5-5.0); Calcium 8.4 mg/dL (8.4-10.2); Potassium 4.5 mmol/L (3.5-5.1); Total Bilirubin 0.9 mg/dL (0.2-1.3); Total Protein 5.9 g/dL (6.3-8.2)
[2021-07-05 11:47] LABS: Amorphous Sediment,Urine Rare /hpf; Appearance,Urine Clear (Clear); Bilirubin,Urine Negative (Negative); Blood,Urine Negative (Negative); Color,Urine Yellow; Glucose,Urine (UA) Negative (Negative); Ketones,Urine Negative (Negative); Leukocyte Esterase,Urine Negative (Negative); Nitrite,Urine Negative (Negative); PH, Urine 6.5 (5.0-8.0); Protein,Urine 1+ (Negative); RBC,Urine 1 /hpf (0-5); Specific Gravity,Urine 1.019 (1.001-1.035); WBC,Urine 1 /hpf (0-5)
[2021-07-05 11:58] LABS: Band Neutrophils % 1 %; Eosinophils # (M) 0.11 k/uL (0-0.7); Lymphocytes # (M) 0.56 k/uL (1.0-4.8); Metamyelocytes # (M) 0.11 k/uL (0); Metamyelocytes % 1 %; Monocytes # (M) 1.34 k/uL (0-1.0); Myelocytes # (M) 0.11 k/uL (0); Myelocytes % 1 %; Neutrophils % (M) 82 %; Nucleated Red Blood Cells 0 /100 WBC (0-0); Total Cells Counted 200
[2021-07-05 11:59] LABS: Polychromasia Present; RBC Fragments Present; Tear Drop Cells Present
[2021-07-05 12:00] LABS: Large Platelets Present
[2021-07-05] MEDS ORDERED: ACETAMINOPHEN TAB 325 MG TAB PO PRN (12:54)
[2021-07-05] MEDS ORDERED: NALOXONE 0.4 MG/ML 1 ML VIAL IV PRN (12:54)
[2021-07-05] MEDS ORDERED: FUROSEMIDE 10 MG/ML 2 ML VIAL IV STA (12:55)
[2021-07-05] MEDS ORDERED: VANCOMYCIN IV PER PHARMACY 1 EACH MISC MISCELLANE PRN (16:08)
[2021-07-05] MEDS ORDERED: FUROSEMIDE 40 MG TAB PO PRN (16:11)
--- NOTE | 2021-07-05 16:18 | P.HPIM ---
History of Present Illness H&P Date: 07/05/21 HISTORY OF PRESENT ILLNESS This is a 75-year-old male patient planning to be established with Dr. 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 Patient had a detailed workup including echocardiogram to suggest EF of 25-30% with moderate mitral regurgitation MV annuloplasty and mobile 1.3-1.5 mm hypodensity attached to the posterior valve leaflet with moderate tricuspid regurgitation moderate pulmonary hypertension. TEErevealed infective endocarditis with large vegetation 1.5 cm attached to the upstream side of the posterior mitral leaflet associated with leaflet perforation and wide open mitral regurgitation. Severe cardiomyopathy with ejection fraction of 20 and 25% with dilated left ventricle. Normal right ventricular dimension with impaired function. Mild biatrial enlargement. Trileaflet aortic valve without stenosis or regurgitation without any vegetation. Intact tricuspid valve and pulmonic valve. No evidence of pericardial effusion. Patient was discharged on IV antibiotics that he finished on May 25 for infectious endocarditis and has planned with cardiothoracic surgery for possible valve replacement Patient comes to the ER for significant pain in the right lower chest associated with cough and shortness of breath. He had a low-grade fever at home and decided to call though director clinical applications pager. Since patient had a fever and right lower quadrant pain in his chest or concern for new wall pneumonia was made and patient was brought to the ER.in the ER patient was noted to have a low-grade te mp of 99.7, pulse 96 respiratory rate 17 and blood pressure 146/52 oxygenating at 95% on room air. Labs are suggestive WBC of 11.2 hemoglobin 6.9 platelet 451 sodium 136 BUN 22 creatinine 1.3 on UA was negative COVID was negative Chest x-ray on 07/05 suggestive of right lower lobe airspace of spasticity and consolidation concerning for pneumonia no pneumothorax bilateral interstitial prominence suggestive of pulmonary edema which could be secondary to infection, inflammation cardiogenic mild CHF was noted. Arm upper lobe lucency suggestive of COPD or bullous emphysema was noted. She received a unit of 1 PRBC for his myelofibrosis. On discussion with the family at bedside, patient is needing blood trauma almost every 2-3 weeks and is requiring transfusion for his myelofibrosis. He is also getting Aranesp every 3 weeks to help with his blood counts. Patient is otherwise denying any abdominal pain nausea or vomiting. He did have mild abdominal pain and hip pain a few weeks ago which has resolved currently. Situations antibiotic to cefepime and vancomycin. Blood cultures to be drawn. REVIEW OF SYSTEMS Constitutional: No fever, no chills, no night sweats. No weight change. Noted weakness, Noted fatigue Noted lethargy. Noted daytime sleepiness. EENT: No headache. No blurred vision or double vision, no loss of vision. No loss of Hearing, no ringing in the ears, no dizziness. No nasal drainage or congestion. No epistaxis. No sore throat. Lungs: No shortness of breath, cough, no sputum production. No wheezing. Cardiovascular: No chest pain, no lower extremity edema. No palpitations. No paroxysmal nocturnal dyspnea. No orthopnea. No lightheadedness or dizziness. No syncopal episodes. Abdominal: Reported abdominal pain. Reported nausea, Reported vomiting. No diarrhea. No constipation. No bloody or tarry stools. Reported loss of appetite. Genitourinary: No dysuria, increased frequency, urgency. No urinary retention. Reported dark brown urine. Musculoskeletal: No myalgias. No muscle weakness, no gait dysfunction, no frequent falls. No back pain. No neck pain. Integumentary: No wounds, no lesions. No rash or pruritus. No unusual bruising. No change in hair or nails. Neurologic: No aphasia. No facial droop. Noted change in mentation. No head injury. No headache. No paralysis. No paresthesia. Psychiatric: No depression. No anxiety. No mood swings. Endocrine: No abnormal blood sugars. SOCIAL HISTORY Patient was a smoker and quit 20 years ago. He drinks gin on a daily basis he states 1-1/2 ounces per day. FAMILY HISTORY Family history of coronary artery disease at age less than 60.. PHYSICAL EXAMINATION Gen: This is a thin cachectic 75-year-old male. He is resting on the ER stretcher. HEENT: Head is atraumatic, normocephalic. Pupils equal, round. Sclerae is anicteric. NECK: Supple. No JVD. No lymphadenopathy. No thyromegaly. LUNGS: Clear to auscultation. No wheezes or rhonchi. No intercostal retracti ons. HEART: Regular rate and rhythm. No murmur. ABDOMEN: Soft. Bowel sounds are present. Mid abdominal mass above the umbilicus 2 cm, probable lipoma. No tenderness. EXTREMITIES: No pedal edema. No calf tenderness. NEUROLOGICAL: Patient is awake, alert and oriented x2. Generalized weakness. C ranial nerves 2 through 12 are grossly intact. ASSESSMENT AND PLAN Acute healthcare associated pneumonia currently on room air. - Chest x-ray suggesting consolidation. - Cefepime and vancomycin initiated sputum culture drawn. -Blood culture drawn DuoNeb as needed for shortness of breath. Tessalon Perles as needed for cough. Acute systolic congestive heart failure - ProBNP ordered -Chest x-ray suggestive of pulmonary venous congestion -Lasix 40 by mouth daily - INR monitoring -Daily weights Chronic kidney disease stage III - Continue IV fluids 0.9 normal saline at 75 mL per hour - avoid nephrotoxic agents Acute anemia on anemia of chronic disease secondary to myelofibrosis -Patient gets Aranesp intermittently -Status post 1 unit PRBC on 07/05 -Repeat CBC tomorrow Chronic atrial fibrillation. -Patient is therapeutic on Coumadin. - Pharmacy is dosing Coumadin -Daily PT/INR . History of mitral and tricuspid repair. Infective endocarditis completed vancomycin and Rocephin per Dr. Nowak on 05/25. 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 Weakness resolved COVID-19 testing negative. DVT prophylaxis with Coumadin Patient will be admitted to the hospital for a minimum of 2 night stay. DISCHARGE PLAN To be determined. 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 HEART VALVE REPAIR Past Anesthesia/Blood Transfusion Reactions: No Reported Reaction Past Psychological History: No Psychological Hx Reported Smoking Status: Former smoker Past Alcohol Use History: Daily Additional Past Alcohol Use History / Comment(s): quit smoking over 50 years ago. No alcohol consumption since march 2021 Past Drug Use History: None Reported - Past Family History Father Sister(s) Family Medical History: Cancer Father Family Medical History: Cancer Additional Family Medical History / Comment(s): PROSTATE Sister(s) Family Medical History: Cancer Brother(s) Family Medical History: Cancer Additional Family Medical History / Comment(s): PROSTATE Medications and Allergies Home Medications Medication Instructions Recorded Confirmed Type Atorvastatin Calcium [Lipitor] 20 mg PO HS 11/05/16 07/05/21 History Cyanocobalamin (Vitamin B-12) 1,000 mcg PO DAILY 04/08/21 07/05/21 History [Vitamin B-12] Warfarin [Coumadin] 10 mg PO SUMOTUTHFRSA@0704/08/21 07/05/21 History Warfarin [Coumadin] 12.5 mg PO WE@0700 04/08/21 07/05/21 History Metoprolol Tartrate [Lopressor] 75 mg PO BID #180 tab 04/13/21 07/05/21 Rx Thiamine [Vitamin B-1] 100 mg PO DAILY tab 04/13/21 07/05/21 Rx Cholecalciferol [Vitamin D3 (125 125 mcg PO DAILY 07/05/21 07/05/21 History Mcg = 5000 Iu)] Docusate [Colace] 100 mg PO TID 07/05/21 07/05/21 History Furosemide [Lasix] 20 - 40 mg PO DAILY PRN 07/05/21 07/05/21 History HYDROcodone/APAP 5-325MG [[place] 1 tab PO Q6H PRN 07/05/21 07/05/21 History 5-325] traZODone HCL [Desyrel] 75 mg PO HS 07/05/21 07/05/21 History Allergies Allergy/AdvReac Type Severity Reaction Status Date / Time No Known Allergies Allergy Verified 07/05/21 13:54 Physical Exam Vitals: Vital Signs Temp Pulse Pulse Resp BP BP Pulse Ox 07/05/21 14:45 97.9 F 98 16 130/80 07/05/21 14:33 98 F 92 16 128/78 07/05/21 14:15 98 F 87 17 131/64 07/05/21 14:00 99.7 F H 91 96 17 127/75 146/52 95 07/05/21 13:55 97.6 F 83 18 134/67 97 07/05/21 13:50 97.6 F 96 16 118/78 97 07/05/21 13:45 97.5 F L 82 17 124/75 97 07/05/21 12:07 83 16 133/71 97 07/05/21 09:37 98.4 F 78 18 130/70 96 Intake and Output 07/05/21 07/05/21 07/05/21 06:59 14:59 22:59 Intake Total 0 Balance 0 Intake: Blood Product 0 Rc As-1 Unit 0 [id number] Other: Weight 63.503 kg 63.503 kg Results CBC & Chem 7: 07/05/21 10:50 07/05/21 10:50 Labs: Abnormal Lab Results - Last 24 Hours (Table) 07/05/21 07/05/21 07/05/21 Range/Units 10:47 10:50 10:50 WBC 11.2 H (3.8-10.6) k/uL RBC 2.40 L (4.30-5.90) m/uL Hgb 6.9 L* D (13.0-17.5) gm/dL Hct 23.4 L (39.0-53.0) % MCHC 29.3 L (31.0-37.0) g/dL RDW 21.7 H (11.5-15.5) % Plt Count 451 H (150-450) k/uL Neutrophils # (Manual) 9.20 H (1.3-7.7) k/uL Lymphocytes # (Manual) 0.56 L (1.0-4.8) k/uL Monocytes # (Manual) 1.34 H (0-1.0) k/uL Metamyelocytes # (Man) 0.11 H (0) k/uL Myelocytes # (Manual) 0.11 H (0) k/uL Sodium 136 L (137-145) mmol/L BUN 22 H (9-20) mg/dL Creatinine 1.30 H (0.66-1.25) mg/dL Glucose 126 H (74-99) mg/dL Total Protein 5.9 L (6.3-8.2) g/dL Albumin 3.1 L (3.5-5.0) g/dL Lipase 20 L (23-300) U/L Urine Protein (Negative) Amorphous Sediment (None) /hpf Crossmatch See Detail 07/05/21 Range/Units 11:22 WBC (3.8-10.6) k/uL RBC (4.30-5.90) m/uL Hgb (13.0-17.5) gm/dL Hct (39.0-53.0) % MCHC (31.0-37.0) g/dL RDW (11.5-15.5) % Plt Count (150-450) k/uL Neutrophils # (Manual) (1.3-7.7) k/uL Lymphocytes # (Manual) (1.0-4.8) k/uL Monocytes # (Manual) (0-1.0) k/uL Metamyelocytes # (Man) (0) k/uL Myelocytes # (Manual) (0) k/uL Sodium (137-145) mmol/L BUN (9-20) mg/dL Creatinine (0.66-1.25) mg/dL Glucose (74-99) mg/dL Total Protein (6.3-8.2) g/dL Albumin (3.5-5.0) g/dL Lipase (23-300) U/L Urine Protein 1+ H (Negative) Amorphous Sediment Rare H (None) /hpf Crossmatch Thrombosis Risk Factor Assmnt - Choose All That Apply Each Factor Represents 1 point: Abnormal pulmonary function (COPD), Serious lung disease incl. pneumonia (< 1month) Each Risk Factor Represents 3 Points: Age 75 years or older Thrombosis Risk Factor Assessment Total Risk Factor Score: 5 Thrombosis Risk Factor Assessment Level: High Risk
[2021-07-05] MEDS: HYDROcodone/APAP 5-325MG 1 EACH TAB PO PRN ×2 (16:26→22:01)
[2021-07-05] MEDS ORDERED: VANCOMYCIN 1,250 MG in SODIUM CHLORIDE 0.9% 250 ML IVPB SCH (17:00)
[2021-07-05 17:43] VITALS: RESP 18
[2021-07-05] MEDS: CEFEPIME 2 GM in SODIUM CHLORIDE 0.9% 100 ML IVPB SCH (17:49)
[2021-07-05 18:19] LABS: Prothrombin Time 57.2 sec (9.0-12.0)
[2021-07-05 18:30] LABS: INR 5.9 (<1.2)
[2021-07-05] MEDS: METOPROLOL TARTRATE 25 MG TAB PO SCH (20:41)
[2021-07-05] MEDS: DOCUSATE 100 MG CAP PO SCH (20:42)
[2021-07-05] MEDS ORDERED: ATORVASTATIN 20 MG TAB PO SCH (21:00)
[2021-07-05] MEDS ORDERED: traZODone HCL 50 MG TAB PO SCH (21:00)
[2021-07-05 21:08] LABS: Prothrombin Time 57.7 sec (9.0-12.0)
[2021-07-05] MEDS ORDERED: PHYTONADIONE ORAL 5 MG/5 ML ORAL.SYRG PO ONE (22:20)
[2021-07-06] MEDS: CEFEPIME 2 GM in SODIUM CHLORIDE 0.9% 100 ML IVPB SCH (05:48)
[2021-07-06] MEDS ORDERED: WARFARIN 5 MG TAB PO SCH (07:00)
[2021-07-06] MEDS ORDERED: WARFARIN 0.5 MG TAB PO ONE ×2 (07:00→18:00)
[2021-07-06] MEDS: METOPROLOL TARTRATE 25 MG TAB PO SCH (07:50)
[2021-07-06] MEDS: DOCUSATE 100 MG CAP PO SCH (07:50)
[2021-07-06] MEDS ORDERED: AZITHROMYCIN 500 MG in SODIUM CHLORIDE 0.9% 250 ML IVPB SCH (09:00)
[2021-07-06] MEDS ORDERED: VANCOMYCIN 1,250 MG in SODIUM CHLORIDE 0.9% 250 ML IVPB SCH (10:00)
[2021-07-06 10:34] LABS: HCT 25.6 % (39.6-50.0); HGB 7.4 g/dL (13.0-17.0); MCH 28.9 pg (27.0-32.0); MCHC 28.9 g/dL (32.0-37.0); Mean Platelet Volume 12.4 fL (9.5-12.2); Platelet Count 430 X 10*3/uL (140-440); RBC 2.56 X 10*6/uL (4.40-5.60); RDW 22.4 % (11.5-14.5); WBC 7.84 X 10*3/uL (4.50-10.00)
[2021-07-06 10:37] LABS: INR 4.35 (0.90-1.11); Prothrombin Time 45.8 sec (9.9-11.9)
[2021-07-06] MEDS: HYDROcodone/APAP 5-325MG 1 EACH TAB PO PRN (10:51)
[2021-07-06 13:33] LABS: Anisocytosis (M) 2+; Basophils # (A) 0.04 X 10*3/uL (0.00-0.10); Basophils % (A) 0.5 %; Eosinophils # (A) 0.07 X 10*3/uL (0.04-0.35); Eosinophils % (A) 0.9 %; Lymphocytes # (A) 0.29 X 10*3/uL (0.90-5.00); Lymphocytes % (A) 3.7 %; Monocytes # (A) 1.11 X 10*3/uL (0.20-1.00); Monocytes % (A) 14.2 %; Neutrophils # (A) 5.99 X 10*3/uL (1.80-7.70); Neutrophils % (A) 76.4 %; Polychromasia 2+
[2021-07-06 14:45] VITALS: BP 126/63; PULSE 83; TEMP 97.9
--- NOTE | 2021-07-06 16:27 | P.DS ---
Providers Date of admission: 07/05/21 13:18 Attending physician: Donny Armenta MD [facility] Course: HISTORY OF PRESENT ILLNESS This is a 75-year-old male patient planning to be established with Dr. 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 Patient had a detailed workup including echocardiogram to suggest EF of 25-30% with moderate mitral regurgitation MV annuloplasty and mobile 1.3-1.5 mm hypodensity attached to the posterior valve leaflet with moderate tricuspid regurgitation moderate pulmonary hypertension. TEErevealed infective endocarditis with large vegetation 1.5 cm attached to the upstream side of the posterior mitral leaflet associated with leaflet perforation and wide open mitral regurgitation. Severe cardiomyopathy with ejection fraction of 20 and 25% with dilated left ventricle. Normal right ventricular dimension with impaired function. Mild biatrial enlargement. Trileaflet aortic valve without stenosis or regurgitation without any vegetation. Intact tricuspid valve and pulmonic valve. No evidence of pericardial effusion. Patient was discharged on IV antibiotics that he finished on May 25 for infectious endocarditis and has planned with cardiothoracic surgery for possible valve replacement Patient comes to the ER for significant pain in the right lower chest associated with cough and shortness of breath. 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 Since patient had a fever and right lower quadrant pain in his chest or concern for new wall pneumonia was made and patient was brought to the ER.in the ER patient was noted to have a low-grade temp of 99.7, pulse 96 respiratory rate 17 and blood pressure 146/52 oxygenating at 95% on room air. Labs are suggestive WBC of 11.2 hemoglobin 6.9 platelet 451 sodium 136 BUN 22 creatinine 1.3 on UA was negative COVID was negative Chest x-ray on 07/05 suggestive of right lower lobe airspace of spasticity and consolidation concerning for pneumonia no pneumothorax bilateral interstitial prominence suggestive of pulmonary edema which could be secondary to infection, inflammation cardiogenic mild CHF was noted. Arm upper lobe lucency suggestive of COPD or bullous emphysema was noted. She received a unit of 1 PRBC for his myelofibrosis. On discussion with the family at bedside, patient is needing blood trauma almost every 2-3 weeks and is requiring transfusion for his myelofibrosis. He is also getting Aranesp every 3 weeks to help with his blood counts. Patient is otherwise denying any abdominal pain nausea or vomiting. He did have mild abdominal pain and hip pain a few weeks ago which has resolved currently. Situations antibiotic to cefepime and vancomycin. Blood cultures to be drawn. 07/06 patient examined bedside. Continues to have right upper quadrant abdominal pain. Patient was recently prescribed [place] from the orthopedic and has been taking it for his hip pain. He has right lower lobe pneumonia associated with possible constipation from h use of narcotics. Patient will be discharged home on antibiotics of Augmentin 875/125 every 12 for 14 days along with bowel regimen including senna, Colace and MiraLAX. Patient encouraged to drink plenty of fluids. Vitals were stable patient is afebrileer blood pressures stable oxygenation is 97% on room air. Left reviewed patient's hemoglobin still 7.4. One unit of transfusion INR is improved to 4.35. Creatinine stable at 1.06. Patient will be discharged on incentive spirometer and will follow with primary care physician. PHYSICAL EXAMINATION Gen: This is a thin cachectic 75-year-old male. He is resting on the ER stretcher. HEENT: Head is atraumatic, normocephalic. Pupils equal, round. Sclerae is a nicteric. NECK: Supple. No JVD. No lymphadenopathy. No thyromegaly. LUNGS: Clear to auscultation. No wheezes or rhonchi. No intercostal retractions. HEART: Regular rate and rhythm. No murmur. ABDOMEN: Soft. Bowel sounds are present. Mid abdominal mass above the umbilicus 2 cm, probable lipoma. tenderness right upper quad of abd EXTREMITIES: No pedal edema. No calf tenderness. NEUROLOGICAL: Patient is awake, alert and oriented x2. Generalized weakness. Cranial nerves 2 through 12 are grossly intact. ASSESSMENT AND PLAN Acute healthcare associated pneumonia currently on room air. - Chest x-ray suggesting consolidation. - Cefepime and vancomycin was be switched to Augmentin -Blood culture drawn DuoNeb as needed for shortness of breath. Tessalon Perles as needed for cough. Acute systolic congestive heart failure - ProBNP normal -Chest x-ray suggestive of pulmonary venous congestion -Lasix 40 by mouth daily - INR monitoring -Daily weights Chronic kidney disease stage III - Continue IV fluids 0.9 normal saline at 75 mL per hour - avoid nephrotoxic agents Acute anemia on anemia of chronic disease secondary to myelofibrosis -Patient gets Aranesp intermittently -Status post 1 unit PRBC on 07/05 -Repeat CBC with improvement in hemoglobin Chronic atrial fibrillation. -Hold Coumadin due to supratherapeutic INR - Pharmacy is dosing Coumadin -Follow up INR in 3 days at cardiology office . History of mitral and tricuspid repair. Infective endocarditis completed vancomycin and Rocephin per Dr. Nowak on 05/25. 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 Weakness resolved COVID-19 testing negative. DVT prophylaxis with Coumadin DISCHARGE PLAN With self-care Patient Condition at Discharge: Serious Plan - Discharge Summary New Discharge Prescriptions: New Amoxic-Pot Clav 875-125Mg [Augmentin 875-125] 1 tab PO Q12HR 28 Days #2 tab Continue Atorvastatin Calcium [Lipitor] 20 mg PO HS Metoprolol Tartrate [Lopressor] 75 mg PO BID #180 tab traZODone HCL [Desyrel] 75 mg PO HS Docusate [Colace] 100 mg PO TID Cholecalciferol [Vitamin D3 (125 Mcg = 5000 Iu)] 125 mcg PO DAILY HYDROcodone/APAP 5-325MG [[place] 5-325] 1 tab PO Q6H PRN PRN Reason: Pain Furosemide [Lasix] 20 - 40 mg PO DAILY PRN PRN Reason: swelling Cyanocobalamin (Vitamin B-12) [Vitamin B-12] 1,000 mcg PO DAILY Thiamine [Vitamin B-1] 100 mg PO DAILY tab Discontinued Warfarin [Coumadin] 12.5 mg PO WE@0700 Warfarin [Coumadin] 10 mg PO SUMOTUTHFRSA@0700 Discharge Medication List Atorvastatin Calcium [Lipitor] 20 mg PO HS 11/05/16 [History] Cyanocobalamin (Vitamin B-12) [Vitamin B-12] 1,000 mcg PO DAILY 04/08/21 [History] Metoprolol Tartrate [Lopressor] 75 mg PO BID #180 tab 04/13/21 [Rx] Thiamine [Vitamin B-1] 100 mg PO DAILY tab 04/13/21 [Rx] Cholecalciferol [Vitamin D3 (125 Mcg = 5000 Iu)] 125 mcg PO DAILY 07/05/21 [History] Docusate [Colace] 100 mg PO TID 07/05/21 [History] Furosemide [Lasix] 20 - 40 mg PO DAILY PRN 07/05/21 [History] HYDROcodone/APAP 5-325MG [[place] 5-325] 1 tab PO Q6H PRN 07/05/21 [History] traZODone HCL [Desyrel] 75 mg PO HS 07/05/21 [History] Amoxic-Pot Clav 875-125Mg [Augmentin 875-125] 1 tab PO Q12HR 28 Days #2 tab 07/06/21 [Rx] Follow up Appointment(s)/Referral(s): Narciso Molina MD [Primary Care Provider] - 1-2 days Activity/Diet/Wound Care/Special Instructions: repeat INR on at Dr. Pollard office Discharge Disposition: HOME SELF-CARE
[2021-07-08] MEDS ORDERED: WARFARIN 5 MG TAB PO SCH (07:00)
== END 2021-07-06 17:12 | disposition home or self-care (01) | DRG 193 ==
LOC: EC 09:36 → 4SSUR 13:18
PROVIDERS: ADMIT Internal Medicine; ATTEND Internal Medicine
DX: J18.9 Pneumonia, unspecified organism (principal); I33.0 Acute and subacute infective endocarditis; I50.21 Acute systolic (congestive) heart failure; D75.81 Myelofibrosis; I42.9 Cardiomyopathy, unspecified; I48.20 Chronic atrial fibrillation, unspecified; I13.0 Hypertensive heart and chronic kidney disease with heart failure and stage 1 through stage 4 chronic kidney disease, or unspecified chronic kidney disease; D63.8 Anemia in other chronic diseases classified elsewhere; E78.5 Hyperlipidemia, unspecified; N18.30 Chronic kidney disease, stage 3 unspecified; R79.1 Abnormal coagulation profile; Y95 Nosocomial condition; Z20.822 Contact with and (suspected) exposure to COVID-19; Z79.01 Long term (current) use of anticoagulants; Z79.82 Long term (current) use of aspirin; Z79.899 Other long term (current) drug therapy; Z82.49 Family history of ischemic heart disease and other diseases of the circulatory system; Z86.73 Personal history of transient ischemic attack (TIA), and cerebral infarction without residual deficits; Z87.891 Personal history of nicotine dependence; Z95.2 Presence of prosthetic heart valve; I08.1 Rheumatic disorders of both mitral and tricuspid valves
CPT/HCPCS: 36415; 71046; 80053; 81001; 82565; 83605; 83690; 84145; 84484; 85025; 85610; 86850; 86900; 86901; 86920; 87040; 87635; 93005; 96361; 96374; 99285

== ENCOUNTER → 2023-06-22 | Outpatient (CLI) | payer MEDICARE ==
--- NOTE | 2023-06-23 07:49 | US ---
EXAMINATION TYPE: US abdomen limited DATE OF EXAM: 06/22/2023 COMPARISON: CT 04/07/2021 CLINICAL INDICATION: Male, 78 years old with history of D75.81 MYELOFIBROSIS; Elevated liver labs. No pain or other symptoms. TECHNIQUE: Multiple sonographic images of the right upper quadrant are obtained. FINDINGS: EXAM MEASUREMENTS: Liver Length: 20.4 cm Gallbladder Wall: 0.3 cm CBD: 0.4 cm Right Kidney: 10.0 x 4.4 x 4.8 cm Pancreas: Tail obscured by overlying bowel gas. Echogenic in appearance. Liver: Enlarged. Coarse in echotexture. Small amount of free fluid seen adjacent to liver and gallbl adder. Gallbladder: Multiple mobile echogenic foci seen within, largest measuring 2.1cm. Evidence for sonographic Major's sign: No CBD: wnl Right Kidney: No hydronephrosis or masses seen IMPRESSION: 1. Cholelithiasis. No acute cholecystitis evident. 2. Hepatomegaly. 3. Small amount of free fluid within the abdomen
== END | disposition home or self-care (01) ==
LOC: RADUSWWP 10:03
PROVIDERS: ATTEND Internal Medicine Medical Oncology
DX: K80.20 Calculus of gallbladder without cholecystitis without obstruction (principal); D75.81 Myelofibrosis; R16.0 Hepatomegaly, not elsewhere classified; R94.5 Abnormal results of liver function studies; D64.9 Anemia, unspecified; D47.3 Essential (hemorrhagic) thrombocythemia
CPT/HCPCS: 76705

== ENCOUNTER 2023-10-27 17:28 | Emergency (ER) | payer MEDICARE ==
[2023-10-27 17:55] VITALS: RESP 18
--- NOTE | 2023-10-27 18:07 | XR ---
EXAMINATION TYPE: XR chest 2V DATE OF EXAM: 10/27/2023 COMPARISON: 07/05/2021 HISTORY: Weakness TECHNIQUE: Frontal and lateral views of the chest are obtained. FINDINGS: There has been a median sternotomy and prosthetic heart valves. Cardiac silhouette is mildly prominen t. There is a suggestion of mild pulmonary vascular congestion possibly mild interstitial edema. Ther e is no large pleural effusion or pneumothorax. There is no consolidative/airspace opacity. IMPRESSION: 1. Mild cardiomegaly and prosthetic heart valves. 2. Possible mild vascular congestion and minimal interstitial edema.
--- NOTE | 2023-10-27 18:08 | ED ---
Weakness HPI - General Source: patient, family, RN notes reviewed Mode of arrival: wheelchair Limitations: no limitations <Coretta Powers - Last Filed: 11/03/23 10:02> <Zain Lauren - Last Filed: 11/07/23 02:17> - General Chief complaint: Weakness Stated complaint: Dehydration,headache Time Seen by Provider: 10/27/23 17:40 - History of Present Illness Initial comments: Deloris rg is a 78-year-old male with history of myelofibrosis on oral chemo presents emergency department with weakness. He has been experiencing generalized weakness, dark urine, and headaches. Patient was recently hospitalized in [place] for aspiration pneumonia. patient's provided history stating that they are looking to start the patient on palliative care. (Coretta Powers) - Related Data Home Medications Medication Instructions Recorded Confirmed Atorvastatin Calcium [Lipitor] 20 mg PO HS 11/05/16 10/27/23 Cyanocobalamin (Vitamin B-12) 1,000 mcg PO Q48H 04/08/21 10/27/23 [Vitamin B-12] Cholecalciferol [Vitamin D3 (125 125 mcg PO Q48H 07/05/21 10/27/23 Mcg = 5000 Iu)] Furosemide [Lasix] 40 mg PO DAILY PRN 07/05/21 10/28/23 traZODone HCL [Desyrel] 75 mg PO HS 07/05/21 10/27/23 ALPRAZolam [Xanax] 0.25 mg PO Q12H PRN 10/27/23 10/27/23 Acyclovir [Zovirax] 400 mg PO Q12H 10/27/23 10/27/23 Apixaban [Eliquis] 5 mg PO BID 10/27/23 10/27/23 Benzonatate [Tessalon Perle] 200 mg PO TID PRN 10/27/23 10/27/23 Cholestyramine (with Sugar) 1 scoop PO BID PRN 10/27/23 10/27/23 [Cholestyramine Powder] Epoetin Joaquin-Epbx [Retacrit] 60,000 unit SQ DIRECTED 10/27/23 10/27/23 Metoclopramide [Reglan] 10 mg PO QID PRN 10/27/23 10/27/23 Metoprolol Tartrate [Lopressor] 50 mg PO DAILY 10/27/23 10/27/23 Metoprolol Tartrate [Lopressor] 75 mg PO HS 10/27/23 10/27/23 Momelotinib Dihydrochloride 200 mg PO DAILY 10/27/23 10/27/23 [Ojjaara] amLODIPine [Norvasc] 5 mg PO DAILY PRN 10/27/23 10/27/23 danazoL [Danazol] 200 mg PO BID 10/27/23 10/27/23 Darbepoetin Joaquin in Polysorbat 500 mcg SQ DIRECTED 10/28/23 10/28/23 [Aranesp] Previous Rx's Medication Instructions Recorded Thiamine [Vitamin B-1] 100 mg PO DAILY tab 04/13/21 Allergies Allergy/AdvReac Type Severity Reaction Status Date / Time No Known Allergies Allergy Verified 10/27/23 20:28 Review of Systems ROS Other: All systems not noted in ROS Statement are negative. <Coretta Powers - Last Filed: 11/03/23 10:02> ROS Other: All systems not noted in ROS Statement are negative. <Zain Lauren - Last Filed: 11/07/23 02:17> ROS Statement: Those systems with pertinent positive or pertinent negative responses have been documented in the HPI. 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 HEART VALVE REPAIR Past Anesthesia/Blood Transfusion Reactions: No Reported Reaction Past Psychological History: No Psychological Hx Reported Smoking Status: Former smoker Past Alcohol Use History: Daily Past Drug Use History: None Reported - Past Family History Father Sister(s) Family Medical History: Cancer Father Family Medical History: Cancer Additional Family Medical History / Comment(s): PROSTATE Sister(s) Family Medical History: Cancer Brother(s) Family Medical History: Cancer Additional Family Medical History / Comment(s): PROSTATE <Coretta Powers - Last Filed: 11/03/23 10:02> General Exam Limitations: no limitations <Coretta Powers - Last Filed: 11/03/23 10:02> Limitations: no limitations General appearance: alert, in no apparent distress Head exam: Present: atraumatic, normocephalic Eye exam: Present: normal appearance. Absent: scleral icterus, conjunctival injection ENT exam: Present: mucous membranes dry Neck exam: Present: normal inspection. Absent: tenderness, meningismus Respiratory exam: Present: normal lung sounds bilaterally. Absent: respiratory distress, wheezes, rales, rhonchi, stridor, accessory muscle use Cardiovascular Exam: Present: tachycardia, normal heart sounds. Absent: systolic murmur, diastolic murmur, rubs, gallop GI/Abdominal exam: Present: soft. Absent: distended, tenderness, guarding, rebound, rigid, mass Extremities exam: Present: normal inspection, normal capillary refill. Absent: pedal edema, calf tenderness Back exam: Present: normal inspection. Absent: CVA tenderness (R), CVA tenderness (L) Neurological exam: Present: alert Skin exam: Present: warm, dry, intact, normal color. Absent: rash <Zain Lauren - Last Filed: 11/07/23 02:17> - General Exam Comments Initial Comments: Visual Physical Exam Vital signs reviewed General: Well-appearing, nontoxic, no acute distress. Head: Normocephalic, atraumatic Eyes: PERRLA, EOMI ENT: Airway patent Chest: Nonlabored breathing Skin: No visual rash, normal skin tone Neuro: Alert and oriented 3 Musculoskeletal: No gross abnormalities (Stieler,Coretta) Course Vital Signs 10/27/23 10/27/23 10/27/23 17:41 18:48 20:44 Temperature 101.4 F H 101.4 F H 98.9 F Pulse Rate 115 H 98 85 Respiratory 18 18 18 Rate Blood Pressure 154/90 149/87 141/84 O2 Sat by Pulse 95 95 95 Oximetry 10/27/23 22:29 Temperature Pulse Rate 84 Respiratory 18 Rate Blood Pressure 138/84 O2 Sat by Pulse 97 Oximetry EKG Findings - Dysrhythmias: Supraventricular dysrhythmia: atrial fibrillation (Rate 106 bpm) - Blocks, [place], Hypertrophy, ST Abn: Chamber hypertrophy or enlargement: left ventricular hypertrophy or enlargement (LVE) Repolarization changes or abnormalities: ST suggestive of injury <Zain Lauren - Last Filed: 11/07/23 02:17> Medical Decision Making - Lab Data Result diagrams: 10/27/23 18:37 10/27/23 18:37 <Coretta Powers - Last Filed: 11/03/23 10:02> - Lab Data Result diagrams: 10/27/23 18:37 10/27/23 18:37 <LeonidasZain - Last Filed: 11/07/23 02:17> - Medical Decision Making I completed the quick note portion of this chart signed Coretat Powers PA-C (Coretta Powers) The patient had chest x-ray that I interpreted as negative for acute infiltrate, pneumothorax, congestive heart failure Was pt. sent in by a medical professional or institution ([facility], HEMODIALYSIS RN, urgent care, hospital, or prison...) When possible be specific @ -[No] Did you speak to anyone other than the patient for history (EMS, parent, family, police, friend...)? What history was obtained from this source @ -[Patient's does give significant history Did you review nursing and triage notes (agree or disagree)? Why? @ -[I reviewed and agree with nursing and triage notes] Were old charts reviewed (outside hosp., previous admission, EMS record, old EKG, old radiological studies, urgent care reports/EKG's, prison records)? Report findings @ -[No old charts were reviewed] Differential Diagnosis (chest pain, altered mental status, abdominal pain women, abdominal pain men, vaginal bleeding, weakness, fever, dyspnea, syncope, headache, dizziness, GI bleed, back pain, seizure, CVA, palpatations, mental health, musculoskeletal)? @ -[MDM differential generalized weakness EKG interpreted by me (3pts min.). @ -[I interpreted as above] X-rays interpreted by me (1pt min.). @ -[I interpreted as above CT interpreted by me (1pt min.). @ -[None done] U/S interpreted by me (1pt. min.). @ -[None done] What testing was considered but not performed or refused? (CT, X-rays, U/S, labs)? Why? @ -[None] What meds were considered but not given or refused? Why? @ -[None] Did you discuss the management of the patient with other professionals (professionals i.e. , PA, HEMODIALYSIS RN, lab, RT, psych nurse, school social worker, ob/gyn nurse, teacher, sewage reticulation drafting officer, pillowcase turner)? Give summary @ -[No] Was smoking cessation discussed for >3mins.? @ -[No] Was critical care preformed (if so, how long)? @ -[No] Were there social determinants of health that impacted care today? How? (Homelessness, low income, unemployed, alcoholism, drug addiction, transportation, low edu. Level, literacy, decrease access to med. care, residential, rehab)? @ -[No] Was there de-escalation of care discussed even if they declined (Discuss DNR or withdrawal of care, Hospice)? DNR status @ -[No] What co-morbidities impacted this encounter? (DM, HTN, Smoking, COPD, CAD, Cancer, CVA, ARF, Chemo, Hep., AIDS, mental health diagnosis, sleep apnea, morbid obesity)? @ -Myelofibrosis, hypertension, atrial fibrillation Was patient admitted / discharged? Hospital course, mention meds given and route, prescriptions, significant lab abnormalities, going to OR and other pertinent info. @ -[Patient is 78-year-old man with history of who presents for generalized weakness and fatigue. The patient found to have a number of lab abnormalities and I was in the process of arranging admission when I was informed by the patient and his that they did not want to stay. They understand that there is risk but he has terminal condition and would like to go. In light of this will discharge patient advised to have close follow-up Undiagnosed new problem with uncertain prognosis? @ -[No] Drug Therapy requiring intensive monitoring for toxicity (Heparin, Nitro, Insulin, Cardizem)? @ -[No] Were any procedures done? @ -[No] Diagnosis/symptom? @ -[Leukocytosis Anemia Dehydration Generalized weakness Acute, or Chronic, or Acute on Chronic? @ -[Acute Uncomplicated (without systemic symptoms) or Complicated (systemic symptoms)? @ -[Complicated by general weakness and fatigue Side effects of treatment? @ -[No] Exacerbation, Progression, or Severe Exacerbation? @ -[No] Poses a threat to life or bodily function? How? (Chest pain, [place], [place], pneumonia, PE, COPD, DKA, ARF, appy, cholecystitis, CVA, Diverticulitis, Homicidal, S uicidal, threat to staff... and all critical care pts) @ -[Yes (Zain Lauren) - Lab Data Lab Results 10/27/23 10/27/23 10/27/23 Range/Units 18:37 18:37 18:37 WBC 12.0 H (3.8-10.6) k/uL RBC 2.82 L (4.30-5.90) m/uL Hgb 9.4 L (13.0-17.5) gm/dL Hct 29.6 L (39.0-53.0) % MCV 104.8 H (80.0-100.0) fL MCH 33.3 (25.0-35.0) pg MCHC 31.7 (31.0-37.0) g/dL RDW 24.5 H (11.5-15.5) % Plt Count 346 (150-450) k/uL MPV 9.9 Neutrophils % (Manual) 72 % Band Neuts % (Manual) 3 % Lymphocytes % (Manual) 6 % Monocytes % (Manual) 16 % Eosinophils % (Manual) 2 % Metamyelocytes % 2 % Myelocytes % 1 % Neutrophils # (Manual) 9.00 H (1.3-7.7) k/uL Lymphocytes # (Manual) 0.72 L (1.0-4.8) k/uL Monocytes # (Manual) 1.92 H (0-1.0) k/uL Eosinophils # (Manual) 0.24 (0-0.7) k/uL Metamyelocytes # (Man) 0.24 H (0) k/uL Myelocytes # (Manual) 0.12 H (0) k/uL Nucleated RBCs 0 (0-0) /100 WBC Manual Slide Review Performed Large Platelets Present Polychromasia Present Hypochromasia Slight Poikilocytosis Slight Anisocytosis Marked Macrocytosis Marked A Fragmented RBCs Present PT 12.0 (10.0-12.5) sec INR 1.1 (<1.2) APTT 24.0 (22.0-30.0) sec Sodium 134 L (137-145) mmol/L Potassium 4.5 (3.5-5.1) mmol/L Chloride 106 (98-107) mmol/L Carbon Dioxide 12 L (22-30) mmol/L Anion Gap 16 mmol/L BUN 19 (9-20) mg/dL Creatinine 0.96 (0.66-1.25) mg/dL Est GFR (CKD-EPI)AfAm 88 (>60 ml/min/1.73 sqM) Est GFR (CKD-EPI)NonAf 76 (>60 ml/min/1.73 sqM) Glucose 107 H (74-99) mg/dL Plasma Lactic Acid [place] (0.7-2.0) mmol/L Calcium 9.5 (8.4-10.2) mg/dL Total Bilirubin 5.0 H (0.2-1.3) mg/dL AST 98 H (17-59) U/L ALT 57 H (4-49) U/L Alkaline Phosphatase 78 (38-126) U/L Troponin I (0.000-0.034) ng/mL Total Protein 7.4 (6.3-8.2) g/dL Albumin 4.9 (3.5-5.0) g/dL Urine Color Urine Appearance (Clear) Urine pH (5.0-8.0) Ur Specific [place] (1.001-1.035) Urine Protein (Negative) Urine Glucose (UA) (Negative) Urine Ketones (Negative) Urine Blood (Negative) Urine Nitrite (Negative) Urine Bilirubin (Negative) Urine Urobilinogen (<2.0) mg/dL Ur Leukocyte Esterase (Negative) Urine RBC (0-5) /hpf Urine WBC (0-5) /hpf Ur Squamous Epith Cells (0-4) /hpf Amorphous Sediment (None) /hpf RBC Casts (0) /lpf Urine Mucus (None) /hpf Influenza Type A (PCR) (Not Detectd) Influenza Type B (PCR) (Not Detectd) RSV (PCR) (Not Detectd) SARS-CoV-2 (PCR) (Not Detectd) 10/27/23 10/27/23 10/27/23 Range/Units 18:37 18:56 20:12 WBC (3.8-10.6) k/uL RBC (4.30-5.90) m/uL Hgb (13.0-17.5) gm/dL Hct (39.0-53.0) % MCV (80.0-100.0) fL MCH (25.0-35.0) pg MCHC (31.0-37.0) g/dL RDW (11.5-15.5) % Plt Count (150-450) k/uL MPV Neutrophils % (Manual) % Band Neuts % (Manual) % Lymphocytes % (Manual) % Monocytes % (Manual) % Eosinophils % (Manual) % Metamyelocytes % % Myelocytes % % Neutrophils # (Manual) (1.3-7.7) k/uL Lymphocytes # (Manual) (1.0-4.8) k/uL Monocytes # (Manual) (0-1.0) k/uL Eosinophils # (Manual) (0-0.7) k/uL Metamyelocytes # (Man) (0) k/uL Myelocytes # (Manual) (0) k/uL Nucleated RBCs (0-0) /100 WBC Manual Slide Review Large Platelets Polychromasia Hypochromasia Poikilocytosis Anisocytosis Macrocytosis Fragmented RBCs PT (10.0-12.5) sec INR (<1.2) APTT (22.0-30.0) sec Sodium (137-145) mmol/L Potassium (3.5-5.1) mmol/L Chloride (98-107) mmol/L Carbon Dioxide (22-30) mmol/L Anion Gap mmol/L BUN (9-20) mg/dL Creatinine (0.66-1.25) mg/dL Est GFR (CKD-EPI)AfAm (>60 ml/min/1.73 sqM) Est GFR (CKD-EPI)NonAf (>60 ml/min/1.73 sqM) Glucose (74-99) mg/dL Plasma Lactic Acid [place] 0.9 (0.7-2.0) mmol/L Calcium (8.4-10.2) mg/dL Total Bilirubin (0.2-1.3) mg/dL AST (17-59) U/L ALT (4-49) U/L Alkaline Phosphatase (38-126) U/L Troponin I 0.046 H* (0.000-0.034) ng/mL Total Protein (6.3-8.2) g/dL Albumin (3.5-5.0) g/dL Urine Color Urine Appearance (Clear) Urine pH (5.0-8.0) Ur Specific [place] (1.001-1.035) Urine Protein (Negative) Urine Glucose (UA) (Negative) Urine Ketones (Negative) Urine Blood (Negative) Urine Nitrite (Negative) Urine Bilirubin (Negative) Urine Urobilinogen (<2.0) mg/dL Ur Leukocyte Esterase (Negative) Urine RBC (0-5) /hpf Urine WBC (0-5) /hpf Ur Squamous Epith Cells (0-4) /hpf Amorphous Sediment (None) /hpf RBC Casts (0) /lpf Urine Mucus (None) /hpf Influenza Type A (PCR) Not Detected (Not Detectd) Influenza Type B (PCR) Not Detected (Not Detectd) RSV (PCR) Not Detected (Not Detectd) SARS-CoV-2 (PCR) Not Detected (Not Detectd) 10/27/23 Range/Units 20:14 WBC (3.8-10.6) k/uL RBC (4.30-5.90) m/uL Hgb (13.0-17.5) gm/dL Hct (39.0-53.0) % MCV (80.0-100.0) fL MCH (25.0-35.0) pg MCHC (31.0-37.0) g/dL RDW (11.5-15.5) % Plt Count (150-450) k/uL MPV Neutrophils % (Manual) % Band Neuts % (Manual) % Lymphocytes % (Manual) % Monocytes % (Manual) % Eosinophils % (Manual) % Metamyelocytes % % Myelocytes % % Neutrophils # (Manual) (1.3-7.7) k/uL Lymphocytes # (Manual) (1.0-4.8) k/uL Monocytes # (Manual) (0-1.0) k/uL Eosinophils # (Manual) (0-0.7) k/uL Metamyelocytes # (Man) (0) k/uL Myelocytes # (Manual) (0) k/uL Nucleated RBCs (0-0) /100 WBC Manual Slide Review Large Platelets Polychromasia Hypochromasia Poikilocytosis Anisocytosis Macrocytosis Fragmented RBCs PT (10.0-12.5) sec INR (<1.2) APTT (22.0-30.0) sec Sodium (137-145) mmol/L Potassium (3.5-5.1) mmol/L Chloride (98-107) mmol/L Carbon Dioxide (22-30) mmol/L Anion Gap mmol/L BUN (9-20) mg/dL Creatinine (0.66-1.25) mg/dL Est GFR (CKD-EPI)AfAm (>60 ml/min/1.73 sqM) Est GFR (CKD-EPI)NonAf (>60 ml/min/1.73 sqM) Glucose (74-99) mg/dL Plasma Lactic Acid [place] (0.7-2.0) mmol/L Calcium (8.4-10.2) mg/dL Total Bilirubin (0.2-1.3) mg/dL AST (17-59) U/L ALT (4-49) U/L Alkaline Phosphatase (38-126) U/L Troponin I (0.000-0.034) ng/mL Total Protein (6.3-8.2) g/dL Albumin (3.5-5.0) g/dL Urine Color Yellow Urine Appearance Cloudy (Clear) Urine pH 6.0 (5.0-8.0) Ur Specific [place] 1.016 (1.001-1.035) Urine Protein 2+ H (Negative) Urine Glucose (UA) Negative (Negative) Urine Ketones Negative (Negative) Urine Blood Moderate H (Negative) Urine Nitrite Negative (Negative) Urine Bilirubin 1+ H (Negative) Urine Urobilinogen 2.0 (<2.0) mg/dL Ur Leukocyte Esterase Negative (Negative) Urine RBC 1 (0-5) /hpf Urine WBC 3 (0-5) /hpf Ur Squamous Epith Cells <1 (0-4) /hpf Amorphous Sediment Rare H (None) /hpf RBC Casts 6 (0) /lpf Urine Mucus Rare H (None) /hpf Influenza Type A (PCR) (Not Detectd) Influenza Type B (PCR) (Not Detectd) RSV (PCR) (Not Detectd) SARS-CoV-2 (PCR) (Not Detectd) Disposition Is patient prescribed a controlled substance at d/c from ED?: No <Coretta Powers - Last Filed: 11/03/23 10:02> Is patient prescribed a controlled substance at d/c from ED?: No <Zain Lauren - Last Filed: 11/07/23 02:17> Clinical Impression: Left against medical advice Disposition: LEFT AGAINST MEDICAL ADVICE Condition: Undetermined Instructions (If sedation given, give patient instructions): Fever in Adults (ED) Referrals: Narciso Molina MD [Primary Care Provider] - 1-2 days
[2023-10-27 18:59] LABS: ALT 57 U/L (4-49); African American GFR (CKD) 88 (>60 ml/min/1.73 sqM); Albumin 4.9 g/dL (3.5-5.0); Anion Gap 16 mmol/L; Blood Urea Nitrogen 19 mg/dL (9-20); Calcium 9.5 mg/dL (8.4-10.2); Carbon Dioxide 12 mmol/L (22-30); Chloride 106 mmol/L (98-107); Glucose 107 mg/dL (74-99); Non-African American GFR(CKD) 76 (>60 ml/min/1.73 sqM); Sodium 134 mmol/L (137-145)
[2023-10-27 19:05] LABS: AST 98 U/L (17-59); Potassium 4.5 mmol/L (3.5-5.1)
[2023-10-27 19:06] LABS: Alkaline Phosphatase 78 U/L (38-126); Anisocytosis Marked; HCT 29.6 % (39.0-53.0); HGB 9.4 gm/dL (13.0-17.5); Hypochromasia Slight; MCH 33.3 pg (25.0-35.0); MCHC 31.7 g/dL (31.0-37.0); MCV 104.8 fL (80.0-100.0); Macrocytosis Marked; Mean Platelet Volume 9.9; Platelet Count 346 k/uL (150-450); Poikilocytosis Slight; RBC 2.82 m/uL (4.30-5.90); RDW 24.5 % (11.5-15.5); Total Protein 7.4 g/dL (6.3-8.2)
[2023-10-27 19:27] LABS: INR 1.1 (<1.2)
[2023-10-27 19:46] LABS: Band Neutrophils % 3 %; Eosinophils # (M) 0.24 k/uL (0-0.7); Lymphocytes # (M) 0.72 k/uL (1.0-4.8); Metamyelocytes # (M) 0.24 k/uL (0); Metamyelocytes % 2 %; Monocytes # (M) 1.92 k/uL (0-1.0); Myelocytes # (M) 0.12 k/uL (0); Myelocytes % 1 %; Neutrophils % (M) 72 %; Nucleated Red Blood Cells 0 /100 WBC (0-0); Total Cells Counted 200
[2023-10-27 19:47] LABS: Polychromasia Present
[2023-10-27 19:52] LABS: RBC Fragments Present
[2023-10-27 19:54] LABS: Large Platelets Present
[2023-10-27] MEDS: ACETAMINOPHEN TAB 325 MG TAB PO STA (20:06)
[2023-10-27] MEDS: SODIUM CHLORIDE 0.9% 1,400 ML IV ONE (20:08)
[2023-10-27] MEDS: SODIUM CHLORIDE 0.9% 1,000 ML IV STA (20:08)
[2023-10-27 20:33] LABS: Amorphous Sediment,Urine Rare /hpf; Appearance,Urine Cloudy (Clear); Bilirubin,Urine 1+ (Negative); Blood,Urine Moderate (Negative); Color,Urine Yellow; Glucose,Urine (UA) Negative (Negative); Ketones,Urine Negative (Negative); Leukocyte Esterase,Urine Negative (Negative); Mucus,Urine Rare /hpf; Nitrite,Urine Negative (Negative); Protein,Urine 2+ (Negative); RBC,Urine 1 /hpf (0-5); Red Blood Cell Casts,Urine 6 /lpf (0); Specific Gravity,Urine 1.016 (1.001-1.035); Squamous Epithelial Cell,Urine <1 /hpf (0-4); WBC,Urine 3 /hpf (0-5)
[2023-10-27 21:13] VITALS: TEMP 98.9
[2023-10-27 23:13] VITALS: BP 138/84; PULSE 84
== END 2023-10-27 22:50 | disposition left against medical advice (07) ==
LOC: EC 17:28
DX: E86.0 Dehydration (principal); R53.1 Weakness; I10 Essential (primary) hypertension; I48.91 Unspecified atrial fibrillation; D75.81 Myelofibrosis; Z87.891 Personal history of nicotine dependence; Z86.73 Personal history of transient ischemic attack (TIA), and cerebral infarction without residual deficits; Z95.2 Presence of prosthetic heart valve; Z79.01 Long term (current) use of anticoagulants; Z79.899 Other long term (current) drug therapy; Z11.52 Encounter for screening for COVID-19; Z53.29 Procedure and treatment not carried out because of patient's decision for other reasons
CPT/HCPCS: 99285; 96365; 96361 ×3; 36415; 93005; 80053; 83605; 84484; 85025; 85610; 85730; 81001; 87040; 87077; 87186; 87636; 71046; J0696

== ENCOUNTER → 2023-12-15 | Outpatient (CLI) | payer MEDICARE ==
--- NOTE | 2023-12-15 16:37 | XR ---
EXAMINATION TYPE: XR chest 2V DATE OF EXAM: 12/15/2023 COMPARISON: 10/27/2023 HISTORY: 78-year-old male with cough, R94.5, D78.81,D64.9,D47.3 TECHNIQUE: Frontal and lateral views FINDINGS: Median sternotomy wires are present. Annuloplasty rings and the heart. Heart mildly enlarged. Interst itial density. Hyperinflation. No consolidation or pleural effusion. IMPRESSION: Mild cardiomegaly and COPD. Correlate to exclude mild pulmonary vascular congestion or underlying bro nchitis/asthma.
== END | disposition home or self-care (01) ==
LOC: RADXRMAIN 15:36
PROVIDERS: ATTEND Internal Medicine Medical Oncology
DX: J44.9 Chronic obstructive pulmonary disease, unspecified (principal); R94.5 Abnormal results of liver function studies; D75.81 Myelofibrosis; D64.9 Anemia, unspecified; D47.3 Essential (hemorrhagic) thrombocythemia; I51.7 Cardiomegaly
CPT/HCPCS: 71046

== ENCOUNTER 2024-03-29 09:47 | Emergency (ER) | payer MEDICARE ==
[2024-03-29] MEDS: MORPHINE SULFATE 4 MG/ML SYRINGE IV STA (10:51)
[2024-03-29] MEDS: SODIUM CHLORIDE 0.9% 1,000 ML IV STA (10:52)
[2024-03-29] MEDS: ONDANSETRON 4 MG/2 ML VIAL IVP STA (10:52)
[2024-03-29] MEDS: diphenhydrAMINE 50 MG/ML 1 ML VIAL IVP STA (10:52)
[2024-03-29 10:53] LABS: Anisocytosis Marked; HCT 25.5 % (39.0-53.0); HGB 7.6 gm/dL (13.0-17.5); Hypochromasia Marked; MCH 32.3 pg (25.0-35.0); MCHC 29.8 g/dL (31.0-37.0); MCV 108.4 fL (80.0-100.0); Macrocytosis Marked; Mean Platelet Volume 9.9; Microcytosis Slight; Poikilocytosis Slight; RBC 2.35 m/uL (4.30-5.90)
[2024-03-29 11:02] LABS: Appearance,Urine Cloudy (Clear); Bacteria,Urine Rare /hpf; Bilirubin,Urine 1+ (Negative); Blood,Urine Large (Negative); Color,Urine Red; Glucose,Urine (UA) 3+ (Negative); Ketones,Urine Negative (Negative); Leukocyte Esterase,Urine Negative (Negative); Mucus,Urine Rare /hpf; Nitrite,Urine Negative (Negative); PH, Urine 6.5 (5.0-8.0); Protein,Urine 2+ (Negative); RBC,Urine <1 /hpf (0-5); Specific Gravity,Urine 1.017 (1.001-1.035); Squamous Epithelial Cell,Urine <1 /hpf (0-4); WBC,Urine 3 /hpf (0-5)
--- NOTE | 2024-03-29 11:13 | CT ---
EXAMINATION TYPE: CT brain wo con DATE OF EXAM: 03/29/2024 COMPARISON: 04/09/2021 HISTORY: generalized weakness CT DLP: 1099.4 mGycm Automated exposure control for dose reduction was used. Findings: The ventricles, basal cisterns and sulci are thickened processes are markedly enlarged consistent wit h moderate generalized atrophy. There is moderate decreased density in the periventricular white matter consistent with chronic ische delgado white matter demyelination.. There is no mass effect or shift in midline structures. There are remote small bilateral occipital infarcts. There is no acute intra or extra-axial hemorrhage. The posterior fossa including the brainstem, fourth ventricle and cerebellar pontine angles appear no rmal. Intraorbital contents appear normal and symmetric. Visualized paranasal sinuses and mastoid air cells are well aerated. The calvarium is intact. IMPRESSION: 1. No acute bleed or mass effect. 2. Marked chronic senescent changes as described above. 3. Small remote bilateral occipital infarcts [facility], Workstation: CARTER 03/29/2024 11:10 AM
[2024-03-29 11:14] LABS: ALT 60 U/L (4-49); AST 150 U/L (17-59); African American GFR (CKD) 61 (>60 ml/min/1.73 sqM); Alkaline Phosphatase 46 U/L (38-126); Anion Gap 12 mmol/L; Blood Urea Nitrogen 23 mg/dL (9-20); Calcium 10.3 mg/dL (8.4-10.2); Carbon Dioxide 22 mmol/L (22-30); Chloride 105 mmol/L (98-107); Glucose 158 mg/dL (74-99); Magnesium 2.3 mg/dL (1.6-2.3); Non-African American GFR(CKD) 53 (>60 ml/min/1.73 sqM); Potassium 4.6 mmol/L (3.5-5.1); RDW 25.7 % (11.5-15.5); Sodium 139 mmol/L (137-145); Total Bilirubin 5.8 mg/dL (0.2-1.3); Total Protein 7.7 g/dL (6.3-8.2)
[2024-03-29 11:37] LABS: INR 1.1 (<1.2); Partial Thromboplastin Time 25.1 sec (22.0-30.0); Prothrombin Time 12.3 sec (10.0-12.5)
--- NOTE | 2024-03-29 11:57 | XR ---
EXAMINATION TYPE: XR chest 2V DATE OF EXAM: 03/29/2024 11:22 AM CLINICAL INDICATION: Male, 78 years old with history of Weakness; [facility] COMPARISON: Chest radiographs from 12/15/2023 TECHNIQUE: XR chest 2V Frontal view of the chest. FINDINGS: Lungs/Pleura: There is flattening of the diaphragm with increased lucency of the lungs. No evidence o f pneumothorax, pleural effusion or focal consolidation. Pulmonary vascularity: Pulmonary vascular congestion. Heart/mediastinum: Cardiomediastinal silhouette is enlarged. Post valve repair changes. Musculoskeletal: No acute osseous pathology. Midline sternotomy wires are noted. Other findings: None IMPRESSION: 1. Cardiomegaly with suggestion of mild pulmonary vascular congestion. Correlate with BNP for conges tive heart failure. 2. COPD. [facility], , 03/29/2024 11:54 AM
[2024-03-29 12:32] VITALS: PULSE 80; RESP 18; TEMP 98.3
--- NOTE | 2024-03-29 12:51 | ED ---
General Adult HPI - General Chief complaint: Weakness Stated complaint: headache Time Seen by Provider: 03/29/24 10:23 Source: patient, RN notes reviewed, old records reviewed Mode of arrival: wheelchair Limitations: no limitations - History of Present Illness Initial comments: Patient is a 78-year-old male who presents emergency department complaint of weakness. Zentz with his . Is complaining of a headache, weakness. Has been ongoing for few days. Did cause a nontraumatic fall yesterday. This has happened previously and patient was dehydrated and discharged home. Has a history of UTIs, chronic liver issues with chronically elevated bilirubin's and chronic anemia. No obvious acute complaints at this time. Presents for further evaluation. Is only complaining of a headache. No fevers or chills. No abdominal pain, nausea, vomiting. No diarrhea. No chest pain. No shortness of breath. - Related Data Home Medications Medication Instructions Recorded Confirmed Atorvastatin Calcium [Lipitor] 20 mg PO HS 11/05/16 03/29/24 Cyanocobalamin (Vitamin B-12) 1,000 mcg PO DAILY 04/08/21 03/29/24 [Vitamin B-12] Cholecalciferol [Vitamin D3 (125 125 mcg PO DAILY 07/05/21 03/29/24 Mcg = 5000 Iu)] Furosemide [Lasix] 40 mg PO DAILY PRN 07/05/21 03/29/24 traZODone HCL [Desyrel] 75 mg PO HS 07/05/21 03/29/24 ALPRAZolam [Xanax] 0.25 mg PO BID PRN 10/27/23 03/29/24 Acyclovir [Zovirax] 400 mg PO BID 10/27/23 03/29/24 Apixaban [Eliquis] 5 mg PO BID 10/27/23 03/29/24 Metoprolol Tartrate [Lopressor] 50 mg PO DAILY 10/27/23 03/29/24 Momelotinib Dihydrochloride 200 mg PO HS 10/27/23 03/29/24 [Ojjaara] amLODIPine [Norvasc] 5 mg PO DAILY 10/27/23 03/29/24 danazoL [Danazol] 200 mg PO BID 10/27/23 03/29/24 Diphenox-Atrop 2.5-0.025 mg 1 tab PO TID PRN 03/29/24 03/29/24 [Lomotil] Melatonin 5 mg PO HS 03/29/24 03/29/24 Thiamine [Vitamin B-1] 100 mg PO HS 03/29/24 03/29/24 Previous Rx's Medication Instructions Recorded Cephalexin [Keflex] 500 mg PO Q12HR 5 Days #10 cap 03/29/24 Allergies Allergy/AdvReac Type Severity Reaction Status Date / Time No Known Allergies Allergy Verified 03/29/24 11:36 Review of Systems ROS Statement: Those systems with pertinent positive or pertinent negative responses have been documented in the HPI. Review of Systems: CONST: Denies fever EYES: Denies blurry vision ENT: Denies nasal congestion C/V: Denies Chest pain RESP: Denies shortness of breath GI: Denies abdominal pain : Denies dysuria SKIN: Denies rash. MSK: Denies joint pain. NEURO: Endorses headache ROS Other: All systems not noted in ROS Statement are negative. 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 HEART VALVE REPAIR Past Anesthesia/Blood Transfusion Reactions: No Reported Reaction Past Psychological History: No Psychological Hx Reported Smoking Status: Former smoker Past Alcohol Use History: Daily Past Drug Use History: None Reported - Past Family History Father Sister(s) Family Medical History: Cancer Father Family Medical History: Cancer Additional Family Medical History / Comment(s): PROSTATE Sister(s) Family Medical History: Cancer Brother(s) Family Medical History: Cancer Additional Family Medical History / Comment(s): PROSTATE General Exam - General Exam Comments Initial Comments: General: Appears in no acute distress. HEAD: Normal with no signs of head trauma. EYES: PERRLA, EOMI, conjunctiva normal, no discharge. ENT: Hearing grossly intact, normal oropharynx. Dry mucous membranes. RESPIRATORY: Clear breath sounds bilaterally. No wheezes, rales, or rhonchi. C/V: Regular rate and rhythm. S1 and S2 auscultated, no edema, peripheral pulses 2+ and intact throughout ABD: Abd is soft, nontender, nondistended EXT: Normal range of motion, no obvious deformity SKIN: Chronic jaundice NEURO: Alert and oriented x 4. Cranial nerves II-XII intact. No focal sensory or strength deficits. Limitations: no limitations Course Vital Signs 03/29/24 03/29/24 03/29/24 09:57 10:17 12:30 Temperature 99.3 F 98.3 F Pulse Rate 68 80 Pulse Rate [ 69 Power Switchboard Operator ] Respiratory 20 18 Rate Blood Pressure 172/88 172/104 O2 Sat by Pulse 98 92 L Oximetry 03/29/24 13:29 Temperature Pulse Rate 80 Pulse Rate [ Power Switchboard Operator ] Respiratory 18 Rate Blood Pressure 175/104 O2 Sat by Pulse 98 Oximetry Medical Decision Making - Medical Decision Making Was pt. sent in by a medical professional or institution (, PA, ELECTRICAL SYSTEM SPECIALIST, urgent care, hospital, or detention...) When possible be specific @ -No Did you speak to anyone other than the patient for history (EMS, parent, family, police, friend...)? What history was obtained from this source @ -Patient's is the primary historian for the patient. Did you review nursing and triage notes (agree or disagree)? Why? @ -I reviewed and agree with nursing and triage notes Were old charts reviewed (outside hosp., previous admission, EMS record, old EKG, old radiological studies, urgent care reports/EKG's, detention records)? Report findings @ -Old EKGs reviewed and compared with today's from October 2023 with no significant changes today. Differential Diagnosis (chest pain, altered mental status, abdominal pain women, abdominal pain men, vaginal bleeding, weakness, fever, dyspnea, syncope, headache, dizziness, GI bleed, back pain, seizure, CVA, palpatations, mental health, musculoskeletal)? @ -Dehydration, viral syndrome, anemia, infection. This list is not all inclusive. EKG interpreted by me (3pts min.). @ -As above X-rays interpreted by me (1pt min.). @ -Chest x-ray reveals no obvious acute cardiopulmonary process. CT interpreted by me (1pt min.). @ -CT brain reveals no obvious acute intracranial process or injury. U/S interpreted by me (1pt. min.). @ -None done What testing was considered but not performed or refused? (CT, X-rays, U/S, labs)? Why? @ -None What meds were considered but not given or refused? Why? @ -None Did you discuss the management of the patient with other professionals (professionals i.e. , PA, ELECTRICAL SYSTEM SPECIALIST, lab, RT, psych nurse, social worker masters, propellant charge zone assembler, teacher, cra officer, comp field case manager)? Give summary @ -No Was smoking cessation discussed for >3mins.? @ -No Was critical care preformed (if so, how long)? @ -No Were there social determinants of health that impacted care today? How? (Homelessness, low income, unemployed, alcoholism, drug addiction, transportation, low edu. Level, literacy, decrease access to med. care, detention, rehab)? @ -No Was there de-escalation of care discussed even if they declined (Discuss DNR or withdrawal of care, Hospice)? DNR status @ -No What co-morbidities impacted this encounter? (DM, HTN, Smoking, COPD, CAD, Cancer, CVA, ARF, Chemo, Hep., AIDS, mental health diagnosis, sleep apnea, morbid obesity)? @ -Chronic liver disease with chronic elevated bilirubin and anemia Was patient admitted / discharged? Hospital course, mention meds given and route, prescriptions, significant lab abnormalities, going to OR and other pertinent info. @ -Based on patient's presentation and physical exam, concern for dehydration. Cannot rule out infection or other cause for weakness and headache. Patient symptomatically treated for headache and given IV fluids. Vitals are within acceptable limits. Patient was in agreement this plan. EKG showed no signs of acute ischemia. Imaging unremarkable. Labs remarkable for chronic anemia with a hemoglobin of 7.6 which is within baseline. Patient has mild leukocytosis of 12.6. Patient has CKD which is unchanged from baseline. Chronically elevated bilirubins and LFTs as well. Labs otherwise unremarkable. On reevaluation I did offer observation admission for weakness however patient and would like to go home. Due to his recurrent UTIs and seeing blood on his urine we will empirically place the patient on antibiotics for UTI. They were in agreement this plan. They will follow-up with PCP. Strict return precautions discussed. I will provide the patient with a prescription for Keflex. I instructed the patient to follow up with their PCP in the next 1-3 days. I explained that the patient should return to the emergency department if they experience any worsening symptoms. Strict return precautions were discussed with the patient. T he patient expressed understanding of these instructions. I answered all questions that the patient had. The patient was discharged home in good condition with their prescriptions and follow up information. Undiagnosed new problem with uncertain prognosis? @ -No Drug Therapy requiring intensive monitoring for toxicity (Heparin, Nitro, Insulin, Cardizem)? @ -No Were any procedures done? @ -No Diagnosis/symptom? @ -Weakness, headache, dehydration Acute, or Chronic, or Acute on Chronic? @ -Acute Uncomplicated (without systemic symptoms) or Complicated (systemic symptoms)? @ -complicated Side effects of treatment? @ -No Exacerbation, Progression, or Severe Exacerbation? @ -No Poses a threat to life or bodily function? How? (Chest pain, [place], [place], pneumonia, PE, COPD, DKA, ARF, appy, cholecystitis, CVA, Diverticulitis, Homicidal, Suicidal, threat to staff... and all critical care pts) @ -Potentially, yes - Lab Data Result diagrams: 03/29/24 10:44 03/29/24 10:44 Lab Results 03/29/24 03/29/24 03/29/24 Range/Units 10:44 10:44 10:44 WBC 12.6 H (3.8-10.6) k/uL RBC 2.35 L (4.30-5.90) m/uL Hgb 7.6 L (13.0-17.5) gm/dL Hct 25.5 L (39.0-53.0) % MCV 108.4 H (80.0-100.0) fL MCH 32.3 (25.0-35.0) pg MCHC 29.8 L (31.0-37.0) g/dL RDW 25.7 H (11.5-15.5) % MPV 9.9 Hypochromasia Marked Poikilocytosis Slight Anisocytosis Marked Microcytosis Slight Macrocytosis Marked A PT 12.3 (10.0-12.5) sec INR 1.1 (<1.2) APTT 25.1 (22.0-30.0) sec Sodium (137-145) mmol/L Potassium (3.5-5.1) mmol/L Chloride (98-107) mmol/L Carbon Dioxide (22-30) mmol/L Anion Gap mmol/L BUN (9-20) mg/dL Creatinine (0.66-1.25) mg/dL Est GFR (CKD-EPI)AfAm (>60 ml/min/1.73 sqM) Est GFR (CKD-EPI)NonAf (>60 ml/min/1.73 sqM) Glucose (74-99) mg/dL Plasma Lactic Acid [place] (0.7-2.0) mmol/L Calcium (8.4-10.2) mg/dL Magnesium (1.6-2.3) mg/dL Total Bilirubin (0.2-1.3) mg/dL AST (17-59) U/L ALT (4-49) U/L Alkaline Phosphatase (38-126) U/L Total Protein (6.3-8.2) g/dL Albumin (3.5-5.0) g/dL Urine Color Red Urine Appearance Cloudy (Clear) Urine pH 6.5 (5.0-8.0) Ur Specific [place] 1.017 (1.001-1.035) Urine Protein 2+ H (Negative) Urine Glucose (UA) 3+ H (Negative) Urine Ketones Negative (Negative) Urine Blood Large H (Negative) Urine Nitrite Negative (Negative) Urine Bilirubin 1+ H (Negative) Urine Urobilinogen 4.0 (<2.0) mg/dL Ur Leukocyte Esterase Negative (Negative) Urine RBC <1 (0-5) /hpf Urine WBC 3 (0-5) /hpf Ur Squamous Epith Cells <1 (0-4) /hpf Urine Bacteria Rare H (None) /hpf Urine Mucus Rare H (None) /hpf Influenza Type A (PCR) (Not Detectd) Influenza Type B (PCR) (Not Detectd) RSV (PCR) (Not Detectd) SARS-CoV-2 (PCR) (Not Detectd) 03/29/24 03/29/24 03/29/24 Range/Units 10:44 10:44 10:44 WBC (3.8-10.6) k/uL RBC (4.30-5.90) m/uL Hgb (13.0-17.5) gm/dL Hct (39.0-53.0) % MCV (80.0-100.0) fL MCH (25.0-35.0) pg MCHC (31.0-37.0) g/dL RDW (11.5-15.5) % MPV Hypochromasia Poikilocytosis Anisocytosis Microcytosis Macrocytosis PT (10.0-12.5) sec INR (<1.2) APTT (22.0-30.0) sec Sodium 139 (137-145) mmol/L Potassium 4.6 (3.5-5.1) mmol/L Chloride 105 (98-107) mmol/L Carbon Dioxide 22 (22-30) mmol/L Anion Gap 12 mmol/L BUN 23 H (9-20) mg/dL Creatinine 1.29 H (0.66-1.25) mg/dL Est GFR (CKD-EPI)AfAm 61 (>60 ml/min/1.73 sqM) Est GFR (CKD-EPI)NonAf 53 (>60 ml/min/1.73 sqM) Glucose 158 H (74-99) mg/dL Plasma Lactic Acid [place] 1.7 (0.7-2.0) mmol/L Calcium 10.3 H (8.4-10.2) mg/dL Magnesium 2.3 (1.6-2.3) mg/dL Total Bilirubin 5.8 H (0.2-1.3) mg/dL AST 150 H (17-59) U/L ALT 60 H (4-49) U/L Alkaline Phosphatase 46 (38-126) U/L Total Protein 7.7 (6.3-8.2) g/dL Albumin 5.0 (3.5-5.0) g/dL Urine Color Urine Appearance (Clear) Urine pH (5.0-8.0) Ur Specific [place] (1.001-1.035) Urine Protein (Negative) Urine Glucose (UA) (Negative) Urine Ketones (Negative) Urine Blood (Negative) Urine Nitrite (Negative) Urine Bilirubin (Negative) Urine Urobilinogen (<2.0) mg/dL Ur Leukocyte Esterase (Negative) Urine RBC (0-5) /hpf Urine WBC (0-5) /hpf Ur Squamous Epith Cells (0-4) /hpf Urine Bacteria (None) /hpf Urine Mucus (None) /hpf Influenza Type A (PCR) Not Detected (Not Detectd) Influenza Type B (PCR) Not Detected (Not Detectd) RSV (PCR) Not Detected (Not Detectd) SARS-CoV-2 (PCR) Not Detected (Not Detectd) - EKG Data -: EKG Interpreted by Me EKG Comments: 12-lead Electrocardiogram Interpretation Note EKG was reviewed and interpreted by myself. 12-lead ECG performed at 1018 is interpreted by me as revealing atrial fibrillation at a rate of 63 beats per minute. [place] is normal. QRS durations 104 ms, QTc is [address] segment depressions. This is chronic seen on prior EKGs.. There were no ST or T wave abnormalities to suggest myocardial ischemia or injury. R wave progression across the precordium was satisfactory. By my interpretation this EKG is non-diagnostic for acute ischemia. Disposition Clinical Impression: Headache, Dehydration, Weakness Disposition: HOME SELF-CARE Condition: Fair Instructions (If sedation given, give patient instructions): Dehydration (ED) Additional Instructions: Empirically take antibiotics. Return to the ER if any worsening symptoms. Follow-up with PCP. Prescriptions: Cephalexin [Keflex] 500 mg PO Q12HR 5 Days #10 cap Is patient prescribed a controlled substance at d/c from ED?: No Referrals: Narciso Molina MD [Primary Care Provider] - 1-2 days Time of Disposition: 12:49
[2024-03-29] MEDS: SODIUM CHLORIDE 0.9% 500 ML 500 ML IV STA (12:59)
[2024-03-29] MEDS: cefTRIAXone IN SWFI 1,000 MG/10 ML SYRINGE IVP STA (12:59)
[2024-03-29 13:30] VITALS: BP 175/104
[2024-03-29 15:34] LABS: Platelet Count 505 k/uL (150-450)
[2024-03-29 16:50] LABS: Band Neutrophils % 3 %; Eosinophils # (M) 0.47 k/uL (0-0.7); Lymphocytes # (M) 1.76 k/uL (1.0-4.8); Metamyelocytes # (M) 0.23 k/uL (0); Metamyelocytes % 2 %; Monocytes # (M) 0.59 k/uL (0-1.0); Myelocytes # (M) 0.59 k/uL (0); Myelocytes % 5 %; Neutrophils % (M) 66 %; Nucleated Red Blood Cells 8 /100 WBC (0-0); Total Cells Counted 200; WBC 11.7 k/uL (3.8-10.6)
[2024-03-29 16:51] LABS: Polychromasia Present
== END 2024-03-29 13:31 | disposition home or self-care (01) ==
LOC: EC 09:47
CPT/HCPCS: 36415; 70450; 71046; 80053; 81001; 83605; 83735; 85025; 85610; 85730; 87636; 93005; 96361; 96374; 96375; 99285

== ENCOUNTER 2024-04-26 08:05 | Inpatient (IN) | payer MEDICARE ==
--- NOTE | 2024-04-26 08:26 | ED ---
Headache HPI - General Chief Complaint: Headache Stated Complaint: vomitting Time Seen by Provider: 04/26/24 08:07 Source: patient, RN notes reviewed Mode of arrival: wheelchair Limitations: no limitations - History of Present Illness Initial Comments: This is a 78-year-old male who presents to the emergency department for headaches, nausea, and vomiting. States that he had a headache for the last couple of days as well as blood in his urine. He has a history of UTIs and states that whenever he gets infections, he typically develops a headache, which is what this feels like. Most recently had a UTI last month. He was in the emergency department at that time and presented with a headache as well, and states that symptoms feel similar. However, this morning he started to vomit. States that it feels like he is vomiting mucus. Denies any abdominal pain. He also has some chest congestion and reports a history of CHF. Denies any chest pain or shortness of breath. While in the waiting room he started to feel dizzy as well. He takes metoprolol 50 mg twice daily for his blood pressure, but has not yet taken it today. MD Complaint: headache - Related Data Home Medications Medication Instructions Recorded Confirmed Atorvastatin Calcium [Lipitor] 20 mg PO HS 11/05/16 04/26/24 Cyanocobalamin (Vitamin B-12) 1,000 mcg PO DAILY 04/08/21 04/26/24 [Vitamin B-12] Cholecalciferol [Vitamin D3 (125 125 mcg PO DAILY 07/05/21 04/26/24 Mcg = 5000 Iu)] traZODone HCL [Desyrel] 75 mg PO HS 07/05/21 04/26/24 ALPRAZolam [Xanax] 0.25 mg PO BID PRN 10/27/23 04/26/24 Acyclovir [Zovirax] 400 mg PO BID 10/27/23 04/26/24 Apixaban [Eliquis] 5 mg PO BID 10/27/23 04/26/24 Metoprolol Tartrate [Lopressor] 50 mg PO BID 10/27/23 04/26/24 Momelotinib Dihydrochloride 200 mg PO HS 10/27/23 04/26/24 [[place]] amLODIPine [Norvasc] 5 mg PO DAILY 10/27/23 04/26/24 danazoL [Danazol] 200 mg PO BID 10/27/23 04/26/24 Thiamine [Vitamin B-1] 100 mg PO HS 03/29/24 04/26/24 HYDROcodone/APAP 5-325MG [[place] 1 tab PO Q6HR PRN 04/26/24 04/26/24 5-325] Allergies Allergy/AdvReac Type Severity Reaction Status Date / Time No Known Allergies Allergy Verified 04/26/24 10:44 Review of Systems ROS Statement: Those systems with pertinent positive or pertinent negative responses have been documented in the HPI. ROS Other: All systems not noted in ROS Statement are negative. 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 HEART VALVE REPAIR Past Anesthesia/Blood Transfusion Reactions: No Reported Reaction Past Psychological History: No Psychological Hx Reported Smoking Status: Former smoker Past Alcohol Use History: Daily Past Drug Use History: None Reported - Past Family History Father Sister(s) Family Medical History: Cancer Father Family Medical History: Cancer Additional Family Medical History / Comment(s): PROSTATE Sister(s) Family Medical History: Cancer Brother(s) Family Medical History: Cancer Additional Family Medical History / Comment(s): PROSTATE General Exam Limitations: no limitations General appearance: alert, in no apparent distress Head exam: Present: atraumatic, normocephalic, normal inspection Eye exam: Present: normal appearance, PERRL, EOMI. Absent: scleral icterus, conjunctival injection, periorbital swelling Respiratory exam: Present: normal lung sounds bilaterally. Absent: respiratory distress, wheezes, rales, rhonchi, stridor Cardiovascular Exam: Present: regular rate, normal rhythm, normal heart sounds. Absent: systolic murmur, diastolic murmur, rubs, gallop, clicks Neurological exam: Present: alert, oriented X3, CN II-XII intact Psychiatric exam: Present: normal affect, normal mood Skin exam: Present: warm, dry, intact, normal color. Absent: rash Course Vital Signs 04/26/24 04/26/24 04/26/24 08:07 08:17 09:02 Temperature 97.5 F L 97.5 F L Pulse Rate 100 91 81 Respiratory 20 18 Rate Blood Pressure 202/106 175/110 O2 Sat by Pulse 97 96 Oximetry 04/26/24 04/26/24 04/26/24 09:10 10:15 11:31 Temperature Pulse Rate 92 89 85 Respiratory 18 17 Rate Blood Pressure 176/100 173/110 168/99 O2 Sat by Pulse 95 94 L Oximetry 04/26/24 04/26/24 12:40 13:47 Temperature 98.8 F Pulse Rate 93 93 Respiratory 19 18 Rate Blood Pressure 156/93 161/95 O2 Sat by Pulse 93 L 95 Oximetry Medical Decision Making - Medical Decision Making This is a 78 year old male who presents to the emergency department for headaches, hematuria, and vomiting. Was pt. sent in by a medical professional or institution? @ -No Did you speak to anyone other than the patient for history? @ -No Did you review nursing and triage notes? @ -Yes, and I agree, it is accurate with regards to the patient's symptoms. Were old charts reviewed? @ -No Differential Diagnosis? @ -Differential Headache: Migraine, tension, cluster, carbon monoxide, central venous thrombosis, pension karma temporal arteritis, acute closure glaucoma, intercranial hemorrhage, mastoiditis, sinusitis, head injury, this is not meant to be an all-inclusive list. EKG interpreted by me (3pts min.)? @ -EKG interpreted by me demonstrating the following: Atrial fibrillation. V entricular rate 89 bpm, QRS duration 103 ms, QTc 412 ms. X-rays interpreted by me (1pt min.)? @ -Chest x-ray obtained, my interpretation identifies no localized consolidations or infiltrates. CT interpreted by me (1pt min.)? @ -Not obtained U/S interpreted by me (1pt. min.)? @ -Not obtained What testing was considered but not performed? (CT, X-rays, U/S, labs)? Why? @ -None What meds were considered but not given? Why? @ -None Did you discuss the management of the patient with other professionals? @ -Yes, Dr. Molina, who accepts the patient for admission Did you reconcile home meds? @ -Yes Was smoking cessation discussed for >3mins.? @ -No Was critical care preformed (if so, how long)? @ -No Were there social determinants of health that impacted care today? How? (Homelessness, low income, unemployed, alcoholism, drug addiction, transportation, low edu. Level, literacy, decrease access to med. care, fpc, rehab)? @ -No Was there de-escalation of care discussed even if they declined? (Discuss DNR or withdrawal of care, Hospice)? @ -No What co-morbidities impacted this encounter? (DM, HTN, Smoking, COPD, CAD, Cancer, CVA, Hep., AIDS, mental health diagnosis, sleep apnea, morbid obesity)? @ -A-fib, anemia, HTN Was patient admitted / discharged? @ -Admitted. Lab work demonstrates a hemoglobin of 10.8, which is substantially improved when compared with prior. Elevated bilirubin is stable when compared [place] [address]. However, chest x-ray reveals no signs of CHF exacerbation or any other acute process. Troponin elevated at 0.095. COVID, influenza, and RSV testing negative. Urinalysis demonstrates a large amount of blood, however many bacteria were noted. Urine sent for culture. Patient was given several antiemetics but continued to feel nauseous and dizzy. Patient admitted to medicine for UTI, weakness, and elevated troponin. Patient started on 1 g of Rocephin daily. Serial troponins were ordered and consult was placed for cardiology. Case discussed with ED attending Dr. Robles. Undiagnosed new problem with uncertain prognosis? @ -None Drug Therapy requiring intensive monitoring for toxicity (Heparin, Nitro, Insulin, Cardizem)? @ -None Were any procedures done? @ -None Diagnosis/symptom? @ -UTI, weakness, elevated troponin Acute, or Chronic, or Acute on Chronic? @ -Acute Uncomplicated (without systemic symptoms) or Complicated (systemic symptoms)? @ -Complicated Side effects of treatment? @ -None Exacerbation, Progression, or Severe Exacerbation] @ -Not applicable Poses a threat to life or bodily function? @ -Yes, if due to ACS it can lead to . - Lab Data Result diagrams: 04/28/24 06:48 04/28/24 06:50 Lab Results 10/17/24 10/17/24 10/17/24 Range/Units 08:43 08:43 08:43 WBC 10.0 (3.8-10.6) k/uL RBC 3.25 L (4.30-5.90) m/uL Hgb 10.8 L D (13.0-17.5) gm/dL Hct 34.3 L (39.0-53.0) % MCV 105.5 H (80.0-100.0) fL MCH 33.2 (25.0-35.0) pg MCHC 31.5 (31.0-37.0) g/dL RDW 25.0 H (11.5-15.5) % Plt Count 486 H (150-450) k/uL MPV 9.3 Neutrophils % (Manual) 70 % Band Neuts % (Manual) 7 % Lymphocytes % (Manual) 6 % Monocytes % (Manual) 12 % Eosinophils % (Manual) 3 % Metamyelocytes % 2 % Myelocytes % 2 % Blast Cells % % Neutrophils # (Manual) 7.70 (1.3-7.7) k/uL Lymphocytes # (Manual) 0.60 L (1.0-4.8) k/uL Monocytes # (Manual) 1.20 H (0-1.0) k/uL Eosinophils # (Manual) 0.30 (0-0.7) k/uL Metamyelocytes # (Man) 0.20 H (0) k/uL Myelocytes # (Manual) 0.20 H (0) k/uL Nucleated RBCs 2 H (0-0) /100 WBC Manual Slide Review Performed Polychromasia Present Hypochromasia Slight Poikilocytosis Slight Anisocytosis Marked Macrocytosis Marked A Spherocytes Present Tear Drop Cells Present Fragmented RBCs Present PT 11.8 (10.0-12.5) sec INR 1.1 (<1.2) APTT 26.3 (22.0-30.0) sec Sodium (137-145) mmol/L Potassium (3.5-5.1) mmol/L Chloride (98-107) mmol/L Carbon Dioxide (22-30) mmol/L Anion Gap mmol/L BUN (9-20) mg/dL Creatinine (0.66-1.25) mg/dL Est GFR (CKD-EPI)AfAm (>60 ml/min/1.73 sqM) Est GFR (CKD-EPI)NonAf (>60 ml/min/1.73 sqM) Glucose (74-99) mg/dL Plasma Lactic Acid [place] (0.7-2.0) mmol/L Calcium (8.4-10.2) mg/dL Magnesium (1.6-2.3) mg/dL Total Bilirubin (0.2-1.3) mg/dL AST (17-59) U/L ALT (4-49) U/L Alkaline Phosphatase (38-126) U/L Troponin I (0.000-0.034) ng/mL NT-Pro-B Natriuret Pep pg/mL Total Protein (6.3-8.2) g/dL Albumin (3.5-5.0) g/dL Urine Color Dark Red Urine Appearance Turbid (Clear) Urine RBC 7 H (0-5) /hpf Urine WBC 36 H (0-5) /hpf Urine WBC Clumps Many H (None) /hpf Urine Bacteria Many H (None) /hpf Urine Mucus Rare H (None) /hpf Urine Yeast (Budding) Many H (None) /hpf Influenza Type A (PCR) (Not Detectd) Influenza Type B (PCR) (Not Detectd) RSV (PCR) (Not Detectd) SARS-CoV-2 (PCR) (Not Detectd) 04/26/24 04/26/24 04/26/24 Range/Units 08:43 08:43 08:43 WBC (3.8-10.6) k/uL RBC (4.30-5.90) m/uL Hgb (13.0-17.5) gm/dL Hct (39.0-53.0) % MCV (80.0-100.0) fL MCH (25.0-35.0) pg MCHC (31.0-37.0) g/dL RDW (11.5-15.5) % Plt Count (150-450) k/uL MPV Neutrophils % (Manual) % Band Neuts % (Manual) % Lymphocytes % (Manual) % Monocytes % (Manual) % Eosinophils % (Manual) % Metamyelocytes % % Myelocytes % % Blast Cells % % Neutrophils # (Manual) (1.3-7.7) k/uL Lymphocytes # (Manual) (1.0-4.8) k/uL Monocytes # (Manual) (0-1.0) k/uL Eosinophils # (Manual) (0-0.7) k/uL Metamyelocytes # (Man) (0) k/uL Myelocytes # (Manual) (0) k/uL Nucleated RBCs (0-0) /100 WBC Manual Slide Review Polychromasia Hypochromasia Poikilocytosis Anisocytosis Macrocytosis Spherocytes Tear Drop Cells Fragmented RBCs PT (10.0-12.5) sec INR (<1.2) APTT (22.0-30.0) sec Sodium 138 (137-145) mmol/L Potassium 4.4 (3.5-5.1) mmol/L Chloride 104 (98-107) mmol/L Carbon Dioxide 19 L (22-30) mmol/L Anion Gap 15 mmol/L BUN 21 H (9-20) mg/dL Creatinine 1.17 (0.66-1.25) mg/dL Est GFR (CKD-EPI)AfAm 69 (>60 ml/min/1.73 sqM) Est GFR (CKD-EPI)NonAf 59 (>60 ml/min/1.73 sqM) Glucose 130 H (74-99) mg/dL Plasma Lactic Acid [place] 1.3 (0.7-2.0) mmol/L Calcium 10.3 H (8.4-10.2) mg/dL Magnesium 2.1 (1.6-2.3) mg/dL Total Bilirubin 5.7 H (0.2-1.3) mg/dL AST 177 H (17-59) U/L ALT 55 H (4-49) U/L Alkaline Phosphatase 56 (38-126) U/L Troponin I (0.000-0.034) ng/mL NT-Pro-B Natriuret Pep 55569 pg/mL Total Protein 8.0 (6.3-8.2) g/dL Albumin 5.2 H (3.5-5.0) g/dL Urine Color Urine Appearance (Clear) Urine RBC (0-5) /hpf Urine WBC (0-5) /hpf Urine WBC Clumps (None) /hpf Urine Bacteria (None) /hpf Urine Mucus (None) /hpf Urine Yeast (Budding) (None) /hpf Influenza Type A (PCR) Not Detected (Not Detectd) Influenza Type B (PCR) Not Detected (Not Detectd) RSV (PCR) Not Detected (Not Detectd) SARS-CoV-2 (PCR) Not Detected (Not Detectd) 04/26/24 Range/Units 08:43 WBC (3.8-10.6) k/uL RBC (4.30-5.90) m/uL Hgb (13.0-17.5) gm/dL Hct (39.0-53.0) % MCV (80.0-100.0) fL MCH (25.0-35.0) pg MCHC (31.0-37.0) g/dL RDW (11.5-15.5) % Plt Count (150-450) k/uL MPV Neutrophils % (Manual) % Band Neuts % (Manual) % Lymphocytes % (Manual) % Monocytes % (Manual) % Eosinophils % (Manual) % Metamyelocytes % % Myelocytes % % Blast Cells % % Neutrophils # (Manual) (1.3-7.7) k/uL Lymphocytes # (Manual) (1.0-4.8) k/uL Monocytes # (Manual) (0-1.0) k/uL Eosinophils # (Manual) (0-0.7) k/uL Metamyelocytes # (Man) (0) k/uL Myelocytes # (Manual) (0) k/uL Nucleated RBCs (0-0) /100 WBC Manual Slide Review Polychromasia Hypochromasia Poikilocytosis Anisocytosis Macrocytosis Spherocytes Tear Drop Cells Fragmented RBCs PT (10.0-12.5) sec INR (<1.2) APTT (22.0-30.0) sec Sodium (137-145) mmol/L Potassium (3.5-5.1) mmol/L Chloride (98-107) mmol/L Carbon Dioxide (22-30) mmol/L Anion Gap mmol/L BUN (9-20) mg/dL Creatinine (0.66-1.25) mg/dL Est GFR (CKD-EPI)AfAm (>60 ml/min/1.73 sqM) Est GFR (CKD-EPI)NonAf (>60 ml/min/1.73 sqM) Glucose (74-99) mg/dL Plasma Lactic Acid [place] (0.7-2.0) mmol/L Calcium (8.4-10.2) mg/dL Magnesium (1.6-2.3) mg/dL Total Bilirubin (0.2-1.3) mg/dL AST (17-59) U/L ALT (4-49) U/L Alkaline Phosphatase (38-126) U/L Troponin I 0.095 H* (0.000-0.034) ng/mL NT-Pro-B Natriuret Pep pg/mL Total Protein (6.3-8.2) g/dL Albumin (3.5-5.0) g/dL Urine Color Urine Appearance (Clear) Urine RBC (0-5) /hpf Urine WBC (0-5) /hpf Urine WBC Clumps (None) /hpf Urine Bacteria (None) /hpf Urine Mucus (None) /hpf Urine Yeast (Budding) (None) /hpf Influenza Type A (PCR) (Not Detectd) Influenza Type B (PCR) (Not Detectd) RSV (PCR) (Not Detectd) SARS-CoV-2 (PCR) (Not Detectd) - Radiology Data Radiology results: report reviewed, image reviewed Disposition Clinical Impression: Weakness, UTI (urinary tract infection), Elevated troponin Disposition: ADMITTED IP TO THIS HOSP
[2024-04-26] MEDS: METOPROLOL TARTRATE 5 MG/5 ML VIAL IVP STA (09:08)
[2024-04-26] MEDS: ONDANSETRON 4 MG/2 ML VIAL IVP STA ×2 (09:08→11:06)
[2024-04-26] MEDS: MORPHINE SULFATE 4 MG/ML SYRINGE IVP STA (09:09)
[2024-04-26 09:32] LABS: ALT 55 U/L (4-49); African American GFR (CKD) 69 (>60 ml/min/1.73 sqM); Albumin 5.2 g/dL (3.5-5.0); Anion Gap 15 mmol/L; Blood Urea Nitrogen 21 mg/dL (9-20); Calcium 10.3 mg/dL (8.4-10.2); Carbon Dioxide 19 mmol/L (22-30); Chloride 104 mmol/L (98-107); Glucose 130 mg/dL (74-99); Non-African American GFR(CKD) 59 (>60 ml/min/1.73 sqM); Sodium 138 mmol/L (137-145); Total Bilirubin 5.7 mg/dL (0.2-1.3)
[2024-04-26 09:35] LABS: AST 177 U/L (17-59); Alkaline Phosphatase 56 U/L (38-126); Anisocytosis Marked; HCT 34.3 % (39.0-53.0); Hypochromasia Slight; MCH 33.2 pg (25.0-35.0); MCHC 31.5 g/dL (31.0-37.0); MCV 105.5 fL (80.0-100.0); Macrocytosis Marked; Magnesium 2.1 mg/dL (1.6-2.3); Mean Platelet Volume 9.3; Platelet Count 486 k/uL (150-450); Poikilocytosis Slight; Potassium 4.4 mmol/L (3.5-5.1); RBC 3.25 m/uL (4.30-5.90)
[2024-04-26 09:36] LABS: HGB 10.8 gm/dL (13.0-17.5)
[2024-04-26 09:39] LABS: NT-Pro-B-Type Natriuretic Pept 17800 pg/mL
--- NOTE | 2024-04-26 09:43 | XR ---
EXAMINATION TYPE: XR chest 2V DATE OF EXAM: 04/26/2024 9:35 AM CLINICAL INDICATION: Male, 78 years old with history of Weakness; [facility] COMPARISON: Chest radiographs from 03/29/2024 TECHNIQUE: XR chest 2V Frontal view of the chest. FINDINGS: Lungs/Pleura: There is flattening of the diaphragm with increased lucency of the lungs. No evidence o f pneumothorax, pleural effusion or focal consolidation. Pulmonary vascularity: Unremarkable. Heart/mediastinum: Cardiomediastinal silhouette is unremarkable. Valvular repair changes. Atheroscler otic calcifications are seen in the aorta. Musculoskeletal: No acute osseous pathology. Midline sternotomy wires are noted. Other findings: None IMPRESSION: 1. No acute cardiopulmonary disease process. 2. COPD changes. [facility], , 04/26/2024 9:40 AM
[2024-04-26 09:55] LABS: INR 1.1 (<1.2); Partial Thromboplastin Time 26.3 sec (22.0-30.0); Prothrombin Time 11.8 sec (10.0-12.5)
[2024-04-26 10:10] LABS: Band Neutrophils % 7 %; Metamyelocytes % 2 %; Myelocytes % 2 %; Neutrophils % (M) 70 %; Nucleated Red Blood Cells 2 /100 WBC (0-0); Total Cells Counted 200
[2024-04-26] MEDS: SODIUM CHLORIDE 0.9% 500 ML 500 ML IV STA (10:14)
[2024-04-26 10:15] LABS: Polychromasia Present; RBC Fragments Present
[2024-04-26 10:21] LABS: Tear Drop Cells Present
[2024-04-26 10:22] LABS: Spherocytes Present
[2024-04-26 10:39] LABS: Bacteria,Urine Many /hpf; Budding Yeast,Urine Many /hpf; Mucus,Urine Rare /hpf; RBC,Urine 7 /hpf (0-5); WBC,Urine 36 /hpf (0-5)
[2024-04-26 10:42] LABS: Appearance,Urine Turbid (Clear); Color,Urine Dark Red
[2024-04-26] MEDS: LABETALOL 5 MG/ML VIAL MDV IVP STA (11:11)
[2024-04-26] MEDS: cefTRIAXone IN SWFI 1,000 MG/10 ML SYRINGE IVP STA (11:33)
[2024-04-26] MEDS ORDERED: HYDROcodone/APAP 5-325MG 1 EACH TAB PO PRN ×2 (12:41→12:42)
[2024-04-26] MEDS ORDERED: NALOXONE 0.4 MG/ML 1 ML VIAL IV PRN (12:41)
[2024-04-26] MEDS: PROCHLORPERAZINE INJ 10 MG/2 ML VIAL IVP STA (12:42)
[2024-04-26] MEDS ORDERED: ALPRAZolam 0.25 MG TAB PO PRN (12:42)
[2024-04-26] MEDS: FUROSEMIDE 20 MG TAB PO SCH (13:48)
[2024-04-26] MEDS: APIXABAN 5 MG TAB PO SCH (13:48)
[2024-04-26] MEDS: MORPHINE SULFATE 4 MG/ML SYRINGE IV PRN (17:54)
[2024-04-26] MEDS: ONDANSETRON 4 MG/2 ML VIAL IVP PRN (17:57)
[2024-04-26] MEDS: traZODone HCL 50 MG TAB PO SCH (19:53)
[2024-04-26] MEDS: ATORVASTATIN 20 MG TAB PO SCH (19:53)
[2024-04-26] MEDS: METOPROLOL TARTRATE 50 MG TAB PO SCH (19:53)
[2024-04-26] MEDS: THIAMINE 100 MG TAB PO SCH (19:54)
[2024-04-26] MEDS: DANAZOL 200 MG PO SCH (19:57)
[2024-04-26] MEDS: [UNRECOGNIZED DRUG - OTHER] PO SCH (19:58)
[2024-04-26] MEDS: ACYCLOVIR 200 MG CAP PO SCH (20:44)
--- NOTE | 2024-04-26 21:43 | P.HPIM ---
History of Present Illness H&P Date: 04/26/24 HISTORY OF PRESENT ILLNESS: 78-year-old with active medical history of myelodysplasia, valvular heart disease, cerebrovascular accident, paroxysmal A-fib, anemia, hyperlipidemia, hypertension, History of myelofibrosis with history of splenomegaly his CVA left him with slight residual. Patient has been seen in our office for the last few years seen cardiology and oncology on regular basis he presented to the emergency department today accompanied with his complaining of slight headache with mild nausea and vomiting with significant bloody urine and very dark with slight discomfort with urination at the time with low-grade temperature symptom of his urinary tract infection had recurred this time with hematuria but causing him to have more headache with low-grade temperature he has mild congestion with slight shortness of breath with minimal exertion. Also has been having slight dizziness on and off blood pressure is mildly elevated under control with medication. He was seen and evaluated with the emergency department found to have hemoglobin of 10.8 with platelet count of 486 his chemistry shows calcium of 10.3 with glucose of 130 GFR at 59 troponin was elevated 0.095 with proBNP at 17 800 UA was very positive with many RBC and WBC pulmonary culture including COVID flu and RSV were all negative. Chest x-ray shows COPD with flattening of the diaphragmatic no evidence of pneumothorax pleural effusion or focal consolidation but mild atherosclerotic calcification seen at the aorta. EKG shows mostly A-fib with pulse rate at 89 bpm quite bit irregular. He was giving 1 g of Rocephin IV for his urinary tract infection culture was done and patient remain on his home meds including his Eliquis metoprolol and Lasix and admitted to the hospital. Will consult cardiology for elevated troponin is seen cardiology and apparently had echocardiogram recently result will hopefully be provided by cardiology. REVIEW OF SYSTEMS: CONSTITUTIONAL: Well-developed in mild respiratory distress. EYES: No icterus sclerae, no conjunctivitis. EARS, NOSE, MOUTH, THROAT, and FACE: No sore throat, lymphadenopathy, carotid bruits or deformity. RESPIRATORY: Positive shortness of breath mild cough and wheezes. CARDIOVASCULAR: No CP, Palpitation, PND, Orthopnea, or angina. GASTROINTESTINAL: No Abd pain, Nausea or vomiting, no Diarrhea or constipation, No GI Bleed, no distention or masses. GENITOURINARY: Mild burning discomfort with hematuria frequency as well. INTEGUMENT/BREAST: Negative for any muscular injury with mild osteoarthritis.. HEMATOLOGIC/LYMPHATIC: Negative for bleed or purpura. MUSCULOSKELTAL: Generalized myalgia and arthralgia. NEURLOGICAL: Generalized fatigue tiredness with lightheadedness no blurred vision. BEHAVIORAL/PSYCH: Negative. ENDOCRINE: Negative. PHYSICAL EXAMINATION: General Appearance: Alert, cooperative, no distress, appears stated age. Neck HEENT: Supple, no lymphadenopathy, no thyroid enlargement, no carotid bruits. Lungs: Decreased breath sound bilaterally with fine rhonchi no crackles pause mild expiratory wheezes. Chest Wall: Decreased expansion with deep inspiration no tenderness and no deformity was found on exam, no costochondral pain or discomfort. Heart: Irregular rate and rhythm, S1, S2 positive S3 positive systolic murmur. Back: Symmetric, no curvature, ROM normal, no CVA tenderness. Abdomen: Soft, non-tender, bowel sounds active all four quadrants, positive lower abdominal discomfort. Extremities: Extremities normal, atraumatic, no cyanosis or edema. Pulses: 2+ and symmetric. Skin: Skin color, texture, tugor normal, no rashes or lesions. Neurologic: Alert oriented x3 cranial nerves II through XII intact, positive generalized weakness with abnormal balanc and gait. Assessment and plan: _Urinary tract infection with no abscess: Had significant comorbidity with his myelofibrosis which can cover up the severity of infection without having revealed reaction the body does coordinate, patient had 1 g of Rocephin continue dictation waiting for the final culture. _Elevated troponin: With no sign and symptom of EKG change consistent with any myocardial infarction, this could be type IIb myocardial infarction with hypoperfusion continue to watch troponin, cardiology consultation repeat CK troponin and BNP in the morning. _Severe myelofibrosis: Has been seen oncology apparently had multiunit tr ansfusion in the past along with iron infusion he is still on aggressive treatment currently but him and his are looking for palliative care which they believe the myelofibrosis coming to an end at some point. _Hypertension: Still on amlodipine, and metoprolol continue medication titrate dose higher try to keep systolic blood pressure below 130. _Hyperlipidemia: Continue atorvastatin 20 mg daily. _A-fib with RVR: Still on metoprolol and Eliquis heart rates under control currently. _Intractable nausea continue Zofran along with pantoprazole IV. 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 _GI prophylaxis: Patient will be on pantoprazole IV. _DVT prophylaxis: Remain on Eliquis 5 mg twice a day. CODE STATUS: Full code. Admit patient to the inpatient service for more than 2 night stay. 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 HEART VALVE REPAIR Past Anesthesia/Blood Transfusion Reactions: No Reported Reaction Past Psychological History: No Psychological Hx Reported Smoking Status: Former smoker Past Alcohol Use History: Daily Past Drug Use History: None Reported - Past Family History Father Sister(s) Family Medical History: Cancer Father Family Medical History: Cancer Additional Family Medical History / Comment(s): PROSTATE Sister(s) Family Medical History: Cancer Brother(s) Family Medical History: Cancer Additional Family Medical History / Comment(s): PROSTATE Medications and Allergies Home Medications Medication Instructions Recorded Confirmed Type Atorvastatin Calcium [Lipitor] 20 mg PO HS 11/05/16 04/26/24 History Cyanocobalamin (Vitamin B-12) 1,000 mcg PO DAILY 04/08/21 04/26/24 History [Vitamin B-12] Cholecalciferol [Vitamin D3 (125 125 mcg PO DAILY 07/05/21 04/26/24 History Mcg = 5000 Iu)] traZODone HCL [Desyrel] 75 mg PO HS 07/05/21 04/26/24 History ALPRAZolam [Xanax] 0.25 mg PO BID PRN 10/27/23 04/26/24 History Acyclovir [Zovirax] 400 mg PO BID 10/27/23 04/26/24 History Apixaban [Eliquis] 5 mg PO BID 10/27/23 04/26/24 History Metoprolol Tartrate [Lopressor] 50 mg PO BID 10/27/23 04/26/24 History Momelotinib Dihydrochloride 200 mg PO HS 10/27/23 04/26/24 History [Ojjaara] amLODIPine [Norvasc] 5 mg PO DAILY 10/27/23 04/26/24 History danazoL [Danazol] 200 mg PO BID 10/27/23 04/26/24 History Thiamine [Vitamin B-1] 100 mg PO HS 03/29/24 04/26/24 History Furosemide [Lasix] 20 mg PO DAILY 04/26/24 04/26/24 History HYDROcodone/APAP 5-325MG [[place] 1 tab PO Q6HR PRN 04/26/24 04/26/24 History 5-325] Allergies Allergy/AdvReac Type Severity Reaction Status Date / Time No Known Allergies Allergy Verified 04/26/24 10:44 Physical Exam Vitals: Vital Signs Temp Pulse Resp BP Pulse Ox 04/26/24 13:47 98.8 F 93 18 161/95 95 04/26/24 12:40 93 19 156/93 93 L 04/26/24 11:31 85 168/99 04/26/24 10:15 89 17 173/110 94 L 04/26/24 09:10 92 18 176/100 95 04/26/24 09:02 81 04/26/24 08:17 97.5 F L 91 18 175/110 96 04/26/24 08:07 97.5 F L 100 20 202/106 97 Intake and Output 04/25/24 04/26/24 04/26/24 22:59 06:59 14:59 Output Total 100 Balance -100 Output: Urine 100 Other: Weight 63.503 kg Results CBC & Chem 7: 04/26/24 08:43 04/26/24 08:43 Labs: Abnormal Lab Results - Last 24 Hours (Table) 04/26/24 04/26/24 04/26/24 Range/Units 08:43 08:43 08:43 RBC 3.25 L (4.30-5.90) m/uL Hgb 10.8 L D (13.0-17.5) gm/dL Hct 34.3 L (39.0-53.0) % MCV 105.5 H (80.0-100.0) fL RDW 25.0 H (11.5-15.5) % Plt Count 486 H (150-450) k/uL Lymphocytes # (Manual) 0.60 L (1.0-4.8) k/uL Monocytes # (Manual) 1.20 H (0-1.0) k/uL Metamyelocytes # (Man) 0.20 H (0) k/uL Myelocytes # (Manual) 0.20 H (0) k/uL Nucleated RBCs 2 H (0-0) /100 WBC Macrocytosis Marked A Carbon Dioxide 19 L (22-30) mmol/L BUN 21 H (9-20) mg/dL Glucose 130 H (74-99) mg/dL Calcium 10.3 H (8.4-10.2) mg/dL Total Bilirubin 5.7 H (0.2-1.3) mg/dL AST 177 H (17-59) U/L ALT 55 H (4-49) U/L Troponin I (0.000-0.034) ng/mL Albumin 5.2 H (3.5-5.0) g/dL Urine RBC 7 H (0-5) /hpf Urine WBC 36 H (0-5) /hpf Urine WBC Clumps Many H (None) /hpf Urine Bacteria Many H (None) /hpf Urine Mucus Rare H (None) /hpf Urine Yeast (Budding) Many H (None) /hpf 04/26/24 Range/Units 08:43 RBC (4.30-5.90) m/uL Hgb (13.0-17.5) gm/dL Hct (39.0-53.0) % MCV (80.0-100.0) fL RDW (11.5-15.5) % Plt Count (150-450) k/uL Lymphocytes # (Manual) (1.0-4.8) k/uL Monocytes # (Manual) (0-1.0) k/uL Metamyelocytes # (Man) (0) k/uL Myelocytes # (Manual) (0) k/uL Nucleated RBCs (0-0) /100 WBC Macrocytosis Carbon Dioxide (22-30) mmol/L BUN (9-20) mg/dL Glucose (74-99) mg/dL Calcium (8.4-10.2) mg/dL Total Bilirubin (0.2-1.3) mg/dL AST (17-59) U/L ALT (4-49) U/L Troponin I 0.095 H* (0.000-0.034) ng/mL Albumin (3.5-5.0) g/dL Urine RBC (0-5) /hpf Urine WBC (0-5) /hpf Urine WBC Clumps (None) /hpf Urine Bacteria (None) /hpf Urine Mucus (None) /hpf Urine Yeast (Budding) (None) /hpf
[2024-04-27] MEDS: ACETAMINOPHEN TAB 325 MG TAB PO PRN (04:23)
[2024-04-27 07:20] LABS: ALT 43 U/L (4-49); AST 108 U/L (17-59); African American GFR (CKD) 40 (>60 ml/min/1.73 sqM); Albumin 4.3 g/dL (3.5-5.0); Alkaline Phosphatase 43 U/L (38-126); Anion Gap 7 mmol/L; Blood Urea Nitrogen 27 mg/dL (9-20); Calcium 9.3 mg/dL (8.4-10.2); Carbon Dioxide 23 mmol/L (22-30); Chloride 105 mmol/L (98-107); Glucose 103 mg/dL (74-99); Non-African American GFR(CKD) 34 (>60 ml/min/1.73 sqM); Potassium 4.4 mmol/L (3.5-5.1); Sodium 135 mmol/L (137-145); Total Bilirubin 3.9 mg/dL (0.2-1.3); Total Protein 6.6 g/dL (6.3-8.2)
[2024-04-27 07:27] LABS: Anisocytosis Marked; HCT 30.6 % (39.0-53.0); Hypochromasia Marked; MCH 32.4 pg (25.0-35.0); MCHC 29.9 g/dL (31.0-37.0); MCV 108.3 fL (80.0-100.0); Macrocytosis Marked; Mean Platelet Volume 9.1; Platelet Count 431 k/uL (150-450); Poikilocytosis Slight; RBC 2.82 m/uL (4.30-5.90); RDW 24.5 % (11.5-15.5); WBC 8.9 k/uL (3.8-10.6)
[2024-04-27 07:29] LABS: HGB 9.2 gm/dL (13.0-17.5)
[2024-04-27] MEDS: CHOLECALCIFEROL 125 MCG (5000 IU) TABLET PO SCH (09:07)
[2024-04-27] MEDS: amLODIPine 5 MG TAB PO SCH (09:07)
[2024-04-27] MEDS: CYANOCOBALAMIN 500 MCG TAB PO SCH (09:07)
[2024-04-27] MEDS: PANTOPRAZOLE 40 MG/10 ML VIAL IV SCH (09:19)
--- NOTE | 2024-04-27 10:15 | P.CRDCN ---
History of Present Illness History of present illness: HISTORY OF PRESENT ILLNESS: This is a 78-year-old male with a past medical history significant for coronary artery disease, mitral and tricuspid valve repair, infective endocarditis, hype rtension, hyperlipidemia, and permanent atrial fibrillation. Patient follows in the office with Dr. Escoto. We have been asked to see the patient in consultation for elevated troponins. Patient examined at the bedside. Patient spouse is present. Patient states he presented to the hospital for chief complaint of a headache. Patient states over the past couple days he has been having a headache. He denied having any chest pain or pressure. He denies any shortness of breath. Patient's blood pressure is well-controlled this morning at 112/53. Patient's kidney function was normal upon admission to the hospital. However this morning patient's creatinine is 1.84. Patient's BNP is elevated at 17,800. However he does not appear fluid overloaded upon examination. He actually appears on the drier and pulverizer tender side. DIAGNOSTICS: - EKG reveals atrial fibrillation with controlled ventricular rate. Incomplete right bundle branch block. T wave inversions in aVR and V2. ST depression in lead I, V3 through V6 and also inferior leads - Chest xray negative for acute process. COPD changes. - Laboratory data: WBC 8.9. Hemoglobin 9.2. Platelet count 431. Sodium 135. Potassium 4.4. BUN 27. Creatinine 1.84. Magnesium 2.1. AST 108. ALT 43. Troponin 0.095. 0.126. 0.145. proBNP 17,800. - Current home cardiac medications include Lasix 20 mg daily, amlodipine 5 mg daily, Eliquis 5 mg twice a day, Lipitor 20 mg at night, metoprolol tartrate 50 mg twice a day - Most recent echocardiogram obtained in April 2021 revealing ejection fraction 45 to 50%, moderate MR, mitral valve repair, moderate tricuspid regurgitation -Echocardiogram completed in the office in June 2023 revealed ejection fraction of 55%, moderate concentric LVH, moderate aortic regurgitation, annuloplasty ring mitral valve prosthesis, annuloplasty ring tricuspid valve prosthesis - Cardiac catheterization history: August 2016 revealing calcified left and right coronary system, intermediate disease involving the mid RCA and proximal LAD, mild disease involving distal left main, mildly impaired left ventricular function with EF 4045% with global hypokinesia. REVIEW OF SYSTEMS: At the time of my exam: CONSTITUTIONAL: Denies fever or chills. HEENT: Denies blurred vision, vision changes, or eye pain. Denies hemoptysis CARDIOVASCULAR: Denies chest pain. Denies orthopnea. Denies PND. Denies palpitations RESPIRATORY: Denies shortness of breath. GASTROINTESTINAL: Denies abdominal pain. Denies nausea or vomiting. HEMATOLOGIC: Denies bleeding disorders. GENITOURINARY: Denies any blood in urine. SKIN: Denies pruitis. Denies rash. PHYSICAL EXAM: VITAL SIGNS: Reviewed. GENERAL: Well-developed in no acute distress. HEENT: Head is normocephalic. Pupils are equal, round. Sclerae anicteric. Mucous membranes of the mouth are moist. Neck supple. No JVD or thyromegaly LUNGS: Respirations even and unlabored. Lungs essentially clear to auscultation bilaterally. HEART: Irregular rate and rhythm. S1 and S2 heard. Systolic murmur noted ABDOMEN: Soft. Nondistended. Nontender. EXTREMITIES: Normal range of motion. No clubbing or cyanosis. Peripheral pulses intact. No lower extremity edema NEUROLOGIC: Awake and alert. Oriented x 3. ASSESSMENT: Headache Hypertensive emergency, improved Acute kidney injury Urinary tract infection Permanent atrial fibrillation with controlled ventricular rate Abnormal troponins, myocardial injury without acute ischemia secondary to hypertensive emergency along with poor renal clearance Chronic congestive heart failure with mildly reduced EF, currently not fluid ove rloaded despite elevated BNP Coronary artery disease History of mitral and tricuspid valve repair with annuloplasty ring prosthesis History of infective endocarditis History of hypertension History of hyperlipidemia History of myelofibrosis PLAN: An acute coronary event has been ruled out Obtain 2D echo to assess cardiac structure and function Discontinue Lasix secondary to acute kidney injury. Additionally patient does not appear volume overloaded on examination despite elevated BNP Continue additional cardiac medications Continue telemetry monitoring Monitor kidney function. Repeat in AM. Further recommendations pending patient course Nurse practitioner note has been reviewed by physician. Signing provider agrees with the documented findings, assessment, and plan of care documented by SERVICE PARTS COORDINATOR as a scribe. 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 HEART VALVE REPAIR Past Anesthesia/Blood Transfusion Reactions: No Reported Reaction Past Psychological History: No Psychological Hx Reported Smoking Status: Former smoker Past Alcohol Use History: Daily Past Drug Use History: None Reported - Past Family History Father Sister(s) Family Medical History: Cancer Father Family Medical History: Cancer Additional Family Medical History / Comment(s): PROSTATE Sister(s) Family Medical History: Cancer Brother(s) Family Medical History: Cancer Additional Family Medical History / Comment(s): PROSTATE Medications and Allergies Home Medications Medication Instructions Recorded Confirmed Type Atorvastatin Calcium [Lipitor] 20 mg PO HS 11/05/16 04/26/24 History Cyanocobalamin (Vitamin B-12) 1,000 mcg PO DAILY 04/08/21 04/26/24 History [Vitamin B-12] Cholecalciferol [Vitamin D3 (125 125 mcg PO DAILY 07/05/21 04/26/24 History Mcg = 5000 Iu)] traZODone HCL [Desyrel] 75 mg PO HS 07/05/21 04/26/24 History ALPRAZolam [Xanax] 0.25 mg PO BID PRN 10/27/23 04/26/24 History Acyclovir [Zovirax] 400 mg PO BID 10/27/23 04/26/24 History Apixaban [Eliquis] 5 mg PO BID 10/27/23 04/26/24 History Metoprolol Tartrate [Lopressor] 50 mg PO BID 10/27/23 04/26/24 History Momelotinib Dihydrochloride 200 mg PO HS 10/27/23 04/26/24 History [Ojjaara] amLODIPine [Norvasc] 5 mg PO DAILY 10/27/23 04/26/24 History danazoL [Danazol] 200 mg PO BID 10/27/23 04/26/24 History Thiamine [Vitamin B-1] 100 mg PO HS 03/29/24 04/26/24 History Furosemide [Lasix] 20 mg PO DAILY 04/26/24 04/26/24 History HYDROcodone/APAP 5-325MG [[place] 1 tab PO Q6HR PRN 04/26/24 04/26/24 History 5-325] Allergies Allergy/AdvReac Type Severity Reaction Status Date / Time No Known Allergies Allergy Verified 04/26/24 10:44 Physical Exam Vitals: Vital Signs Temp Pulse Pulse Resp BP BP Pulse Ox 04/27/24 08:00 99.3 F 83 16 117/57 04/27/24 04:12 79 19 112/53 92 L 04/26/24 23:27 62 18 110/50 96 04/26/24 19:50 98.9 F 87 18 154/72 96 04/26/24 13:47 98.8 F 93 18 161/95 95 04/26/24 12:40 93 19 156/93 93 L 04/26/24 11:31 85 168/99 04/26/24 10:15 89 17 173/110 94 L Intake and Output 04/26/24 04/27/24 04/27/24 22:59 06:59 14:59 Intake Total 0 180 Balance 0 180 Intake: Oral 0 180 Other: Voiding Method Urinal Urinal # Voids 2 Weight 64 kg Results 04/27/24 06:21 04/27/24 06:21 Cardiac Enzymes 04/26/24 04/26/24 04/27/24 Range/Units 13:54 17:20 06:21 AST 108 H (17-59) U/L Troponin I 0.126 H* 0.145 H* (0.000-0.034) ng/mL CBC 04/26/24 04/27/24 Range/Units 08:43 06:21 WBC 10.0 8.9 (3.8-10.6) k/uL RBC 2.82 L (4.30-5.90) m/uL Hgb 9.2 L D (13.0-17.5) gm/dL Hct 30.6 L (39.0-53.0) % Plt Count 431 (150-450) k/uL Comprehensive Metabolic Panel 04/27/24 Range/Units 06:21 Sodium 135 L (137-145) mmol/L Potassium 4.4 (3.5-5.1) mmol/L Chloride 105 (98-107) mmol/L Carbon Dioxide 23 (22-30) mmol/L BUN 27 H (9-20) mg/dL Creatinine 1.84 H (0.66-1.25) mg/dL Glucose 103 H (74-99) mg/dL Calcium 9.3 (8.4-10.2) mg/dL AST 108 H (17-59) U/L ALT 43 (4-49) U/L Alkaline Phosphatase 43 (38-126) U/L Total Protein 6.6 (6.3-8.2) g/dL Albumin 4.3 (3.5-5.0) g/dL Current Medications Generic Name Dose Route Start Last Admin Trade Name Freq PRN Reason Stop Dose Admin Acetaminophen 650 mg 04/26/24 12:41 04/27/24 04:23 Acetaminophen Tab 325 Mg Tab PO 650 mg Q6HR PRN Administration Mild Pain or Fever > 100.5 Hydrocodone Bitart/Acetaminophen 1 each 04/26/24 12:41 Hydrocodone/Apap 5-325mg 1 Each Tab PO Q4HR PRN Moderate Pain (Scale 4 to 6) Hydrocodone Bitart/Acetaminophen 1 each 04/26/24 12:42 Hydrocodone/Apap 5-325mg 1 Each Tab PO Q6HR PRN Pain Acyclovir 400 mg 04/26/24 21:00 04/27/24 09:08 Acyclovir 200 Mg Cap PO 400 mg BID MEGHANA Administration Alprazolam 0.25 mg 04/26/24 12:42 Alprazolam 0.25 Mg Tab PO BID PRN Anxiety Amlodipine Besylate 5 mg 04/27/24 09:00 04/27/24 09:07 Amlodipine 5 Mg Tab PO Not Given DAILY MEGHANA Apixaban 5 mg 04/26/24 12:45 04/27/24 09:07 Apixaban 5 Mg Tab PO 5 mg BID MEGHANA Administration Protocol Atorvastatin Calcium 20 mg 04/26/24 21:00 04/26/24 19:53 Atorvastatin 20 Mg Tab PO 20 mg HS MEGHANA Administration Cholecalciferol 125 mcg 04/27/24 09:00 04/27/24 09:07 Cholecalciferol 125 Mcg (5000 Iu) Tablet PO 125 mcg DAILY MEGHANA Administration Cyanocobalamin 1,000 mcg 04/27/24 09:00 04/27/24 09:07 Cyanocobalamin 500 Mcg Tab PO 1,000 mcg DAILY MEGHANA Administration Ceftriaxone Sodium 1 gm/ 50 mls @ 100 mls/hr 04/27/24 09:00 04/27/24 09:07 Sodium Chloride IVPB 100 mls/hr Q24HR MEGHANA Administration Protocol Metoprolol Tartrate 50 mg 04/26/24 21:00 04/27/24 09:07 Metoprolol Tartrate 50 Mg Tab PO 50 mg BID MEGHANA Administration Morphine Sulfate 4 mg 04/26/24 12:41 04/26/24 17:54 Morphine Sulfate 4 Mg/Ml Syringe IV 4 mg Q4HR PRN Administration Severe Pain (Scale 7 to 10) Naloxone HCl 0.2 mg 04/26/24 12:41 Naloxone 0.4 Mg/Ml 1 Ml Vial IV Q2M PRN Opioid Reversal Non-Formulary Medication 200 mg 04/26/24 21:00 04/26/24 19:58 Momelotinib Dihydrochloride [Ojjaara] PO Not Given HS MEGHANA Non-Formulary Medication 200 mg 04/26/24 21:00 04/27/24 09:01 Danazol [Danazol] PO Not Given BID MEGHANA Ondansetron HCl 4 mg 04/26/24 12:41 04/26/24 17:57 Ondansetron 4 Mg/2 Ml Vial IVP 4 mg Q8HR PRN Administration Nausea And Vomiting Pantoprazole Sodium 40 mg 04/27/24 09:00 04/27/24 09:19 Pantoprazole 40 Mg/10 Ml Vial IV 40 mg DAILY MEGHANA Administration Thiamine HCl 100 mg 04/26/24 21:00 04/26/24 19:54 Thiamine 100 Mg Tab PO 100 mg HS MEGHANA Administration Trazodone HCl 75 mg 04/26/24 21:00 04/26/24 19:53 Trazodone Hcl 50 Mg Tab PO 75 mg HS MEGHANA Administration Intake and Output 04/26/24 04/27/24 04/27/24 22:59 06:59 14:59 Intake Total 0 180 Balance 0 180 Intake: Oral 0 180 Other: Voiding Method Urinal Urinal # Voids 2 Weight 64 kg 04/27/24 06:21 04/27/24 06:21
--- NOTE | 2024-04-27 10:57 | P.PN ---
Subjective 78-year-old with active medical history of myelodysplasia, valvular heart disease, cerebrovascular accident, paroxysmal A-fib, anemia, hyperlipidemia, hypertension, History of myelofibrosis with history of splenomegaly his CVA left him with slight residual. Patient has been seen in our office for the last few years seen cardiology and oncology on regular basis he presented to the emergency department today accompanied with his complaining of slight headache with mild nausea and vomiting with significant bloody urine and very dark with slight discomfort with urination at the time with low-grade temperature symptom of his urinary tract infection had recurred this time with hematuria but causing him to have more headache with low-grade temperature he has mild congestion with slight shortness of breath with minimal exertion. Also has been having slight dizziness on and off blood pressure is mildly elevated under control with medication. He was seen and evaluated with the emergency department found to have hemoglobin of 10.8 with platelet count of 486 his chemistry shows calcium of 10.3 with glucose of 130 GFR at 59 troponin was elevated 0.095 with proBNP at 17 800 UA was very positive with many RBC and WBC pulmonary culture including COVID flu and RSV were all negative. Chest x-ray shows COPD with flattening of the diaphragmatic no evidence of pneumothorax pleural effusion or focal consolidation but mild atherosclerotic calcification seen at the aorta. EKG shows mostly A-fib with pulse rate at 89 bpm quite bit irregular. He was giving 1 g of Rocephin IV for his urinary tract infection culture was done and patient remain on his home meds including his Eliquis metoprolol and Lasix and admitted to the hospital. Will consult cardiology for elevated troponin is seen cardiology and apparently had echocardiogram recently result will hopefully be provided by cardiology. 04/27/24 Patient is still has hematuria today, however he denies dysuria or suprapubic tenderness. Patient currently on ceftriaxone for suspected UTI. Urine culture is pending Hemoglobin dropped today 10.8 down to 9.2, thought to be combination of hemodilution but also bleeding while he still has hematuria on Eliquis. He takes Eliquis for A-fib On admission he has A-fib and RVR, precision structural metal fitter is consulted on the case, currently rate controlled blood pressure is better, echocardiogram is pending I talked to the patient and manage to the at bedside, she states that she has been told he would be discharged home today. states that he comes frequently for hematuria treated with antibiotics and lives back to his home. She wants him to go home because that is more comfortable for him. I explained for him he has significant lab abnormality and he is not stable for discharge. The confirms that she will stay 1 more night only. We will keep monitoring though. His vitals look stable, blood pressure this morning 117/57 However his creatinine jumped up from 1.1 up to 1.8. Hemoglobin 9.2 Chest x-ray is negative for acute process Echocardiogram and urine culture pending Currently on Eliquis 5 mg for his A-fib and ceftriaxone. Review of systems CONSTITUTIONAL: No fever, no malaise, no fatigue. HEENT: No recent visual problems or hearing problems. Denied any sore throat. CARDIOVASCULAR: No orthopnea, PND, no palpitations, no syncope. HEMATOLOGICAL: Denies any bleeding or petechiae. GENITOURINARY: Denies any burning micturition, frequency, or urgency. MUSCULOSKELETAL/RHEUMATOLOGICAL: Denies any joint pain, swelling, or any muscle pain. ENDOCRINE: Denies any polyuria or polydipsia. Active Medications Generic Name Dose Route Start Last Admin Trade Name Freq PRN Reason Stop Dose Admin Acetaminophen 650 mg 04/26/24 12:41 04/27/24 04:23 Acetaminophen Tab 325 Mg Tab PO 650 mg Q6HR PRN Administration Mild Pain or Fever > 100.5 Hydrocodone Bitart/Acetaminophen 1 each 04/26/24 12:41 Hydrocodone/Apap 5-325mg 1 Each Tab PO Q4HR PRN Moderate Pain (Scale 4 to 6) Hydrocodone Bitart/Acetaminophen 1 each 04/26/24 12:42 Hydrocodone/Apap 5-325mg 1 Each Tab PO Q6HR PRN Pain Acyclovir 400 mg 04/26/24 21:00 04/27/24 09:08 Acyclovir 200 Mg Cap PO 400 mg BID MEGHANA Administration Alprazolam 0.25 mg 04/26/24 12:42 Alprazolam 0.25 Mg Tab PO BID PRN Anxiety Amlodipine Besylate 5 mg 04/27/24 09:00 04/27/24 09:07 Amlodipine 5 Mg Tab PO Not Given DAILY MEGHANA Apixaban 5 mg 04/26/24 12:45 04/27/24 09:07 Apixaban 5 Mg Tab PO 5 mg BID MEGHANA Administration Protocol Atorvastatin Calcium 20 mg 04/26/24 21:00 04/26/24 19:53 Atorvastatin 20 Mg Tab PO 20 mg HS MEGHANA Administration Cholecalciferol 125 mcg 04/27/24 09:00 04/27/24 09:07 Cholecalciferol 125 Mcg (5000 Iu) Tablet PO 125 mcg DAILY MEGHANA Administration Cyanocobalamin 1,000 mcg 04/27/24 09:00 04/27/24 09:07 Cyanocobalamin 500 Mcg Tab PO 1,000 mcg DAILY MEGHANA Administration Ceftriaxone Sodium 1 gm/ 50 mls @ 100 mls/hr 04/27/24 09:00 04/27/24 09:07 Sodium Chloride IVPB 100 mls/hr Q24HR MEGHANA Administration Protocol Metoprolol Tartrate 50 mg 04/26/24 21:00 04/27/24 09:07 Metoprolol Tartrate 50 Mg Tab PO 50 mg BID MEGHANA Administration Morphine Sulfate 4 mg 04/26/24 12:41 04/26/24 17:54 Morphine Sulfate 4 Mg/Ml Syringe IV 4 mg Q4HR PRN Administration Severe Pain (Scale 7 to 10) Naloxone HCl 0.2 mg 04/26/24 12:41 Naloxone 0.4 Mg/Ml 1 Ml Vial IV Q2M PRN Opioid Reversal Non-Formulary Medication 200 mg 04/26/24 21:00 04/26/24 19:58 Momelotinib Dihydrochloride [Ojjaara] PO Not Given HS MEGHANA Non-Formulary Medication 200 mg 04/26/24 21:00 04/27/24 09:01 Danazol [Danazol] PO Not Given BID MEGHANA Ondansetron HCl 4 mg 04/26/24 12:41 04/26/24 17:57 Ondansetron 4 Mg/2 Ml Vial IVP 4 mg Q8HR PRN Administration Nausea And Vomiting Pantoprazole Sodium 40 mg 04/27/24 09:00 04/27/24 09:19 Pantoprazole 40 Mg/10 Ml Vial IV 40 mg DAILY MEGHANA Administration Thiamine HCl 100 mg 04/26/24 21:00 04/26/24 19:54 Thiamine 100 Mg Tab PO 100 mg HS MEGHANA Administration Trazodone HCl 75 mg 04/26/24 21:00 04/26/24 19:53 Trazodone Hcl 50 Mg Tab PO 75 mg HS MEGHANA Administration Objective - Vital Signs Vital signs: Vital Signs Temp 99.3 F 04/27/24 08:00 Pulse 83 04/27/24 08:00 Resp 16 04/27/24 08:00 BP 117/57 04/27/24 08:00 Pulse Ox 92 L 04/27/24 04:12 FiO2 Intake & Output 04/26/24 04/27/24 04/27/24 18:59 06:59 18:59 Intake Total 0 180 Output Total 100 Balance -100 0 180 Weight 63.503 kg 64 kg Intake: Oral 0 180 Output: Urine 100 Other: Voiding Method Urinal Urinal # Voids 1 2 # Bowel Movements 1 - Exam -GENERAL: The patient is alert and oriented x3, not in any acute distress. Well developed, well nourished. Generally weak HEENT: Pupils are round and equally reacting to light. EOMI. No scleral icterus. No conjunctival pallor. Normocephalic, atraumatic. No pharyngeal erythema. No thyromegaly. CARDIOVASCULAR: S1 and S2 present. No murmurs, rubs, or gallops. PULMONARY: Chest is clear to auscultation, no wheezing , no crackles. ABDOMEN: Soft, nontender, nondistended, normoactive bowel sounds. No palpable organomegaly. MUSCULOSKELETAL: No joint swelling or deformity. EXTREMITIES: No cyanosis, clubbing, or pedal edema. NEUROLOGICAL: Gross neurological examination did not reveal any focal deficits. SKIN: No rashes. no petechiae. - Labs CBC & Chem 7: 04/27/24 06:21 04/27/24 06:21 Labs: Abnormal Lab Results - Last 24 Hours (Table) 04/26/24 04/26/24 04/27/24 Range/Units 13:54 17:20 06:21 RBC 2.82 L (4.30-5.90) m/uL Hgb 9.2 L D (13.0-17.5) gm/dL Hct 30.6 L (39.0-53.0) % MCV 108.3 H (80.0-100.0) fL MCHC 29.9 L (31.0-37.0) g/dL RDW 24.5 H (11.5-15.5) % Macrocytosis Marked A Sodium (137-145) mmol/L BUN (9-20) mg/dL Creatinine (0.66-1.25) mg/dL Glucose (74-99) mg/dL Total Bilirubin (0.2-1.3) mg/dL AST (17-59) U/L Troponin I 0.126 H* 0.145 H* (0.000-0.034) ng/mL 04/27/24 Range/Units 06:21 RBC (4.30-5.90) m/uL Hgb (13.0-17.5) gm/dL Hct (39.0-53.0) % MCV (80.0-100.0) fL MCHC (31.0-37.0) g/dL RDW (11.5-15.5) % Macrocytosis Sodium 135 L (137-145) mmol/L BUN 27 H (9-20) mg/dL Creatinine 1.84 H (0.66-1.25) mg/dL Glucose 103 H (74-99) mg/dL Total Bilirubin 3.9 H (0.2-1.3) mg/dL AST 108 H (17-59) U/L Troponin I (0.000-0.034) ng/mL Assessment and Plan Assessment: _Urinary tract infection with no abscess: Had significant comorbidity with his myelofibrosis which can cover up the severity of infection without having revealed reaction the body does coordinate, patient had 1 g of Rocephin continue dictation waiting for the final culture. _Hematuria, could be secondary to UTI, need to rule out other causes. Patient may benefit from urology evaluation. As per he does not want to pursue with urologist before -Acute kidney injury, we will check a bladder scan. Will ask for nephrology consult as well _Elevated troponin: With no sign and symptom of EKG change consistent with any myocardial infarction, this could be type IIb myocardial infarction with hypope rfusion continue to watch troponin, cardiology consultation repeat CK troponin and BNP in the morning. _Severe myelofibrosis: Has been seen oncology apparently had multiunit transfusion in the past along with iron infusion he is still on aggressive treatment currently but him and his are looking for palliative care which they believe the myelofibrosis coming to an end at some point. _Hypertension: Still on amlodipine, and metoprolol continue medication titrate dose higher try to keep systolic blood pressure below 130. _Hyperlipidemia: Continue atorvastatin 20 mg daily. _A-fib with RVR: Still on metoprolol and Eliquis heart rates under control currently. _Intractable nausea continue Zofran along with pantoprazole IV. 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 _GI prophylaxis: Patient will be on pantoprazole IV. _DVT prophylaxis: Remain on Eliquis 5 mg twice a day. CODE STATUS: Full code. Admit patient to the inpatient service for more than 2 night stay. Plan of care discussed with patient and and all questions answered
--- NOTE | 2024-04-27 11:41 | P.NPCON ---
History of Present Illness - Reason for Consult acute renal failure - History of Present Illness Patient is a 78-year-old male with history of myelodysplasia, CVA, provoked paroxysmal A-fib and hypertension. Patient was admitted to the hospital with complaints of headache and uncontrolled hypertension with systolic blood pressure at 202 mmHg. No previous history of kidney diseases. Serum creatinine was 1.2 on admission and increased to 1.8 today. Patient was on Lasix which was discontinued yesterday. Patient has been voiding. Patient's states that he was also noticed to have blood in the urine which commonly happens when his blood pressure is significantly elevated. Blood pressure has decreased with systolic around 110 mmHg last night and reports a systolic blood pressure of 99 mmHg as well. No significant complaints at this time. 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 HEART VALVE REPAIR Past Anesthesia/Blood Transfusion Reactions: No Reported Reaction Past Psychological History: No Psychological Hx Reported Smoking Status: Former smoker Past Alcohol Use History: Daily Past Drug Use History: None Reported - Past Family History Father Sister(s) Family Medical History: Cancer Father Family Medical History: Cancer Additional Family Medical History / Comment(s): PROSTATE Sister(s) Family Medical History: Cancer Brother(s) Family Medical History: Cancer Additional Family Medical History / Comment(s): PROSTATE Medications and Allergies Home Medications Medication Instructions Recorded Confirmed Type Atorvastatin Calcium [Lipitor] 20 mg PO HS 11/05/16 04/26/24 History Cyanocobalamin (Vitamin B-12) 1,000 mcg PO DAILY 04/08/21 04/26/24 History [Vitamin B-12] Cholecalciferol [Vitamin D3 (125 125 mcg PO DAILY 07/05/21 04/26/24 History Mcg = 5000 Iu)] traZODone HCL [Desyrel] 75 mg PO HS 07/05/21 04/26/24 History ALPRAZolam [Xanax] 0.25 mg PO BID PRN 10/27/23 04/26/24 History Acyclovir [Zovirax] 400 mg PO BID 10/27/23 04/26/24 History Apixaban [Eliquis] 5 mg PO BID 10/27/23 04/26/24 History Metoprolol Tartrate [Lopressor] 50 mg PO BID 10/27/23 04/26/24 History Momelotinib Dihydrochloride 200 mg PO HS 10/27/23 04/26/24 History [Ojjaara] amLODIPine [Norvasc] 5 mg PO DAILY 10/27/23 04/26/24 History danazoL [Danazol] 200 mg PO BID 10/27/23 04/26/24 History Thiamine [Vitamin B-1] 100 mg PO HS 03/29/24 04/26/24 History Furosemide [Lasix] 20 mg PO DAILY 04/26/24 04/26/24 History HYDROcodone/APAP 5-325MG [[place] 1 tab PO Q6HR PRN 04/26/24 04/26/24 History 5-325] Allergies Allergy/AdvReac Type Severity Reaction Status Date / Time No Known Allergies Allergy Verified 04/26/24 10:44 Physical Exam Vitals: Vital Signs Temp Pulse Pulse Resp BP BP Pulse Ox 04/27/24 08:00 99.3 F 83 16 117/57 04/27/24 04:12 79 19 112/53 92 L 04/26/24 23:27 62 18 110/50 96 04/26/24 19:50 98.9 F 87 18 154/72 96 04/26/24 13:47 98.8 F 93 18 161/95 95 04/26/24 12:40 93 19 156/93 93 L Intake and Output 04/26/24 04/27/24 04/27/24 22:59 06:59 14:59 Intake Total 0 180 Balance 0 180 Intake: Oral 0 180 Other: Voiding Method Urinal Urinal # Voids 2 Weight 64 kg Patient is awake, comfortable, no acute distress. Examination of the heart S1 and S2 Examination of the lungs bilateral breath sounds are heard Abdomen is soft nontender Examination of lower extremities shows no significant edema SUPERVISOR FILTRATION exam grossly intact Results - Lab Results Most recent lab results Calcium 9.3 mg/dL (8.4-10.2) 04/27/24 06:21 Magnesium 2.1 mg/dL (1.6-2.3) 04/26/24 08:43 04/27/24 06:21 04/27/24 06:21 Assessment and Plan Assessment: 1. Acute kidney injury secondary to significant change in blood pressure and hypotension. Rule out urine retention. Patient had ultrasound of the kidneys in August 2023 in [place] which was unremarkable. 2. Hematuria with underlying history of BPH in the setting of use of Eliquis. UA is suggestive of UTI 3. Myelofibrosis 4. A-fib with RVR, currently with controlled ventricular response 5. Uncontrolled hypertension on admission with blood pressure currently significantly low Plan: Add parameters to antihypertensive medications. Patient did not receive Norvasc today. Check bladder scan rule out urine retention Agree with holding Lasix. Avoid hypotension and try to to maintain systolic blood pressure around 130 to 140 mmHg. Consider urology evaluation if significant urine retention noted Consider adding Flomax as well if there is urine retention noted. Repeat labs in a.m. Add gentle IV hydration. Thank you for the consultation. We will continue to follow the patient with you during his hospitalization.
[2024-04-27] MEDS: SODIUM CHLORIDE 0.9% 1,000 ML IV SCH (13:27)
--- NOTE | 2024-04-27 17:19 | CA ---
Transthoracic Echo Report Name: Young Wu Age: 78 Gender: M : 1945 Exam Date: 04/27/2024 15:22 Exam Location: [facility] Ht (in): 70 Wt (lb): 141 Ordering Physician: Natalie Kelley Attending/Referring Phys: [id number], [employer] Counter Manager Patrizia Arreaga RDCS Procedure CPT: Indications: lv function, elev trop Cardiac Hx: Technical Quality: Fair Contrast 1: Total Dose (mL): Contrast 2: Total Dose (mL): MEASUREMENTS (Male / Female) Normal Values 2D ECHO LV Diastolic Diameter PLAX 4.7 cm 4.2 - 5.9 / 3.9 - 5.3 cm LV Systolic Diameter PLAX 3.0 cm IVS Diastolic Thickness 1.6 cm 0.6 - 1.0 / 0.6 - 0.9 cm LVPW Diastolic Thickness 1.5 cm 0.6 - 1.0 / 0.6 - 0.9 cm LV Relative Wall Thickness 0.7 RV Internal Dim ED PLAX 3.9 cm LVOT Diameter 1.7 cm LA Volume 141.0 cm??? 18 - 58 / 22 - 52 cm??? LA Volume Index 79.6 cm???/m??? 16 - 28 cm???/m??? M-MODE Aortic Root Diameter MM 3.3 cm LA Systolic Diameter MM 4.7 cm LA Ao Ratio MM 1.4 AV Cusp Separation MM 1.2 cm DOPPLER AV Peak Velocity 217.2 cm/s AV Peak Gradient 18.9 mmHg AV Mean Velocity 144.8 cm/s AV Mean Gradient 9.4 mmHg AV Velocity Time Integral 37.6 cm AI Peak Velocity 506.7 cm/s AI Peak Gradient 102.7 mmHg AI Pressure Half Time 522.2 ms LVOT Peak Velocity 100.1 cm/s LVOT Peak Gradient 4.0 mmHg LVOT Velocity Time Integral 17.2 cm LVOT Stroke Volume 37.6 cm??? LVOT Stroke Volume Index 20.9 ml/m??? LVOT Cardiac Index 1721.2 cm???/min???m??? AV Area Cont Eq vti 1.0 cm??? AV Area Cont Eq pk 1.0 cm??? MV Peak Velocity 174.1 cm/s MV Peak Gradient 12.1 mmHg MV Mean Velocity 84.9 cm/s MV Mean Gradient 3.8 mmHg MV Velocity Time Integral 27.1 cm MV Area PHT 5.1 cm??? Mitral E Point Velocity 175.5 cm/s Mitral A Point Velocity 0.4 cm/s Mitral E to A Ratio 399.6 MV Deceleration Time 148.1 ms TR Peak Velocity 361.6 cm/s TR Peak Gradient 52.3 mmHg Right Ventricular Systolic Press 56.1 mmHg FINDINGS Left Ventricle Moderately increased left ventricular wall thickness. Left ventricular cavity size normal. Normal left ventricular systolic function with no obvious regional wall motion abnormalities. Abnormal (paradoxical) septal motion consistent with postoperative state. Left ventricular ejection fraction is estimated at 50-55 %. Grade 1 diastolic dysfunction. Right Ventricle Right ventricular dilatation. Severe pulmonary hypertension. Right ventricular systolic pressure estimated at 56 mm hg. Right Atrium Moderate right atrial dilatation. Left Atrium Severely increased left atrial volume. Moderately increased left atrial area. Mitral Valve S/P MV repair. Moderate mitral annular calcification. Moderate mitral regurgitation. Aortic Valve Trileaflet aortic valve. Mild aortic stenosis with a peak gradient of 19 mmHg and a mean gradient of 9 mmHg. Mild aortic regurgitation. Tricuspid Valve S/P TV repair. Moderate tricuspid regurgitation. Pulmonic Valve Structurally normal pulmonic valve. Mild pulmonic regurgitation. Pericardium No pericardial effusion. Aorta Normal size aortic root and proximal ascending aorta. CONCLUSIONS Left ventricular ejection fraction 50-55% Moderate increased left ventricular wall thickness RVSP 56 Mild to moderate right ventricular dilation Moderate biatrial enlargement Moderate mitral regurgitation Mild aortic stenosis Moderate tricuspid regurgitation Previewed by: Dr. Rene Jaeger DO (Electronically Signed) Final Date: 27 April 2024 17:18
[2024-04-28 07:21] LABS: African American GFR (CKD) 51 (>60 ml/min/1.73 sqM); Anion Gap 10 mmol/L; Blood Urea Nitrogen 23 mg/dL (9-20); Calcium 9.4 mg/dL (8.4-10.2); Carbon Dioxide 22 mmol/L (22-30); Chloride 102 mmol/L (98-107); Glucose 97 mg/dL (74-99); Non-African American GFR(CKD) 44 (>60 ml/min/1.73 sqM); Potassium 4.4 mmol/L (3.5-5.1); Sodium 134 mmol/L (137-145)
[2024-04-28 12:07] VITALS: RESP 18
[2024-04-28 12:15] LABS: Anisocytosis Marked; HCT 27.8 % (39.0-53.0); HGB 8.8 gm/dL (13.0-17.5); Hypochromasia Moderate; MCH 33.5 pg (25.0-35.0); MCHC 31.7 g/dL (31.0-37.0); MCV 105.5 fL (80.0-100.0); Mean Platelet Volume 9.8; Platelet Count 337 k/uL (150-450); Poikilocytosis Slight; RBC 2.63 m/uL (4.30-5.90); RDW 24.4 % (11.5-15.5); WBC 6.4 k/uL (3.8-10.6)
[2024-04-28 12:17] LABS: Macrocytosis Marked
--- NOTE | 2024-04-28 12:43 | P.PN ---
Subjective patient is seen for follow-up for acute kidney injury. Renal function has improved with stabilization of blood pressure. urine output not charted. Serum creatinine decreased to 1.4 today. Objective - Vital Signs Vital signs: Vital Signs Temp 97.9 F 04/28/24 08:00 Pulse 65 04/28/24 12:00 Resp 18 04/28/24 12:00 BP 142/79 04/28/24 12:00 Pulse Ox 97 04/28/24 12:00 FiO2 Intake & Output 04/27/24 04/28/24 04/28/24 18:59 06:59 18:59 Intake Total 478 200 Balance 478 200 Weight 60.4 kg Intake: Oral 478 200 Other: Voiding Method Urinal # Voids 2 4 - Exam Patient is awake, comfortable, no acute distress. Examination of the heart S1 and S2 Examination of the lungs bilateral breath sounds are heard Abdomen is soft nontender Examination of lower extremities shows no significant edema [employer]AIL [employer]NAGER [employer] exam grossly intact - Labs CBC & Chem 7: 04/28/24 06:48 04/28/24 06:50 Labs: Abnormal Lab Results - Last 24 Hours (Table) 04/28/24 04/28/24 Range/Units 06:48 06:50 RBC 2.63 L (4.30-5.90) m/uL Hgb 8.8 L (13.0-17.5) gm/dL Hct 27.8 L (39.0-53.0) % MCV 105.5 H (80.0-100.0) fL RDW 24.4 H (11.5-15.5) % Macrocytosis Marked A Sodium 134 L (137-145) mmol/L BUN 23 H (9-20) mg/dL Creatinine 1.49 H (0.66-1.25) mg/dL Microbiology - Last 24 Hours (Table) 04/26/24 08:43 Urine Culture - Final Urine,Voided Assessment and Plan Assessment: 1. Acute kidney injury secondary to significant change in blood pressure and hypotension. improved.. Patient had ultrasound of the kidneys in August 2023 in [place] which was unremarkable. 2. Hematuria with underlying history of BPH in the setting of use of Eliquis. UA is suggestive of UTI 3. Myelofibrosis 4. A-fib with RVR, currently with controlled ventricular response 5. Uncontrolled hypertension on admission with significant drop in blood pressure, currently stable Plan: patient is stable for discharge from nephrology standpoint. maintain adequate oral intake Follow-up as outpatient
[2024-04-28 17:08] VITALS: BP 143/78; PULSE 75; TEMP 98.3
[2024-04-28] MEDS ORDERED: APIXABAN 2.5 MG TABLET PO SCH (21:00)
--- NOTE | 2024-04-29 02:16 | P.DS ---
Providers Date of admission: 04/26/24 12:50 Attending physician: Narciso Molina Consults: 04/26/24 14:09 Consult Physician Urgent Consulting Provider: Chuy Castro Consult Reason/Comments: Elevated troponin Do you want consulting provider notified?: Yes 04/27/24 11:12 Consult Physician Routine Consulting Provider: Mima Beasley Consult Reason/Comments: marcelino Do you want consulting provider notified?: Yes Primary care physician: [facility] Course: Diagnoses: - Hematuria thought secondary to acute urinary tract infection, other possibilities need to be ruled out - A-fib and RVR on Eliquis - Hypertension urgency, hypoxia stable upon discharge - CKD stage III - Myelofibrosis - Anemia, currently hemoglobin stable at baseline -hyperlipidemia Hospital course: This is a pleasant 78 years old male who presents with hematuria and has been treated with ceftriaxone. His hematuria improved and upon discharge he and his confirmed the urine is yellow. Patient denies any suprapubic pain or flank tenderness other possibilities are explained for the patient and need to rule out, recommended urology evaluation however patient and declined to see urologist, confirms to me she wants to go home and she will call for appointments as instructed with Dr. Benitez in 1 week. Risk of hematuria explained to the patient and including but not limited risk of cancer, renal stone or AV malformation versus others Patient also with no fever or leukocytosis. Also patient creatinine went up to 1.8 yesterday, nephrology consult was obtained, his creatinine improved with gentle hydration normal saline at 50 mL/h down to 1.4 patient with no symptoms and he is cleared by health safety and environment manager for discharge. On the day of discharge patient denies any new complaint no chest pain or dy spnea no suprapubic pain or tenderness Problems and management plan were discussed with the patient and he verbalized understanding and acceptance Patient was found stable and can be discharged home in guarded prognosis however he needs follow-up as an outpatient. Patient was instructed to follow up with PCP Dr. Cain within one week and patient agrees Patient was instructed to follow-up with health safety and environment manager Dr. Beasley in 1 [address] Coleman in 1 to 2 weeks after discharge. Patient agrees Physical exam Gen: patient is a AAOx3, no distress CVS: S1-S2, RRR, no murmur Lungs: B/L CTA, no wheezing Abdomen: soft, no distention, no tenderness, positive bowel sounds Extremity: no leg edema or induration Time spent more than 35 minutes Addendum: . Patient confirmed with the patient and at bedside both states that his urine is yellow today and no more hematuria which is stopped. Hemoglobin stable at 8.8. Patient with no symptoms like dysuria flank pain or suprapubic pain, no other symptoms of dizziness or palpitation. Patient ceftriaxone can be discontinued as he finishes treatment for his acute urinary tract infection. I have lengthy discussion with the patient and about the importance of urological evaluation, it looks like they agreeable but they want to do it as an outpatient they do not want to wait for urologist evaluation in the hospital especially his hematuria has resolved. The asked for the contact information for Dr. Coleman and his colleagues which is provided for them in the discharge summary. Risk including but not limited to cancer, stone or AV malformation and others are explained to the and he verbalized understanding and acceptance. Frit Coater also evaluated the patient for elevated troponin, coronary artery disease was ruled out. Echocardiogram is requested showing preserved ejection fraction. With moderate mitral regurgitation and tricuspid regurgitation. Patient with no other cardiac symptoms like chest pain or dyspnea. Other than that patient is eager to go home. also want him to be discharged today. Patient was cleared for discharge by health safety and environment manager Cardiology team : Plan - Discharge Summary Discharge Rx Participant: No New Discharge Prescriptions: Continue Atorvastatin Calcium [Lipitor] 20 mg PO HS traZODone HCL [Desyrel] 75 mg PO HS Cholecalciferol [Vitamin D3 (125 Mcg = 5000 Iu)] 125 mcg PO DAILY Apixaban [Eliquis] 5 mg PO BID Acyclovir [Zovirax] 400 mg PO BID danazoL [Danazol] 200 mg PO BID Cyanocobalamin (Vitamin B-12) [Vitamin B-12] 1,000 mcg PO DAILY Metoprolol Tartrate [Lopressor] 50 mg PO BID amLODIPine [Norvasc] 5 mg PO DAILY Momelotinib Dihydrochloride [Ojjaara] 200 mg PO HS ALPRAZolam [Xanax] 0.25 mg PO BID PRN PRN Reason: Anxiety Thiamine [Vitamin B-1] 100 mg PO HS HYDROcodone/APAP 5-325MG [[place] 5-325] 1 tab PO Q6HR PRN PRN Reason: Pain Discontinued Furosemide [Lasix] 20 mg PO DAILY Discharge Medication List Atorvastatin Calcium [Lipitor] 20 mg PO HS 11/05/16 [History] Cyanocobalamin (Vitamin B-12) [Vitamin B-12] 1,000 mcg PO DAILY 04/08/21 [History] Cholecalciferol [Vitamin D3 (125 Mcg = 5000 Iu)] 125 mcg PO DAILY 07/05/21 [History] traZODone HCL [Desyrel] 75 mg PO HS 07/05/21 [History] ALPRAZolam [Xanax] 0.25 mg PO BID PRN 10/27/23 [History] Acyclovir [Zovirax] 400 mg PO BID 10/27/23 [History] Apixaban [Eliquis] 5 mg PO BID 10/27/23 [History] Metoprolol Tartrate [Lopressor] 50 mg PO BID 10/27/23 [History] Momelotinib Dihydrochloride [Ojjaara] 200 mg PO HS 10/27/23 [History] amLODIPine [Norvasc] 5 mg PO DAILY 10/27/23 [History] danazoL [Danazol] 200 mg PO BID 10/27/23 [History] Thiamine [Vitamin B-1] 100 mg PO HS 03/29/24 [History] HYDROcodone/APAP 5-325MG [[place] 5-325] 1 tab PO Q6HR PRN 04/26/24 [History] Follow up Appointment(s)/Referral(s): Narciso Molina MD [Primary Care Provider] - 1-2 days [facility] [NON-STAFF] - Hudson Coleman MD [STAFF PHYSICIAN] - 1 Week (urologist ) Mima Beasley MD [STAFF PHYSICIAN] - 10 Days Patient Instructions/Handouts: Urinary Tract Infection in Men (DC) Discharge/Stand Alone Forms: Who Do I Call? Discharge Disposition: HOME WITH HOME HEALTH SERVICES
--- NOTE | 2024-05-10 16:00 | CDI ---
Documentation Clarification Form Date: 05/10/2024 03:37:56 PM From: Freda Balderas Phone: Admit Date: 04/26/2024 12:50:00 PM Patient Name: Young Wu Visit Number: [id number] Discharge Date: 04/28/2024 06:46:00 PM ATTENTION: The Clinical Documentation Specialists (CDI) and [facility] Coding Staff appreciate your assistance in clarifying documentation. Please respond to the clarification below the line at the bottom and electronically sign. The CDI & [facility] Coding staff will review the response and follow-up if needed. Please note: Queries are made part of the Legal Health Record. If you have any questions, please contact the author of this message via ITS. Doctor/Provider: Narciso Molina Myocardial injury without acute ischemia secondary to hypertensive emergencyper Consult 04/27 Type IIbmyocardial infarctionwith hypoperfusion per H&P Clarification of the type of OK is requested Patient History/Risk Factors: 78yo M, Hematuriad/t UTI, CAD, permA fib, HTN w urgency, myelofibrosis, anemia, HLD Clinical Indicators: Troponin: 0.095 04/27 0.126- 0.145 EKG Results: Atrial fibrillation. Ventricular rate 89 bpm, QRS duration 103 ms, QTc 412 ms. Elevated troponin:With nosign and symptom of EKG change consistent with any OK, thiscould betype IIbmyocardial infarctionwith hypoperfusion continue to watch troponin, cardiology consultation repeat CK troponin and BNP in the morning. Treatment: Continue to watch troponin, cardiology consultation repeat CK troponin and BNP in the morning. Please clarify the etiology of the myocardial injury, if known: [xx ] Myocardial injury without acute ischemia [ ] Type 2 OK due to CHF [ ] Type 2 OK due to other (please specify ) [ ] Unable to determine [ ] Other Condition, please specify (Template Last Revised: September 2020) MTDD
== END 2024-04-28 18:46 | disposition home health service (06) | DRG 690 ==
LOC: EC 08:05 → 3SCARD 12:50
PROVIDERS: ADMIT Internal Medicine Geriatric Medicine; ATTEND Internal Medicine Geriatric Medicine
DX: N39.0 Urinary tract infection, site not specified (principal); I16.1 Hypertensive emergency; I5A Non-ischemic myocardial injury (non-traumatic); D75.81 Myelofibrosis; I42.8 Other cardiomyopathies; I48.21 Permanent atrial fibrillation; I13.0 Hypertensive heart and chronic kidney disease with heart failure and stage 1 through stage 4 chronic kidney disease, or unspecified chronic kidney disease; I50.22 Chronic systolic (congestive) heart failure; N17.9 Acute kidney failure, unspecified; D46.9 Myelodysplastic syndrome, unspecified; N18.30 Chronic kidney disease, stage 3 unspecified; J44.9 Chronic obstructive pulmonary disease, unspecified; D63.1 Anemia in chronic kidney disease; I69.319 Unspecified symptoms and signs involving cognitive functions following cerebral infarction; Z95.3 Presence of xenogenic heart valve; E78.5 Hyperlipidemia, unspecified; I95.9 Hypotension, unspecified; N40.0 Benign prostatic hyperplasia without lower urinary tract symptoms; I25.10 Atherosclerotic heart disease of native coronary artery without angina pectoris; R09.02 Hypoxemia; R31.9 Hematuria, unspecified; Z79.01 Long term (current) use of anticoagulants; Z95.818 Presence of other cardiac implants and grafts; Z87.891 Personal history of nicotine dependence; Z79.899 Other long term (current) drug therapy; Z87.440 Personal history of urinary (tract) infections
CPT/HCPCS: 36415; 71046; 80048; 80053; 81001; 83605; 83735; 83880; 84484; 85025; 85027; 85610; 85730; 87086; 87636; 93005; 93306; 96374; 96375; 96376; 99285

== ENCOUNTER 2024-06-03 12:06 | Emergency (ER) | payer MEDICARE ==
[2024-06-03] MEDS: METOCLOPRAMIDE 5 MG/ML 2 ML VIAL IVP STA (13:40)
[2024-06-03] MEDS: diphenhydrAMINE 50 MG/ML 1 ML VIAL IVP STA (13:41)
[2024-06-03] MEDS: ACETAMINOPHEN IV (For NPO) 1,000 MG in EMPTY BAG 1 BAG IVPB ONE (13:41)
--- NOTE | 2024-06-03 14:01 | ED ---
Headache HPI - General Chief Complaint: Headache Stated Complaint: Headache Time Seen by Provider: 06/03/24 12:20 Mode of arrival: wheelchair Limitations: no limitations - History of Present Illness Initial Comments: 79-year-old male who presents emergency department with a headache. is at bedside and provides majority the history. States that the patient is on palliative care for his myeloproliferative disorder. He does have frequent headaches for which he takes Tylenol at home. took his vitals and found that his blood pressure was high. She thought that this was contributing to his headache. She called the palliative care nurse for assistance with controlling his blood pressure however but was not provided with much in regards to recommendations. They did recommend that the patient come to the hospital for evaluation. also reports that he has had return of his hematuria. This was seen previously when the patient was hospitalized. He was placed on antibiotics and this cleared up. With the return of the hematuria the was concerned that maybe the urinary tract infection had come back. He is not complaining of any dysuria. No fevers. Patient is not currently on any antibiotics. He does take Eliquis. Denies any black or bloody stools. Previous imaging had demonstrated need for cystoscopy which the states that they have outpatient follow-up coming up with urology. Patient denies any abdominal pain. No visual changes. No lateralizing weakness. No change in his mental status. No other alleviating, precipitating or modifying factors - Related Data Home Medications Medication Instructions Recorded Confirmed Atorvastatin Calcium [Lipitor] 20 mg PO HS 11/05/16 04/26/24 Cyanocobalamin (Vitamin B-12) 1,000 mcg PO DAILY 04/08/21 04/26/24 [Vitamin B-12] Cholecalciferol [Vitamin D3 (125 125 mcg PO DAILY 07/05/21 04/26/24 Mcg = 5000 Iu)] traZODone HCL [Desyrel] 75 mg PO HS 07/05/21 04/26/24 ALPRAZolam [Xanax] 0.25 mg PO BID PRN 10/27/23 04/26/24 Acyclovir [Zovirax] 400 mg PO BID 10/27/23 04/26/24 Apixaban [Eliquis] 5 mg PO BID 10/27/23 04/26/24 Metoprolol Tartrate [Lopressor] 50 mg PO BID 10/27/23 04/26/24 Momelotinib Dihydrochloride 200 mg PO HS 10/27/23 04/26/24 [Ojjaara] amLODIPine [Norvasc] 5 mg PO DAILY 10/27/23 04/26/24 danazoL [Danazol] 200 mg PO BID 10/27/23 04/26/24 Thiamine [Vitamin B-1] 100 mg PO HS 03/29/24 04/26/24 HYDROcodone/APAP 5-325MG [[place] 1 tab PO Q6HR PRN 04/26/24 04/26/24 5-325] Allergies Allergy/AdvReac Type Severity Reaction Status Date / Time No Known Allergies Allergy Verified 06/03/24 12:13 Review of Systems ROS Statement: Those systems with pertinent positive or pertinent negative responses have been documented in the HPI. ROS Other: All systems not noted in ROS Statement are negative. 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 HEART VALVE REPAIR Past Anesthesia/Blood Transfusion Reactions: No Reported Reaction Past Psychological History: No Psychological Hx Reported Smoking Status: Former smoker Past Alcohol Use History: Daily Past Drug Use History: None Reported - Past Family History Father Sister(s) Family Medical History: Cancer Father Family Medical History: Cancer Additional Family Medical History / Comment(s): PROSTATE Sister(s) Family Medical History: Cancer Brother(s) Family Medical History: Cancer Additional Family Medical History / Comment(s): PROSTATE General Exam Limitations: no limitations General appearance: alert, in no apparent distress Head exam: Present: atraumatic, normocephalic, normal inspection Eye exam: Present: normal appearance, PERRL, EOMI. Absent: scleral icterus, conjunctival injection, periorbital swelling ENT exam: Present: normal exam, mucous membranes moist Neck exam: Present: normal inspection. Absent: tenderness, meningismus, lymphadenopathy Respiratory exam: Present: normal lung sounds bilaterally. Absent: respiratory distress, wheezes, rales, rhonchi, stridor Cardiovascular Exam: Present: regular rate, normal rhythm, normal heart sounds. Absent: systolic murmur, diastolic murmur, rubs, gallop, clicks GI/Abdominal exam: Present: soft, normal bowel sounds. Absent: distended, tenderness, guarding, rebound, rigid Extremities exam: Present: normal inspection, full ROM, normal capillary refill. Absent: tenderness, pedal edema, joint swelling, calf tenderness Back exam: Present: normal inspection Neurological exam: Present: alert, oriented X3, CN II-XII intact Psychiatric exam: Present: normal affect, normal mood Skin exam: Present: warm, dry, intact, normal color. Absent: rash Course Vital Signs 06/03/24 06/03/24 06/03/24 12:14 15:30 16:27 Temperature 98.3 F 98.3 F Pulse Rate 92 74 79 Respiratory 18 18 16 Rate Blood Pressure 165/95 161/89 156/84 O2 Sat by Pulse 95 96 97 Oximetry 06/03/24 06/03/24 17:02 17:33 Temperature 98.4 F Pulse Rate 76 82 Respiratory 18 16 Rate Blood Pressure 151/71 O2 Sat by Pulse 95 95 Oximetry Medical Decision Making - Medical Decision Making Was pt. sent in by a medical professional or institution ([facility], STATIONARY ENGINEER APPRENTICE, urgent ca re, hospital, or skilled nursing...) When possible be specific @ -No Did you speak to anyone other than the patient for history (EMS, parent, family, police, friend...)? What history was obtained from this source @ -Spoke with for history Did you review nursing and triage notes (agree or disagree)? Why? @ -I reviewed and agree with nursing and triage notes Were old charts reviewed (outside hosp., previous admission, EMS record, old EKG, old radiological studies, urgent care reports/EKG's, skilled nursing records)? Report findings @ -I reviewed recent discharge summary Differential Diagnosis (chest pain, altered mental status, abdominal pain women, abdominal pain men, vaginal bleeding, weakness, fever, dyspnea, syncope, headache, dizziness, GI bleed, back pain, seizure, CVA, palpatations, mental health, musculoskeletal)? @ -MDM differential cephalgia EKG interpreted by me (3pts min.). @ -Yes and demonstrates A-fib with a rate of 86. QRS 107. QTc of 429. No acute ST segment elevations. ST depression inferior leads. X-rays interpreted by me (1pt min.). @ -None done CT interpreted by me (1pt min.). @ -None done U/S interpreted by me (1pt. min.). @ -None done What testing was considered but not performed or refused? (CT, X-rays, U/S, labs)? Why? @ -CT brain was considered however states that migraines are recurrent for him What meds were considered but not given or refused? Why? @ -I did consider blood pressure medications however his blood pressure does im prove on its own Did you discuss the management of the patient with other professionals (professionals i.e. , PA, STATIONARY ENGINEER APPRENTICE, lab, RT, psych nurse, manager social media, freight and passenger agent, teacher, command and control officer, case management manager)? Give summary @ -No Was smoking cessation discussed for >3mins.? @ -No Was critical care preformed (if so, how long)? @ -No Were there social determinants of health that impacted care today? How? (Homelessness, low income, unemployed, alcoholism, drug addiction, transportation, low edu. Level, literacy, decrease access to med. care, fdc, rehab)? @ -No Was there de-escalation of care discussed even if they declined (Discuss DNR or withdrawal of care, Hospice)? DNR status @ -No What co-morbidities impacted this encounter? (DM, HTN, Smoking, COPD, CAD, Cancer, CVA, ARF, Chemo, Hep., AIDS, mental health diagnosis, sleep apnea, morbid obesity)? @ -Myeloproliferative disorder Was patient admitted / discharged? Hospital course, mention meds given and route, prescriptions, significant lab abnormalities, going to OR and other pertinent info. @ -Upon arrival patient seen and evaluated in room 9. Thorough history and physical exam was performed. IV access was established and laboratory studies were conducted. Urinalysis was performed which does demonstrate hematuria ho wever no bacteria. It is sent for urine culture. I do not feel that antibiotics are warranted at this time. I did give the patient Reglan and Benadryl for his headache. He also is given acetaminophen. I reevaluated him and he continues to have a headache. states he typically responds better to morphine for which I did provide him with a dose and patient feels improved. At this time I did discuss the diagnosis, differential and treatment options. Patient's blood pressure has improved on its own without any treatment. Patient will continue his home blood pressure medications. is going to call the palliative care doctor and see what she wants in regards to blood pressure med ications. He needs to follow-up with urology as I do have high concern for malignancy due to his continued hematuria. understood this and was agreeable. Patient discharged home in stable condition Undiagnosed new problem with uncertain prognosis? @ -No Drug Therapy requiring intensive monitoring for toxicity (Heparin, Nitro, Insulin, Cardizem)? @ -No Were any procedures done? @ -No Diagnosis/symptom? @ -Accelerated hypertension, acute cephalgia, acute hematuria Acute, or Chronic, or Acute on Chronic? @ -Acute on chronic Uncomplicated (without systemic symptoms) or Complicated (systemic symptoms)? @ -Complicated Side effects of treatment? @ -No Exacerbation, Progression, or Severe Exacerbation? @ -Yes Poses a threat to life or bodily function? How? (Chest pain, [place], [place], pneumonia, PE, COPD, DKA, ARF, appy, cholecystitis, CVA, Diverticulitis, Homicidal, Suicidal, threat to staff... and all critical care pts) @ -No - Lab Data Result diagrams: 06/03/24 13:30 06/03/24 13:30 Lab Results 06/03/24 06/03/24 06/03/24 Range/Units 13:30 13:30 13:30 WBC 9.6 (3.8-10.6) k/uL RBC 3.16 L (4.30-5.90) m/uL Hgb 10.1 L (13.0-17.5) gm/dL Hct 32.8 L (39.0-53.0) % MCV 103.6 H (80.0-100.0) fL MCH 32.0 (25.0-35.0) pg MCHC 30.9 L (31.0-37.0) g/dL RDW 21.8 H (11.5-15.5) % Plt Count 622 H (150-450) k/uL MPV 8.4 Neutrophils % (Manual) 68 % Band Neuts % (Manual) 12 % Lymphocytes % (Manual) 10 % Monocytes % (Manual) 8 % Eosinophils % (Manual) 3 % Metamyelocytes % 1 % Neutrophils # (Manual) 7.60 (1.3-7.7) k/uL Lymphocytes # (Manual) 0.96 L (1.0-4.8) k/uL Monocytes # (Manual) 0.77 (0-1.0) k/uL Eosinophils # (Manual) 0.29 (0-0.7) k/uL Metamyelocytes # (Man) 0.10 H (0) k/uL Nucleated RBCs 2 H (0-0) /100 WBC Manual Slide Review Performed Polychromasia Present Hypochromasia Moderate Poikilocytosis Slight Poikilocytosis (manual Present Anisocytosis Moderate Anisocytosis (manual) Present Macrocytosis Marked A ESR 37 H (0-20) mm/Hr Sodium 142 (137-145) mmol/L Potassium 4.3 (3.5-5.1) mmol/L Chloride 108 H (98-107) mmol/L Carbon Dioxide 20 L (22-30) mmol/L Anion Gap 14 mmol/L BUN 25 H (9-20) mg/dL Creatinine 1.18 (0.66-1.25) mg/dL Est GFR (CKD-EPI)AfAm 68 (>60 ml/min/1.73 sqM) Est GFR (CKD-EPI)NonAf 58 (>60 ml/min/1.73 sqM) Glucose 133 H (74-99) mg/dL Plasma Lactic Acid [place] 1.0 (0.7-2.0) mmol/L Calcium 10.0 (8.4-10.2) mg/dL Total Bilirubin 3.5 H (0.2-1.3) mg/dL AST 117 H (17-59) U/L ALT 45 (4-49) U/L Alkaline Phosphatase 73 (38-126) U/L Total Protein 8.2 (6.3-8.2) g/dL Albumin 5.3 H (3.5-5.0) g/dL TSH 3.640 (0.465-4.680) mIU/L Urine Color Urine Appearance (Clear) Urine pH (5.0-8.0) Ur Specific [place] (1.001-1.035) Urine Protein (Negative) Urine Glucose (UA) (Negative) Urine Ketones (Negative) Urine Blood (Negative) Urine Nitrite (Negative) Urine Bilirubin (Negative) Urine Urobilinogen (<2.0) mg/dL Ur Leukocyte Esterase (Negative) Urine RBC (0-5) /hpf Urine WBC (0-5) /hpf Ur Squamous Epith Cells (0-4) /hpf Amorphous Sediment (None) /hpf Urine Mucus (None) /hpf 06/03/ Range/Units 13:30 WBC (3.8-10.6) k/uL RBC (4.30-5.90) m/uL Hgb (13.0-17.5) gm/dL Hct (39.0-53.0) % MCV (80.0-100.0) fL MCH (25.0-35.0) pg MCHC (31.0-37.0) g/dL RDW (11.5-15.5) % Plt Count (150-450) k/uL MPV Neutrophils % (Manual) % Band Neuts % (Manual) % Lymphocytes % (Manual) % Monocytes % (Manual) % Eosinophils % (Manual) % Metamyelocytes % % Neutrophils # (Manual) (1.3-7.7) k/uL Lymphocytes # (Manual) (1.0-4.8) k/uL Monocytes # (Manual) (0-1.0) k/uL Eosinophils # (Manual) (0-0.7) k/uL Metamyelocytes # (Man) (0) k/uL Nucleated RBCs (0-0) /100 WBC Manual Slide Review Polychromasia Hypochromasia Poikilocytosis Poikilocytosis (manual Anisocytosis Anisocytosis (manual) Macrocytosis ESR (0-20) mm/Hr Sodium (137-145) mmol/L Potassium (3.5-5.1) mmol/L Chloride (98-107) mmol/L Carbon Dioxide (22-30) mmol/L Anion Gap mmol/L BUN (9-20) mg/dL Creatinine (0.66-1.25) mg/dL Est GFR (CKD-EPI)AfAm (>60 ml/min/1.73 sqM) Est GFR (CKD-EPI)NonAf (>60 ml/min/1.73 sqM) Glucose (74-99) mg/dL Plasma Lactic Acid [place] (0.7-2.0) mmol/L Calcium (8.4-10.2) mg/dL Total Bilirubin (0.2-1.3) mg/dL AST (17-59) U/L ALT (4-49) U/L Alkaline Phosphatase (38-126) U/L Total Protein (6.3-8.2) g/dL Albumin (3.5-5.0) g/dL TSH (0.465-4.680) mIU/L Urine Color Red Urine Appearance Cloudy (Clear) Urine pH 6.0 (5.0-8.0) Ur Specific [place] 1.014 (1.001-1.035) Urine Protein 2+ H (Negative) Urine Glucose (UA) 2+ H (Negative) Urine Ketones Trace H (Negative) Urine Blood Large H (Negative) Urine Nitrite Negative (Negative) Urine Bilirubin Negative (Negative) Urine Urobilinogen <2.0 (<2.0) mg/dL Ur Leukocyte Esterase Negative (Negative) Urine RBC 1 (0-5) /hpf Urine WBC 2 (0-5) /hpf Ur Squamous Epith Cells 1 (0-4) /hpf Amorphous Sediment Occasional H (None) /hpf Urine Mucus Rare H (None) /hpf Disposition Clinical Impression: Cephalgia, Accelerated hypertension, Hematuria Disposition: HOME SELF-CARE Condition: Stable Instructions (If sedation given, give patient instructions): Hypertension (ED) Additional Instructions: Please call the urologist to notify them that you need a sooner appointment for your blood in urine. I recommend that you take 75 mg of metoprolol per dose to help control your blood pressure. Follow-up with your palliative care doctor to ensure that these changes are in agreement with her management. Return for any new or worsening symptoms Is patient prescribed a controlled substance at d/c from ED?: No Referrals: Narciso Molina MD [Primary Care Provider] - 1-2 days Time of Disposition: 15:56
[2024-06-03 14:26] LABS: ALT 45 U/L (4-49); AST 117 U/L (17-59); African American GFR (CKD) 68 (>60 ml/min/1.73 sqM); Albumin 5.3 g/dL (3.5-5.0); Alkaline Phosphatase 73 U/L (38-126); Anion Gap 14 mmol/L; Blood Urea Nitrogen 25 mg/dL (9-20); Carbon Dioxide 20 mmol/L (22-30); Chloride 108 mmol/L (98-107); Glucose 133 mg/dL (74-99); Non-African American GFR(CKD) 58 (>60 ml/min/1.73 sqM); Potassium 4.3 mmol/L (3.5-5.1); Sodium 142 mmol/L (137-145); Total Bilirubin 3.5 mg/dL (0.2-1.3); Total Protein 8.2 g/dL (6.3-8.2)
[2024-06-03 14:30] LABS: Amorphous Sediment,Urine Occasional /hpf; Appearance,Urine Cloudy (Clear); Bilirubin,Urine Negative (Negative); Blood,Urine Large (Negative); Color,Urine Red; Glucose,Urine (UA) 2+ (Negative); Ketones,Urine Trace (Negative); Leukocyte Esterase,Urine Negative (Negative); Mucus,Urine Rare /hpf; Nitrite,Urine Negative (Negative); Protein,Urine 2+ (Negative); RBC,Urine 1 /hpf (0-5); Specific Gravity,Urine 1.014 (1.001-1.035); Squamous Epithelial Cell,Urine 1 /hpf (0-4); Urobilinogen,Urine <2.0 mg/dL (<2.0); WBC,Urine 2 /hpf (0-5)
[2024-06-03 14:46] LABS: Anisocytosis Moderate; HCT 32.8 % (39.0-53.0); HGB 10.1 gm/dL (13.0-17.5); Hypochromasia Moderate; MCHC 30.9 g/dL (31.0-37.0); MCV 103.6 fL (80.0-100.0); Macrocytosis Marked; Mean Platelet Volume 8.4; Platelet Count 622 k/uL (150-450); Poikilocytosis Slight; RBC 3.16 m/uL (4.30-5.90); RDW 21.8 % (11.5-15.5)
[2024-06-03 16:08] LABS: Band Neutrophils % 12 %; Eosinophils # (M) 0.29 k/uL (0-0.7); Metamyelocytes % 1 %; Neutrophils % (M) 68 %; Nucleated Red Blood Cells 2 /100 WBC (0-0); Total Cells Counted 200
[2024-06-03 16:11] LABS: Lymphocytes # (M) 0.96 k/uL (1.0-4.8); Monocytes # (M) 0.77 k/uL (0-1.0); WBC 9.6 k/uL (3.8-10.6)
[2024-06-03 16:12] LABS: Polychromasia Present
[2024-06-03 16:14] LABS: Anisocytosis (M) Present; Poikilocytosis (M) Present
[2024-06-03] MEDS: MORPHINE SULFATE 4 MG/ML SYRINGE IVP STA (16:28)
[2024-06-03 17:34] VITALS: BP 151/71; PULSE 82; RESP 16; TEMP 98.4
[2024-06-04 13:34] LABS: Erythrocyte Sedimentation Rate 37 mm/Hr (0-20)
== END 2024-06-03 17:34 | disposition home or self-care (01) ==
LOC: EC 12:06
DX: R51.9 Headache, unspecified (principal); R31.9 Hematuria, unspecified; I10 Essential (primary) hypertension; Z87.891 Personal history of nicotine dependence; Z86.73 Personal history of transient ischemic attack (TIA), and cerebral infarction without residual deficits
CPT/HCPCS: 36415; 93005; 80053; 85652; 84443; 83605; 85025; 81001; 87086; 99284; 96374; 96375; J2270; J1200; J2765; J0131

== ENCOUNTER → 2024-06-19 | Outpatient (CLI) | payer MEDICARE ==
[2024-06-19 15:57] LABS: HCT 26.7 % (39.6-50.0); MCH 31.3 pg (27.0-32.0); MCV 104.3 FL (80.0-97.0); Mean Platelet Volume 10.7 FL (9.5-12.2); NRBC Per 100 WBC 0 X 10*3/uL (0.00-0.01); Platelet Count 486 X 10*3/uL (140-440); RBC 2.56 X 10*6/uL (4.40-5.60)
[2024-06-19 16:00] LABS: ALT 42 U/L (10-49); AST 38 U/L (14-35); Albumin 4.5 g/dL (3.8-4.9); Albumin/Globulin Ratio 2.05 Ratio (1.60-3.17); Alkaline Phosphatase 177 U/L (41-126); BUN/Creat Ratio 14.29 Ratio (12.00-20.00); Calcium 9.4 mg/dL (8.7-10.3); Carbon Dioxide 21.5 mmol/L (21.6-31.8); Chloride 107 mmol/L (96-109); Chol/HDL Ratio 7.66 Ratio; Globulin 2.2 g/dL (1.6-3.3); Glucose 97 mg/dL (70-110); LDL Cholesterol,Calculated 166.9 mg/dL (0.0-131.0); Potassium 4.8 mmol/L (3.5-5.5); Prostate Specific Antigen 0.36 ng/mL (0.000-6.500); Sodium 141 mmol/L (135-145); Total Bilirubin 1.4 mg/dL (0.3-1.2); Total Protein 6.7 g/dL (6.2-8.2)
[2024-06-19 16:45] LABS: Anisocytosis (M) 2+; Basophils # (M) 0.22 X 10*3/uL (0.00-0.10); Eosinophils # (M) 0.07 X 10*3/uL (0.04-0.35); Metamyelocytes % 7 % (0-0); Monocytes # (M) 0.22 X 10*3/uL (0.20-1.00); Myelocytes % 4 % (0-0); Neutrophils # (M) 4.89 X 10*3/uL (1.80-7.70); Neutrophils % (M) 67 %
== END | disposition home or self-care (01) ==
LOC: LABWHC1 10:57
PROVIDERS: ATTEND Internal Medicine Geriatric Medicine
DX: Z13.29 Encounter for screening for other suspected endocrine disorder (principal); I50.22 Chronic systolic (congestive) heart failure; N40.0 Benign prostatic hyperplasia without lower urinary tract symptoms; E78.2 Mixed hyperlipidemia; R73.9 Hyperglycemia, unspecified
CPT/HCPCS: 36415; 80053; 80061; 83036; 84153; 84443; 85025

== ENCOUNTER → 2024-07-16 | Outpatient (CLI) | payer MEDICARE ==
[2024-07-16 22:47] LABS: HCT 23.8 % (39.6-50.0); MCH 31.7 pg (27.0-32.0); MCV 109.2 FL (80.0-97.0); Mean Platelet Volume 10.3 FL (9.5-12.2); NRBC Per 100 WBC 0.05 X 10*3/uL (0.00-0.01); Platelet Count 479 X 10*3/uL (140-440); RBC 2.18 X 10*6/uL (4.40-5.60); RDW 20.9 % (11.5-14.5); WBC 5.23 X 10*3/uL (4.50-10.00)
[2024-07-16 22:49] LABS: Acanthocytes 2+ (None Seen); Anisocytosis (M) 2+ (None Seen); Basophils # (M) 0.16 X 10*3/uL (0.00-0.10); Blast Cells # (M) 0.21 k/uL (0); Lymphocytes # (M) 1.15 X 10*3/uL (0.90-5.00); Macrocytosis (M) 2+ (None Seen); Metamyelocytes % 9 % (0-0); Microcytosis (M) 2+ (None Seen); Monocytes # (M) 0.37 X 10*3/uL (0.20-1.00); Myelocytes % 8 % (0-0); Neutrophils # (M) 2.35 X 10*3/uL (1.80-7.70); Neutrophils % (M) 45 %; Nucleated Red Blood Cells 1 /100 WBCS; Schistocytes 2+ (None Seen); Stomatocytes 2+ (None Seen); Tear Drop Cells 2+ (None Seen)
[2024-07-16 23:22] LABS: HGB 6.9 g/dL (13.0-17.0)
== END | disposition home or self-care (01) ==
LOC: LABWHC1 12:58
DX: D64.9 Anemia, unspecified (principal); D75.81 Myelofibrosis
CPT/HCPCS: 36415; 85025

== ENCOUNTER → 2024-07-26 | Outpatient (CLI) | payer MEDICARE ==
[2024-07-26 15:40] LABS: HCT 24.4 % (39.6-50.0); HGB 7.4 g/dL (13.0-17.0); MCH 31.6 pg (27.0-32.0); MCHC 30.3 g/dL (32.0-37.0); MCV 104.3 FL (80.0-97.0); Mean Platelet Volume 10.8 FL (9.5-12.2); NRBC Per 100 WBC 0.03 X 10*3/uL (0.00-0.01); Platelet Count 454 X 10*3/uL (140-440); RBC 2.34 X 10*6/uL (4.40-5.60); RDW 20.7 % (11.5-14.5); WBC 4.57 X 10*3/uL (4.50-10.00)
== END | disposition home or self-care (01) ==
LOC: LABWHC1 11:36
PROVIDERS: ATTEND Registered Nurse
DX: D64.9 Anemia, unspecified (principal); D75.81 Myelofibrosis
CPT/HCPCS: 36415; 85027

== ENCOUNTER → 2024-08-14 | Outpatient (CLI) | payer MEDICARE ==
[2024-08-14 19:19] LABS: HCT 22.1 % (39.6-50.0); HGB 6.5 g/dL (13.0-17.0); MCHC 29.4 g/dL (32.0-37.0); MCV 108.9 FL (80.0-97.0); Mean Platelet Volume 10.4 FL (9.5-12.2); Platelet Count 456 X 10*3/uL (140-440); RBC 2.03 X 10*6/uL (4.40-5.60); RDW 20.6 % (11.5-14.5); WBC 4.45 X 10*3/uL (4.50-10.00)
== END | disposition home or self-care (01) ==
LOC: LABWHC1 11:18
PROVIDERS: ATTEND General Practice
DX: D64.9 Anemia, unspecified (principal); D75.81 Myelofibrosis
CPT/HCPCS: 36415; 85027

== ENCOUNTER → 2024-09-18 | Outpatient (CLI) | payer MEDICARE ==
[2024-09-18 18:47] LABS: HCT 23.4 % (39.6-50.0); HGB 7.2 g/dL (13.0-17.0); MCH 31.7 pg (27.0-32.0); MCHC 30.8 g/dL (32.0-37.0); MCV 103.1 FL (80.0-97.0); Mean Platelet Volume 10.5 FL (9.5-12.2); NRBC Per 100 WBC 0.21 X 10*3/uL (0.00-0.01); Platelet Count 446 X 10*3/uL (140-440); RBC 2.27 X 10*6/uL (4.40-5.60); RDW 20.6 % (11.5-14.5); WBC 4.74 X 10*3/uL (4.50-10.00)
[2024-09-18 19:02] LABS: ALT 23 U/L (10-49); AST 32 U/L (14-35); Albumin 4.6 g/dL (3.8-4.9); Alkaline Phosphatase 56 U/L (41-126); Calcium 9.7 mg/dL (8.7-10.3); Carbon Dioxide 28.7 mmol/L (21.6-31.8); Chloride 100 mmol/L (96-109); Globulin 2.3 g/dL (1.6-3.3); Glucose 102 mg/dL (70-110); Potassium 4.4 mmol/L (3.5-5.5); Sodium 138 mmol/L (135-145); Total Bilirubin 0.4 mg/dL (0.3-1.2); Total Protein 6.9 g/dL (6.2-8.2)
[2024-09-18 19:45] LABS: Basophils # (M) 0.24 X 10*3/uL (0.00-0.10); Blast Cells # (M) 0.09 k/uL (0); Eosinophils # (M) 0 X 10*3/uL (0.04-0.35); Hypochromasia (M) 2+ (None Seen); Lymphocytes # (M) 1.09 X 10*3/uL (0.90-5.00); Metamyelocytes % 5 % (0-0); Monocytes # (M) 0.33 X 10*3/uL (0.20-1.00); Myelocytes % 4 % (0-0); Neutrophils # (M) 2.56 X 10*3/uL (1.80-7.70); Neutrophils % (M) 54 %; Nucleated Red Blood Cells 7 /100 WBCS; Polychromasia 2+ (None Seen)
== END | disposition home or self-care (01) ==
LOC: LABWHC1 14:46
PROVIDERS: ATTEND General Practice
DX: D64.9 Anemia, unspecified (principal); D75.81 Myelofibrosis; R53.1 Weakness
CPT/HCPCS: 36415; 80053; 85025

== ENCOUNTER → 2024-09-26 | Outpatient (CLI) | payer MEDICARE ==
[2024-09-26 16:43] LABS: HGB 6.8 g/dL (13.0-17.0); MCH 32.1 pg (27.0-32.0); MCHC 30.9 g/dL (32.0-37.0); MCV 103.8 FL (80.0-97.0); Mean Platelet Volume 9.7 FL (9.5-12.2); NRBC Per 100 WBC 0.07 X 10*3/uL (0.00-0.01); Platelet Count 404 X 10*3/uL (140-440); RBC 2.12 X 10*6/uL (4.40-5.60); RDW 20.5 % (11.5-14.5); WBC 4.18 X 10*3/uL (4.50-10.00)
[2024-09-26 16:45] LABS: Basophils # (M) 0.04 X 10*3/uL (0.00-0.10); Blast Cells # (M) 0.13 k/uL (0); Eosinophils # (M) 0.04 X 10*3/uL (0.04-0.35); Hypochromasia (M) 2+ (None Seen); Lymphocytes # (M) 1.25 X 10*3/uL (0.90-5.00); Monocytes # (M) 0.17 X 10*3/uL (0.20-1.00); Neutrophils % (M) 53 %; Nucleated Red Blood Cells 1 /100 WBCS; Polychromasia 2+ (None Seen)
[2024-09-26 16:46] LABS: Metamyelocytes % 4 % (0-0); Myelocytes % 4 % (0-0); Neutrophils # (M) 2.22 X 10*3/uL (1.80-7.70)
== END | disposition home or self-care (01) ==
LOC: LABWHC1 11:03
PROVIDERS: ATTEND Registered Nurse
DX: D64.9 Anemia, unspecified (principal); D75.81 Myelofibrosis
CPT/HCPCS: 36415; 85025

== ENCOUNTER → 2024-10-29 | Outpatient (CLI) | payer MEDICARE ==
[2024-10-29 15:47] LABS: HCT 22.6 % (39.6-50.0); MCH 31.8 pg (27.0-32.0); MCV 102.7 FL (80.0-97.0); Mean Platelet Volume 10.3 FL (9.5-12.2); NRBC Per 100 WBC 0.17 X 10*3/uL (0.00-0.01); Platelet Count 361 X 10*3/uL (140-440); RDW 19.4 % (11.5-14.5); WBC 4.13 X 10*3/uL (4.50-10.00)
== END | disposition home or self-care (01) ==
LOC: LABWHC1 10:40
PROVIDERS: ATTEND Registered Nurse
DX: D64.9 Anemia, unspecified (principal); D75.81 Myelofibrosis
CPT/HCPCS: 36415; 85027